=== PATIENT | male | born 1950 | race Caucasian/White ===

== ENCOUNTER → 2023-08-17 09:04 | Outpatient (REF) | payer MEDICARE, SELFPAY | LOC: REG 09:04 | PROVIDERS: ATTENDING PHYSICIAN Internal Medicine Hematology & Oncology; FAMILY PHYSICIAN Family Medicine | DX: C18.7 Malignant neoplasm of sigmoid colon (principal); C78.7 Secondary malignant neoplasm of liver and intrahepatic bile duct; D70.1 Agranulocytosis secondary to cancer chemotherapy; R04.0 Epistaxis; D69.6 Thrombocytopenia, unspecified; G62.0 Drug-induced polyneuropathy | CPT/HCPCS: 36415; 86850; 86900; 86901; 86920 ==

== ENCOUNTER 2023-08-19 08:23 | Outpatient (RCR) | payer MEDICARE, SELFPAY ==
[2023-08-19] VITALS (7 sets, daily range): BP systolic 116–134; BP diastolic 56–61
[2023-08-19] MEDS: TYLENOL 650 MG PO (08:56)
== END 2023-08-21 23:59 | disposition home or self-care (01) ==
LOC: OID 08:23
PROVIDERS: ATTENDING PHYSICIAN Internal Medicine Hematology & Oncology; FAMILY PHYSICIAN Family Medicine
DX: C18.7 Malignant neoplasm of sigmoid colon (principal)
CPT/HCPCS: 36415; 36430; 86850; 86900; 86901; 86920; P9016

== ENCOUNTER → 2023-08-21 12:29 | Outpatient (REF) | payer MEDICARE, SELFPAY ==
[2023-08-21 13:17] LABS: % Basophils 0.4 % (0-2); % Eosinophils 1.1 % (0-6); % Immature Granulocytes 1.7 % (0-0.5); % Lymphocytes 11.4 % (20.5-51.1); % Monocytes 9.2 % (1.7-9.3); % Neutrophils 76.2 % (42.2-75.2); Absolute Eosinophils 0.1 10^3/uL (0-0.7); Absolute Immature Granulocytes 0.2 10^3/uL (0-0.05); Absolute Monocytes 0.8 10^3/uL (0.1-0.6); Absolute Neutrophils 6.9 10^3/uL (1.4-6.5); Hematocrit 30.8 % (39.0-52.0); Mean Corp Hgb Conc. 32.8 g/dL (33.0-37.0); Mean Corpuscular Hgb 36.1 pg (27.0-31.0); Mean Platelet Volume 11.5 fL (7.4-10.4); Nucleated Red Blood Cells % 0 % (-); Platelet Count 71 10^3/uL (130-400); Red Cell Dist. Width 18.8 % (11.5-14.5)
[2023-08-21 13:21] LABS: Hemoglobin 10.1 g/dL (13.0-18.0)
[2023-08-21 13:42] LABS: ALT (SGPT) 31 U/L (0-50); AST (SGOT) 36 U/L (17-59); Albumin 3.6 g/dl (3.5-5.0); Alkaline Phosphatase 249 U/L (38-126); Blood Urea Nitrogen 12 mg/dl (9-20); Calcium 8.6 mg/dl (8.4-10.2); Carbon Dioxide 28 mmol/L (22-30); Chloride 107 mmol/L (98-107); Glucose 150 mg/dl (70-99); Potassium 4.7 mmol/L (3.5-5.1); Sodium 138 mmol/L (135-145); Total Bilirubin 0.7 mg/dl (0.2-1.3); Total Protein 6.5 g/dl (6.3-8.2); eGFR > 60.00
== END ==
LOC: REG 12:29
PROVIDERS: ATTENDING PHYSICIAN Internal Medicine Hematology & Oncology; FAMILY PHYSICIAN Family Medicine
DX: C18.7 Malignant neoplasm of sigmoid colon (principal); C78.7 Secondary malignant neoplasm of liver and intrahepatic bile duct; D70.1 Agranulocytosis secondary to cancer chemotherapy; R04.0 Epistaxis; D69.6 Thrombocytopenia, unspecified; G62.0 Drug-induced polyneuropathy
CPT/HCPCS: 36415; 80053; 85025

== ENCOUNTER → 2023-08-26 08:19 | Outpatient (REF) | payer MEDICARE, SELFPAY ==
[2023-08-26 09:16] LABS: % Basophils 0.4 % (0-2); % Eosinophils 2.5 % (0-6); % Immature Granulocytes 1.4 % (0-0.5); % Lymphocytes 14.1 % (20.5-51.1); % Neutrophils 71.6 % (42.2-75.2); Absolute Eosinophils 0.2 10^3/uL (0-0.7); Absolute Immature Granulocytes 0.1 10^3/uL (0-0.05); Absolute Monocytes 0.7 10^3/uL (0.1-0.6); Hematocrit 32.1 % (39.0-52.0); Hemoglobin 10.3 g/dL (13.0-18.0); Mean Corp Hgb Conc. 32.1 g/dL (33.0-37.0); Mean Corpuscular Hgb 35.4 pg (27.0-31.0); Mean Corpuscular Volume 110.3 fL (80.0-94.0); Nucleated Red Blood Cells % 0 % (-); Platelet Count 87 10^3/uL (130-400); Red Blood Cell Count 2.91 10^6/uL (4.70-6.10); Red Cell Dist. Width 17.7 % (11.5-14.5); White Blood Cell Count 6.9 10^3/uL (4.8-10.8)
[2023-08-26 10:13] LABS: ALT (SGPT) 29 U/L (0-50); AST (SGOT) 34 U/L (17-59); Albumin 3.3 g/dl (3.5-5.0); Alkaline Phosphatase 233 U/L (38-126); Blood Urea Nitrogen 13 mg/dl (9-20); Calcium 8.9 mg/dl (8.4-10.2); Carbon Dioxide 22 mmol/L (22-30); Chloride 102 mmol/L (98-107); Glucose 158 mg/dl (70-99); Potassium 3.9 mmol/L (3.5-5.1); Sodium 136 mmol/L (135-145); Total Bilirubin 0.7 mg/dl (0.2-1.3); Total Protein 6.2 g/dl (6.3-8.2); eGFR > 60.00
== END ==
LOC: REG 08:19
PROVIDERS: ATTENDING PHYSICIAN Internal Medicine Hematology & Oncology; FAMILY PHYSICIAN Family Medicine
DX: C18.7 Malignant neoplasm of sigmoid colon (principal); C78.7 Secondary malignant neoplasm of liver and intrahepatic bile duct; D70.1 Agranulocytosis secondary to cancer chemotherapy; R04.0 Epistaxis; D69.6 Thrombocytopenia, unspecified; G62.0 Drug-induced polyneuropathy; D63.0 Anemia in neoplastic disease
CPT/HCPCS: 36415; 80053; 85025; 86850; 86900; 86901

== ENCOUNTER → 2023-09-02 08:06 | Outpatient (REF) | payer MEDICARE, SELFPAY ==
[2023-09-02 08:58] LABS: % Basophils 0.6 % (0-2); % Immature Granulocytes 1.4 % (0-0.5); % Monocytes 4.5 % (1.7-9.3); % Neutrophils 82.5 % (42.2-75.2); Absolute Basophils 0.1 10^3/uL (0-0.2); Absolute Eosinophils 0.1 10^3/uL (0-0.7); Absolute Immature Granulocytes 0.1 10^3/uL (0-0.05); Absolute Lymphocytes 0.8 10^3/uL (1.2-3.4); Absolute Monocytes 0.4 10^3/uL (0.1-0.6); Absolute Neutrophils 6.6 10^3/uL (1.4-6.5); Hematocrit 28.9 % (39.0-52.0); Hemoglobin 9.3 g/dL (13.0-18.0); Mean Corp Hgb Conc. 32.2 g/dL (33.0-37.0); Mean Corpuscular Hgb 35.9 pg (27.0-31.0); Mean Corpuscular Volume 111.6 fL (80.0-94.0); Mean Platelet Volume 11.2 fL (7.4-10.4); Nucleated Red Blood Cells % 0 % (-); Platelet Count 92 10^3/uL (130-400); Red Blood Cell Count 2.59 10^6/uL (4.70-6.10)
[2023-09-02 09:22] LABS: Blood Urea Nitrogen 30 mg/dl (9-20); Iron 121 ug/dl (49-181)
[2023-09-02 09:31] LABS: Percent Saturation 42 % (20-50); Total Iron Binding Capacity 284 ug/dl (261-462)
[2023-09-02 09:32] LABS: Protein/creatinine Ratio 0.2; Urine Protein 14 mg/dl
== END ==
LOC: REG 08:06
PROVIDERS: ATTENDING PHYSICIAN Internal Medicine Hematology & Oncology; FAMILY PHYSICIAN Family Medicine
DX: C18.7 Malignant neoplasm of sigmoid colon (principal); C78.7 Secondary malignant neoplasm of liver and intrahepatic bile duct; D70.1 Agranulocytosis secondary to cancer chemotherapy; R04.0 Epistaxis; D69.6 Thrombocytopenia, unspecified; G62.0 Drug-induced polyneuropathy; D63.0 Anemia in neoplastic disease
CPT/HCPCS: 36415; 82565; 82570; 82728; 83540; 83550; 84156; 84520; 85025

== ENCOUNTER → 2023-09-09 08:11 | Outpatient (REF) | payer MEDICARE, SELFPAY ==
[2023-09-09 09:00] LABS: % Basophils 0.4 % (0-2); % Eosinophils 2.3 % (0-6); % Immature Granulocytes 0.7 % (0-0.5); % Lymphocytes 14.1 % (20.5-51.1); % Monocytes 7.9 % (1.7-9.3); % Neutrophils 74.6 % (42.2-75.2); Absolute Eosinophils 0.1 10^3/uL (0-0.7); Absolute Lymphocytes 0.8 10^3/uL (1.2-3.4); Absolute Monocytes 0.5 10^3/uL (0.1-0.6); Absolute Neutrophils 4.2 10^3/uL (1.4-6.5); Hematocrit 30.8 % (39.0-52.0); Hemoglobin 9.9 g/dL (13.0-18.0); Mean Corp Hgb Conc. 32.1 g/dL (33.0-37.0); Mean Corpuscular Hgb 36.1 pg (27.0-31.0); Mean Corpuscular Volume 112.4 fL (80.0-94.0); Mean Platelet Volume 11.9 fL (7.4-10.4); Nucleated Red Blood Cells % 0 % (-); Platelet Count 94 10^3/uL (130-400); Red Blood Cell Count 2.74 10^6/uL (4.70-6.10); Red Cell Dist. Width 17.2 % (11.5-14.5); White Blood Cell Count 5.7 10^3/uL (4.8-10.8)
[2023-09-09 09:32] LABS: ALT (SGPT) 34 U/L (0-50); AST (SGOT) 35 U/L (17-59); Albumin 3.6 g/dl (3.5-5.0); Alkaline Phosphatase 277 U/L (38-126); Blood Urea Nitrogen 16 mg/dl (9-20); Calcium 8.6 mg/dl (8.4-10.2); Carbon Dioxide 25 mmol/L (22-30); Chloride 104 mmol/L (98-107); Glucose 170 mg/dl (70-99); Potassium 3.9 mmol/L (3.5-5.1); Sodium 137 mmol/L (135-145); Total Bilirubin 0.6 mg/dl (0.2-1.3); Total Protein 6.4 g/dl (6.3-8.2); eGFR > 60.00
[2023-09-09 10:26] LABS: Folate > 20.0 ng/ml (2.76-20); Vitamin B12 > 1000 pg/ml (239-931)
== END ==
LOC: REG 08:11
PROVIDERS: ATTENDING PHYSICIAN Internal Medicine Hematology & Oncology; FAMILY PHYSICIAN Family Medicine; REFERRING PHYSICIAN Nurse Practitioner Adult Health
DX: C18.7 Malignant neoplasm of sigmoid colon (principal); C78.7 Secondary malignant neoplasm of liver and intrahepatic bile duct; D70.1 Agranulocytosis secondary to cancer chemotherapy; R04.0 Epistaxis; D69.6 Thrombocytopenia, unspecified; G62.0 Drug-induced polyneuropathy; D63.0 Anemia in neoplastic disease
CPT/HCPCS: 36415; 80053; 82607; 82746; 85025; 86850; 86900; 86901

== ENCOUNTER 2023-09-10 13:08 | Outpatient (RCR) | payer MEDICARE, SELFPAY ==
[2023-09-10 10:48] LABS: CEA 3.86 ng/ml
== END 2023-09-19 23:59 | disposition home or self-care (01) ==
LOC: OID 13:08
PROVIDERS: ATTENDING PHYSICIAN Internal Medicine Hematology & Oncology; FAMILY PHYSICIAN Family Medicine
DX: C18.7 Malignant neoplasm of sigmoid colon (principal)
CPT/HCPCS: 82378

== ENCOUNTER → 2023-09-16 07:50 | Outpatient (REF) | payer MEDICARE, SELFPAY ==
[2023-09-16 08:50] LABS: % Basophils 0.9 % (0-2); % Eosinophils 1.7 % (0-6); % Immature Granulocytes 2.6 % (0-0.5); % Lymphocytes 10.8 % (20.5-51.1); % Monocytes 4.4 % (1.7-9.3); % Neutrophils 79.6 % (42.2-75.2); Absolute Basophils 0.1 10^3/uL (0-0.2); Absolute Eosinophils 0.1 10^3/uL (0-0.7); Absolute Immature Granulocytes 0.2 10^3/uL (0-0.05); Absolute Lymphocytes 0.8 10^3/uL (1.2-3.4); Absolute Monocytes 0.3 10^3/uL (0.1-0.6); Absolute Neutrophils 6.1 10^3/uL (1.4-6.5); Hematocrit 30.4 % (39.0-52.0); Hemoglobin 9.8 g/dL (13.0-18.0); Mean Corp Hgb Conc. 32.2 g/dL (33.0-37.0); Mean Corpuscular Hgb 35.5 pg (27.0-31.0); Mean Corpuscular Volume 110.1 fL (80.0-94.0); Mean Platelet Volume 11.3 fL (7.4-10.4); Nucleated Red Blood Cells % 0 % (-); Platelet Count 85 10^3/uL (130-400); Red Blood Cell Count 2.76 10^6/uL (4.70-6.10); Red Cell Dist. Width 16.9 % (11.5-14.5); White Blood Cell Count 7.7 10^3/uL (4.8-10.8)
[2023-09-16 09:28] LABS: ALT (SGPT) 27 U/L (0-50); AST (SGOT) 26 U/L (17-59); Albumin 3.2 g/dl (3.5-5.0); Alkaline Phosphatase 245 U/L (38-126); Blood Urea Nitrogen 30 mg/dl (9-20); Calcium 8.7 mg/dl (8.4-10.2); Carbon Dioxide 26 mmol/L (22-30); Chloride 106 mmol/L (98-107); Glucose 150 mg/dl (70-99); Sodium 137 mmol/L (135-145); Total Bilirubin 0.9 mg/dl (0.2-1.3); Total Protein 6.1 g/dl (6.3-8.2); eGFR > 60.00
== END ==
LOC: REG 07:50
PROVIDERS: ATTENDING PHYSICIAN Internal Medicine Hematology & Oncology; FAMILY PHYSICIAN Family Medicine
DX: C18.7 Malignant neoplasm of sigmoid colon (principal); C78.7 Secondary malignant neoplasm of liver and intrahepatic bile duct; D70.1 Agranulocytosis secondary to cancer chemotherapy; R04.0 Epistaxis; D69.6 Thrombocytopenia, unspecified; G62.0 Drug-induced polyneuropathy; D63.0 Anemia in neoplastic disease
CPT/HCPCS: 36415; 80053; 85025; 86850; 86900; 86901

== ENCOUNTER → 2023-09-23 08:01 | Outpatient (REF) | payer MEDICARE, SELFPAY ==
[2023-09-23 08:53] LABS: % Basophils 0.5 % (0-2); % Eosinophils 1.7 % (0-6); % Immature Granulocytes 1.2 % (0-0.5); % Lymphocytes 13.7 % (20.5-51.1); % Monocytes 9.8 % (1.7-9.3); % Neutrophils 73.1 % (42.2-75.2); Absolute Eosinophils 0.1 10^3/uL (0-0.7); Absolute Immature Granulocytes 0.1 10^3/uL (0-0.05); Absolute Lymphocytes 0.8 10^3/uL (1.2-3.4); Absolute Monocytes 0.6 10^3/uL (0.1-0.6); Absolute Neutrophils 4.3 10^3/uL (1.4-6.5); Hematocrit 27.9 % (39.0-52.0); Hemoglobin 9.2 g/dL (13.0-18.0); Mean Corpuscular Hgb 36.1 pg (27.0-31.0); Mean Corpuscular Volume 109.4 fL (80.0-94.0); Mean Platelet Volume 11.1 fL (7.4-10.4); Nucleated Red Blood Cells % 0 % (-); Platelet Count 108 10^3/uL (130-400); Red Blood Cell Count 2.55 10^6/uL (4.70-6.10); Red Cell Dist. Width 17.6 % (11.5-14.5); White Blood Cell Count 5.8 10^3/uL (4.8-10.8)
[2023-09-23 09:07] LABS: ALT (SGPT) 29 U/L (0-50); AST (SGOT) 30 U/L (17-59); Albumin 3.4 g/dl (3.5-5.0); Alkaline Phosphatase 238 U/L (38-126); Blood Urea Nitrogen 11 mg/dl (9-20); Calcium 8.6 mg/dl (8.4-10.2); Carbon Dioxide 24 mmol/L (22-30); Chloride 103 mmol/L (98-107); Glucose 136 mg/dl (70-99); Potassium 3.8 mmol/L (3.5-5.1); Sodium 139 mmol/L (135-145); Total Bilirubin 0.5 mg/dl (0.2-1.3); Total Protein 6.3 g/dl (6.3-8.2); eGFR > 60.00
== END ==
LOC: REG 08:01
PROVIDERS: ATTENDING PHYSICIAN Internal Medicine Hematology & Oncology; FAMILY PHYSICIAN Family Medicine
DX: C18.7 Malignant neoplasm of sigmoid colon (principal); C78.7 Secondary malignant neoplasm of liver and intrahepatic bile duct; D70.1 Agranulocytosis secondary to cancer chemotherapy; R04.0 Epistaxis; D69.6 Thrombocytopenia, unspecified; G62.0 Drug-induced polyneuropathy; D63.0 Anemia in neoplastic disease
CPT/HCPCS: 36415; 80053; 85025

== ENCOUNTER 2023-09-26 13:18 | Outpatient (RCR) | payer MEDICARE, SELFPAY ==
[2023-09-26 11:53] LABS: Protein/creatinine Ratio 0.2; Urine Protein 14 mg/dl
[2023-10-10 12:12] LABS: % Basophils 0.3 % (0-2); % Eosinophils 0.2 % (0-6); % Immature Granulocytes 0.7 % (0-0.5); % Lymphocytes 6.6 % (20.5-51.1); % Monocytes 4.3 % (1.7-9.3); % Neutrophils 87.9 % (42.2-75.2); Absolute Lymphocytes 0.4 10^3/uL (1.2-3.4); Absolute Monocytes 0.3 10^3/uL (0.1-0.6); Absolute Neutrophils 5.1 10^3/uL (1.4-6.5); Hematocrit 28.4 % (39.0-52.0); Hemoglobin 9.2 g/dL (13.0-18.0); Mean Corp Hgb Conc. 32.4 g/dL (33.0-37.0); Mean Corpuscular Hgb 36.1 pg (27.0-31.0); Mean Corpuscular Volume 111.4 fL (80.0-94.0); Mean Platelet Volume 11.1 fL (7.4-10.4); Platelet Count 83 10^3/uL (130-400); Red Blood Cell Count 2.55 10^6/uL (4.70-6.10); Red Cell Dist. Width 17.1 % (11.5-14.5); White Blood Cell Count 5.8 10^3/uL (4.8-10.8)
[2023-10-10 12:57] LABS: Protein/creatinine Ratio 0.2; Urine Protein 18 mg/dl
== END 2023-10-20 23:59 | disposition home or self-care (01) ==
LOC: OID 13:18
PROVIDERS: ATTENDING PHYSICIAN Internal Medicine Hematology & Oncology; FAMILY PHYSICIAN Family Medicine
DX: C18.7 Malignant neoplasm of sigmoid colon (principal)
CPT/HCPCS: 82570; 84156; 85025

== ENCOUNTER → 2023-09-30 07:58 | Outpatient (REF) | payer MEDICARE, SELFPAY ==
[2023-09-30 08:35] LABS: % Eosinophils 1.4 % (0-6); % Immature Granulocytes 1.6 % (0-0.5); % Lymphocytes 12.8 % (20.5-51.1); % Monocytes 4.5 % (1.7-9.3); % Neutrophils 78.7 % (42.2-75.2); Absolute Basophils 0.1 10^3/uL (0-0.2); Absolute Eosinophils 0.1 10^3/uL (0-0.7); Absolute Immature Granulocytes 0.1 10^3/uL (0-0.05); Absolute Lymphocytes 0.6 10^3/uL (1.2-3.4); Absolute Monocytes 0.2 10^3/uL (0.1-0.6); Absolute Neutrophils 3.9 10^3/uL (1.4-6.5); Hematocrit 27.9 % (39.0-52.0); Mean Corp Hgb Conc. 32.3 g/dL (33.0-37.0); Mean Corpuscular Hgb 35.9 pg (27.0-31.0); Mean Corpuscular Volume 111.2 fL (80.0-94.0); Mean Platelet Volume 11.6 fL (7.4-10.4); Nucleated Red Blood Cells % 0 % (-); Platelet Count 73 10^3/uL (130-400); Red Blood Cell Count 2.51 10^6/uL (4.70-6.10); Red Cell Dist. Width 17.1 % (11.5-14.5); White Blood Cell Count 4.9 10^3/uL (4.8-10.8)
[2023-09-30 09:07] LABS: ALT (SGPT) 29 U/L (0-50); AST (SGOT) 24 U/L (17-59); Albumin 3.3 g/dl (3.5-5.0); Alkaline Phosphatase 219 U/L (38-126); Blood Urea Nitrogen 22 mg/dl (9-20); Calcium 8.7 mg/dl (8.4-10.2); Carbon Dioxide 26 mmol/L (22-30); Chloride 105 mmol/L (98-107); Glucose 193 mg/dl (70-99); Potassium 4.3 mmol/L (3.5-5.1); Sodium 135 mmol/L (135-145); Total Bilirubin 1.1 mg/dl (0.2-1.3); Total Protein 6.2 g/dl (6.3-8.2); eGFR > 60.00
== END ==
LOC: REG 07:58
PROVIDERS: ATTENDING PHYSICIAN Internal Medicine Hematology & Oncology; FAMILY PHYSICIAN Family Medicine
DX: C18.7 Malignant neoplasm of sigmoid colon (principal); C78.7 Secondary malignant neoplasm of liver and intrahepatic bile duct; D70.1 Agranulocytosis secondary to cancer chemotherapy; R04.0 Epistaxis; D69.6 Thrombocytopenia, unspecified; G62.0 Drug-induced polyneuropathy; D63.0 Anemia in neoplastic disease
CPT/HCPCS: 36415; 80053; 85025; 86850; 86900; 86901

== ENCOUNTER → 2023-10-07 08:30 | Outpatient (REF) | payer MEDICARE, SELFPAY ==
[2023-10-07 10:39] LABS: % Basophils 0.5 % (0-2); % Lymphocytes 15.8 % (20.5-51.1); % Monocytes 12.2 % (1.7-9.3); % Neutrophils 67.5 % (42.2-75.2); Absolute Eosinophils 0.1 10^3/uL (0-0.7); Absolute Immature Granulocytes 0.1 10^3/uL (0-0.05); Absolute Lymphocytes 0.9 10^3/uL (1.2-3.4); Absolute Monocytes 0.7 10^3/uL (0.1-0.6); Absolute Neutrophils 3.7 10^3/uL (1.4-6.5); Hematocrit 26.6 % (39.0-52.0); Hemoglobin 8.5 g/dL (13.0-18.0); Mean Corpuscular Hgb 35.9 pg (27.0-31.0); Mean Corpuscular Volume 112.2 fL (80.0-94.0); Mean Platelet Volume 11.9 fL (7.4-10.4); Nucleated Red Blood Cells % 0 % (-); Platelet Count 95 10^3/uL (130-400); Red Blood Cell Count 2.37 10^6/uL (4.70-6.10); Red Cell Dist. Width 17.9 % (11.5-14.5); White Blood Cell Count 5.5 10^3/uL (4.8-10.8)
[2023-10-07 11:07] LABS: ALT (SGPT) 30 U/L (0-50); AST (SGOT) 34 U/L (17-59); Albumin 3.3 g/dl (3.5-5.0); Alkaline Phosphatase 275 U/L (38-126); Blood Urea Nitrogen 9 mg/dl (9-20); Calcium 8.2 mg/dl (8.4-10.2); Carbon Dioxide 23 mmol/L (22-30); Chloride 106 mmol/L (98-107); Glucose 146 mg/dl (70-99); Potassium 4.3 mmol/L (3.5-5.1); Sodium 135 mmol/L (135-145); Total Bilirubin 0.6 mg/dl (0.2-1.3); Total Protein 6.1 g/dl (6.3-8.2); eGFR > 60.00
[2023-10-07 11:35] LABS: CEA 3.99 ng/ml
== END ==
LOC: REG 08:30
PROVIDERS: ATTENDING PHYSICIAN Internal Medicine Hematology & Oncology; REFERRING PHYSICIAN Nurse Practitioner Adult Health
DX: C18.7 Malignant neoplasm of sigmoid colon (principal); C78.7 Secondary malignant neoplasm of liver and intrahepatic bile duct; D70.1 Agranulocytosis secondary to cancer chemotherapy; R04.0 Epistaxis; D69.6 Thrombocytopenia, unspecified; G62.0 Drug-induced polyneuropathy; D63.0 Anemia in neoplastic disease
CPT/HCPCS: 36415; 80053; 82378; 85025; 86850; 86900; 86901

== ENCOUNTER → 2023-10-14 07:35 | Outpatient (REF) | payer MEDICARE, SELFPAY ==
[2023-10-14 08:07] LABS: % Basophils 0.8 % (0-2); % Eosinophils 2.1 % (0-6); % Immature Granulocytes 1.2 % (0-0.5); % Lymphocytes 11.9 % (20.5-51.1); % Monocytes 4.5 % (1.7-9.3); % Neutrophils 79.5 % (42.2-75.2); Absolute Eosinophils 0.1 10^3/uL (0-0.7); Absolute Immature Granulocytes 0.1 10^3/uL (0-0.05); Absolute Lymphocytes 0.6 10^3/uL (1.2-3.4); Absolute Monocytes 0.2 10^3/uL (0.1-0.6); Absolute Neutrophils 4.1 10^3/uL (1.4-6.5); Hematocrit 25.9 % (39.0-52.0); Hemoglobin 8.3 g/dL (13.0-18.0); Mean Corpuscular Hgb 36.2 pg (27.0-31.0); Mean Corpuscular Volume 113.1 fL (80.0-94.0); Mean Platelet Volume 10.5 fL (7.4-10.4); Nucleated Red Blood Cells % 0 % (-); Platelet Count 77 10^3/uL (130-400); Red Blood Cell Count 2.29 10^6/uL (4.70-6.10); White Blood Cell Count 5.1 10^3/uL (4.8-10.8)
[2023-10-14 08:31] LABS: ALT (SGPT) 28 U/L (0-50); AST (SGOT) 26 U/L (17-59); Albumin 3.2 g/dl (3.5-5.0); Alkaline Phosphatase 246 U/L (38-126); Blood Urea Nitrogen 21 mg/dl (9-20); Calcium 8.9 mg/dl (8.4-10.2); Carbon Dioxide 26 mmol/L (22-30); Chloride 107 mmol/L (98-107); Glucose 165 mg/dl (70-99); Potassium 4.6 mmol/L (3.5-5.1); Sodium 137 mmol/L (135-145); Total Bilirubin 0.8 mg/dl (0.2-1.3); eGFR > 60.00
== END ==
LOC: REG 07:35
PROVIDERS: ATTENDING PHYSICIAN Internal Medicine Hematology & Oncology; FAMILY PHYSICIAN Family Medicine
DX: C18.7 Malignant neoplasm of sigmoid colon (principal); C78.7 Secondary malignant neoplasm of liver and intrahepatic bile duct; D70.1 Agranulocytosis secondary to cancer chemotherapy; R04.0 Epistaxis; D69.6 Thrombocytopenia, unspecified
CPT/HCPCS: 36415; 80053; 85025; 86850; 86900; 86901

== ENCOUNTER → 2023-10-21 07:23 | Outpatient (REF) | payer MEDICARE, SELFPAY ==
[2023-10-21 08:27] LABS: % Basophils 0.6 % (0-2); % Eosinophils 1.2 % (0-6); % Immature Granulocytes 7.3 % (0-0.5); % Lymphocytes 17.5 % (20.5-51.1); % Neutrophils 61.4 % (42.2-75.2); Absolute Eosinophils 0.1 10^3/uL (0-0.7); Absolute Immature Granulocytes 0.4 10^3/uL (0-0.05); Absolute Lymphocytes 0.9 10^3/uL (1.2-3.4); Absolute Monocytes 0.6 10^3/uL (0.1-0.6); Absolute Neutrophils 3.1 10^3/uL (1.4-6.5); Hematocrit 27.3 % (39.0-52.0); Hemoglobin 8.7 g/dL (13.0-18.0); Mean Corp Hgb Conc. 31.9 g/dL (33.0-37.0); Mean Corpuscular Hgb 35.8 pg (27.0-31.0); Mean Corpuscular Volume 112.3 fL (80.0-94.0); Nucleated Red Blood Cells % 0 % (-); Platelet Count 104 10^3/uL (130-400); Red Blood Cell Count 2.43 10^6/uL (4.70-6.10); Red Cell Dist. Width 18.5 % (11.5-14.5); White Blood Cell Count 5.1 10^3/uL (4.8-10.8)
[2023-10-21 08:46] LABS: Glycohemoglobin (HgbA1c) 7.6 % (4.0-5.6)
[2023-10-21 09:10] LABS: ALT (SGPT) 28 U/L (0-50); AST (SGOT) 33 U/L (17-59); Albumin 3.4 g/dl (3.5-5.0); Alkaline Phosphatase 265 U/L (38-126); Blood Urea Nitrogen 14 mg/dl (9-20); Calcium 8.9 mg/dl (8.4-10.2); Carbon Dioxide 25 mmol/L (22-30); Chloride 101 mmol/L (98-107); Glucose 132 mg/dl (70-99); Potassium 3.9 mmol/L (3.5-5.1); Sodium 136 mmol/L (135-145); Total Bilirubin 0.6 mg/dl (0.2-1.3); Total Protein 6.2 g/dl (6.3-8.2); eGFR > 60.00
== END ==
LOC: REG 07:23
PROVIDERS: ATTENDING PHYSICIAN Family Medicine; FAMILY PHYSICIAN Internal Medicine Hematology & Oncology
DX: C18.7 Malignant neoplasm of sigmoid colon (principal); C78.7 Secondary malignant neoplasm of liver and intrahepatic bile duct; D70.1 Agranulocytosis secondary to cancer chemotherapy; R04.0 Epistaxis; D69.6 Thrombocytopenia, unspecified; G62.0 Drug-induced polyneuropathy; D63.0 Anemia in neoplastic disease; E11.51 Type 2 diabetes mellitus with diabetic peripheral angiopathy without gangrene
CPT/HCPCS: 36415; 80053; 83036; 85025; 86850; 86900; 86901

== ENCOUNTER 2023-10-25 09:41 | Outpatient (RCR) | payer MEDICARE, SELFPAY ==
[2023-10-24 10:55] LABS: % Basophils 0.2 % (0-2); % Eosinophils 0.3 % (0-6); % Immature Granulocytes 0.9 % (0-0.5); % Lymphocytes 7.5 % (20.5-51.1); % Monocytes 4.9 % (1.7-9.3); % Neutrophils 86.2 % (42.2-75.2); Absolute Immature Granulocytes 0.1 10^3/uL (0-0.05); Absolute Lymphocytes 0.5 10^3/uL (1.2-3.4); Absolute Monocytes 0.3 10^3/uL (0.1-0.6); Absolute Neutrophils 5.7 10^3/uL (1.4-6.5); Hemoglobin 7.6 g/dL (13.0-18.0); Mean Corp Hgb Conc. 31.7 g/dL (33.0-37.0); Mean Corpuscular Hgb 36.4 pg (27.0-31.0); Mean Corpuscular Volume 114.8 fL (80.0-94.0); Mean Platelet Volume 11.5 fL (7.4-10.4); Platelet Count 92 10^3/uL (130-400); Red Blood Cell Count 2.09 10^6/uL (4.70-6.10); Red Cell Dist. Width 18.3 % (11.5-14.5); White Blood Cell Count 6.6 10^3/uL (4.8-10.8)
[2023-10-24 12:31] LABS: Protein/creatinine Ratio 0.3; Urine Protein 13 mg/dl
[2023-10-25 09:45] VITALS: BP 137/49
[2023-10-25 10:10] VITALS: BP 137/49
[2023-10-25 10:29] VITALS: BP 113/52
[2023-10-25 13:09] VITALS: BP 126/43
== END 2023-11-19 23:59 | disposition home or self-care (01) ==
LOC: OID 09:41
PROVIDERS: ATTENDING PHYSICIAN Internal Medicine Hematology & Oncology; FAMILY PHYSICIAN Family Medicine
DX: C18.7 Malignant neoplasm of sigmoid colon (principal); C78.6 Secondary malignant neoplasm of retroperitoneum and peritoneum
CPT/HCPCS: 36415; 36430; 82570; 84156; 85025; 86850; 86900; 86901; 86920; P9016

== ENCOUNTER → 2023-10-28 07:47 | Outpatient (REF) | payer MEDICARE, SELFPAY ==
[2023-10-28 09:03] LABS: % Basophils 0.9 % (0-2); % Eosinophils 1.1 % (0-6); % Immature Granulocytes 0.7 % (0-0.5); % Monocytes 4.3 % (1.7-9.3); Absolute Basophils 0.1 10^3/uL (0-0.2); Absolute Eosinophils 0.1 10^3/uL (0-0.7); Absolute Lymphocytes 0.6 10^3/uL (1.2-3.4); Absolute Monocytes 0.2 10^3/uL (0.1-0.6); Absolute Neutrophils 4.6 10^3/uL (1.4-6.5); Hematocrit 27.4 % (39.0-52.0); Mean Corp Hgb Conc. 32.8 g/dL (33.0-37.0); Mean Corpuscular Hgb 35.4 pg (27.0-31.0); Mean Corpuscular Volume 107.9 fL (80.0-94.0); Mean Platelet Volume 11.1 fL (7.4-10.4); Nucleated Red Blood Cells % 0 % (-); Platelet Count 74 10^3/uL (130-400); Red Blood Cell Count 2.54 10^6/uL (4.70-6.10); Red Cell Dist. Width 18.8 % (11.5-14.5); White Blood Cell Count 5.6 10^3/uL (4.8-10.8)
[2023-10-28 09:32] LABS: ALT (SGPT) 29 U/L (0-50); AST (SGOT) 27 U/L (17-59); Albumin 3.2 g/dl (3.5-5.0); Alkaline Phosphatase 233 U/L (38-126); Blood Urea Nitrogen 33 mg/dl (9-20); Carbon Dioxide 23 mmol/L (22-30); Chloride 107 mmol/L (98-107); Glucose 176 mg/dl (70-99); Potassium 4.5 mmol/L (3.5-5.1); Sodium 135 mmol/L (135-145); Total Bilirubin 1.1 mg/dl (0.2-1.3); Total Protein 5.9 g/dl (6.3-8.2); eGFR > 60.00
== END ==
LOC: REG 07:47
PROVIDERS: ATTENDING PHYSICIAN Internal Medicine Hematology & Oncology
DX: C18.7 Malignant neoplasm of sigmoid colon (principal); C78.7 Secondary malignant neoplasm of liver and intrahepatic bile duct; D70.1 Agranulocytosis secondary to cancer chemotherapy; R04.0 Epistaxis; D69.6 Thrombocytopenia, unspecified; G62.0 Drug-induced polyneuropathy; D63.0 Anemia in neoplastic disease
CPT/HCPCS: 36415; 80053; 85025

== ENCOUNTER → 2023-11-04 07:25 | Outpatient (REF) | payer MEDICARE, SELFPAY ==
[2023-11-04 08:11] LABS: % Basophils 0.6 % (0-2); % Eosinophils 1.3 % (0-6); % Immature Granulocytes 2.3 % (0-0.5); % Lymphocytes 12.6 % (20.5-51.1); % Monocytes 11.3 % (1.7-9.3); % Neutrophils 71.9 % (42.2-75.2); Absolute Eosinophils 0.1 10^3/uL (0-0.7); Absolute Immature Granulocytes 0.1 10^3/uL (0-0.05); Absolute Lymphocytes 0.7 10^3/uL (1.2-3.4); Absolute Monocytes 0.6 10^3/uL (0.1-0.6); Absolute Neutrophils 3.8 10^3/uL (1.4-6.5); Hematocrit 26.8 % (39.0-52.0); Hemoglobin 9.1 g/dL (13.0-18.0); Mean Corpuscular Hgb 36.8 pg (27.0-31.0); Mean Corpuscular Volume 108.5 fL (80.0-94.0); Mean Platelet Volume 12.1 fL (7.4-10.4); Nucleated Red Blood Cells % 0 % (-); Platelet Count 110 10^3/uL (130-400); Red Blood Cell Count 2.47 10^6/uL (4.70-6.10); Red Cell Dist. Width 19.3 % (11.5-14.5); White Blood Cell Count 5.3 10^3/uL (4.8-10.8)
[2023-11-04 08:50] LABS: ALT (SGPT) 32 U/L (0-50); AST (SGOT) 33 U/L (17-59); Albumin 3.4 g/dl (3.5-5.0); Alkaline Phosphatase 288 U/L (38-126); Blood Urea Nitrogen 12 mg/dl (9-20); Calcium 8.5 mg/dl (8.4-10.2); Carbon Dioxide 22 mmol/L (22-30); Chloride 105 mmol/L (98-107); Glucose 137 mg/dl (70-99); Sodium 133 mmol/L (135-145); Total Bilirubin 0.7 mg/dl (0.2-1.3); Total Protein 6.2 g/dl (6.3-8.2); eGFR > 60.00
[2023-11-04 09:03] LABS: Protein/creatinine Ratio 0.3; Urine Protein 16 mg/dl
== END ==
LOC: REG 07:25
PROVIDERS: ATTENDING PHYSICIAN Internal Medicine Hematology & Oncology
DX: C18.7 Malignant neoplasm of sigmoid colon (principal); C78.7 Secondary malignant neoplasm of liver and intrahepatic bile duct; D70.1 Agranulocytosis secondary to cancer chemotherapy; R04.0 Epistaxis; D69.6 Thrombocytopenia, unspecified; G62.0 Drug-induced polyneuropathy; D63.0 Anemia in neoplastic disease
CPT/HCPCS: 36415; 80053; 82570; 84156; 85025; 86850; 86900; 86901

== ENCOUNTER → 2023-11-11 07:23 | Outpatient (REF) | payer MEDICARE, SELFPAY ==
[2023-11-11 08:25] LABS: Hematocrit 23.9 % (39.0-52.0); Hemoglobin 7.9 g/dL (13.0-18.0); Mean Corp Hgb Conc. 33.1 g/dL (33.0-37.0); Mean Corpuscular Hgb 37.1 pg (27.0-31.0); Mean Corpuscular Volume 112.2 fL (80.0-94.0); Mean Platelet Volume 11.3 fL (7.4-10.4); Platelet Count 64 10^3/uL (130-400); Red Blood Cell Count 2.13 10^6/uL (4.70-6.10); Red Cell Dist. Width 18.7 % (11.5-14.5); White Blood Cell Count 3.2 10^3/uL (4.8-10.8)
[2023-11-11 09:07] LABS: ALT (SGPT) 26 U/L (0-50); AST (SGOT) 22 U/L (17-59); Albumin 3.1 g/dl (3.5-5.0); Alkaline Phosphatase 225 U/L (38-126); Blood Urea Nitrogen 32 mg/dl (9-20); Calcium 8.7 mg/dl (8.4-10.2); Carbon Dioxide 23 mmol/L (22-30); Chloride 107 mmol/L (98-107); Glucose 153 mg/dl (70-99); Potassium 4.6 mmol/L (3.5-5.1); Sodium 135 mmol/L (135-145); Total Bilirubin 0.7 mg/dl (0.2-1.3); Total Protein 5.8 g/dl (6.3-8.2); eGFR > 60.00
[2023-11-11 09:15] LABS: Absolute Neutrophils -Man Diff 2.5 10^3/uL (1.4-6.5); Anisocytosis 1+; Band Neutrophils 1 % (0-3); Eosinophils 3 % (0-6); Lymphocytes 14 % (20-51); Macrocytosis 1+; Monocytes 4 % (2-9); Normal RBC Morphology No; Platelets Checked Yes; Segmented Neutrophils 78 % (42-75)
[2023-11-11 09:16] LABS: Tear Drop Red Blood Cells Slight; Total Cells Counted 100
== END ==
LOC: REG 07:23
PROVIDERS: ATTENDING PHYSICIAN Internal Medicine Hematology & Oncology; FAMILY PHYSICIAN Family Medicine
DX: C18.7 Malignant neoplasm of sigmoid colon (principal); C78.7 Secondary malignant neoplasm of liver and intrahepatic bile duct; D70.1 Agranulocytosis secondary to cancer chemotherapy; R04.0 Epistaxis; D69.6 Thrombocytopenia, unspecified; G62.0 Drug-induced polyneuropathy; D63.0 Anemia in neoplastic disease
CPT/HCPCS: 36415; 80053; 85025; 86850; 86900; 86901

== ENCOUNTER → 2023-11-18 07:02 | Outpatient (REF) | payer MEDICARE, SELFPAY ==
[2023-11-18 08:15] LABS: % Basophils 0.5 % (0-2); % Eosinophils 0.9 % (0-6); % Immature Granulocytes 2.3 % (0-0.5); % Lymphocytes 15.8 % (20.5-51.1); % Monocytes 10.7 % (1.7-9.3); % Neutrophils 69.8 % (42.2-75.2); Absolute Eosinophils 0.1 10^3/uL (0-0.7); Absolute Immature Granulocytes 0.1 10^3/uL (0-0.05); Absolute Lymphocytes 0.9 10^3/uL (1.2-3.4); Absolute Monocytes 0.6 10^3/uL (0.1-0.6); Hematocrit 25.6 % (39.0-52.0); Hemoglobin 8.2 g/dL (13.0-18.0); Mean Corpuscular Hgb 36.4 pg (27.0-31.0); Mean Corpuscular Volume 113.8 fL (80.0-94.0); Mean Platelet Volume 11.5 fL (7.4-10.4); Nucleated Red Blood Cells % 0 % (-); Platelet Count 108 10^3/uL (130-400); Red Blood Cell Count 2.25 10^6/uL (4.70-6.10); Red Cell Dist. Width 19.7 % (11.5-14.5); White Blood Cell Count 5.7 10^3/uL (4.8-10.8)
[2023-11-18 09:01] LABS: ALT (SGPT) 27 U/L (0-50); AST (SGOT) 26 U/L (17-59); Albumin 3.2 g/dl (3.5-5.0); Alkaline Phosphatase 259 U/L (38-126); Blood Urea Nitrogen 12 mg/dl (9-20); Calcium 8.6 mg/dl (8.4-10.2); Carbon Dioxide 25 mmol/L (22-30); Chloride 104 mmol/L (98-107); Glucose 122 mg/dl (70-99); Iron 124 ug/dl (49-181); Potassium 4.5 mmol/L (3.5-5.1); Sodium 134 mmol/L (135-145); Total Bilirubin 0.4 mg/dl (0.2-1.3); Total Protein 6.1 g/dl (6.3-8.2); eGFR > 60.00
[2023-11-18 09:11] LABS: Percent Saturation 45 % (20-50); Total Iron Binding Capacity 271 ug/dl (261-462)
[2023-11-18 09:12] LABS: Protein/creatinine Ratio 0.5; Urine Protein 15 mg/dl
== END ==
LOC: REG 07:02
PROVIDERS: ATTENDING PHYSICIAN Internal Medicine Hematology & Oncology; FAMILY PHYSICIAN Family Medicine
DX: C18.7 Malignant neoplasm of sigmoid colon (principal); C78.7 Secondary malignant neoplasm of liver and intrahepatic bile duct; D70.1 Agranulocytosis secondary to cancer chemotherapy; R04.0 Epistaxis; D69.6 Thrombocytopenia, unspecified; G62.0 Drug-induced polyneuropathy; D63.0 Anemia in neoplastic disease
CPT/HCPCS: 36415; 80053; 82378; 82570; 82728; 83540; 83550; 84156; 85025

== ENCOUNTER → 2023-12-02 07:22 | Outpatient (REF) | payer MEDICARE, SELFPAY ==
[2023-12-02 08:36] LABS: % Basophils 0.6 % (0-2); % Eosinophils 1.4 % (0-6); % Immature Granulocytes 2.7 % (0-0.5); % Lymphocytes 17.6 % (20.5-51.1); % Monocytes 9.2 % (1.7-9.3); % Neutrophils 68.5 % (42.2-75.2); Absolute Eosinophils 0.1 10^3/uL (0-0.7); Absolute Immature Granulocytes 0.1 10^3/uL (0-0.05); Absolute Lymphocytes 0.9 10^3/uL (1.2-3.4); Absolute Monocytes 0.5 10^3/uL (0.1-0.6); Absolute Neutrophils 3.4 10^3/uL (1.4-6.5); Hematocrit 24.6 % (39.0-52.0); Hemoglobin 7.8 g/dL (13.0-18.0); Mean Corp Hgb Conc. 31.7 g/dL (33.0-37.0); Mean Corpuscular Hgb 37.1 pg (27.0-31.0); Mean Corpuscular Volume 117.1 fL (80.0-94.0); Mean Platelet Volume 11.9 fL (7.4-10.4); Nucleated Red Blood Cells % 0 % (-); Platelet Count 101 10^3/uL (130-400); White Blood Cell Count 4.9 10^3/uL (4.8-10.8)
[2023-12-02 08:56] LABS: Urine Protein 13 mg/dl (0-12)
[2023-12-02 09:01] LABS: ALT (SGPT) 35 U/L (0-50); AST (SGOT) 45 U/L (17-59); Albumin 3.2 g/dl (3.5-5.0); Alkaline Phosphatase 280 U/L (38-126); Blood Urea Nitrogen 14 mg/dl (9-20); Calcium 8.6 mg/dl (8.4-10.2); Carbon Dioxide 23 mmol/L (22-30); Chloride 104 mmol/L (98-107); Glucose 163 mg/dl (70-99); Potassium 4.2 mmol/L (3.5-5.1); Sodium 137 mmol/L (135-145); Total Bilirubin 0.5 mg/dl (0.2-1.3); Total Protein 5.8 g/dl (6.3-8.2); eGFR > 60.00
== END ==
LOC: REG 07:22
PROVIDERS: ATTENDING PHYSICIAN Internal Medicine Hematology & Oncology; FAMILY PHYSICIAN Family Medicine
DX: C18.7 Malignant neoplasm of sigmoid colon (principal); C78.7 Secondary malignant neoplasm of liver and intrahepatic bile duct; D70.1 Agranulocytosis secondary to cancer chemotherapy; R04.0 Epistaxis; D69.6 Thrombocytopenia, unspecified; G62.0 Drug-induced polyneuropathy; D63.0 Anemia in neoplastic disease; R19.7 Diarrhea, unspecified
CPT/HCPCS: 36415; 80053; 82570; 84156; 85025

== ENCOUNTER 2023-12-14 08:21 | Outpatient (RCR) | payer MEDICARE, SELFPAY ==
[2023-12-04 11:46] VITALS: BP 138/51
[2023-12-04 12:07] VITALS: BP 111/50
[2023-12-04 13:51] VITALS: BP 112/46
[2023-12-13 09:21] LABS: % Basophils 0.9 % (0-2); % Eosinophils 1.4 % (0-6); % Immature Granulocytes 0.9 % (0-0.5); % Monocytes 11.4 % (1.7-9.3); % Neutrophils 68.4 % (42.2-75.2); Absolute Eosinophils 0.1 10^3/uL (0-0.7); Absolute Lymphocytes 0.6 10^3/uL (1.2-3.4); Absolute Monocytes 0.4 10^3/uL (0.1-0.6); Absolute Neutrophils 2.4 10^3/uL (1.4-6.5); Hemoglobin 7.5 g/dL (13.0-18.0); Mean Corp Hgb Conc. 32.6 g/dL (33.0-37.0); Mean Corpuscular Hgb 36.1 pg (27.0-31.0); Mean Corpuscular Volume 110.6 fL (80.0-94.0); Mean Platelet Volume 12.7 fL (7.4-10.4); Nucleated Red Blood Cells % 0.6 % (-); Platelet Count 81 10^3/uL (130-400); Red Blood Cell Count 2.08 10^6/uL (4.70-6.10); Red Cell Dist. Width 19.8 % (11.5-14.5); White Blood Cell Count 3.5 10^3/uL (4.8-10.8)
[2023-12-13 09:23] LABS: ALT (SGPT) 32 U/L (0-50); AST (SGOT) 27 U/L (17-59); Alkaline Phosphatase 269 U/L (38-126); Blood Urea Nitrogen 20 mg/dl (9-20); Calcium 8.6 mg/dl (8.4-10.2); Carbon Dioxide 21 mmol/L (22-30); Chloride 106 mmol/L (98-107); Glucose 145 mg/dl (70-99); Potassium 4.4 mmol/L (3.5-5.1); Sodium 135 mmol/L (135-145); Total Bilirubin 0.6 mg/dl (0.2-1.3); Total Protein 5.7 g/dl (6.3-8.2); eGFR > 60.00
[2023-12-19 13:18] LABS: % Basophils 0.4 % (0-2); % Eosinophils 1.7 % (0-6); % Immature Granulocytes 0.5 % (0-0.5); % Lymphocytes 8.1 % (20.5-51.1); % Monocytes 9.7 % (1.7-9.3); % Neutrophils 79.6 % (42.2-75.2); Absolute Eosinophils 0.1 10^3/uL (0-0.7); Absolute Lymphocytes 0.6 10^3/uL (1.2-3.4); Absolute Monocytes 0.8 10^3/uL (0.1-0.6); Absolute Neutrophils 6.2 10^3/uL (1.4-6.5); Hematocrit 27.2 % (39.0-52.0); Mean Corp Hgb Conc. 32.4 g/dL (33.0-37.0); Mean Corpuscular Hgb 36.2 pg (27.0-31.0); Mean Corpuscular Volume 111.9 fL (80.0-94.0); Mean Platelet Volume 10.7 fL (7.4-10.4); Platelet Count 90 10^3/uL (130-400); Red Blood Cell Count 2.43 10^6/uL (4.70-6.10); Red Cell Dist. Width 20.9 % (11.5-14.5); White Blood Cell Count 7.8 10^3/uL (4.8-10.8)
[2023-12-19 13:20] LABS: Hemoglobin 8.8 g/dL (13.0-18.0)
== END 2023-12-20 23:59 | disposition home or self-care (01) ==
LOC: OID 08:21
PROVIDERS: ATTENDING PHYSICIAN Internal Medicine Hematology & Oncology; FAMILY PHYSICIAN Family Medicine
DX: C18.7 Malignant neoplasm of sigmoid colon (principal); C78.6 Secondary malignant neoplasm of retroperitoneum and peritoneum; C78.7 Secondary malignant neoplasm of liver and intrahepatic bile duct
CPT/HCPCS: 36415; 36430; 80053; 85025; 86850; 86900; 86901; 86920; P9016

== ENCOUNTER 2023-12-14 08:28 | Emergency (ER) | payer MEDICARE, SELFPAY ==
[2023-12-14 08:34] VITALS: BP 111/52
--- NOTE | 2023-12-14 09:20 | ED.GENMED ---
History of Present Illness
General
Chief Complaint: Abnormal Lab Value
Source: patient and records
Exam Limitations: none
Time Seen by Provider: 12/14/23 08:55
Nursing documentation reviewed up to this point in time: agreed with
Travel History
Have you had any contact with someone who has COVID-19?: No
Do you have any symptoms of coronavirus? Fever > 100 degrees, chills, cough, shortness of breath, sore throat, loss of taste or smell, muscle aches, or headache?: No
History of Present Illness
History of Present Illness:
73 yo male presents to the emergency department c/o fatigue, anemia. He had lab work completed yesterday, and was called last night by his oncologist to come to the ED for a blood transfusion. He is undergoing chemotherapy. He denies any bloody
stool.
Past History
Past History
ED Past Medical History: COPD, HTN, Hypercholesterolemia and NIDDM
ED Past Surgical History: Orthopedic and Other
Social History
Tobacco: Smoker
Personal:
Living: alone
Employment: Retired
Family History
Family History: Other (Noncontributory)
Review of Systems
Review of Systems
Allergies reviewed?: Yes
All Other Systems: Not applicable
Constitutional: Reports fatigue
EENT: Reports no symptoms
Respiratory: Reports no symptoms
Cardiac: Reports no symptoms
ABD/GI: Reports no symptoms
: Reports no symptoms
Musculoskeletal: Reports no symptoms
Skin: Reports no symptoms
Neurological: Reports no symptoms
Endocrine: Reports no symptoms
Hematologic/Lymphatic: Reports no symptoms
Psychiatric: Reports no symptoms
Phy Exam
Physical Exam
Physical Exam:
Physical Exam
General: no apparent distress, pale
Neck: supple. no meningeal signs. normal posterior pharynx
Heart: s1/s2 regular rate and rhythm, no murmur. equal radial
pulses.
HEENT: Pupils equal round reactive to light, EOMI
Lungs: no acute respiratory distress. clear bilaterally
Abdomen: normal bowel sounds. not tender. no CVAT, hepatomegaly
Neuro: alert and oriented. no focal neurological deficits cranial nerves II through XII intact
Skin: no rash
Psychiatric: well kept. interactive and cooperative
Extremities: no edema. no calf tenderness. negative homans. good distal pulses
Course
Orders/Labs/Results
Orders:
Orders
12/14/23 08:59
Blood Bank Products [* Blood Bank Products] Urgent
Dr's Orders: 1 unit prbcs
Blood Bank Products: *Packed RBC Leuko(PRBC's)
Quantity: 1
Transfuse Today: Yes
Reason: Anemia
IV Insert/Care/Rem.- Treatment PRN
12/14/23 09:37
Type+Screen Urgent
Complete Blood Count/With Diff Urgent
Abnormal Lab Results
12/14/23
09:37
WBC 4.7 L 10^3/uL
(4.8-10.8)
RBC 2.06 L 10^6/uL
(4.70-6.10)
Hgb 7.3 L g/dL
(13.0-18.0)
Hct 22.5 L %
(39.0-52.0)
MCV 109.2 H fL
(80.0-94.0)
MCH 35.4 H pg
(27.0-31.0)
MCHC 32.4 L g/dL
(33.0-37.0)
RDW 19.8 H %
(11.5-14.5)
Plt Count 88 L 10^3/uL
(130-400)
MPV 12.4 H fL
(7.4-10.4)
Abs Immat Gran (auto) 0.1 H 10^3/uL
(0-0.05)
Absolute Lymphs (auto) 0.7 L 10^3/uL
(1.2-3.4)
Immature Gran % 1.3 H %
(0-0.5)
Lymphocytes % 14.1 L %
(20.5-51.1)
Monocytes % 10.5 H %
(1.7-9.3)
Crossmatch IS Only See Detail
12/14/23 09:37
Vital Signs
Initial and Last Documented VS:
Initial Vital Signs
Temp Pulse Resp BP Pulse Ox
98.3 F 93 16 111/52 100
12/14/23 08:34 12/14/23 08:34 12/14/23 08:34 12/14/23 08:34 12/14/23 08:34
Last Documented Vital Signs
Temp Pulse Resp BP Pulse Ox
98.3 F 84 14 108/58 100
12/14/23 13:52 12/14/23 13:52 12/14/23 13:52 12/14/23 13:52 12/14/23 13:52
MDM/Problems Addressed
Differential Diagnosis Includes:
Anemia, GI bleed
MDM/Problems Addressed:
73-year-old male with anemia from chemotherapy. Patient sent to the emergency department by his oncologist due to anemia seen on blood work yesterday. Will give 1 packed red blood cells and discharge.
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
Acute Exacerbation and/or Progression of Chronic Illness: Cancer (Colorectal, metastasis to liver)
*Pulse Oximetry
Patient hypoxic: no
*EKG
Interpreted by ED Provider?: NA
*Director Of Labor Relations Interpretation
Rate: Director Of Labor Relations- N/A
*Critical Care Note
Total Time (30-74mins, 75-104mins- exclusive of procedures): 30
comment:
Critical care statement: A total of 30 minutes of critical care time was provided for this patient. This includes management of unstable vital signs, evaluation of the patient at bedside, reviewing the patient's pertinent medical records, discussion
with consultants, review of old EKGs and review of pertinent medical records. This time with separate from time utilized to perform the aforementioned documented procedures
Patient Management
Escalation/DeEscalation of care consider admission/obs:
admit not indicated
ED Attending Note
-
Portions of this chart may have been created with voice recognition software.� Occasional wrong word or��sound alike� substitutions may have occurred due to the inherent limitations of voice recognition software.
Discharge Plan
Departure
Patient Disposition: Home (Routine Discharge)
Date of Disposition: 12/14/23
Time of Disposition: 14:19
Patient with high blood pressure during this ER visit?: No
Condition: Good
Discharge Problem:
Anemia
Instructions: Normocytic Normochromic Anemia (DC)
Prescriptions:
No Action
simvastatin 10 MG tablet
10 mg PO HS
amlodipine 5 MG tablet
5 mg PO HS Qty: 0 0RF
Rx Instructions:
One tab by mouth at bedtime daily.
lisinopril 20 MG tablet
40 mg PO DAILY
furosemide 20 MG tablet
20 mg PO DAILY
metformin 1,000 MG tablet
1,000 mg PO BID
cyanocobalamin (vitamin B-12) [Vitamin B-12] 250 mcg Tablet
250 mcg PO DAILY
ascorbic acid (vitamin C) [Vitamin C] 500 mg Tablet
500 mg PO DAILY
PreserVision AREDS
2 tab PO DAILY
iron
1 tab PO DAILY
Referrals:
Vini Patel MD [Family Provider] -
Interventions
Interventions:
*Risk Screen - Suicide Last Done: 12/14/23 08:34
*General Assessment Last Done: 12/14/23 08:34
*Neglect/Abuse Screening Last Done: 12/14/23 08:34
ED- Fall Risk Assessment Last Done: 12/14/23 09:23
Discharge Date and Time
Print Language: GIBRALTARIAN
[2023-12-14 09:56] LABS: % Basophils 0.6 % (0-2); % Eosinophils 1.3 % (0-6); % Immature Granulocytes 1.3 % (0-0.5); % Lymphocytes 14.1 % (20.5-51.1); % Monocytes 10.5 % (1.7-9.3); % Neutrophils 72.2 % (42.2-75.2); Absolute Eosinophils 0.1 10^3/uL (0-0.7); Absolute Immature Granulocytes 0.1 10^3/uL (0-0.05); Absolute Lymphocytes 0.7 10^3/uL (1.2-3.4); Absolute Monocytes 0.5 10^3/uL (0.1-0.6); Absolute Neutrophils 3.4 10^3/uL (1.4-6.5); Hematocrit 22.5 % (39.0-52.0); Hemoglobin 7.3 g/dL (13.0-18.0); Mean Corp Hgb Conc. 32.4 g/dL (33.0-37.0); Mean Corpuscular Hgb 35.4 pg (27.0-31.0); Mean Corpuscular Volume 109.2 fL (80.0-94.0); Mean Platelet Volume 12.4 fL (7.4-10.4); Nucleated Red Blood Cells % 0 % (-); Platelet Count 88 10^3/uL (130-400); Red Blood Cell Count 2.06 10^6/uL (4.70-6.10); Red Cell Dist. Width 19.8 % (11.5-14.5); White Blood Cell Count 4.7 10^3/uL (4.8-10.8)
[2023-12-14 11:38] VITALS: BP 111/53
[2023-12-14 11:58] VITALS: BP 108/52
[2023-12-14 13:52] VITALS: BP 108/58
[2023-12-14 14:22] VITALS: BP 112/57
== END 2023-12-14 14:28 | disposition home or self-care (01) ==
LOC: EMR 08:28
PROVIDERS: EMERGENCY PHYSICIAN Emergency Medicine; FAMILY PHYSICIAN Family Medicine
DX: D64.81 Anemia due to antineoplastic chemotherapy (principal); C19 Malignant neoplasm of rectosigmoid junction; C78.7 Secondary malignant neoplasm of liver and intrahepatic bile duct; I10 Essential (primary) hypertension; E11.9 Type 2 diabetes mellitus without complications; E78.00 Pure hypercholesterolemia, unspecified; J44.9 Chronic obstructive pulmonary disease, unspecified; F17.200 Nicotine dependence, unspecified, uncomplicated
CPT/HCPCS: 99291; 36430; 96374; 85025; 86850; 86900; 86901; 86920; P9016

== ENCOUNTER → 2023-12-23 07:41 | Outpatient (REF) | payer MEDICARE, SELFPAY ==
[2023-12-23 08:56] LABS: % Basophils 0.6 % (0-2); % Eosinophils 3.6 % (0-6); % Immature Granulocytes 0.8 % (0-0.5); % Lymphocytes 12.7 % (20.5-51.1); % Monocytes 10.8 % (1.7-9.3); % Neutrophils 71.5 % (42.2-75.2); Absolute Eosinophils 0.2 10^3/uL (0-0.7); Absolute Lymphocytes 0.7 10^3/uL (1.2-3.4); Absolute Monocytes 0.6 10^3/uL (0.1-0.6); Absolute Neutrophils 3.8 10^3/uL (1.4-6.5); Hemoglobin 9.1 g/dL (13.0-18.0); Mean Corp Hgb Conc. 32.5 g/dL (33.0-37.0); Mean Corpuscular Volume 110.7 fL (80.0-94.0); Mean Platelet Volume 11.2 fL (7.4-10.4); Nucleated Red Blood Cells % 0 % (-); Platelet Count 134 10^3/uL (130-400); Red Blood Cell Count 2.53 10^6/uL (4.70-6.10); Red Cell Dist. Width 20.3 % (11.5-14.5); White Blood Cell Count 5.3 10^3/uL (4.8-10.8)
[2023-12-23 09:24] LABS: ALT (SGPT) 60 U/L (0-50); AST (SGOT) 66 U/L (17-59); Albumin 3.1 g/dl (3.5-5.0); Alkaline Phosphatase 437 U/L (38-126); Blood Urea Nitrogen 17 mg/dl (9-20); Calcium 8.4 mg/dl (8.4-10.2); Carbon Dioxide 26 mmol/L (22-30); Chloride 106 mmol/L (98-107); Glucose 125 mg/dl (70-99); Potassium 4.1 mmol/L (3.5-5.1); Sodium 139 mmol/L (135-145); Total Bilirubin 0.6 mg/dl (0.2-1.3); Total Protein 5.9 g/dl (6.3-8.2); eGFR > 60.00
[2023-12-23 11:11] LABS: Protein/creatinine Ratio 0.2; Urine Protein 15 mg/dl
== END ==
LOC: REG 07:41
PROVIDERS: ATTENDING PHYSICIAN Nurse Practitioner Adult Health; FAMILY PHYSICIAN Family Medicine
DX: C18.7 Malignant neoplasm of sigmoid colon (principal); C78.7 Secondary malignant neoplasm of liver and intrahepatic bile duct; D70.1 Agranulocytosis secondary to cancer chemotherapy; R04.0 Epistaxis; D69.6 Thrombocytopenia, unspecified; G62.0 Drug-induced polyneuropathy; D63.0 Anemia in neoplastic disease; R19.7 Diarrhea, unspecified
CPT/HCPCS: 36415; 80053; 82570; 84156; 85025

== ENCOUNTER → 2024-01-06 07:22 | Outpatient (REF) | payer MEDICARE, SELFPAY ==
[2024-01-06 09:01] LABS: % Basophils 0.5 % (0-2); % Eosinophils 3.8 % (0-6); % Immature Granulocytes 0.2 % (0-0.5); % Lymphocytes 17.3 % (20.5-51.1); % Monocytes 9.7 % (1.7-9.3); % Neutrophils 68.5 % (42.2-75.2); Absolute Eosinophils 0.2 10^3/uL (0-0.7); Absolute Lymphocytes 0.7 10^3/uL (1.2-3.4); Absolute Monocytes 0.4 10^3/uL (0.1-0.6); Absolute Neutrophils 2.9 10^3/uL (1.4-6.5); Hematocrit 27.5 % (39.0-52.0); Hemoglobin 8.5 g/dL (13.0-18.0); Mean Corp Hgb Conc. 30.9 g/dL (33.0-37.0); Mean Corpuscular Hgb 35.7 pg (27.0-31.0); Mean Corpuscular Volume 115.5 fL (80.0-94.0); Mean Platelet Volume 11.9 fL (7.4-10.4); Nucleated Red Blood Cells % 0 % (-); Platelet Count 92 10^3/uL (130-400); Red Blood Cell Count 2.38 10^6/uL (4.70-6.10); Red Cell Dist. Width 19.3 % (11.5-14.5); White Blood Cell Count 4.2 10^3/uL (4.8-10.8)
[2024-01-06 09:11] LABS: Protein/creatinine Ratio 0.3; Urine Protein 13 mg/dl
[2024-01-06 09:43] LABS: ALT (SGPT) 44 U/L (0-50); AST (SGOT) 47 U/L (17-59); Albumin 3.1 g/dl (3.5-5.0); Alkaline Phosphatase 447 U/L (38-126); Blood Urea Nitrogen 15 mg/dl (9-20); Calcium 8.7 mg/dl (8.4-10.2); Carbon Dioxide 27 mmol/L (22-30); Chloride 104 mmol/L (98-107); Glucose 124 mg/dl (70-99); Potassium 4.2 mmol/L (3.5-5.1); Sodium 137 mmol/L (135-145); Total Bilirubin 0.5 mg/dl (0.2-1.3); eGFR > 60.00
== END ==
LOC: REG 07:22
PROVIDERS: ATTENDING PHYSICIAN Internal Medicine Hematology & Oncology; FAMILY PHYSICIAN Family Medicine
DX: C18.7 Malignant neoplasm of sigmoid colon (principal); C78.7 Secondary malignant neoplasm of liver and intrahepatic bile duct; D70.1 Agranulocytosis secondary to cancer chemotherapy; D69.9 Hemorrhagic condition, unspecified; G62.0 Drug-induced polyneuropathy; D63.0 Anemia in neoplastic disease; R19.7 Diarrhea, unspecified
CPT/HCPCS: 36415; 80053; 82570; 84156; 85025

== ENCOUNTER → 2024-01-09 16:11 | Outpatient (REF) | payer MEDICARE, SELFPAY ==
[2024-01-09 11:19] LABS: % Basophils 0.1 % (0-2); % Eosinophils 0.5 % (0-6); % Immature Granulocytes 0.1 % (0-0.5); % Lymphocytes 7.5 % (20.5-51.1); % Monocytes 4.2 % (1.7-9.3); % Neutrophils 87.6 % (42.2-75.2); Absolute Lymphocytes 0.6 10^3/uL (1.2-3.4); Absolute Monocytes 0.3 10^3/uL (0.1-0.6); Absolute Neutrophils 6.7 10^3/uL (1.4-6.5); Hematocrit 26.8 % (39.0-52.0); Hemoglobin 8.6 g/dL (13.0-18.0); Mean Corp Hgb Conc. 32.1 g/dL (33.0-37.0); Mean Corpuscular Hgb 36.6 pg (27.0-31.0); Mean Platelet Volume 10.7 fL (7.4-10.4); Platelet Count 92 10^3/uL (130-400); Red Blood Cell Count 2.35 10^6/uL (4.70-6.10); Red Cell Dist. Width 18.5 % (11.5-14.5); White Blood Cell Count 7.7 10^3/uL (4.8-10.8)
== END ==
LOC: OIDL 16:11
PROVIDERS: ATTENDING PHYSICIAN Internal Medicine Hematology & Oncology
DX: C18.7 Malignant neoplasm of sigmoid colon (principal)
CPT/HCPCS: 85025

== ENCOUNTER → 2024-01-20 07:14 | Outpatient (REF) | payer MEDICARE, SELFPAY ==
[2024-01-20 08:40] LABS: % Basophils 0.2 % (0-2); % Eosinophils 1.1 % (0-6); % Immature Granulocytes 1.1 % (0-0.5); % Lymphocytes 15.2 % (20.5-51.1); % Monocytes 10.4 % (1.7-9.3); Absolute Eosinophils 0.1 10^3/uL (0-0.7); Absolute Immature Granulocytes 0.1 10^3/uL (0-0.05); Absolute Lymphocytes 0.7 10^3/uL (1.2-3.4); Absolute Monocytes 0.5 10^3/uL (0.1-0.6); Absolute Neutrophils 3.3 10^3/uL (1.4-6.5); Hematocrit 27.5 % (39.0-52.0); Hemoglobin 8.7 g/dL (13.0-18.0); Mean Corp Hgb Conc. 31.6 g/dL (33.0-37.0); Mean Corpuscular Hgb 36.3 pg (27.0-31.0); Mean Corpuscular Volume 114.6 fL (80.0-94.0); Mean Platelet Volume 11.4 fL (7.4-10.4); Nucleated Red Blood Cells % 0 % (-); Platelet Count 105 10^3/uL (130-400); Red Cell Dist. Width 18.3 % (11.5-14.5); White Blood Cell Count 4.6 10^3/uL (4.8-10.8)
[2024-01-20 08:51] LABS: Urine Albumin Negative (Neg - Trace); Urine Bilirubin Negative (Negative); Urine Character Clear (Clear); Urine Color Yellow; Urine Glucose Negative (Negative); Urine Ketone Negative (Negative); Urine Leukocyte Negative (Negative); Urine Nitrite Negative (Negative); Urine Occult Blood Negative (Negative); Urine Urobilinogen Negative (Neg - 1+)
[2024-01-20 09:22] LABS: ALT (SGPT) 45 U/L (0-50); AST (SGOT) 49 U/L (17-59); Albumin 3.3 g/dl (3.5-5.0); Alkaline Phosphatase 412 U/L (38-126); Blood Urea Nitrogen 12 mg/dl (9-20); Calcium 8.7 mg/dl (8.4-10.2); Carbon Dioxide 22 mmol/L (22-30); Chloride 106 mmol/L (98-107); Glucose 148 mg/dl (70-99); HDL Cholesterol 42 mg/dl; LDL Cholesterol, Calculated 38 mg/dl; Potassium 4.8 mmol/L (3.5-5.1); Sodium 137 mmol/L (135-145); Total Bilirubin 0.6 mg/dl (0.2-1.3); Total Cholesterol 96 mg/dl (50-199); Total Protein 5.9 g/dl (6.3-8.2); Triglyceride 80 mg/dl (10-149); Very Low Density Lipoprotein 16 mg/dl (0-30); eGFR > 60.00
[2024-01-20 09:29] LABS: Protein/creatinine Ratio 0.1; Urine Protein 11 mg/dl
[2024-01-20 09:33] LABS: Microalbumin, Random Urine 3.5 mg/dl (0.6-1.7); Microalbumin/creatinine Ratio 40.9 mg/g
[2024-01-20 10:21] LABS: Glycohemoglobin (HgbA1c) 6.4 % (4.0-5.6)
== END ==
LOC: REG 07:14
PROVIDERS: ATTENDING PHYSICIAN Physician Assistant; FAMILY PHYSICIAN Internal Medicine Hematology & Oncology
DX: E78.2 Mixed hyperlipidemia (principal); E11.65 Type 2 diabetes mellitus with hyperglycemia; I10 Essential (primary) hypertension; C18.7 Malignant neoplasm of sigmoid colon; C78.7 Secondary malignant neoplasm of liver and intrahepatic bile duct; D70.1 Agranulocytosis secondary to cancer chemotherapy; R04.0 Epistaxis; D69.6 Thrombocytopenia, unspecified; G62.0 Drug-induced polyneuropathy; D63.0 Anemia in neoplastic disease; R19.7 Diarrhea, unspecified
CPT/HCPCS: 36415; 80053; 80061; 81003; 82043; 82570; 83036; 84156; 85025

== ENCOUNTER → 2024-01-22 15:37 | Outpatient (REF) | payer MEDICARE, SELFPAY ==
[2024-01-22 12:22] LABS: % Basophils 0.1 % (0-2); % Eosinophils 0.1 % (0-6); % Immature Granulocytes 0.9 % (0-0.5); % Lymphocytes 3.1 % (20.5-51.1); % Monocytes 6.1 % (1.7-9.3); % Neutrophils 89.7 % (42.2-75.2); Absolute Immature Granulocytes 0.1 10^3/uL (0-0.05); Absolute Lymphocytes 0.3 10^3/uL (1.2-3.4); Absolute Monocytes 0.6 10^3/uL (0.1-0.6); Absolute Neutrophils 9.2 10^3/uL (1.4-6.5); Hemoglobin 8.3 g/dL (13.0-18.0); Mean Corp Hgb Conc. 31.9 g/dL (33.0-37.0); Mean Corpuscular Hgb 36.4 pg (27.0-31.0); Mean Platelet Volume 11.4 fL (7.4-10.4); Platelet Count 99 10^3/uL (130-400); Red Blood Cell Count 2.28 10^6/uL (4.70-6.10); Red Cell Dist. Width 17.7 % (11.5-14.5); White Blood Cell Count 10.3 10^3/uL (4.8-10.8)
== END ==
LOC: OIDL 15:37
PROVIDERS: ATTENDING PHYSICIAN Internal Medicine Hematology & Oncology
DX: C18.7 Malignant neoplasm of sigmoid colon (principal)
CPT/HCPCS: 85025

== ENCOUNTER → 2024-01-24 14:28 | Outpatient (REF) | payer MEDICARE, SELFPAY ==
[2024-01-24 10:54] LABS: Folate > 20.0 ng/ml (2.76-20); Vitamin B12 > 1000 pg/ml (239-931)
== END ==
LOC: OIDL 14:28
PROVIDERS: ATTENDING PHYSICIAN Internal Medicine Hematology & Oncology
DX: C18.7 Malignant neoplasm of sigmoid colon (principal); D69.6 Thrombocytopenia, unspecified
CPT/HCPCS: 82607; 82746

== ENCOUNTER → 2024-02-10 07:48 | Outpatient (REF) | payer MEDICARE, SELFPAY ==
[2024-02-10 09:08] LABS: % Basophils 0.5 % (0-2); % Eosinophils 2.8 % (0-6); % Immature Granulocytes 0.5 % (0-0.5); % Lymphocytes 11.4 % (20.5-51.1); % Monocytes 11.1 % (1.7-9.3); % Neutrophils 73.7 % (42.2-75.2); Absolute Eosinophils 0.2 10^3/uL (0-0.7); Absolute Lymphocytes 0.7 10^3/uL (1.2-3.4); Absolute Monocytes 0.7 10^3/uL (0.1-0.6); Absolute Neutrophils 4.7 10^3/uL (1.4-6.5); Hematocrit 27.3 % (39.0-52.0); Hemoglobin 8.7 g/dL (13.0-18.0); Mean Corp Hgb Conc. 31.9 g/dL (33.0-37.0); Mean Corpuscular Hgb 36.6 pg (27.0-31.0); Mean Corpuscular Volume 114.7 fL (80.0-94.0); Mean Platelet Volume 11.6 fL (7.4-10.4); Nucleated Red Blood Cells % 0 % (-); Platelet Count 133 10^3/uL (130-400); Red Blood Cell Count 2.38 10^6/uL (4.70-6.10); Red Cell Dist. Width 17.2 % (11.5-14.5); White Blood Cell Count 6.4 10^3/uL (4.8-10.8)
[2024-02-10 09:25] LABS: ALT (SGPT) 39 U/L (0-50); AST (SGOT) 40 U/L (17-59); Albumin 3.2 g/dl (3.5-5.0); Alkaline Phosphatase 413 U/L (38-126); Blood Urea Nitrogen 14 mg/dl (9-20); Calcium 8.5 mg/dl (8.4-10.2); Carbon Dioxide 25 mmol/L (22-30); Chloride 103 mmol/L (98-107); Glucose 135 mg/dl (70-99); Potassium 4.6 mmol/L (3.5-5.1); Sodium 136 mmol/L (135-145); Total Bilirubin 0.9 mg/dl (0.2-1.3); eGFR > 60.00
[2024-02-10 09:43] LABS: Protein/creatinine Ratio 0.3; Urine Protein 16 mg/dl
== END ==
LOC: REG 07:48
PROVIDERS: ATTENDING PHYSICIAN Internal Medicine Hematology & Oncology; FAMILY PHYSICIAN Physician Assistant
DX: C18.7 Malignant neoplasm of sigmoid colon (principal); C78.7 Secondary malignant neoplasm of liver and intrahepatic bile duct; D70.1 Agranulocytosis secondary to cancer chemotherapy; R04.0 Epistaxis; D69.6 Thrombocytopenia, unspecified; G62.0 Drug-induced polyneuropathy; D63.0 Anemia in neoplastic disease; R19.7 Diarrhea, unspecified
CPT/HCPCS: 36415; 80053; 82570; 84156; 85025

== ENCOUNTER → 2024-02-11 13:30 | Outpatient (REF) | payer MEDICARE, SELFPAY ==
[2024-02-11 11:13] LABS: Iron 66 ug/dl (49-181)
[2024-02-11 11:23] LABS: Percent Saturation 26 % (20-50); Total Iron Binding Capacity 247 ug/dl (261-462)
[2024-02-11 11:45] LABS: CEA 4.97 ng/ml
== END ==
LOC: OIDL 13:30
PROVIDERS: ATTENDING PHYSICIAN Internal Medicine Hematology & Oncology
DX: C18.7 Malignant neoplasm of sigmoid colon (principal); C78.7 Secondary malignant neoplasm of liver and intrahepatic bile duct
CPT/HCPCS: 82378; 82728; 83540; 83550

== ENCOUNTER → 2024-02-24 07:04 | Outpatient (REF) | payer MEDICARE, SELFPAY ==
[2024-02-24 08:14] LABS: % Basophils 0.4 % (0-2); % Eosinophils 2.8 % (0-6); % Immature Granulocytes 1.2 % (0-0.5); % Lymphocytes 12.9 % (20.5-51.1); % Monocytes 8.3 % (1.7-9.3); % Neutrophils 74.4 % (42.2-75.2); Absolute Eosinophils 0.2 10^3/uL (0-0.7); Absolute Immature Granulocytes 0.1 10^3/uL (0-0.05); Absolute Lymphocytes 0.7 10^3/uL (1.2-3.4); Absolute Monocytes 0.5 10^3/uL (0.1-0.6); Absolute Neutrophils 4.2 10^3/uL (1.4-6.5); Hematocrit 28.1 % (39.0-52.0); Hemoglobin 8.9 g/dL (13.0-18.0); Mean Corp Hgb Conc. 31.7 g/dL (33.0-37.0); Mean Corpuscular Hgb 36.5 pg (27.0-31.0); Mean Corpuscular Volume 115.2 fL (80.0-94.0); Mean Platelet Volume 12.1 fL (7.4-10.4); Nucleated Red Blood Cells % 0 % (-); Platelet Count 101 10^3/uL (130-400); Red Blood Cell Count 2.44 10^6/uL (4.70-6.10); Red Cell Dist. Width 16.6 % (11.5-14.5); White Blood Cell Count 5.7 10^3/uL (4.8-10.8)
[2024-02-24 08:26] LABS: ALT (SGPT) 34 U/L (0-50); AST (SGOT) 40 U/L (17-59); Albumin 3.2 g/dl (3.5-5.0); Alkaline Phosphatase 415 U/L (38-126); Blood Urea Nitrogen 13 mg/dl (9-20); Calcium 8.6 mg/dl (8.4-10.2); Carbon Dioxide 25 mmol/L (22-30); Chloride 106 mmol/L (98-107); Glucose 140 mg/dl (70-99); Potassium 4.4 mmol/L (3.5-5.1); Sodium 136 mmol/L (135-145); Total Bilirubin 0.6 mg/dl (0.2-1.3); eGFR > 60.00
[2024-02-24 08:46] LABS: Protein/creatinine Ratio 0.2; Urine Protein 13 mg/dl
== END ==
LOC: REG 07:04
PROVIDERS: ATTENDING PHYSICIAN Internal Medicine Hematology & Oncology; FAMILY PHYSICIAN Physician Assistant
DX: C18.7 Malignant neoplasm of sigmoid colon (principal); C78.7 Secondary malignant neoplasm of liver and intrahepatic bile duct; D70.1 Agranulocytosis secondary to cancer chemotherapy; R04.0 Epistaxis; D69.6 Thrombocytopenia, unspecified; D63.0 Anemia in neoplastic disease; R19.7 Diarrhea, unspecified
CPT/HCPCS: 36415; 80053; 82570; 84156; 85025

== ENCOUNTER → 2024-03-09 06:58 | Outpatient (REF) | payer MEDICARE, SELFPAY ==
[2024-03-09 09:49] LABS: % Basophils 0.2 % (0-2); % Immature Granulocytes 0.9 % (0-0.5); % Lymphocytes 12.5 % (20.5-51.1); % Monocytes 10.1 % (1.7-9.3); % Neutrophils 73.3 % (42.2-75.2); Absolute Eosinophils 0.2 10^3/uL (0-0.7); Absolute Immature Granulocytes 0.1 10^3/uL (0-0.05); Absolute Lymphocytes 0.7 10^3/uL (1.2-3.4); Absolute Monocytes 0.6 10^3/uL (0.1-0.6); Absolute Neutrophils 4.2 10^3/uL (1.4-6.5); Hematocrit 29.9 % (39.0-52.0); Hemoglobin 9.5 g/dL (13.0-18.0); Mean Corp Hgb Conc. 31.8 g/dL (33.0-37.0); Mean Corpuscular Hgb 37.3 pg (27.0-31.0); Mean Corpuscular Volume 117.3 fL (80.0-94.0); Nucleated Red Blood Cells % 0 % (-); Platelet Count 87 10^3/uL (130-400); Red Blood Cell Count 2.55 10^6/uL (4.70-6.10); Red Cell Dist. Width 16.4 % (11.5-14.5); White Blood Cell Count 5.8 10^3/uL (4.8-10.8)
[2024-03-09 10:21] LABS: ALT (SGPT) 36 U/L (0-50); AST (SGOT) 43 U/L (17-59); Albumin 3.3 g/dl (3.5-5.0); Alkaline Phosphatase 407 U/L (38-126); Blood Urea Nitrogen 16 mg/dl (9-20); Calcium 8.5 mg/dl (8.4-10.2); Carbon Dioxide 25 mmol/L (22-30); Chloride 106 mmol/L (98-107); Glucose 158 mg/dl (70-99); Potassium 4.5 mmol/L (3.5-5.1); Sodium 138 mmol/L (135-145); Total Bilirubin 0.8 mg/dl (0.2-1.3); eGFR > 60.00
[2024-03-09 11:26] LABS: Urine Protein 11 mg/dl
[2024-03-09 11:48] LABS: Protein/creatinine Ratio 0.1
== END ==
LOC: REG 06:58
PROVIDERS: ATTENDING PHYSICIAN Internal Medicine Hematology & Oncology; FAMILY PHYSICIAN Physician Assistant
DX: C18.7 Malignant neoplasm of sigmoid colon (principal); C78.7 Secondary malignant neoplasm of liver and intrahepatic bile duct; D70.1 Agranulocytosis secondary to cancer chemotherapy; D69.6 Thrombocytopenia, unspecified; G62.0 Drug-induced polyneuropathy; D63.0 Anemia in neoplastic disease; R19.7 Diarrhea, unspecified
CPT/HCPCS: 36415; 80053; 82570; 84156; 85025

== ENCOUNTER → 2024-03-27 08:09 | Outpatient (REF) | payer MEDICARE, SELFPAY ==
[2024-03-27 08:43] LABS: Hematocrit 33.4 % (39.0-52.0); Hemoglobin 10.6 g/dL (13.0-18.0); Mean Corp Hgb Conc. 31.7 g/dL (33.0-37.0); Mean Corpuscular Hgb 36.1 pg (27.0-31.0); Mean Corpuscular Volume 113.6 fL (80.0-94.0); Mean Platelet Volume 11.4 fL (7.4-10.4); Platelet Count 144 10^3/uL (130-400); Red Blood Cell Count 2.94 10^6/uL (4.70-6.10); Red Cell Dist. Width 15.7 % (11.5-14.5); White Blood Cell Count 6.2 10^3/uL (4.8-10.8)
[2024-03-27 08:46] VITALS: BP 124/63; BP_SYST 86
[2024-03-27 08:49] LABS: INR 1.18; PT 14.8 Sec (11.4-14.6)
[2024-03-27 09:22] LABS: Glucose - Point of Care 125 mg/dl (70-99)
[2024-03-27 13:06] VITALS: BP 123/50
[2024-03-27 13:56] LABS: Body Fluid Albumin < 1.0 g/dl
[2024-03-27 14:03] LABS: Body Fluid Mononuclear 59.8 %; Body Fluid Polymorphonuclear 40.2 %; Body Fluid WBC 301 /CUMM
[2024-03-27 14:05] LABS: Body Fluid Second Tech EM
== END ==
LOC: RADI 08:09
PROVIDERS: ATTENDING PHYSICIAN Internal Medicine Hematology & Oncology; FAMILY PHYSICIAN Physician Assistant
DX: R18.8 Other ascites (principal); C18.7 Malignant neoplasm of sigmoid colon; C78.7 Secondary malignant neoplasm of liver and intrahepatic bile duct
CPT/HCPCS: 88305; 36415; 49083; 76380; 76705; 82042; 82962; 85027; 85610; 88112; 89051; 99152; 99153

== ENCOUNTER → 2024-03-30 08:34 | Outpatient (REF) | payer MEDICARE, SELFPAY ==
[2024-03-30 09:35] LABS: % Basophils 0.7 % (0-2); % Eosinophils 2.7 % (0-6); % Immature Granulocytes 0.4 % (0-0.5); % Lymphocytes 12.9 % (20.5-51.1); % Monocytes 10.6 % (1.7-9.3); % Neutrophils 72.7 % (42.2-75.2); Absolute Eosinophils 0.2 10^3/uL (0-0.7); Absolute Lymphocytes 0.7 10^3/uL (1.2-3.4); Absolute Monocytes 0.6 10^3/uL (0.1-0.6); Absolute Neutrophils 4.1 10^3/uL (1.4-6.5); Hematocrit 33.1 % (39.0-52.0); Hemoglobin 10.6 g/dL (13.0-18.0); Mean Corpuscular Hgb 36.9 pg (27.0-31.0); Mean Corpuscular Volume 115.3 fL (80.0-94.0); Mean Platelet Volume 11.2 fL (7.4-10.4); Nucleated Red Blood Cells % 0 % (-); Platelet Count 145 10^3/uL (130-400); Red Blood Cell Count 2.87 10^6/uL (4.70-6.10); Red Cell Dist. Width 15.1 % (11.5-14.5); White Blood Cell Count 5.6 10^3/uL (4.8-10.8)
[2024-03-30 09:41] LABS: Protein/creatinine Ratio 0.2; Urine Protein 11 mg/dl
[2024-03-30 09:52] LABS: ALT (SGPT) 39 U/L (0-50); AST (SGOT) 60 U/L (17-59); Albumin 3.3 g/dl (3.5-5.0); Alkaline Phosphatase 434 U/L (38-126); Blood Urea Nitrogen 19 mg/dl (9-20); Calcium 8.8 mg/dl (8.4-10.2); Carbon Dioxide 24 mmol/L (22-30); Chloride 101 mmol/L (98-107); Glucose 219 mg/dl (70-99); Potassium 4.2 mmol/L (3.5-5.1); Sodium 138 mmol/L (135-145); Total Protein 6.3 g/dl (6.3-8.2); eGFR > 60.00
== END ==
LOC: REG 08:34
PROVIDERS: ATTENDING PHYSICIAN Internal Medicine Hematology & Oncology; FAMILY PHYSICIAN Physician Assistant
DX: C18.7 Malignant neoplasm of sigmoid colon (principal); C78.7 Secondary malignant neoplasm of liver and intrahepatic bile duct; D70.1 Agranulocytosis secondary to cancer chemotherapy; R04.0 Epistaxis; D69.6 Thrombocytopenia, unspecified; G62.0 Drug-induced polyneuropathy; D63.0 Anemia in neoplastic disease; R19.7 Diarrhea, unspecified
CPT/HCPCS: 36415; 80053; 82570; 84156; 85025

== ENCOUNTER → 2024-04-13 10:14 | Outpatient (REF) | payer MEDICARE, SELFPAY ==
[2024-04-13 10:25] VITALS: BP 126/62; BP_SYST 80
[2024-04-13 11:14] VITALS: BP 122/55
[2024-04-13 12:59] LABS: Body Fluid Mononuclear 49.2 %; Body Fluid Polymorphonuclear 50.8 %; Body Fluid WBC 518 /CUMM
[2024-04-13 13:07] LABS: Body Fluid Second Tech EM
== END ==
LOC: RADI 10:14
PROVIDERS: ATTENDING PHYSICIAN Internal Medicine Hematology & Oncology; FAMILY PHYSICIAN Physician Assistant
DX: C18.7 Malignant neoplasm of sigmoid colon (principal); R18.0 Malignant ascites
CPT/HCPCS: 88305; 49083; 80053; 85025; 88112; 88341; 88342; 89051

== ENCOUNTER → 2024-04-27 07:14 | Outpatient (REF) | payer MEDICARE, SELFPAY ==
[2024-04-27 07:59] LABS: % Basophils 0.4 % (0-2); % Eosinophils 2.7 % (0-6); % Immature Granulocytes 0.6 % (0-0.5); % Lymphocytes 10.1 % (20.5-51.1); % Monocytes 6.3 % (1.7-9.3); % Neutrophils 79.9 % (42.2-75.2); Absolute Eosinophils 0.2 10^3/uL (0-0.7); Absolute Immature Granulocytes 0.1 10^3/uL (0-0.05); Absolute Lymphocytes 0.8 10^3/uL (1.2-3.4); Absolute Monocytes 0.5 10^3/uL (0.1-0.6); Absolute Neutrophils 6.6 10^3/uL (1.4-6.5); Hematocrit 32.1 % (39.0-52.0); Hemoglobin 10.3 g/dL (13.0-18.0); Mean Corp Hgb Conc. 32.1 g/dL (33.0-37.0); Mean Corpuscular Hgb 35.3 pg (27.0-31.0); Mean Corpuscular Volume 109.9 fL (80.0-94.0); Mean Platelet Volume 11.8 fL (7.4-10.4); Nucleated Red Blood Cells % 0 % (-); Platelet Count 101 10^3/uL (130-400); Red Blood Cell Count 2.92 10^6/uL (4.70-6.10); Red Cell Dist. Width 15.9 % (11.5-14.5); White Blood Cell Count 8.3 10^3/uL (4.8-10.8)
[2024-04-27 08:25] LABS: ALT (SGPT) 41 U/L (0-50); AST (SGOT) 53 U/L (17-59); Albumin 3.4 g/dl (3.5-5.0); Alkaline Phosphatase 557 U/L (38-126); Blood Urea Nitrogen 21 mg/dl (9-20); Calcium 8.7 mg/dl (8.4-10.2); Carbon Dioxide 25 mmol/L (22-30); Chloride 104 mmol/L (98-107); Glucose 132 mg/dl (70-99); HDL Cholesterol 36 mg/dl; LDL Cholesterol, Calculated 53 mg/dl; Potassium 4.8 mmol/L (3.5-5.1); Sodium 140 mmol/L (135-145); Total Bilirubin 0.8 mg/dl (0.2-1.3); Total Cholesterol 106 mg/dl (50-199); Total Protein 6.4 g/dl (6.3-8.2); Triglyceride 89 mg/dl (10-149); Very Low Density Lipoprotein 17 mg/dl (0-30); eGFR > 60.00
[2024-04-27 08:36] LABS: Protein/creatinine Ratio 0.3; Urine Protein 15 mg/dl
== END ==
LOC: REG 07:14
PROVIDERS: ATTENDING PHYSICIAN Internal Medicine Hematology & Oncology; REFERRING PHYSICIAN Physician Assistant
DX: C18.7 Malignant neoplasm of sigmoid colon (principal); C78.7 Secondary malignant neoplasm of liver and intrahepatic bile duct; D70.1 Agranulocytosis secondary to cancer chemotherapy; R04.0 Epistaxis; D69.6 Thrombocytopenia, unspecified; G62.0 Drug-induced polyneuropathy; D63.0 Anemia in neoplastic disease; R19.7 Diarrhea, unspecified; E11.65 Type 2 diabetes mellitus with hyperglycemia; E78.2 Mixed hyperlipidemia
CPT/HCPCS: 36415; 80053; 80061; 82570; 83036; 84156; 84443; 85025

== ENCOUNTER → 2024-04-28 09:59 | Outpatient (REF) | payer MEDICARE, SELFPAY ==
[2024-04-28 09:08] LABS: % Basophils 0.5 % (0-2); % Eosinophils 2.4 % (0-6); % Immature Granulocytes 0.3 % (0-0.5); % Lymphocytes 9.5 % (20.5-51.1); % Monocytes 5.8 % (1.7-9.3); % Neutrophils 81.5 % (42.2-75.2); Absolute Eosinophils 0.2 10^3/uL (0-0.7); Absolute Lymphocytes 0.8 10^3/uL (1.2-3.4); Absolute Monocytes 0.5 10^3/uL (0.1-0.6); Absolute Neutrophils 6.4 10^3/uL (1.4-6.5); Hematocrit 31.9 % (39.0-52.0); Hemoglobin 10.3 g/dL (13.0-18.0); Mean Corp Hgb Conc. 32.3 g/dL (33.0-37.0); Mean Corpuscular Hgb 36.5 pg (27.0-31.0); Mean Corpuscular Volume 113.1 fL (80.0-94.0); Mean Platelet Volume 11.5 fL (7.4-10.4); Platelet Count 97 10^3/uL (130-400); Red Blood Cell Count 2.82 10^6/uL (4.70-6.10); Red Cell Dist. Width 15.7 % (11.5-14.5); White Blood Cell Count 7.9 10^3/uL (4.8-10.8)
[2024-04-28 09:33] LABS: ALT (SGPT) 38 U/L (0-50); AST (SGOT) 50 U/L (17-59); Albumin 3.3 g/dl (3.5-5.0); Alkaline Phosphatase 522 U/L (38-126); Blood Urea Nitrogen 18 mg/dl (9-20); Calcium 8.5 mg/dl (8.4-10.2); Carbon Dioxide 23 mmol/L (22-30); Chloride 105 mmol/L (98-107); Glucose 174 mg/dl (70-99); Magnesium 1.9 mg/dl (1.6-2.3); Potassium 4.1 mmol/L (3.5-5.1); Sodium 139 mmol/L (135-145); Total Bilirubin 0.9 mg/dl (0.2-1.3); Total Protein 6.1 g/dl (6.3-8.2); eGFR > 60.00
== END ==
LOC: OIDL 09:59
PROVIDERS: ATTENDING PHYSICIAN Internal Medicine Hematology & Oncology
DX: C18.7 Malignant neoplasm of sigmoid colon (principal); C78.7 Secondary malignant neoplasm of liver and intrahepatic bile duct; D70.1 Agranulocytosis secondary to cancer chemotherapy; R04.0 Epistaxis; D69.6 Thrombocytopenia, unspecified; G62.0 Drug-induced polyneuropathy; D63.0 Anemia in neoplastic disease; R19.7 Diarrhea, unspecified
CPT/HCPCS: 80053; 83735; 85025

== ENCOUNTER → 2024-04-29 13:44 | Outpatient (REF) | payer MEDICARE, SELFPAY ==
[2024-04-29 14:17] VITALS: BP 135/68; BP_SYST 108
[2024-04-29 15:11] VITALS: BP 125/62
== END ==
LOC: RADI 13:44
PROVIDERS: ATTENDING PHYSICIAN Internal Medicine Hematology & Oncology; FAMILY PHYSICIAN Physician Assistant
DX: C80.1 Malignant (primary) neoplasm, unspecified (principal); R18.0 Malignant ascites
CPT/HCPCS: 49083

== ENCOUNTER → 2024-05-11 07:30 | Outpatient (REF) | payer MEDICARE, SELFPAY ==
[2024-05-11 08:18] LABS: % Basophils 0.7 % (0-2); % Eosinophils 4.6 % (0-6); % Immature Granulocytes 0.2 % (0-0.5); % Lymphocytes 15.9 % (20.5-51.1); % Monocytes 7.5 % (1.7-9.3); % Neutrophils 71.1 % (42.2-75.2); Absolute Eosinophils 0.2 10^3/uL (0-0.7); Absolute Lymphocytes 0.7 10^3/uL (1.2-3.4); Absolute Monocytes 0.3 10^3/uL (0.1-0.6); Absolute Neutrophils 3.1 10^3/uL (1.4-6.5); Hematocrit 37.7 % (39.0-52.0); Hemoglobin 12.3 g/dL (13.0-18.0); Mean Corp Hgb Conc. 32.6 g/dL (33.0-37.0); Mean Corpuscular Volume 110.2 fL (80.0-94.0); Mean Platelet Volume 10.7 fL (7.4-10.4); Nucleated Red Blood Cells % 0 % (-); Platelet Count 165 10^3/uL (130-400); Red Blood Cell Count 3.42 10^6/uL (4.70-6.10); Red Cell Dist. Width 14.3 % (11.5-14.5); White Blood Cell Count 4.4 10^3/uL (4.8-10.8)
[2024-05-11 08:47] LABS: ALT (SGPT) 39 U/L (0-50); AST (SGOT) 49 U/L (17-59); Albumin 3.9 g/dl (3.5-5.0); Alkaline Phosphatase 327 U/L (38-126); Blood Urea Nitrogen 31 mg/dl (9-20); Calcium 9.3 mg/dl (8.4-10.2); Carbon Dioxide 25 mmol/L (22-30); Chloride 103 mmol/L (98-107); Glucose 141 mg/dl (70-99); Magnesium 1.4 mg/dl (1.6-2.3); Potassium 4.9 mmol/L (3.5-5.1); Sodium 141 mmol/L (135-145); Total Bilirubin 0.9 mg/dl (0.2-1.3); Total Protein 7.6 g/dl (6.3-8.2); eGFR > 60.00
[2024-05-11 09:30] LABS: Protein/creatinine Ratio 0.2; Urine Protein 13 mg/dl
== END ==
LOC: REG 07:30
PROVIDERS: ATTENDING PHYSICIAN Internal Medicine Hematology & Oncology; FAMILY PHYSICIAN Physician Assistant
DX: C18.7 Malignant neoplasm of sigmoid colon (principal); C78.7 Secondary malignant neoplasm of liver and intrahepatic bile duct; D70.1 Agranulocytosis secondary to cancer chemotherapy; R04.0 Epistaxis; D69.6 Thrombocytopenia, unspecified; G62.0 Drug-induced polyneuropathy; D63.0 Anemia in neoplastic disease; R19.7 Diarrhea, unspecified
CPT/HCPCS: 36415; 80053; 82570; 83735; 84156; 85025

== ENCOUNTER → 2024-05-19 10:13 | Outpatient (REF) | payer MEDICARE, SELFPAY ==
[2024-05-19 09:59] LABS: Magnesium 1.1 mg/dl (1.6-2.3)
== END ==
LOC: OIDL 10:13
PROVIDERS: ATTENDING PHYSICIAN Internal Medicine Hematology & Oncology
DX: C18.7 Malignant neoplasm of sigmoid colon (principal); C78.7 Secondary malignant neoplasm of liver and intrahepatic bile duct; D70.1 Agranulocytosis secondary to cancer chemotherapy; R04.0 Epistaxis; D69.6 Thrombocytopenia, unspecified; G62.0 Drug-induced polyneuropathy; D63.0 Anemia in neoplastic disease; R19.7 Diarrhea, unspecified
CPT/HCPCS: 83735

== ENCOUNTER → 2024-05-25 07:14 | Outpatient (REF) | payer MEDICARE, SELFPAY ==
[2024-05-25 07:41] LABS: % Basophils 0.6 % (0-2); % Eosinophils 4.4 % (0-6); % Immature Granulocytes 0.3 % (0-0.5); % Lymphocytes 21.5 % (20.5-51.1); % Monocytes 7.6 % (1.7-9.3); % Neutrophils 65.6 % (42.2-75.2); Absolute Eosinophils 0.2 10^3/uL (0-0.7); Absolute Lymphocytes 0.7 10^3/uL (1.2-3.4); Absolute Monocytes 0.3 10^3/uL (0.1-0.6); Absolute Neutrophils 2.2 10^3/uL (1.4-6.5); Hematocrit 37.3 % (39.0-52.0); Hemoglobin 12.1 g/dL (13.0-18.0); Mean Corp Hgb Conc. 32.4 g/dL (33.0-37.0); Mean Corpuscular Hgb 33.8 pg (27.0-31.0); Mean Corpuscular Volume 104.2 fL (80.0-94.0); Mean Platelet Volume 10.7 fL (7.4-10.4); Nucleated Red Blood Cells % 0 % (-); Platelet Count 136 10^3/uL (130-400); Red Blood Cell Count 3.58 10^6/uL (4.70-6.10); Red Cell Dist. Width 13.3 % (11.5-14.5); White Blood Cell Count 3.4 10^3/uL (4.8-10.8)
[2024-05-25 08:13] LABS: ALT (SGPT) 39 U/L (0-50); AST (SGOT) 46 U/L (17-59); Albumin 3.9 g/dl (3.5-5.0); Alkaline Phosphatase 219 U/L (38-126); Blood Urea Nitrogen 35 mg/dl (9-20); Calcium 9.1 mg/dl (8.4-10.2); Carbon Dioxide 22 mmol/L (22-30); Chloride 105 mmol/L (98-107); Glucose 154 mg/dl (70-99); Magnesium 1.1 mg/dl (1.6-2.3); Potassium 4.8 mmol/L (3.5-5.1); Sodium 141 mmol/L (135-145); Total Bilirubin 0.7 mg/dl (0.2-1.3); Total Protein 7.7 g/dl (6.3-8.2); eGFR 53.07
[2024-05-25 08:15] LABS: Protein/creatinine Ratio 0.2; Urine Protein 16 mg/dl
== END ==
LOC: REG 07:14
PROVIDERS: ATTENDING PHYSICIAN Internal Medicine Hematology & Oncology; FAMILY PHYSICIAN Physician Assistant
DX: C18.7 Malignant neoplasm of sigmoid colon (principal); C78.7 Secondary malignant neoplasm of liver and intrahepatic bile duct; D70.1 Agranulocytosis secondary to cancer chemotherapy; R04.0 Epistaxis; D69.6 Thrombocytopenia, unspecified; G62.0 Drug-induced polyneuropathy; D63.0 Anemia in neoplastic disease; R19.7 Diarrhea, unspecified
CPT/HCPCS: 36415; 80053; 82570; 83735; 84156; 85025

== ENCOUNTER → 2024-05-26 08:44 | Outpatient (REF) | payer MEDICARE, SELFPAY ==
[2024-05-26 09:13] LABS: Iron 135 ug/dl (49-181)
[2024-05-26 09:22] LABS: Percent Saturation 50 % (20-50); Total Iron Binding Capacity 266 ug/dl (261-462)
== END ==
LOC: OIDL 08:44
PROVIDERS: ATTENDING PHYSICIAN Internal Medicine Hematology & Oncology
DX: C18.7 Malignant neoplasm of sigmoid colon (principal); C78.7 Secondary malignant neoplasm of liver and intrahepatic bile duct; D70.1 Agranulocytosis secondary to cancer chemotherapy; D63.0 Anemia in neoplastic disease
CPT/HCPCS: 82728; 83540; 83550

== ENCOUNTER → 2024-06-01 06:47 | Outpatient (REF) | payer MEDICARE, SELFPAY ==
[2024-06-01 07:45] VITALS: BP 147/70; BP_SYST 85
[2024-06-01 09:31] LABS: Magnesium 0.8 mg/dl (1.6-2.3)
== END ==
LOC: RADI 06:47
PROVIDERS: ATTENDING PHYSICIAN Internal Medicine Hematology & Oncology; FAMILY PHYSICIAN Physician Assistant; REFERRING PHYSICIAN Nurse Practitioner Adult Health
DX: R18.8 Other ascites (principal); Z53.8 Procedure and treatment not carried out for other reasons
CPT/HCPCS: 36415; 76705; 83735

== ENCOUNTER → 2024-06-08 08:03 | Outpatient (REF) | payer MEDICARE, SELFPAY ==
[2024-06-08 09:00] LABS: % Basophils 0.6 % (0-2); % Eosinophils 4.1 % (0-6); % Lymphocytes 27.7 % (20.5-51.1); % Monocytes 9.1 % (1.7-9.3); % Neutrophils 58.5 % (42.2-75.2); Absolute Eosinophils 0.1 10^3/uL (0-0.7); Absolute Lymphocytes 0.9 10^3/uL (1.2-3.4); Absolute Monocytes 0.3 10^3/uL (0.1-0.6); Absolute Neutrophils 1.9 10^3/uL (1.4-6.5); Hematocrit 37.4 % (39.0-52.0); Hemoglobin 12.3 g/dL (13.0-18.0); Mean Corp Hgb Conc. 32.9 g/dL (33.0-37.0); Mean Corpuscular Hgb 35.9 pg (27.0-31.0); Mean Platelet Volume 10.7 fL (7.4-10.4); Nucleated Red Blood Cells % 0 % (-); Platelet Count 96 10^3/uL (130-400); Red Blood Cell Count 3.43 10^6/uL (4.70-6.10); Red Cell Dist. Width 12.8 % (11.5-14.5); White Blood Cell Count 3.2 10^3/uL (4.8-10.8)
[2024-06-08 09:41] LABS: Protein/creatinine Ratio 0.3; Urine Protein 13 mg/dl
[2024-06-08 10:08] LABS: ALT (SGPT) 59 U/L (0-50); AST (SGOT) 61 U/L (17-59); Albumin 3.7 g/dl (3.5-5.0); Alkaline Phosphatase 188 U/L (38-126); Blood Urea Nitrogen 19 mg/dl (9-20); Calcium 8.4 mg/dl (8.4-10.2); Carbon Dioxide 23 mmol/L (22-30); Chloride 104 mmol/L (98-107); Glucose 149 mg/dl (70-99); Magnesium 0.6 mg/dl (1.6-2.3); Potassium 5.3 mmol/L (3.5-5.1); Sodium 141 mmol/L (135-145); Total Bilirubin 0.7 mg/dl (0.2-1.3); eGFR 53.07
[2024-06-08 19:13] LABS: CEA 2.77 ng/ml
== END ==
LOC: REG 08:03
PROVIDERS: ATTENDING PHYSICIAN Internal Medicine Hematology & Oncology; FAMILY PHYSICIAN Nurse Practitioner Adult Health
DX: C18.7 Malignant neoplasm of sigmoid colon (principal); C78.7 Secondary malignant neoplasm of liver and intrahepatic bile duct; D70.1 Agranulocytosis secondary to cancer chemotherapy; R04.0 Epistaxis; D69.6 Thrombocytopenia, unspecified; G62.0 Drug-induced polyneuropathy; D63.0 Anemia in neoplastic disease; R19.7 Diarrhea, unspecified
CPT/HCPCS: 36415; 80053; 82378; 82570; 83735; 84156; 85025

== ENCOUNTER → 2024-06-12 07:31 | Outpatient (REF) | payer MEDICARE, SELFPAY ==
[2024-06-12 08:44] LABS: % Basophils 0.3 % (0-2); % Eosinophils 3.4 % (0-6); % Immature Granulocytes 0.3 % (0-0.5); % Lymphocytes 26.3 % (20.5-51.1); % Monocytes 8.1 % (1.7-9.3); % Neutrophils 61.6 % (42.2-75.2); Absolute Eosinophils 0.1 10^3/uL (0-0.7); Absolute Lymphocytes 0.8 10^3/uL (1.2-3.4); Absolute Monocytes 0.3 10^3/uL (0.1-0.6); Hematocrit 37.3 % (39.0-52.0); Hemoglobin 12.2 g/dL (13.0-18.0); Mean Corp Hgb Conc. 32.7 g/dL (33.0-37.0); Mean Corpuscular Hgb 35.4 pg (27.0-31.0); Mean Corpuscular Volume 108.1 fL (80.0-94.0); Mean Platelet Volume 10.1 fL (7.4-10.4); Nucleated Red Blood Cells % 0 % (-); Platelet Count 90 10^3/uL (130-400); Red Blood Cell Count 3.45 10^6/uL (4.70-6.10); Red Cell Dist. Width 12.8 % (11.5-14.5); White Blood Cell Count 3.2 10^3/uL (4.8-10.8)
[2024-06-12 09:29] LABS: Protein/creatinine Ratio 0.3; Urine Protein 13 mg/dl
[2024-06-12 09:48] LABS: ALT (SGPT) 42 U/L (0-50); AST (SGOT) 43 U/L (17-59); Albumin 3.6 g/dl (3.5-5.0); Alkaline Phosphatase 177 U/L (38-126); Blood Urea Nitrogen 31 mg/dl (9-20); Calcium 8.4 mg/dl (8.4-10.2); Carbon Dioxide 24 mmol/L (22-30); Chloride 103 mmol/L (98-107); Glucose 134 mg/dl (70-99); Sodium 141 mmol/L (135-145); Total Bilirubin 0.7 mg/dl (0.2-1.3); Total Protein 6.9 g/dl (6.3-8.2); eGFR 48.85
[2024-06-12 10:40] LABS: Magnesium 0.9 mg/dl (1.6-2.3)
== END ==
LOC: REG 07:31
PROVIDERS: ATTENDING PHYSICIAN Internal Medicine Hematology & Oncology; FAMILY PHYSICIAN Physician Assistant
DX: C18.7 Malignant neoplasm of sigmoid colon (principal); C78.7 Secondary malignant neoplasm of liver and intrahepatic bile duct; D70.1 Agranulocytosis secondary to cancer chemotherapy; R04.0 Epistaxis; D69.6 Thrombocytopenia, unspecified; G62.0 Drug-induced polyneuropathy; D63.0 Anemia in neoplastic disease; R19.7 Diarrhea, unspecified
CPT/HCPCS: 36415; 80053; 82570; 83735; 84156; 85025

== ENCOUNTER → 2024-06-22 08:46 | Outpatient (REF) | payer MEDICARE, SELFPAY ==
[2024-06-22 10:18] LABS: % Basophils 0.4 % (0-2); % Eosinophils 3.1 % (0-6); % Immature Granulocytes 1.6 % (0-0.5); % Lymphocytes 31.4 % (20.5-51.1); % Neutrophils 54.5 % (42.2-75.2); Absolute Eosinophils 0.1 10^3/uL (0-0.7); Absolute Lymphocytes 0.8 10^3/uL (1.2-3.4); Absolute Monocytes 0.2 10^3/uL (0.1-0.6); Absolute Neutrophils 1.4 10^3/uL (1.4-6.5); Hematocrit 37.7 % (39.0-52.0); Hemoglobin 11.9 g/dL (13.0-18.0); Mean Corp Hgb Conc. 31.6 g/dL (33.0-37.0); Mean Corpuscular Hgb 34.5 pg (27.0-31.0); Mean Corpuscular Volume 109.3 fL (80.0-94.0); Mean Platelet Volume 10.8 fL (7.4-10.4); Nucleated Red Blood Cells % 0 % (-); Platelet Count 100 10^3/uL (130-400); Red Blood Cell Count 3.45 10^6/uL (4.70-6.10); Red Cell Dist. Width 13.1 % (11.5-14.5); White Blood Cell Count 2.6 10^3/uL (4.8-10.8)
[2024-06-22 10:42] LABS: Protein/creatinine Ratio 0.2; Urine Protein 14 mg/dl
[2024-06-22 10:54] LABS: ALT (SGPT) 35 U/L (0-50); AST (SGOT) 41 U/L (17-59); Albumin 3.4 g/dl (3.5-5.0); Alkaline Phosphatase 176 U/L (38-126); Blood Urea Nitrogen 26 mg/dl (9-20); Calcium 7.7 mg/dl (8.4-10.2); Carbon Dioxide 22 mmol/L (22-30); Chloride 110 mmol/L (98-107); Glucose 109 mg/dl (70-99); Magnesium 0.6 mg/dl (1.6-2.3); Potassium 4.8 mmol/L (3.5-5.1); Sodium 142 mmol/L (135-145); Total Bilirubin 0.9 mg/dl (0.2-1.3); Total Protein 6.6 g/dl (6.3-8.2); eGFR 53.07
== END ==
LOC: REG 08:46
PROVIDERS: ATTENDING PHYSICIAN Internal Medicine Hematology & Oncology; FAMILY PHYSICIAN Physician Assistant
DX: C18.7 Malignant neoplasm of sigmoid colon (principal); C78.7 Secondary malignant neoplasm of liver and intrahepatic bile duct; D70.1 Agranulocytosis secondary to cancer chemotherapy; R04.0 Epistaxis; D69.6 Thrombocytopenia, unspecified; G62.0 Drug-induced polyneuropathy; D63.0 Anemia in neoplastic disease; R19.7 Diarrhea, unspecified
CPT/HCPCS: 36415; 80053; 82570; 83735; 84156; 85025

== ENCOUNTER → 2024-06-29 07:37 | Outpatient (REF) | payer MEDICARE, SELFPAY ==
[2024-06-29 08:26] LABS: Hematocrit 36.1 % (39.0-52.0); Hemoglobin 11.6 g/dL (13.0-18.0); Mean Corp Hgb Conc. 32.1 g/dL (33.0-37.0); Mean Corpuscular Hgb 34.4 pg (27.0-31.0); Mean Corpuscular Volume 107.1 fL (80.0-94.0); Mean Platelet Volume 10.4 fL (7.4-10.4); Platelet Count 104 10^3/uL (130-400); Red Blood Cell Count 3.37 10^6/uL (4.70-6.10); White Blood Cell Count 2.5 10^3/uL (4.8-10.8)
[2024-06-29 09:17] LABS: % Basophils 0.4 % (0-2); % Eosinophils 3.6 % (0-6); % Lymphocytes 35.5 % (20.5-51.1); % Monocytes 11.2 % (1.7-9.3); % Neutrophils 49.3 % (42.2-75.2); Absolute Eosinophils 0.1 10^3/uL (0-0.7); Absolute Lymphocytes 0.9 10^3/uL (1.2-3.4); Absolute Monocytes 0.3 10^3/uL (0.1-0.6); Absolute Neutrophils 1.2 10^3/uL (1.4-6.5); Nucleated Red Blood Cells % 0 % (-)
[2024-06-29 09:44] LABS: Magnesium 0.7 mg/dl (1.6-2.3)
== END ==
LOC: REG 07:37
PROVIDERS: ATTENDING PHYSICIAN Internal Medicine Hematology & Oncology; FAMILY PHYSICIAN Physician Assistant
DX: C18.7 Malignant neoplasm of sigmoid colon (principal); C78.7 Secondary malignant neoplasm of liver and intrahepatic bile duct; D70.1 Agranulocytosis secondary to cancer chemotherapy; R04.0 Epistaxis; D69.6 Thrombocytopenia, unspecified; G62.0 Drug-induced polyneuropathy; D63.0 Anemia in neoplastic disease; R19.7 Diarrhea, unspecified
CPT/HCPCS: 36415; 83735; 85025

== ENCOUNTER → 2024-07-06 07:39 | Outpatient (REF) | payer MEDICARE, SELFPAY ==
[2024-07-06 08:55] LABS: % Basophils 0.4 % (0-2); % Immature Granulocytes 0.4 % (0-0.5); % Lymphocytes 36.6 % (20.5-51.1); % Monocytes 13.6 % (1.7-9.3); Absolute Eosinophils 0.1 10^3/uL (0-0.7); Absolute Monocytes 0.4 10^3/uL (0.1-0.6); Absolute Neutrophils 1.2 10^3/uL (1.4-6.5); Hematocrit 35.3 % (39.0-52.0); Hemoglobin 11.6 g/dL (13.0-18.0); Mean Corp Hgb Conc. 32.9 g/dL (33.0-37.0); Mean Corpuscular Hgb 34.4 pg (27.0-31.0); Mean Corpuscular Volume 104.7 fL (80.0-94.0); Mean Platelet Volume 10.6 fL (7.4-10.4); Nucleated Red Blood Cells % 0 % (-); Platelet Count 110 10^3/uL (130-400); Red Blood Cell Count 3.37 10^6/uL (4.70-6.10); White Blood Cell Count 2.7 10^3/uL (4.8-10.8)
[2024-07-06 09:36] LABS: ALT (SGPT) 37 U/L (0-50); AST (SGOT) 43 U/L (17-59); Albumin 3.6 g/dl (3.5-5.0); Alkaline Phosphatase 182 U/L (38-126); Blood Urea Nitrogen 21 mg/dl (9-20); Calcium 7.9 mg/dl (8.4-10.2); Carbon Dioxide 22 mmol/L (22-30); Chloride 108 mmol/L (98-107); Glucose 117 mg/dl (70-99); Magnesium 0.7 mg/dl (1.6-2.3); Potassium 4.5 mmol/L (3.5-5.1); Sodium 141 mmol/L (135-145); Total Bilirubin 0.6 mg/dl (0.2-1.3); Total Protein 6.8 g/dl (6.3-8.2); eGFR 58.01
[2024-07-06 09:42] LABS: Protein/creatinine Ratio 0.2; Urine Protein 24 mg/dl
== END ==
LOC: REG 07:39
PROVIDERS: ATTENDING PHYSICIAN Internal Medicine Hematology & Oncology
DX: C18.7 Malignant neoplasm of sigmoid colon (principal); C78.7 Secondary malignant neoplasm of liver and intrahepatic bile duct; D70.1 Agranulocytosis secondary to cancer chemotherapy; R04.0 Epistaxis; D69.6 Thrombocytopenia, unspecified; G62.0 Drug-induced polyneuropathy; D63.0 Anemia in neoplastic disease; R19.7 Diarrhea, unspecified
CPT/HCPCS: 36415; 80053; 82570; 83735; 84156; 85025

== ENCOUNTER → 2024-07-08 07:29 | Outpatient (REF) | payer MEDICARE, SELFPAY ==
[2024-07-08 09:52] LABS: ALT (SGPT) 42 U/L (0-50); AST (SGOT) 52 U/L (17-59); Albumin 3.4 g/dl (3.5-5.0); Alkaline Phosphatase 204 U/L (38-126); Blood Urea Nitrogen 21 mg/dl (9-20); Calcium 8.6 mg/dl (8.4-10.2); Carbon Dioxide 22 mmol/L (22-30); Chloride 109 mmol/L (98-107); Glucose 120 mg/dl (70-99); Magnesium 1.6 mg/dl (1.6-2.3); Potassium 4.8 mmol/L (3.5-5.1); Sodium 139 mmol/L (135-145); Total Bilirubin 0.5 mg/dl (0.2-1.3); Total Protein 6.5 g/dl (6.3-8.2); eGFR > 60.00
== END ==
LOC: REG 07:29
PROVIDERS: ATTENDING PHYSICIAN Internal Medicine Hematology & Oncology; FAMILY PHYSICIAN Physician Assistant
DX: C18.7 Malignant neoplasm of sigmoid colon (principal); C78.7 Secondary malignant neoplasm of liver and intrahepatic bile duct; D70.1 Agranulocytosis secondary to cancer chemotherapy; R04.0 Epistaxis; D69.6 Thrombocytopenia, unspecified; G62.0 Drug-induced polyneuropathy; D63.0 Anemia in neoplastic disease; R19.7 Diarrhea, unspecified
CPT/HCPCS: 36415; 80053; 83735

== ENCOUNTER → 2024-07-13 07:30 | Outpatient (REF) | payer MEDICARE, SELFPAY ==
[2024-07-13 09:21] LABS: ALT (SGPT) 43 U/L (0-50); AST (SGOT) 54 U/L (17-59); Albumin 3.5 g/dl (3.5-5.0); Alkaline Phosphatase 186 U/L (38-126); Blood Urea Nitrogen 24 mg/dl (9-20); Calcium 8.4 mg/dl (8.4-10.2); Carbon Dioxide 25 mmol/L (22-30); Chloride 108 mmol/L (98-107); Glucose 123 mg/dl (70-99); Magnesium 0.6 mg/dl (1.6-2.3); Potassium 4.5 mmol/L (3.5-5.1); Sodium 140 mmol/L (135-145); Total Bilirubin 0.8 mg/dl (0.2-1.3); Total Protein 6.6 g/dl (6.3-8.2); eGFR 58.01
[2024-07-13 19:01] LABS: CEA 2.49 ng/ml
== END ==
LOC: REG 07:30
PROVIDERS: ATTENDING PHYSICIAN Internal Medicine Hematology & Oncology; FAMILY PHYSICIAN Physician Assistant
DX: C18.7 Malignant neoplasm of sigmoid colon (principal); C78.7 Secondary malignant neoplasm of liver and intrahepatic bile duct; D70.1 Agranulocytosis secondary to cancer chemotherapy; R04.0 Epistaxis; D69.6 Thrombocytopenia, unspecified; G62.0 Drug-induced polyneuropathy; D63.0 Anemia in neoplastic disease; R19.7 Diarrhea, unspecified
CPT/HCPCS: 36415; 80053; 82378; 83735

== ENCOUNTER → 2024-07-16 14:33 | Outpatient (REF) | payer MEDICARE, SELFPAY ==
[2024-07-16 09:38] LABS: CEA 2.51 ng/ml
== END ==
LOC: OIDL 14:33
PROVIDERS: ATTENDING PHYSICIAN Internal Medicine Hematology & Oncology
DX: C18.7 Malignant neoplasm of sigmoid colon (principal)
CPT/HCPCS: 82378

== ENCOUNTER → 2024-07-21 07:36 | Outpatient (REF) | payer MEDICARE, SELFPAY ==
[2024-07-21 08:14] LABS: % Basophils 0.6 % (0-2); % Eosinophils 5.3 % (0-6); % Immature Granulocytes 0.3 % (0-0.5); % Lymphocytes 32.2 % (20.5-51.1); % Monocytes 8.8 % (1.7-9.3); % Neutrophils 52.8 % (42.2-75.2); Absolute Eosinophils 0.2 10^3/uL (0-0.7); Absolute Lymphocytes 1.1 10^3/uL (1.2-3.4); Absolute Monocytes 0.3 10^3/uL (0.1-0.6); Absolute Neutrophils 1.8 10^3/uL (1.4-6.5); Hematocrit 35.3 % (39.0-52.0); Hemoglobin 11.7 g/dL (13.0-18.0); Mean Corp Hgb Conc. 33.1 g/dL (33.0-37.0); Mean Corpuscular Hgb 34.3 pg (27.0-31.0); Mean Corpuscular Volume 103.5 fL (80.0-94.0); Mean Platelet Volume 9.9 fL (7.4-10.4); Nucleated Red Blood Cells % 0 % (-); Platelet Count 114 10^3/uL (130-400); Red Blood Cell Count 3.41 10^6/uL (4.70-6.10); Red Cell Dist. Width 13.4 % (11.5-14.5); White Blood Cell Count 3.4 10^3/uL (4.8-10.8)
[2024-07-21 08:41] LABS: ALT (SGPT) 39 U/L (0-50); AST (SGOT) 45 U/L (17-59); Alkaline Phosphatase 178 U/L (38-126); Blood Urea Nitrogen 17 mg/dl (9-20); Calcium 7.6 mg/dl (8.4-10.2); Carbon Dioxide 23 mmol/L (22-30); Chloride 108 mmol/L (98-107); Glucose 115 mg/dl (70-99); Magnesium 0.6 mg/dl (1.6-2.3); Potassium 4.5 mmol/L (3.5-5.1); Sodium 142 mmol/L (135-145); Total Bilirubin 0.8 mg/dl (0.2-1.3); Total Protein 6.8 g/dl (6.3-8.2); eGFR > 60.00
[2024-07-21 08:50] LABS: Albumin 3.5 g/dl (3.5-5.0)
[2024-07-21 08:51] LABS: Protein/creatinine Ratio 0.2; Urine Protein 20 mg/dl
== END ==
LOC: REG 07:36
PROVIDERS: ATTENDING PHYSICIAN Internal Medicine Hematology & Oncology; FAMILY PHYSICIAN Physician Assistant
DX: C18.7 Malignant neoplasm of sigmoid colon (principal); C78.7 Secondary malignant neoplasm of liver and intrahepatic bile duct; D70.1 Agranulocytosis secondary to cancer chemotherapy; R04.0 Epistaxis; D69.6 Thrombocytopenia, unspecified; G62.0 Drug-induced polyneuropathy; D63.0 Anemia in neoplastic disease; R19.7 Diarrhea, unspecified
CPT/HCPCS: 36415; 80053; 82570; 83735; 84156; 85025

== ENCOUNTER 2024-07-24 16:55 | Inpatient (IN) | payer MEDICARE, SELFPAY ==
[2024-07-24 10:13] VITALS: BP 121/77
--- NOTE | 2024-07-24 10:17 | ED.GENMED ---
ED Provider Triage
<Darshan Villeda PA-C - Last Filed: 07/25/24 07:07>
-
Patient seen by provider in Triage?: Seen in Triage
73 yo male presents with N/V/D x 3 days. Not eating much but able to drink PO fluids. Sent in by [facility] for evaluation. Denies abd pain.
Appears well, no distress, VSS.
Will check labs. Symptoms have resolved as of this AM.
History of Present Illness
<Darshan Villeda PA-C - Last Filed: 07/25/24 07:07>
General
Chief Complaint: Abdominal Symptoms
Time Seen by Provider: 07/24/24 13:41
<Trina French MD - Last Filed: 07/24/24 14:01>
General
Source: patient
History of Present Illness
History of Present Illness:
73-year-old male presents emergency department with complaints of nausea vomiting nonbloody diarrhea that started 2 nights ago. The vomiting has resolved however he continues to have profusely watery diarrhea. He denies abdominal pain, fever,
chills, chest pain, shortness of breath, anorexia, dizziness, palpitations, or other complaints. Patient is being treated for colorectal cancer with liver mets.
Past History
<Darshan Villeda PA-C - Last Filed: 07/25/24 07:07>
Past History
ED Past Medical History: COPD, HTN, Hypercholesterolemia and NIDDM
ED Past Surgical History: Orthopedic and Other
Social History
Tobacco: Smoker
Personal:
Living: alone
Employment: Retired
Family History
Family History: Other (Noncontributory)
<Trina French MD - Last Filed: 07/24/24 14:01>
Past History
ED Past Medical History: Other (Colorectal cancer with liver mets)
Social History
Alcohol: Occasional
Drug: None
Phy Exam
<Trina French MD - Last Filed: 07/24/24 14:01>
Physical Exam
Physical Exam:
GENERAL: Alert , in no apparent distress
EYE: pupils equal and reactive
NECK: Supple, no significant adenopathy.
ENT: o/p clr, mm slightly dry
CARDIAC: Regular rate and rhythm .
LUNGS: Clear breath sounds bilaterally, no acute respiratory distress, no wheezes/rales/rhonchi
ABDOMEN: Soft, without focal tenderness, no r/g, no cvat
NEUROLOGICAL: Alert and oriented, no focal neuro deficits
SKIN: Warm and dry, skin intact.
MUSCULOSKELETAL: No edema, well perfused.
PSYCH: Normal and appropriate interaction.
Course
<Darshan Villeda PA-C - Last Filed: 07/25/24 07:07>
Orders/Labs/Results
Orders:
Orders
07/24/24 10:23
Complete Blood Count/With Diff Urgent
Comprehensive Metabolic Panel Urgent
Lipase Urgent
Magnesium Urgent
Comment: MAG ADDED ON BY FLOOR 4PM 07-24-24
07/24/24 11:36
0.9% Sodium Chloride 1000 ml [Nss] 1,000 ml IV BOLUS
07/24/24 13:42
Cardiac Monitoring- Treatment ONCE
0.9% Sodium Chloride 500 ml [Nss] 500 ml IV BOLUS
Dextrose 50%-Water [Dextrose 50% Syringe] 12.5 grams IV [id number] PRN
Dextrose 50%-Water [Dextrose 50% Syringe] 25 grams IV NOW STA
Insulin Human Regular [Novolin R] 10 units IV NOW STA
Sodium Bicarbonate 50 meq IV NOW STA
Sodium Zirconium Cyclosilicate [Lokelma] 10 gram PO NOW STA
07/24/24 13:43
Electrocardiogram (*1) Urgent
Reason for Study: Other
Other Reason for Exam: hyperkalemia
EKG- Treatment ONCE
Bedside Glucose PRE IV Insulin- HyperK+ NOW
07/24/24 Dinner
Clear Liquid
At Your Request: Full Participation
Clear Liquid
At Your Request: Full Participation
07/24/24 15:13
Bedside Glucose POST IV Insulin- HyperK+ Q1HX2,Q2HX2
07/24/24 15:55
Add On- LAB Urgent
Tests Added?: mag level
07/24/24 16:00
0.9% Sodium Chloride 1000 ml [Nss] 1,000 ml IV 75 mls/hr
07/24/24 16:22
Admit/Transfer Patient As Directed
Co-Sign Provider:
Level of Care: Inpatient admission
Assign to:: Telemetry
Physician / Group: Hospitalist
Diagnosis: Nausea vomiting diarrhea, acute kidney injury
Reason for Telemetry: Other
Other Reason for Telemetry: Electrolyte abnormality
Date to Stop Telemetry: 07/26/24
Time to Stop Telemetry: 11:00
Reason for Hospitalization: Nausea vomiting and diarrhea and acute kidney injury
Expected length of stay greater than two midnights?: Yes
ELOS- Estimated Length of Stay in days: 2
I certify the patient meets the requirements for IP care: Yes
PRN Pain Medication Management As Directed
May give lesser potent ordered pain med per pt: Yes
preference::
Protocol:: Medication orders for pain may be administered in a
manner that supports deferring to patient preference
when the pt is:
- Requesting an ordered lesser potent pain medication.
Least to most potent pain medications are defined
as: acetaminophen < NSAID < tramadol < opioids
(morphine, oxycodone, hydromorphone).
- Requesting a lesser dose of the same medication IF
ORDERED.
- Requesting a less intrusive route of administration
if both routes are prescribed by the provider (PO <
IV).
07/24/24 16:24
Code Status As Directed
Resuscitation Status: Full Code
07/24/24 17:23
Potassium Urgent
Comment: draw 2 hours after regular insulin IV administration
07/24/24 19:09
Norovirus by PCR Urgent
ROSITA Source: Feces/Stool
Specimen Description:
Date Specimen was Collected: 07/24/24
Time Specimen was Collected: 19:01
STOOL [C difficile Antigen & Toxins] Urgent
ROSITA Source: Feces/Stool
Specimen Description:
Date Specimen was Collected: 07/24/24
Time Specimen was Collected: 19:01
Stool Culture Urgent
ROSITA Source: Feces/Stool
Specimen Description:
Date Specimen was Collected: 07/24/24
Time Specimen was Collected: 19:01
07/24/24 20:43
Acetaminophen [Tylenol] 650 mg PO Q4HPRN PRN
Bisacodyl [Dulcolax] 10 mg RECTAL [id number] PRN
Docusate W/Senna [Senokot-S] 1 tablet PO BIDPRN PRN
Ondansetron Injectable [Zofran] 4 mg IV Q6HPRN PRN
Polyethylene Glycol Powder [Miralax] 17 grams PO DAILYPRN PRN
07/24/24 20:43
Activity As Directed
Activity Level: Encourage Progressive Amb
Vital Signs As Directed
Frequency: Per unit guidelines
DX Deep Vein Thrombosis Video Routine
07/24/24 22:00
Atorvastatin [Lipitor] 10 mg PO HS
07/25/24 00:00
Heparin 5,000 units SC Q8
07/25/24 06:00
Basic Metabolic Panel IN AM
Complete Blood Count/With Diff IN AM
Magnesium IN AM
Vitamin B12 IN AM
07/25/24 08:00
Amlodipine [Norvasc] 5 mg PO DAILY
07/26/24 11:00
DC Protocol for Telemetry ONCE
Abnormal Lab Results
07/24/24 07/24/24 07/24/24
10:23 15:13 15:45
WBC 3.1 L 10^3/uL
(4.8-10.8)
RBC 3.49 L 10^6/uL
(4.70-6.10)
Hgb 12.0 L g/dL
(13.0-18.0)
Hct 35.8 L %
(39.0-52.0)
MCV 102.6 H fL
(80.0-94.0)
MCH 34.4 H pg
(27.0-31.0)
Plt Count 99 L 10^3/uL
(130-400)
Absolute Lymphs (auto) 0.6 L 10^3/uL
(1.2-3.4)
Lymphocytes % 19.6 L %
(20.5-51.1)
Monocytes % 10.9 H %
(1.7-9.3)
Sodium 133 L mmol/L
(135-145)
Potassium 5.9 H mmol/L
(3.5-5.1)
Carbon Dioxide 17 L mmol/L
(22-30)
BUN 29 H mg/dl
(9-20)
Creatinine 1.9 H mg/dL
(0.7-1.3)
Glucose 145 H mg/dl
(70-99)
Magnesium 0.7 L* mg/dl
(1.6-2.3)
Alkaline Phosphatase 178 H U/L
(38-126)
POC Glucose 159 H mg/dl 200 H mg/dl
(70-99) (70-99)
07/24/24
16:16
WBC
RBC
Hgb
Hct
MCV
MCH
Plt Count
Absolute Lymphs (auto)
Lymphocytes %
Monocytes %
Sodium
Potassium
Carbon Dioxide
BUN
Creatinine
Glucose
Magnesium
Alkaline Phosphatase
POC Glucose 133 H mg/dl
(70-99)
07/24/24 10:23
07/24/24 10:23
Vital Signs
Initial and Last Documented VS:
Initial Vital Signs
Temp Pulse Resp BP Pulse Ox
98.0 F 90 20 121/77 99
07/24/24 10:13 07/24/24 10:13 07/24/24 10:13 07/24/24 10:13 07/24/24 10:13
Last Documented Vital Signs
Temp Pulse Resp BP Pulse Ox
98.1 F 62 16 123/67 97
07/25/24 03:49 07/25/24 03:49 07/25/24 03:49 07/25/24 03:49 07/25/24 03:49
<Trina French MD - Last Filed: 07/24/24 14:01>
Orders/Labs/Results
Orders:
Orders
07/24/24 10:23
Complete Blood Count/With Diff Urgent
Comprehensive Metabolic Panel Urgent
Lipase Urgent
Magnesium Urgent
Comment: MAG ADDED ON BY FLOOR 4PM 07-24-24
07/24/24 11:36
0.9% Sodium Chloride 1000 ml [Nss] 1,000 ml IV BOLUS
07/24/24 13:42
Cardiac Monitoring- Treatment ONCE
0.9% Sodium Chloride 500 ml [Nss] 500 ml IV BOLUS
Dextrose 50%-Water [Dextrose 50% Syringe] 12.5 grams IV [id number] PRN
Dextrose 50%-Water [Dextrose 50% Syringe] 25 grams IV NOW STA
Insulin Human Regular [Novolin R] 10 units IV NOW STA
Sodium Bicarbonate 50 meq IV NOW STA
Sodium Zirconium Cyclosilicate [Lokelma] 10 gram PO NOW STA
07/24/24 13:43
Electrocardiogram (*1) Urgent
Reason for Study: Other
Other Reason for Exam: hyperkalemia
EKG- Treatment ONCE
Bedside Glucose PRE IV Insulin- HyperK+ NOW
07/24/24 Dinner
Clear Liquid
At Your Request: Full Participation
Clear Liquid
At Your Request: Full Participation
07/24/24 15:13
Bedside Glucose POST IV Insulin- HyperK+ Q1HX2,Q2HX2
07/24/24 15:55
Add On- LAB Urgent
Tests Added?: mag level
07/24/24 16:00
0.9% Sodium Chloride 1000 ml [Nss] 1,000 ml IV 75 mls/hr
07/24/24 16:22
Admit/Transfer Patient As Directed
Co-Sign Provider:
Level of Care: Inpatient admission
Assign to:: Telemetry
Physician / Group: Hospitalist
Diagnosis: Nausea vomiting diarrhea, acute kidney injury
Reason for Telemetry: Other
Other Reason for Telemetry: Electrolyte abnormality
Date to Stop Telemetry: 07/26/24
Time to Stop Telemetry: 11:00
Reason for Hospitalization: Nausea vomiting and diarrhea and acute kidney injury
Expected length of stay greater than two midnights?: Yes
ELOS- Estimated Length of Stay in days: 2
I certify the patient meets the requirements for IP care: Yes
PRN Pain Medication Management As Directed
May give lesser potent ordered pain med per pt: Yes
preference::
Protocol:: Medication orders for pain may be administered in a
manner that supports deferring to patient preference
when the pt is:
- Requesting an ordered lesser potent pain medication.
Least to most potent pain medications are defined
as: acetaminophen < NSAID < tramadol < opioids
(morphine, oxycodone, hydromorphone).
- Requesting a lesser dose of the same medication IF
ORDERED.
- Requesting a less intrusive route of administration
if both routes are prescribed by the provider (PO <
IV).
07/24/24 16:24
Code Status As Directed
Resuscitation Status: Full Code
07/24/24 17:23
Potassium Urgent
Comment: draw 2 hours after regular insulin IV administration
07/24/24 19:09
Norovirus by PCR Urgent
ROSITA Source: Feces/Stool
Specimen Description:
Date Specimen was Collected: 07/24/24
Time Specimen was Collected: 19:01
STOOL [C difficile Antigen & Toxins] Urgent
ROSITA Source: Feces/Stool
Specimen Description:
Date Specimen was Collected: 07/24/24
Time Specimen was Collected: 19:01
Stool Culture Urgent
ROSITA Source: Feces/Stool
Specimen Description:
Date Specimen was Collected: 07/24/24
Time Specimen was Collected: 19:01
07/24/24 20:43
Acetaminophen [Tylenol] 650 mg PO Q4HPRN PRN
Bisacodyl [Dulcolax] 10 mg RECTAL [id number] PRN
Docusate W/Senna [Senokot-S] 1 tablet PO BIDPRN PRN
Ondansetron Injectable [Zofran] 4 mg IV Q6HPRN PRN
Polyethylene Glycol Powder [Miralax] 17 grams PO DAILYPRN PRN
07/24/24 20:43
Activity As Directed
Activity Level: Encourage Progressive Amb
Vital Signs As Directed
Frequency: Per unit guidelines
DX Deep Vein Thrombosis Video Routine
07/24/24 22:00
Atorvastatin [Lipitor] 10 mg PO HS
07/25/24 00:00
Heparin 5,000 units SC Q8
07/25/24 06:00
Basic Metabolic Panel IN AM
Complete Blood Count/With Diff IN AM
Magnesium IN AM
Vitamin B12 IN AM
07/25/24 08:00
Amlodipine [Norvasc] 5 mg PO DAILY
07/26/24 11:00
DC Protocol for Telemetry ONCE
Abnormal Lab Results
07/24/24 07/24/24 07/24/24
10:23 15:13 15:45
WBC 3.1 L 10^3/uL
(4.8-10.8)
RBC 3.49 L 10^6/uL
(4.70-6.10)
Hgb 12.0 L g/dL
(13.0-18.0)
Hct 35.8 L %
(39.0-52.0)
MCV 102.6 H fL
(80.0-94.0)
MCH 34.4 H pg
(27.0-31.0)
Plt Count 99 L 10^3/uL
(130-400)
Absolute Lymphs (auto) 0.6 L 10^3/uL
(1.2-3.4)
Lymphocytes % 19.6 L %
(20.5-51.1)
Monocytes % 10.9 H %
(1.7-9.3)
Sodium 133 L mmol/L
(135-145)
Potassium 5.9 H mmol/L
(3.5-5.1)
Carbon Dioxide 17 L mmol/L
(22-30)
BUN 29 H mg/dl
(9-20)
Creatinine 1.9 H mg/dL
(0.7-1.3)
Glucose 145 H mg/dl
(70-99)
Magnesium 0.7 L* mg/dl
(1.6-2.3)
Alkaline Phosphatase 178 H U/L
(38-126)
POC Glucose 159 H mg/dl 200 H mg/dl
(70-99) (70-99)
07/24/24
16:16
WBC
RBC
Hgb
Hct
MCV
MCH
Plt Count
Absolute Lymphs (auto)
Lymphocytes %
Monocytes %
Sodium
Potassium
Carbon Dioxide
BUN
Creatinine
Glucose
Magnesium
Alkaline Phosphatase
POC Glucose 133 H mg/dl
(70-99)
07/24/24 10:23
07/24/24 10:23
Vital Signs
Initial and Last Documented VS:
Initial Vital Signs
Temp Pulse Resp BP Pulse Ox
98.0 F 90 20 121/77 99
07/24/24 10:13 07/24/24 10:13 07/24/24 10:13 07/24/24 10:13 07/24/24 10:13
Last Documented Vital Signs
Temp Pulse Resp BP Pulse Ox
98.1 F 62 16 123/67 97
07/25/24 03:49 07/25/24 03:49 07/25/24 03:49 07/25/24 03:49 07/25/24 03:49
<Darshan Villeda PA-C - Last Filed: 07/25/24 07:07>
*Critical Care Note
Total Time (30-74mins, 75-104mins- exclusive of procedures): Not Applicable
<Trina French MD - Last Filed: 07/24/24 14:01>
Update Note
Update Note:
Patient presents to the Emergency Department with nausea vomiting diarrhea
Number and Complexity of Problems Addressed at the Encounter
� Chronic conditions affecting care:
� Acute Exacerbation and/or Progression of Chronic Illness:
� Differential Diagnosis includes: But not limited to coronavirus, gastroenteritis, colitis, electrolyte disorder, renal insufficiency, dehydration, etc. etc.
Amount and/or Complexity of Data to be Reviewed and Analyzed
� I performed an independent evaluation of and my interpretation is:
EKG: Pending
CT:
Xrays:
Laboratory Studies: Renal insufficiency, metabolic acidosis, hyperkalemia. Thrombocytopenia unchanged. Mild neutropenia and anemia noted
Other:
� Review of other/old records reveals: Excuse me discharge summary from October 2021 reviewed patient was discharged with possible COPD exacerbation versus symptomatic anemia. He then had an ER visit that noted a colorectal mass,
this was resected, liver mass was not able to be biopsied
� Clinical information was obtained by an independent historian:
� Prescriptions/Medications Considered but not given:
� Further testing considered but not performed:
Risk of Complications and/or Morbidity or Mortality of Patient Management
� Social determinants of health affecting care:
� Discussion with other providers (PCP, Hospitalists, Consultants, etc):
� Escalation of care including admission/observation vs risk of discharge considered: Electrolyte abnormalities noted, treatment initiated, patient will need to be admitted and monitored closely. [place] text sent to hospitalist
ED Attending Note
<Darshan Villeda PA-C - Last Filed: 07/25/24 07:07>
-
Portions of this chart may have been created with voice recognition software.� Occasional wrong word or��sound alike� substitutions may have occurred due to the inherent limitations of voice recognition software.
Discharge Plan
Departure
Patient Disposition: Admit
Date of Disposition: 07/24/24
Time of Disposition: 14:00
Presentation/result/management discussed w/ accepting MD/DO: Hospitalist
Condition: Fair
Discharge Problem:
Acute hyperkalemia, Acute renal insufficiency, Nausea vomiting and diarrhea
Interventions
Interventions:
*Risk Screen - Suicide Last Done: 07/24/24 21:01
*General Assessment Last Done: 07/24/24 10:13
*Neglect/Abuse Screening Last Done: 07/24/24 10:13
ED- Fall Risk Assessment Last Done: 07/24/24 14:32
*ED COVID-19 Vaccine History Last Done: 07/24/24 21:01
*Nursing Disposition Last Done: 07/24/24 20:30
ZN-Jqqzwu-Sqjinzvpfu Assessment Last Done: 07/24/24 19:53
Discharge Date and Time
Discharge Date/Time: 07/24/24 20:30
[2024-07-24 10:50] LABS: % Basophils 0.3 % (0-2); % Eosinophils 2.2 % (0-6); % Immature Granulocytes 0.3 % (0-0.5); % Lymphocytes 19.6 % (20.5-51.1); % Monocytes 10.9 % (1.7-9.3); % Neutrophils 66.7 % (42.2-75.2); Absolute Eosinophils 0.1 10^3/uL (0-0.7); Absolute Lymphocytes 0.6 10^3/uL (1.2-3.4); Absolute Monocytes 0.3 10^3/uL (0.1-0.6); Absolute Neutrophils 2.1 10^3/uL (1.4-6.5); Hematocrit 35.8 % (39.0-52.0); Mean Corp Hgb Conc. 33.5 g/dL (33.0-37.0); Mean Corpuscular Hgb 34.4 pg (27.0-31.0); Mean Corpuscular Volume 102.6 fL (80.0-94.0); Mean Platelet Volume 10.2 fL (7.4-10.4); Nucleated Red Blood Cells % 0 % (-); Platelet Count 99 10^3/uL (130-400); Red Blood Cell Count 3.49 10^6/uL (4.70-6.10); Red Cell Dist. Width 13.8 % (11.5-14.5); White Blood Cell Count 3.1 10^3/uL (4.8-10.8)
[2024-07-24 10:51] LABS: ALT (SGPT) 32 U/L (0-50); AST (SGOT) 45 U/L (17-59); Albumin 3.6 g/dl (3.5-5.0); Alkaline Phosphatase 178 U/L (38-126); Blood Urea Nitrogen 29 mg/dl (9-20); Calcium 8.4 mg/dl (8.4-10.2); Carbon Dioxide 17 mmol/L (22-30); Chloride 104 mmol/L (98-107); Glucose 145 mg/dl (70-99); Lipase 52 U/L (23-300); Potassium 5.9 mmol/L (3.5-5.1); Sodium 133 mmol/L (135-145); Total Bilirubin 1.2 mg/dl (0.2-1.3); Total Protein 6.9 g/dl (6.3-8.2); eGFR 36.79
[2024-07-24 13:03] VITALS: BP 142/72
[2024-07-24] MEDS: LOKELMA 10 GRAM PO (14:22)
[2024-07-24 14:23] VITALS: BMI 33.8
[2024-07-24] MEDS: NSS 1000 IV ×2 (15:08→16:26)
[2024-07-24] MEDS: DEXTROSE 50% SYRINGE 25 GRAMS IV (15:10)
[2024-07-24] MEDS: SODIUM BICARBONATE 50 MEQ IV (15:10)
[2024-07-24] MEDS: NOVOLIN R 10 UNITS IV (15:11)
[2024-07-24 15:15] LABS: Glucose - Point of Care 159 mg/dl (70-99)
[2024-07-24 15:46] LABS: Glucose - Point of Care 200 mg/dl (70-99)
--- NOTE | 2024-07-24 15:46 | HPS.HSE ---
Family Physician
-
Family Physician: RICHIE Ott
Chief Complaint
-
Nausea vomiting and diarrhea
History of Present Illness
73-year-old man presents with nausea vomiting and diarrhea
Medical History
Past Medical History
Past Medical History: Reports Other
Additional Past Medical History:
COPD, sleep apnea, CHF, DVT, hypertension, hyperlipidemia, diabetes, eczema, glaucoma, impaired vision, history of metastatic colon cancer .
Past Surgical History: Reports Other
Additional Past Surgical History:
Umbilical mesh for hernia repair, right finger surgery, ganglion cyst left wrist surgery, dilatation of the sigmoid colon, Y90 radioembolization to the liver 01/25/2022 at [facility]
Social History
Tobacco: Former Smoker
Alcohol: Occasional
Living: With Family
Family History
Family History: Cancer (tesricular ca father)
Allergies / Home Medications
Allergies reflects when Allergies were last updated in [facility].
Home Medications with original date entered in [facility]
Allergy/Medication List:
Allergies
Allergy/AdvReac Type Severity Reaction Status Date / Time
pollen extracts Allergy Itching, Verified 07/24/24 10:18
nasal
congestion
- seasonal
Home Medications
simvastatin 10 mg tablet 10 mg PO HS High cholesterol 06/14/18
furosemide 20 mg tablet 20 mg PO BID Fluid retention/Swelling 11/30/20
metformin 1,000 mg tablet 1,000 mg PO BID Diabetes 11/30/20
vitamins A,C,V-zjbo-wtwkts 4,296 mcg-226 mg-90 mg capsule (PreserVision AREDS) 1 cap PO DAILY Supplement 10/25/23
amiloride 5 mg tablet 5 mg PO BID Blood Pressure 07/24/24
amlodipine 5 mg tablet 5 mg PO DAILY Blood Pressure 07/24/24
doxycycline hyclate 100 mg capsule 100 mg PO BID Infection 07/24/24
loperamide 2 mg capsule 4 mg PO DAILY Loose Stools 07/24/24
spironolactone 100 mg tablet 100 mg PO DAILY Blood Pressure 07/24/24
Review of Systems
-
A 12 point ROS was completed and negative except as noted: Yes
Respiratory: Denies Trouble Breathing
Cardiac: Denies Chest Pain
Abdomen/GI: Reports Nausea, Vomiting and Diarrhea; Denies Abdominal Pain
Physical Exam
Vital Signs
Vital Signs
Temp Pulse Resp BP Pulse Ox
98.9 F 95 20 142/72 100
07/24/24 13:03 07/24/24 15:15 07/24/24 15:15 07/24/24 13:03 07/24/24 15:15
Physical Exam
General: Comfortable and Conversant
HEENT: Other (dry mucosa)
Respiratory: Clear
Cardiac: S1/S2 and Regular Rhythm
GI: Soft, Non Tender and Normal Bowel Sounds
Musculoskeletal: No Edema
Neuro: Awake, AO x 3 and No Motor Deficits
Psych: Intact Judgment/Insight
Laboratory Results
-
07/24/24 10:23
Laboratory Results
Total Bilirubin 1.2 mg/dl (0.2-1.3) 07/24/24 10:23
AST 45 U/L (17-59) 07/24/24 10:23
ALT 32 U/L (0-50) 07/24/24 10:23
Alkaline Phosphatase 178 U/L (38-126) H 07/24/24 10:23
Lipase 52 U/L (23-300) 07/24/24 10:23
Impression/Plan
-
IMPRESSION/PLAN:
# Nausea vomiting diarrhea
Possible norovirus check PCR
Studies
Hold Lasix and Aldactone
Symptoms improved and he wants to eat.
Will do clear liquids for tonight and advance slowly as tolerated
# Hyperkalemia
Hold Aldactone repeat BMP ordered
Patient received Lokelma , Insulin and sodium bicarb
# Acute kidney injury-IV fluids. Hold Lasix and Aldactone. Hold metformin
# History of metastatic invasive adenocarcinoma sigmoid colon - History of sigmoid colectomy with anastomosis
Was on FOLFOX 6 from June 2022 to February 2023-discontinued secondary to disease progression
status post FOLFIRI treatment February 2023 he to March 2024 discontinued secondary to drug intolerance
Metastasis to liver, adrenal gland, liver invasion, retroperitoneal and thoracic lymph nodes
Stenosis status post Y90 radioembolization to the liver 01/25/2022 at [facility]
Currently on Vectibix every 2 weeks. 6 out of 8 treatments completed along with Aranesp as every 2 weeks
Also on Avastin since June 2022 till now
Follows with Dr.Lorraine Mejia
# Recurrent ascites with paracentesis last 1 was April 2024 with 3.5 L
# Anemia-likely secondary to malignancy
# COPD-stable
# Hyperlipidemia-continue simvastatin
# Diabetes-hold metformin. Accu-Cheks and sliding scale coverage
# Hypertension-continue amiloride, amlodipine. Lasix and Aldactone
# Remote history of DVT provoked by trauma
# Drug-induced polyneuropathy
# Obesity with a BMI of 33
# Ex-smoker quit in 2015
# DVT prophylaxis-Lovenox
# CODE STATUS-full code
[2024-07-24 16:19] LABS: Glucose - Point of Care 133 mg/dl (70-99)
[2024-07-24 16:47] LABS: Magnesium 0.7 mg/dl (1.6-2.3)
[2024-07-24 17:25] LABS: Glucose - Point of Care 103 mg/dl (70-99)
[2024-07-24 18:18] LABS: Potassium 4.8 mmol/L (3.5-5.1)
[2024-07-24 19:11] LABS: Glucose - Point of Care 94 mg/dl (70-99)
[2024-07-24 19:46] VITALS: BP 140/67
[2024-07-24 20:56] VITALS: BP 148/81; BMI 33.6
--- NOTE | 2024-07-24 21:00 | PTCARENOTE ---
Received patient from ED. Patient AAOx3, ambulates with min assistance. IVF infusing through L chest port. Patient assessed, VSS. Placed on Enhanced precautions due to loose stool. Patient oriented to the unit. Patient verbalized an understanding
to ring for transfers as needed. Call bauer in reach.
[2024-07-24 21:18] LABS: Glucose - Point of Care 139 mg/dl (70-99)
[2024-07-24] MEDS: LIPITOR 10 MG PO (21:56)
[2024-07-24] MEDS: MAGNESIUM SULFATE 100 IV (22:20)
[2024-07-24] MEDS: HEPARIN 5000 UNITS SC (23:31)
[2024-07-24 23:36] VITALS: BP 111/55
--- NOTE | 2024-07-24 23:47 | PTCARENOTE ---
Right AC IV line pulled per patient request. Patient said it was hurting him when he bent his arm. He has a Left SubQ port that is currently accessed. Advised IV team.
[2024-07-25 03:49] VITALS: BP 123/67
[2024-07-25 06:00] VITALS: BMI 33.3
[2024-07-25 07:25] VITALS: BP 132/65
[2024-07-25 09:02] LABS: % Basophils 0.5 % (0-2); % Eosinophils 5.2 % (0-6); % Lymphocytes 25.7 % (20.5-51.1); % Monocytes 12.4 % (1.7-9.3); % Neutrophils 56.2 % (42.2-75.2); Absolute Eosinophils 0.1 10^3/uL (0-0.7); Absolute Lymphocytes 0.5 10^3/uL (1.2-3.4); Absolute Monocytes 0.3 10^3/uL (0.1-0.6); Absolute Neutrophils 1.2 10^3/uL (1.4-6.5); Hematocrit 31.1 % (39.0-52.0); Hemoglobin 10.4 g/dL (13.0-18.0); Mean Corp Hgb Conc. 33.4 g/dL (33.0-37.0); Mean Corpuscular Hgb 34.7 pg (27.0-31.0); Mean Corpuscular Volume 103.7 fL (80.0-94.0); Mean Platelet Volume 10.1 fL (7.4-10.4); Nucleated Red Blood Cells % 0 % (-); Platelet Count 87 10^3/uL (130-400); Red Cell Dist. Width 13.6 % (11.5-14.5); White Blood Cell Count 2.1 10^3/uL (4.8-10.8)
[2024-07-25 09:21] LABS: Blood Urea Nitrogen 21 mg/dl (9-20); Calcium 7.9 mg/dl (8.4-10.2); Carbon Dioxide 18 mmol/L (22-30); Chloride 108 mmol/L (98-107); Estimated Creatinine Clearance 60 ml/min; Glucose 111 mg/dl (70-99); Magnesium 1.6 mg/dl (1.6-2.3); Potassium 4.6 mmol/L (3.5-5.1); Sodium 136 mmol/L (135-145); eGFR 58.01
[2024-07-25 09:50] LABS: Vitamin B12 991 pg/ml (239-931)
[2024-07-25] MEDS: NSS 1000 IV (10:18)
[2024-07-25] MEDS: HEPARIN 5000 UNITS SC ×2 (10:22→17:51)
[2024-07-25] MEDS: NORVASC 5 MG PO (10:22)
[2024-07-25 11:40] VITALS: BP 149/74
--- NOTE | 2024-07-25 11:43 | CM ---
Met with pt at bedside
Pt reports he lives in a 2 story home with his daughter, son-in-law and 3 grandchildren; 1 step to enter, 13 steps to 2nd fl
Independent, retired, driving
DME - none
SNF/HH - denies past hx
Has transport home
PCP - Girish Davis
Pharm - [facility]
Given IMM
Plan - anticipate home no needs when medically ready
[2024-07-25] MEDS: MAGNESIUM SULFATE 50 IV (13:59)
--- NOTE | 2024-07-25 14:51 | W.PN.HOSP.TC ---
Today's Communication/Plan
-
Advance diet
If tolerating discharge planning
Assessment / Plan
Assessment / Plan
Feels Much better
Cardiovascular system S1-S2 appreciated
Chest clear to auscultation
Abdomen soft and nontender
No pedal edema
# Nausea vomiting diarrhea
Novirus positive
C Diff neg
Hold Lasix and Aldactone
Symptoms improved and he wants to eat. LR diet
# Pancytopenia-likely from viral infection. Needs follow-up as outpatient
# Hyperkalemia
Hold Aldactone repeat BMP ordered
Patient received Lokelma , Insulin and sodium bicarb
Potassium is Much better
Will not restart Aldactone
# Acute kidney injury-status post IV fluids. Hold Lasix and Aldactone. Restart metformin
# History of metastatic invasive adenocarcinoma sigmoid colon - History of sigmoid colectomy with anastomosis
Was on FOLFOX 6 from June 2022 to February 2023-discontinued secondary to disease progression
status post FOLFIRI treatment February 2023 he to March 2024 discontinued secondary to drug intolerance
Metastasis to liver, adrenal gland, liver invasion, retroperitoneal and thoracic lymph nodes
Stenosis status post Y90 radioembolization to the liver 01/25/2022 at [facility]
Currently on Vectibix every 2 weeks. 6 out of 8 treatments completed along with Aranesp as every 2 weeks
Also on Avastin since June 2022 till now
Follows with Dr.Lorraine Mejia
# Recurrent ascites with paracentesis last 1 was April 2024 with 3.5 L
# Anemia-likely secondary to malignancy
# COPD-stable
# Hyperlipidemia-continue simvastatin
# Diabetes-restart metformin. Accu-Cheks and sliding scale coverage
# Hypertension-continue amiloride, amlodipine. Lasix and Aldactone
# Remote history of DVT provoked by trauma
# Drug-induced polyneuropathy
# Obesity with a BMI of 33
# Ex-smoker quit in 2015
# DVT prophylaxis-Lovenox
# CODE STATUS-full code
Discussed with nursing
Anticipated Discharge: Within 24 hours
Subjective/Interval History
-
Date of Service: July 25, 2024
Objective Data
-
Labs:
Laboratory Results
07/25/24
07:44
WBC 2.1 L*
Hgb 10.4 L
Hct 31.1 L
Plt Count 87 L
Sodium 136
Potassium 4.6
Chloride 108 H
Carbon Dioxide 18 L
BUN 21 H
Creatinine 1.3
Glucose 111 H
Calcium 7.9 L
Vital Signs:
Vital Signs
Temp Pulse Resp BP Pulse Ox
98.1 F 87 16 149/74 99
07/25/24 11:40 07/25/24 11:40 07/25/24 11:40 07/25/24 11:40 07/25/24 11:40
I&O
07/24/24 07/25/24 07/26/24
06:59 06:59 06:59
Intake Total 700 / 700
Balance 700 / 700
[2024-07-25 15:35] VITALS: BP 152/70
--- NOTE | 2024-07-25 18:02 | W.PN.UPDATE ---
Addendum entered and electronically signed by Pa Brown MD 07/25/24 18:28:
Left a message for daughter Ary
Original Note:
Update Note
Progress Note Update
Patient tolerated diet and wants to go home.
I have given him a prescription for CBC to be done on 07/28/2024
More than 30 minutes spent in discharge including
Final examination of the patient
Summarizing hospital stay
Instructions for continuing care to all relevant caregivers
Preparation of discharge records, prescriptions, and referral forms
Total time spent (in minutes): 36 min
--- NOTE | 2024-07-25 18:07 | W.DS.TRANS ---
Addendum entered and electronically signed by Pa Brown MD 07/25/24 18:27:
Dictation- [id number]
Original Note:
DC Summary - Quality Control Lead
-
Discharge Instructions:
Discharge Diagnosis/Procedures Norovirus infection
High potassium
Pancytopenia
Acute kidney injury
Metastatic adenocarcinoma of the colon
Recurrent ascites
Anemia
COPD
High cholesterol
Diabetes
High blood pressure
Diet As tolerated
Activity As tolerated
Driving Restrictions As prior to admission
Instructions:
Stand-Alone Forms:
Changes to Home Medications: Yes
Discharge Medications:
DC Medications w/original date entered in [employer]
simvastatin 10 mg tablet 10 mg PO HS High cholesterol 06/14/18
furosemide 20 mg tablet 20 mg PO BID Fluid retention/Swelling 11/30/20
metformin 1,000 mg tablet 1,000 mg PO BID Diabetes 11/30/20
vitamins A,C,H-gqsl-mdcccb 4,296 mcg-226 mg-90 mg capsule (PreserVision AREDS) 1 cap PO DAILY Supplement 10/25/23
amiloride 5 mg tablet 5 mg PO BID Blood Pressure 07/24/24
doxycycline hyclate 100 mg capsule 100 mg PO BID Infection 07/24/24
loperamide 2 mg capsule 4 mg PO DAILY Loose Stools 07/24/24
amlodipine 5 mg tablet 10 mg (2 x 5 mg) PO DAILY Blood pressure #60 tabs 07/25/24
Home Medication Changes
Amlodipine dose increased
Aldactone stopped
Pending Results: Yes
Additional Pending Results:
Stool culture
[2024-07-25 19:16] VITALS: BP 158/76
== END 2024-07-25 19:26 | disposition home or self-care (01) | DRG 392 ==
LOC: 2 NORTH 16:55
PROVIDERS: Physician Assistant; ADMITTING PHYSICIAN Hospitalist; EMERGENCY PHYSICIAN Emergency Medicine; FAMILY PHYSICIAN Physician Assistant
DX: A08.11 Acute gastroenteropathy due to Norwalk agent (principal); C19 Malignant neoplasm of rectosigmoid junction; C78.7 Secondary malignant neoplasm of liver and intrahepatic bile duct; N17.9 Acute kidney failure, unspecified; E87.20 Acidosis, unspecified; R18.8 Other ascites; D61.818 Other pancytopenia; R19.7 Diarrhea, unspecified; R11.2 Nausea with vomiting, unspecified; F17.200 Nicotine dependence, unspecified, uncomplicated; E11.9 Type 2 diabetes mellitus without complications; E78.00 Pure hypercholesterolemia, unspecified; I50.9 Heart failure, unspecified; I11.0 Hypertensive heart disease with heart failure; J44.9 Chronic obstructive pulmonary disease, unspecified; E87.5 Hyperkalemia; D69.6 Thrombocytopenia, unspecified; G47.30 Sleep apnea, unspecified; D63.0 Anemia in neoplastic disease; G62.0 Drug-induced polyneuropathy; E66.9 Obesity, unspecified; Z86.718 Personal history of other venous thrombosis and embolism; Z80.43 Family history of malignant neoplasm of testis; Z79.84 Long term (current) use of oral hypoglycemic drugs; Z68.33 Body mass index [BMI] 33.0-33.9, adult; Z87.828 Personal history of other (healed) physical injury and trauma
CPT/HCPCS: 36415; 80048; 80053; 82570; 82607; 82962; 83690; 83735; 84132; 84156; 85025; 87045; 87046; 87324; 87427; 87449; 87798; 93005; 96361; 96374; 96375; 99285

== ENCOUNTER → 2024-07-27 07:43 | Outpatient (REF) | payer MEDICARE, SELFPAY ==
[2024-07-27 09:30] LABS: ALT (SGPT) 68 U/L (0-50); AST (SGOT) 84 U/L (17-59); Albumin 3.5 g/dl (3.5-5.0); Alkaline Phosphatase 234 U/L (38-126); Blood Urea Nitrogen 15 mg/dl (9-20); Calcium 8.5 mg/dl (8.4-10.2); Carbon Dioxide 21 mmol/L (22-30); Chloride 107 mmol/L (98-107); Glucose 123 mg/dl (70-99); Magnesium 1.1 mg/dl (1.6-2.3); Potassium 4.9 mmol/L (3.5-5.1); Sodium 138 mmol/L (135-145); Total Bilirubin 1.1 mg/dl (0.2-1.3); Total Protein 6.7 g/dl (6.3-8.2); eGFR 58.01
[2024-07-27 09:31] LABS: Hematocrit 34.9 % (39.0-52.0); Hemoglobin 11.3 g/dL (13.0-18.0); Mean Corp Hgb Conc. 32.4 g/dL (33.0-37.0); Mean Corpuscular Hgb 33.6 pg (27.0-31.0); Mean Corpuscular Volume 103.9 fL (80.0-94.0); Mean Platelet Volume 10.4 fL (7.4-10.4); Platelet Count 121 10^3/uL (130-400); Red Blood Cell Count 3.36 10^6/uL (4.70-6.10); Red Cell Dist. Width 13.5 % (11.5-14.5); White Blood Cell Count 2.9 10^3/uL (4.8-10.8)
[2024-07-27 10:41] LABS: Protein/creatinine Ratio 0.3; Urine Protein 24 mg/dl
[2024-07-27 12:55] LABS: % Basophils 0.3 % (0-2); % Eosinophils 5.5 % (0-6); % Immature Granulocytes 0.3 % (0-0.5); % Lymphocytes 32.5 % (20.5-51.1); % Monocytes 11.3 % (1.7-9.3); % Neutrophils 50.1 % (42.2-75.2); Absolute Eosinophils 0.2 10^3/uL (0-0.7); Absolute Monocytes 0.3 10^3/uL (0.1-0.6); Absolute Neutrophils 1.5 10^3/uL (1.4-6.5); Nucleated Red Blood Cells % 0 % (-)
== END ==
LOC: REG 07:43
PROVIDERS: ATTENDING PHYSICIAN Internal Medicine Hematology & Oncology; FAMILY PHYSICIAN Physician Assistant; REFERRING PHYSICIAN Hospitalist
DX: C18.7 Malignant neoplasm of sigmoid colon (principal); C78.7 Secondary malignant neoplasm of liver and intrahepatic bile duct; D70.1 Agranulocytosis secondary to cancer chemotherapy; R04.0 Epistaxis; D69.6 Thrombocytopenia, unspecified; G62.0 Drug-induced polyneuropathy; D63.0 Anemia in neoplastic disease; R19.7 Diarrhea, unspecified; D61.818 Other pancytopenia
CPT/HCPCS: 36415; 80053; 82570; 83735; 84156; 85025

== ENCOUNTER → 2024-08-03 07:46 | Outpatient (REF) | payer MEDICARE, SELFPAY ==
[2024-08-03 08:56] LABS: Protein/creatinine Ratio 0.2; Urine Protein 17 mg/dl
[2024-08-03 09:01] LABS: Microalbumin, Random Urine 7.8 mg/dl (0.6-1.7); Microalbumin/creatinine Ratio 69.8 mg/g
[2024-08-03 09:56] LABS: % Basophils 0.5 % (0-2); % Eosinophils 3.5 % (0-6); % Immature Granulocytes 0.3 % (0-0.5); % Lymphocytes 28.8 % (20.5-51.1); % Monocytes 9.3 % (1.7-9.3); % Neutrophils 57.6 % (42.2-75.2); Absolute Eosinophils 0.1 10^3/uL (0-0.7); Absolute Lymphocytes 1.1 10^3/uL (1.2-3.4); Absolute Monocytes 0.4 10^3/uL (0.1-0.6); Absolute Neutrophils 2.2 10^3/uL (1.4-6.5); Hemoglobin 12.2 g/dL (13.0-18.0); Mean Corp Hgb Conc. 32.1 g/dL (33.0-37.0); Mean Corpuscular Hgb 34.1 pg (27.0-31.0); Mean Corpuscular Volume 106.1 fL (80.0-94.0); Mean Platelet Volume 10.5 fL (7.4-10.4); Nucleated Red Blood Cells % 0 % (-); Platelet Count 124 10^3/uL (130-400); Red Blood Cell Count 3.58 10^6/uL (4.70-6.10); Red Cell Dist. Width 13.9 % (11.5-14.5); White Blood Cell Count 3.8 10^3/uL (4.8-10.8)
[2024-08-03 10:23] LABS: Glycohemoglobin (HgbA1c) 5.9 % (4.0-5.6)
[2024-08-03 10:47] LABS: ALT (SGPT) 51 U/L (0-50); AST (SGOT) 58 U/L (17-59); Albumin 3.5 g/dl (3.5-5.0); Alkaline Phosphatase 215 U/L (38-126); Blood Urea Nitrogen 17 mg/dl (9-20); Calcium 8.4 mg/dl (8.4-10.2); Carbon Dioxide 23 mmol/L (22-30); Chloride 106 mmol/L (98-107); Glucose 119 mg/dl (70-99); HDL Cholesterol 40 mg/dl; LDL Cholesterol, Calculated 51 mg/dl; Magnesium 0.9 mg/dl (1.6-2.3); Potassium 7.5 mmol/L (3.5-5.1); Sodium 137 mmol/L (135-145); Total Cholesterol 103 mg/dl (50-199); Total Protein 6.8 g/dl (6.3-8.2); Triglyceride 64 mg/dl (10-149); Very Low Density Lipoprotein 12 mg/dl (0-30); eGFR 58.01
[2024-08-03 10:54] LABS: TSH Reflex To Free T4 2.89 uIU/ml (0.47-4.68)
== END ==
LOC: REG 07:46
PROVIDERS: ATTENDING PHYSICIAN Internal Medicine Hematology & Oncology; FAMILY PHYSICIAN Physician Assistant
DX: C18.7 Malignant neoplasm of sigmoid colon (principal); C78.7 Secondary malignant neoplasm of liver and intrahepatic bile duct; D70.1 Agranulocytosis secondary to cancer chemotherapy; R04.0 Epistaxis; D69.6 Thrombocytopenia, unspecified; G62.0 Drug-induced polyneuropathy; D63.0 Anemia in neoplastic disease; R19.7 Diarrhea, unspecified; E11.65 Type 2 diabetes mellitus with hyperglycemia; E78.2 Mixed hyperlipidemia
CPT/HCPCS: 36415; 80048; 80053; 80061; 82043; 82570; 83036; 83735; 84156; 84443; 85025

== ENCOUNTER → 2024-08-04 08:51 | Outpatient (REF) | payer MEDICARE, SELFPAY ==
[2024-08-04 09:57] LABS: ALT (SGPT) 47 U/L (0-50); AST (SGOT) 53 U/L (17-59); Albumin 3.5 g/dl (3.5-5.0); Alkaline Phosphatase 230 U/L (38-126); Blood Urea Nitrogen 19 mg/dl (9-20); Calcium 8.6 mg/dl (8.4-10.2); Carbon Dioxide 18 mmol/L (22-30); Chloride 108 mmol/L (98-107); Glucose 119 mg/dl (70-99); Potassium 6.2 mmol/L (3.5-5.1); Sodium 136 mmol/L (135-145); Total Bilirubin 1.3 mg/dl (0.2-1.3); Total Protein 6.8 g/dl (6.3-8.2); eGFR 58.01
== END ==
LOC: OIDL 08:51
PROVIDERS: ATTENDING PHYSICIAN Internal Medicine Hematology & Oncology
DX: C18.7 Malignant neoplasm of sigmoid colon (principal); C78.7 Secondary malignant neoplasm of liver and intrahepatic bile duct; D70.1 Agranulocytosis secondary to cancer chemotherapy
CPT/HCPCS: 80053

== ENCOUNTER → 2024-08-06 14:07 | Outpatient (REF) | payer MEDICARE, SELFPAY ==
[2024-08-06 14:15] LABS: % Basophils 0.6 % (0-2); % Eosinophils 1.8 % (0-6); % Immature Granulocytes 0.2 % (0-0.5); % Monocytes 7.6 % (1.7-9.3); % Neutrophils 70.8 % (42.2-75.2); Absolute Eosinophils 0.1 10^3/uL (0-0.7); Absolute Monocytes 0.4 10^3/uL (0.1-0.6); Absolute Neutrophils 3.6 10^3/uL (1.4-6.5); Hemoglobin 11.8 g/dL (13.0-18.0); Mean Corp Hgb Conc. 31.9 g/dL (33.0-37.0); Mean Corpuscular Hgb 33.8 pg (27.0-31.0); Mean Platelet Volume 9.5 fL (7.4-10.4); Platelet Count 133 10^3/uL (130-400); Red Blood Cell Count 3.49 10^6/uL (4.70-6.10); Red Cell Dist. Width 13.9 % (11.5-14.5); White Blood Cell Count 5.1 10^3/uL (4.8-10.8)
[2024-08-06 15:10] LABS: ALT (SGPT) 52 U/L (0-50); AST (SGOT) 62 U/L (17-59); Albumin 3.8 g/dl (3.5-5.0); Alkaline Phosphatase 230 U/L (38-126); Blood Urea Nitrogen 16 mg/dl (9-20); Calcium 8.6 mg/dl (8.4-10.2); Carbon Dioxide 19 mmol/L (22-30); Chloride 105 mmol/L (98-107); Glucose 145 mg/dl (70-99); Potassium 5.9 mmol/L (3.5-5.1); Sodium 134 mmol/L (135-145); Total Bilirubin 1.1 mg/dl (0.2-1.3); Total Protein 7.2 g/dl (6.3-8.2); eGFR > 60.00
== END ==
LOC: OIDL 14:07
PROVIDERS: ATTENDING PHYSICIAN Internal Medicine Hematology & Oncology
DX: C18.7 Malignant neoplasm of sigmoid colon (principal); C78.7 Secondary malignant neoplasm of liver and intrahepatic bile duct; D70.1 Agranulocytosis secondary to cancer chemotherapy; R04.0 Epistaxis; D69.6 Thrombocytopenia, unspecified; G62.0 Drug-induced polyneuropathy; D63.0 Anemia in neoplastic disease; R19.7 Diarrhea, unspecified
CPT/HCPCS: 80053; 83735; 85025

== ENCOUNTER → 2024-08-10 10:41 | Outpatient (REF) | payer MEDICARE, SELFPAY ==
[2024-08-10 08:42] LABS: % Basophils 0.9 % (0-2); % Eosinophils 4.3 % (0-6); % Immature Granulocytes 0.3 % (0-0.5); % Lymphocytes 24.9 % (20.5-51.1); % Monocytes 8.7 % (1.7-9.3); % Neutrophils 60.9 % (42.2-75.2); Absolute Eosinophils 0.2 10^3/uL (0-0.7); Absolute Lymphocytes 0.9 10^3/uL (1.2-3.4); Absolute Monocytes 0.3 10^3/uL (0.1-0.6); Absolute Neutrophils 2.1 10^3/uL (1.4-6.5); Hematocrit 35.3 % (39.0-52.0); Hemoglobin 11.3 g/dL (13.0-18.0); Mean Corpuscular Hgb 34.1 pg (27.0-31.0); Mean Corpuscular Volume 106.6 fL (80.0-94.0); Mean Platelet Volume 9.2 fL (7.4-10.4); Platelet Count 113 10^3/uL (130-400); Red Blood Cell Count 3.31 10^6/uL (4.70-6.10); White Blood Cell Count 3.5 10^3/uL (4.8-10.8)
[2024-08-10 09:38] LABS: ALT (SGPT) 69 U/L (0-50); AST (SGOT) 84 U/L (17-59); Albumin 3.5 g/dl (3.5-5.0); Alkaline Phosphatase 236 U/L (38-126); Blood Urea Nitrogen 18 mg/dl (9-20); Calcium 8.2 mg/dl (8.4-10.2); Carbon Dioxide 20 mmol/L (22-30); Chloride 108 mmol/L (98-107); Glucose 141 mg/dl (70-99); Magnesium 0.8 mg/dl (1.6-2.3); Potassium 4.8 mmol/L (3.5-5.1); Sodium 139 mmol/L (135-145); Total Bilirubin 0.9 mg/dl (0.2-1.3); Total Protein 6.8 g/dl (6.3-8.2); eGFR 53.07
== END ==
LOC: OIDL 10:41
PROVIDERS: ATTENDING PHYSICIAN Internal Medicine Hematology & Oncology
DX: C18.7 Malignant neoplasm of sigmoid colon (principal)
CPT/HCPCS: 80053; 83735; 85025

== ENCOUNTER → 2024-08-12 15:58 | Outpatient (REF) | payer MEDICARE, SELFPAY ==
[2024-08-12 08:49] LABS: % Basophils 0.7 % (0-2); % Eosinophils 3.2 % (0-6); % Immature Granulocytes 0.4 % (0-0.5); % Lymphocytes 27.3 % (20.5-51.1); % Monocytes 9.2 % (1.7-9.3); % Neutrophils 59.2 % (42.2-75.2); Absolute Eosinophils 0.1 10^3/uL (0-0.7); Absolute Lymphocytes 0.8 10^3/uL (1.2-3.4); Absolute Monocytes 0.3 10^3/uL (0.1-0.6); Absolute Neutrophils 1.7 10^3/uL (1.4-6.5); Hematocrit 33.7 % (39.0-52.0); Hemoglobin 10.8 g/dL (13.0-18.0); Mean Corpuscular Hgb 34.2 pg (27.0-31.0); Mean Corpuscular Volume 106.6 fL (80.0-94.0); Mean Platelet Volume 9.9 fL (7.4-10.4); Platelet Count 110 10^3/uL (130-400); Red Blood Cell Count 3.16 10^6/uL (4.70-6.10); Red Cell Dist. Width 14.2 % (11.5-14.5); White Blood Cell Count 2.8 10^3/uL (4.8-10.8)
[2024-08-12 10:22] LABS: ALT (SGPT) 64 U/L (0-50); AST (SGOT) 71 U/L (17-59); Albumin 3.4 g/dl (3.5-5.0); Alkaline Phosphatase 256 U/L (38-126); Blood Urea Nitrogen 20 mg/dl (9-20); Carbon Dioxide 24 mmol/L (22-30); Chloride 106 mmol/L (98-107); Glucose 158 mg/dl (70-99); Magnesium 0.9 mg/dl (1.6-2.3); Potassium 4.2 mmol/L (3.5-5.1); Sodium 140 mmol/L (135-145); Total Bilirubin 0.7 mg/dl (0.2-1.3); Total Protein 6.8 g/dl (6.3-8.2); eGFR > 60.00
== END ==
LOC: OIDL 15:58
PROVIDERS: ATTENDING PHYSICIAN Internal Medicine Hematology & Oncology
DX: C18.7 Malignant neoplasm of sigmoid colon (principal); C78.7 Secondary malignant neoplasm of liver and intrahepatic bile duct; D70.1 Agranulocytosis secondary to cancer chemotherapy; R04.0 Epistaxis
CPT/HCPCS: 80053; 83735; 85025

== ENCOUNTER → 2024-08-17 12:17 | Outpatient (REF) | payer MEDICARE, SELFPAY ==
[2024-08-17 08:45] LABS: % Basophils 0.7 % (0-2); % Eosinophils 5.8 % (0-6); % Immature Granulocytes 0.4 % (0-0.5); % Lymphocytes 25.5 % (20.5-51.1); % Neutrophils 55.6 % (42.2-75.2); Absolute Eosinophils 0.2 10^3/uL (0-0.7); Absolute Lymphocytes 0.7 10^3/uL (1.2-3.4); Absolute Monocytes 0.3 10^3/uL (0.1-0.6); Absolute Neutrophils 1.5 10^3/uL (1.4-6.5); Hematocrit 32.5 % (39.0-52.0); Hemoglobin 10.8 g/dL (13.0-18.0); Mean Corp Hgb Conc. 33.2 g/dL (33.0-37.0); Mean Corpuscular Hgb 34.7 pg (27.0-31.0); Mean Corpuscular Volume 104.5 fL (80.0-94.0); Mean Platelet Volume 10.1 fL (7.4-10.4); Platelet Count 111 10^3/uL (130-400); Red Blood Cell Count 3.11 10^6/uL (4.70-6.10); Red Cell Dist. Width 14.4 % (11.5-14.5); White Blood Cell Count 2.8 10^3/uL (4.8-10.8)
[2024-08-17 09:35] LABS: ALT (SGPT) 54 U/L (0-50); AST (SGOT) 67 U/L (17-59); Albumin 3.2 g/dl (3.5-5.0); Alkaline Phosphatase 269 U/L (38-126); Blood Urea Nitrogen 18 mg/dl (9-20); Calcium 7.9 mg/dl (8.4-10.2); Carbon Dioxide 25 mmol/L (22-30); Chloride 104 mmol/L (98-107); Glucose 152 mg/dl (70-99); Magnesium 0.9 mg/dl (1.6-2.3); Potassium 4.1 mmol/L (3.5-5.1); Sodium 137 mmol/L (135-145); Total Bilirubin 0.7 mg/dl (0.2-1.3); Total Protein 6.3 g/dl (6.3-8.2); eGFR > 60.00
[2024-08-17 10:11] LABS: Protein/creatinine Ratio 0.3; Urine Protein 20 mg/dl
== END ==
LOC: OIDL 12:17
PROVIDERS: ATTENDING PHYSICIAN Internal Medicine Hematology & Oncology
DX: C18.7 Malignant neoplasm of sigmoid colon (principal)
CPT/HCPCS: 80053; 82570; 83735; 84156; 85025

== ENCOUNTER → 2024-08-18 09:09 | Outpatient (REF) | payer MEDICARE, SELFPAY ==
[2024-08-18 08:42] LABS: % Eosinophils 5.4 % (0-6); % Immature Granulocytes 0.3 % (0-0.5); % Monocytes 12.5 % (1.7-9.3); % Neutrophils 56.8 % (42.2-75.2); Absolute Eosinophils 0.2 10^3/uL (0-0.7); Absolute Lymphocytes 0.8 10^3/uL (1.2-3.4); Absolute Monocytes 0.4 10^3/uL (0.1-0.6); Absolute Neutrophils 1.8 10^3/uL (1.4-6.5); Hematocrit 32.9 % (39.0-52.0); Hemoglobin 10.9 g/dL (13.0-18.0); Mean Corp Hgb Conc. 33.1 g/dL (33.0-37.0); Mean Corpuscular Hgb 34.8 pg (27.0-31.0); Mean Corpuscular Volume 105.1 fL (80.0-94.0); Mean Platelet Volume 10.4 fL (7.4-10.4); Platelet Count 119 10^3/uL (130-400); Red Blood Cell Count 3.13 10^6/uL (4.70-6.10); Red Cell Dist. Width 14.4 % (11.5-14.5); White Blood Cell Count 3.1 10^3/uL (4.8-10.8)
[2024-08-18 09:15] LABS: ALT (SGPT) 49 U/L (0-50); AST (SGOT) 60 U/L (17-59); Albumin 3.3 g/dl (3.5-5.0); Alkaline Phosphatase 269 U/L (38-126); Blood Urea Nitrogen 18 mg/dl (9-20); Calcium 8.1 mg/dl (8.4-10.2); Carbon Dioxide 25 mmol/L (22-30); Chloride 104 mmol/L (98-107); Glucose 146 mg/dl (70-99); Magnesium 1.2 mg/dl (1.6-2.3); Potassium 3.9 mmol/L (3.5-5.1); Sodium 139 mmol/L (135-145); Total Protein 6.3 g/dl (6.3-8.2); eGFR > 60.00
== END ==
LOC: OIDL 09:09
PROVIDERS: ATTENDING PHYSICIAN Nurse Practitioner Adult Health
DX: C18.7 Malignant neoplasm of sigmoid colon (principal)
CPT/HCPCS: 80053; 83735; 85025

== ENCOUNTER → 2024-08-20 08:03 | Outpatient (REF) | payer MEDICARE, SELFPAY ==
[2024-08-20 08:50] VITALS: BP 156/77; BP_SYST 89
[2024-08-20 10:49] LABS: Body Fluid Mononuclear 88.5 %; Body Fluid Polymorphonuclear 11.5 %; Body Fluid WBC 218 /CUMM
[2024-08-20 10:55] LABS: Body Fluid Second Tech CS
== END ==
LOC: RADI 08:03
PROVIDERS: ATTENDING PHYSICIAN Internal Medicine Hematology & Oncology; FAMILY PHYSICIAN Physician Assistant
DX: R18.8 Other ascites (principal)
CPT/HCPCS: 49083; 89051

== ENCOUNTER → 2024-08-21 08:26 | Outpatient (REF) | payer MEDICARE, SELFPAY ==
[2024-08-21 08:38] LABS: % Basophils 0.8 % (0-2); % Eosinophils 4.7 % (0-6); % Lymphocytes 27.3 % (20.5-51.1); % Monocytes 10.7 % (1.7-9.3); % Neutrophils 56.5 % (42.2-75.2); Absolute Eosinophils 0.1 10^3/uL (0-0.7); Absolute Lymphocytes 0.7 10^3/uL (1.2-3.4); Absolute Monocytes 0.3 10^3/uL (0.1-0.6); Absolute Neutrophils 1.4 10^3/uL (1.4-6.5); Hematocrit 32.6 % (39.0-52.0); Hemoglobin 10.7 g/dL (13.0-18.0); Mean Corp Hgb Conc. 32.8 g/dL (33.0-37.0); Mean Corpuscular Hgb 34.7 pg (27.0-31.0); Mean Corpuscular Volume 105.8 fL (80.0-94.0); Mean Platelet Volume 10.3 fL (7.4-10.4); Platelet Count 118 10^3/uL (130-400); Red Blood Cell Count 3.08 10^6/uL (4.70-6.10); Red Cell Dist. Width 14.3 % (11.5-14.5); White Blood Cell Count 2.5 10^3/uL (4.8-10.8)
[2024-08-21 09:22] LABS: ALT (SGPT) 52 U/L (0-50); AST (SGOT) 68 U/L (17-59); Albumin 3.2 g/dl (3.5-5.0); Alkaline Phosphatase 273 U/L (38-126); Blood Urea Nitrogen 13 mg/dl (9-20); Calcium 7.6 mg/dl (8.4-10.2); Carbon Dioxide 27 mmol/L (22-30); Chloride 104 mmol/L (98-107); Glucose 162 mg/dl (70-99); Magnesium 0.9 mg/dl (1.6-2.3); Sodium 140 mmol/L (135-145); Total Bilirubin 1.4 mg/dl (0.2-1.3); Total Protein 6.4 g/dl (6.3-8.2); eGFR > 60.00
== END ==
LOC: OIDL 08:26
PROVIDERS: ATTENDING PHYSICIAN Internal Medicine Hematology & Oncology
DX: C18.7 Malignant neoplasm of sigmoid colon (principal); C78.7 Secondary malignant neoplasm of liver and intrahepatic bile duct
CPT/HCPCS: 80053; 83735; 85025

== ENCOUNTER → 2024-08-25 14:27 | Outpatient (REF) | payer MEDICARE, SELFPAY ==
[2024-08-25 08:35] LABS: % Basophils 0.8 % (0-2); % Eosinophils 4.5 % (0-6); % Lymphocytes 27.4 % (20.5-51.1); % Monocytes 10.2 % (1.7-9.3); % Neutrophils 57.1 % (42.2-75.2); Absolute Eosinophils 0.2 10^3/uL (0-0.7); Absolute Monocytes 0.4 10^3/uL (0.1-0.6); Hematocrit 34.2 % (39.0-52.0); Hemoglobin 10.9 g/dL (13.0-18.0); Mean Corp Hgb Conc. 31.9 g/dL (33.0-37.0); Mean Corpuscular Hgb 34.4 pg (27.0-31.0); Mean Corpuscular Volume 107.9 fL (80.0-94.0); Mean Platelet Volume 9.8 fL (7.4-10.4); Platelet Count 126 10^3/uL (130-400); Red Blood Cell Count 3.17 10^6/uL (4.70-6.10); Red Cell Dist. Width 14.4 % (11.5-14.5); White Blood Cell Count 3.5 10^3/uL (4.8-10.8)
[2024-08-25 09:41] LABS: ALT (SGPT) 42 U/L (0-50); AST (SGOT) 56 U/L (17-59); Albumin 3.5 g/dl (3.5-5.0); Alkaline Phosphatase 278 U/L (38-126); Blood Urea Nitrogen 16 mg/dl (9-20); Calcium 8.2 mg/dl (8.4-10.2); Carbon Dioxide 27 mmol/L (22-30); Chloride 103 mmol/L (98-107); Glucose 145 mg/dl (70-99); Sodium 139 mmol/L (135-145); Total Bilirubin 1.3 mg/dl (0.2-1.3); Total Protein 6.9 g/dl (6.3-8.2); eGFR > 60.00
== END ==
LOC: OIDL 14:27
PROVIDERS: ATTENDING PHYSICIAN Internal Medicine Hematology & Oncology
DX: C18.7 Malignant neoplasm of sigmoid colon (principal)
CPT/HCPCS: 80053; 83735; 85025

== ENCOUNTER → 2024-08-28 14:55 | Outpatient (REF) | payer MEDICARE, SELFPAY ==
[2024-08-28 08:56] LABS: % Eosinophils 3.7 % (0-6); % Immature Granulocytes 0.3 % (0-0.5); % Lymphocytes 26.4 % (20.5-51.1); % Monocytes 9.4 % (1.7-9.3); % Neutrophils 59.2 % (42.2-75.2); Absolute Eosinophils 0.1 10^3/uL (0-0.7); Absolute Lymphocytes 0.8 10^3/uL (1.2-3.4); Absolute Monocytes 0.3 10^3/uL (0.1-0.6); Absolute Neutrophils 1.8 10^3/uL (1.4-6.5); Hematocrit 33.1 % (39.0-52.0); Hemoglobin 10.7 g/dL (13.0-18.0); Mean Corp Hgb Conc. 32.3 g/dL (33.0-37.0); Mean Corpuscular Hgb 35.2 pg (27.0-31.0); Mean Corpuscular Volume 108.9 fL (80.0-94.0); Mean Platelet Volume 10.1 fL (7.4-10.4); Platelet Count 98 10^3/uL (130-400); Red Blood Cell Count 3.04 10^6/uL (4.70-6.10); Red Cell Dist. Width 14.4 % (11.5-14.5)
[2024-08-28 09:27] LABS: ALT (SGPT) 39 U/L (0-50); AST (SGOT) 53 U/L (17-59); Albumin 2.9 g/dl (3.5-5.0); Alkaline Phosphatase 289 U/L (38-126); Blood Urea Nitrogen 19 mg/dl (9-20); Calcium 8.5 mg/dl (8.4-10.2); Carbon Dioxide 29 mmol/L (22-30); Chloride 106 mmol/L (98-107); Glucose 149 mg/dl (70-99); Potassium 4.2 mmol/L (3.5-5.1); Sodium 139 mmol/L (135-145); Total Bilirubin 1.1 mg/dl (0.2-1.3); Total Protein 6.2 g/dl (6.3-8.2); eGFR > 60.00
== END ==
LOC: OIDL 14:55
PROVIDERS: ATTENDING PHYSICIAN Internal Medicine Hematology & Oncology
DX: C18.7 Malignant neoplasm of sigmoid colon (principal)
CPT/HCPCS: 80053; 83735; 85025

== ENCOUNTER → 2024-08-31 14:22 | Outpatient (REF) | payer MEDICARE, SELFPAY ==
[2024-08-31 11:09] LABS: % Basophils 0.3 % (0-2); % Eosinophils 3.8 % (0-6); % Lymphocytes 26.3 % (20.5-51.1); % Monocytes 8.6 % (1.7-9.3); Absolute Eosinophils 0.1 10^3/uL (0-0.7); Absolute Lymphocytes 0.8 10^3/uL (1.2-3.4); Absolute Monocytes 0.3 10^3/uL (0.1-0.6); Absolute Neutrophils 1.9 10^3/uL (1.4-6.5); Hematocrit 33.8 % (39.0-52.0); Hemoglobin 10.7 g/dL (13.0-18.0); Mean Corp Hgb Conc. 31.7 g/dL (33.0-37.0); Mean Corpuscular Hgb 34.2 pg (27.0-31.0); Mean Platelet Volume 9.6 fL (7.4-10.4); Platelet Count 99 10^3/uL (130-400); Red Blood Cell Count 3.13 10^6/uL (4.70-6.10); Red Cell Dist. Width 14.3 % (11.5-14.5); White Blood Cell Count 3.2 10^3/uL (4.8-10.8)
[2024-08-31 11:44] LABS: ALT (SGPT) 40 U/L (0-50); AST (SGOT) 55 U/L (17-59); Albumin 3.4 g/dl (3.5-5.0); Alkaline Phosphatase 274 U/L (38-126); Blood Urea Nitrogen 17 mg/dl (9-20); Calcium 8.4 mg/dl (8.4-10.2); Carbon Dioxide 26 mmol/L (22-30); Chloride 102 mmol/L (98-107); Glucose 228 mg/dl (70-99); Magnesium 0.9 mg/dl (1.6-2.3); Potassium 3.8 mmol/L (3.5-5.1); Sodium 138 mmol/L (135-145); Total Bilirubin 1.2 mg/dl (0.2-1.3); Total Protein 6.5 g/dl (6.3-8.2); eGFR > 60.00
== END ==
LOC: OIDL 14:22
PROVIDERS: ATTENDING PHYSICIAN Internal Medicine Hematology & Oncology
DX: C18.7 Malignant neoplasm of sigmoid colon (principal)
CPT/HCPCS: 80053; 83735; 85025

== ENCOUNTER → 2024-09-01 11:18 | Outpatient (REF) | payer MEDICARE, SELFPAY ==
[2024-09-01 09:04] LABS: % Basophils 0.6 % (0-2); % Eosinophils 4.4 % (0-6); % Immature Granulocytes 0.3 % (0-0.5); % Lymphocytes 22.4 % (20.5-51.1); % Monocytes 9.9 % (1.7-9.3); % Neutrophils 62.4 % (42.2-75.2); Absolute Eosinophils 0.2 10^3/uL (0-0.7); Absolute Lymphocytes 0.8 10^3/uL (1.2-3.4); Absolute Monocytes 0.3 10^3/uL (0.1-0.6); Absolute Neutrophils 2.1 10^3/uL (1.4-6.5); Hematocrit 32.4 % (39.0-52.0); Hemoglobin 10.6 g/dL (13.0-18.0); Mean Corp Hgb Conc. 32.7 g/dL (33.0-37.0); Mean Corpuscular Hgb 34.6 pg (27.0-31.0); Mean Corpuscular Volume 105.9 fL (80.0-94.0); Mean Platelet Volume 10.6 fL (7.4-10.4); Platelet Count 104 10^3/uL (130-400); Red Blood Cell Count 3.06 10^6/uL (4.70-6.10); Red Cell Dist. Width 14.2 % (11.5-14.5); White Blood Cell Count 3.4 10^3/uL (4.8-10.8)
[2024-09-01 10:03] LABS: ALT (SGPT) 39 U/L (0-50); AST (SGOT) 52 U/L (17-59); Alkaline Phosphatase 300 U/L (38-126); Blood Urea Nitrogen 15 mg/dl (9-20); Calcium 8.1 mg/dl (8.4-10.2); Carbon Dioxide 25 mmol/L (22-30); Chloride 104 mmol/L (98-107); Glucose 146 mg/dl (70-99); Magnesium 1.3 mg/dl (1.6-2.3); Potassium 3.9 mmol/L (3.5-5.1); Sodium 137 mmol/L (135-145); Total Bilirubin 1.6 mg/dl (0.2-1.3); Total Protein 6.1 g/dl (6.3-8.2); eGFR > 60.00
[2024-09-01 14:30] LABS: Protein/creatinine Ratio 0.3; Urine Protein 18 mg/dl
== END ==
LOC: OIDL 11:18
PROVIDERS: ATTENDING PHYSICIAN Internal Medicine Hematology & Oncology
DX: C18.7 Malignant neoplasm of sigmoid colon (principal); C78.7 Secondary malignant neoplasm of liver and intrahepatic bile duct
CPT/HCPCS: 80053; 82570; 83735; 84156; 85025

== ENCOUNTER → 2024-09-03 12:02 | Outpatient (REF) | payer MEDICARE, SELFPAY ==
[2024-09-03 09:50] LABS: ALT (SGPT) 36 U/L (0-50); AST (SGOT) 50 U/L (17-59); Alkaline Phosphatase 283 U/L (38-126); Blood Urea Nitrogen 16 mg/dl (9-20); Calcium 8.3 mg/dl (8.4-10.2); Carbon Dioxide 27 mmol/L (22-30); Chloride 105 mmol/L (98-107); Glucose 127 mg/dl (70-99); Sodium 138 mmol/L (135-145); Total Bilirubin 1.4 mg/dl (0.2-1.3); eGFR > 60.00
== END ==
LOC: OIDL 12:02
PROVIDERS: ATTENDING PHYSICIAN Internal Medicine Hematology & Oncology
DX: C18.7 Malignant neoplasm of sigmoid colon (principal)
CPT/HCPCS: 80053; 83735

== ENCOUNTER → 2024-09-04 11:25 | Outpatient (REF) | payer MEDICARE, SELFPAY ==
[2024-09-04 09:39] LABS: Magnesium 1.2 mg/dl (1.6-2.3)
== END ==
LOC: OIDL 11:25
PROVIDERS: ATTENDING PHYSICIAN Internal Medicine Hematology & Oncology
DX: C18.7 Malignant neoplasm of sigmoid colon (principal); C78.7 Secondary malignant neoplasm of liver and intrahepatic bile duct; D70.1 Agranulocytosis secondary to cancer chemotherapy
CPT/HCPCS: 83735

== ENCOUNTER → 2024-09-07 10:51 | Outpatient (REF) | payer MEDICARE, SELFPAY ==
[2024-09-07 09:44] LABS: ALT (SGPT) 33 U/L (0-50); AST (SGOT) 45 U/L (17-59); Alkaline Phosphatase 279 U/L (38-126); Blood Urea Nitrogen 15 mg/dl (9-20); Calcium 8.1 mg/dl (8.4-10.2); Carbon Dioxide 26 mmol/L (22-30); Chloride 104 mmol/L (98-107); Glucose 135 mg/dl (70-99); Magnesium 0.7 mg/dl (1.6-2.3); Potassium 4.1 mmol/L (3.5-5.1); Sodium 137 mmol/L (135-145); Total Bilirubin 1.3 mg/dl (0.2-1.3); Total Protein 6.2 g/dl (6.3-8.2); eGFR > 60.00
== END ==
LOC: OIDL 10:51
PROVIDERS: ATTENDING PHYSICIAN Internal Medicine Hematology & Oncology
DX: C18.7 Malignant neoplasm of sigmoid colon (principal)
CPT/HCPCS: 80053; 83735

== ENCOUNTER → 2024-09-09 15:46 | Outpatient (REF) | payer MEDICARE, SELFPAY ==
[2024-09-09 14:50] LABS: ALT (SGPT) 34 U/L (0-50); AST (SGOT) 48 U/L (17-59); Albumin 3.2 g/dl (3.5-5.0); Alkaline Phosphatase 261 U/L (38-126); Blood Urea Nitrogen 19 mg/dl (9-20); Calcium 8.3 mg/dl (8.4-10.2); Carbon Dioxide 27 mmol/L (22-30); Chloride 103 mmol/L (98-107); Glucose 108 mg/dl (70-99); Sodium 136 mmol/L (135-145); Total Bilirubin 0.9 mg/dl (0.2-1.3); Total Protein 6.5 g/dl (6.3-8.2); eGFR > 60.00
== END ==
LOC: OIDL 15:46
PROVIDERS: ATTENDING PHYSICIAN Internal Medicine Hematology & Oncology
DX: C18.7 Malignant neoplasm of sigmoid colon (principal)
CPT/HCPCS: 80053; 83735

== ENCOUNTER → 2024-09-11 16:07 | Outpatient (REF) | payer MEDICARE, SELFPAY ==
[2024-09-11 08:54] LABS: % Basophils 0.7 % (0-2); % Eosinophils 4.5 % (0-6); % Lymphocytes 27.5 % (20.5-51.1); % Monocytes 11.7 % (1.7-9.3); % Neutrophils 55.6 % (42.2-75.2); Absolute Eosinophils 0.1 10^3/uL (0-0.7); Absolute Lymphocytes 0.8 10^3/uL (1.2-3.4); Absolute Monocytes 0.3 10^3/uL (0.1-0.6); Absolute Neutrophils 1.6 10^3/uL (1.4-6.5); Hematocrit 32.7 % (39.0-52.0); Hemoglobin 10.5 g/dL (13.0-18.0); Mean Corp Hgb Conc. 32.1 g/dL (33.0-37.0); Mean Corpuscular Hgb 35.1 pg (27.0-31.0); Mean Corpuscular Volume 109.4 fL (80.0-94.0); Mean Platelet Volume 10.3 fL (7.4-10.4); Platelet Count 119 10^3/uL (130-400); Red Blood Cell Count 2.99 10^6/uL (4.70-6.10); Red Cell Dist. Width 14.4 % (11.5-14.5); White Blood Cell Count 2.9 10^3/uL (4.8-10.8)
[2024-09-11 09:31] LABS: ALT (SGPT) 33 U/L (0-50); AST (SGOT) 50 U/L (17-59); Albumin 3.3 g/dl (3.5-5.0); Alkaline Phosphatase 275 U/L (38-126); Blood Urea Nitrogen 21 mg/dl (9-20); Calcium 8.2 mg/dl (8.4-10.2); Carbon Dioxide 24 mmol/L (22-30); Chloride 104 mmol/L (98-107); Glucose 163 mg/dl (70-99); Magnesium 0.9 mg/dl (1.6-2.3); Potassium 4.6 mmol/L (3.5-5.1); Sodium 133 mmol/L (135-145); Total Protein 6.4 g/dl (6.3-8.2); eGFR > 60.00
== END ==
LOC: OIDL 16:07
PROVIDERS: ATTENDING PHYSICIAN Internal Medicine Hematology & Oncology
DX: C18.7 Malignant neoplasm of sigmoid colon (principal); C78.7 Secondary malignant neoplasm of liver and intrahepatic bile duct; D70.1 Agranulocytosis secondary to cancer chemotherapy
CPT/HCPCS: 80053; 83735; 85025

== ENCOUNTER → 2024-09-14 13:44 | Outpatient (REF) | payer MEDICARE, SELFPAY ==
[2024-09-14 08:31] LABS: % Basophils 1.4 % (0-2); % Eosinophils 4.9 % (0-6); % Immature Granulocytes 0.4 % (0-0.5); % Lymphocytes 28.3 % (20.5-51.1); % Monocytes 10.6 % (1.7-9.3); % Neutrophils 54.4 % (42.2-75.2); Absolute Eosinophils 0.1 10^3/uL (0-0.7); Absolute Lymphocytes 0.8 10^3/uL (1.2-3.4); Absolute Monocytes 0.3 10^3/uL (0.1-0.6); Absolute Neutrophils 1.5 10^3/uL (1.4-6.5); Hematocrit 33.6 % (39.0-52.0); Hemoglobin 10.9 g/dL (13.0-18.0); Mean Corp Hgb Conc. 32.4 g/dL (33.0-37.0); Platelet Count 108 10^3/uL (130-400); Red Blood Cell Count 3.11 10^6/uL (4.70-6.10); Red Cell Dist. Width 13.9 % (11.5-14.5); White Blood Cell Count 2.8 10^3/uL (4.8-10.8)
[2024-09-14 09:29] LABS: Protein/creatinine Ratio 0.2; Urine Protein 11 mg/dl
[2024-09-14 09:30] LABS: ALT (SGPT) 29 U/L (0-50); AST (SGOT) 45 U/L (17-59); Albumin 3.2 g/dl (3.5-5.0); Alkaline Phosphatase 235 U/L (38-126); Blood Urea Nitrogen 23 mg/dl (9-20); Calcium 8.4 mg/dl (8.4-10.2); Carbon Dioxide 24 mmol/L (22-30); Chloride 104 mmol/L (98-107); Glucose 146 mg/dl (70-99); Magnesium 0.9 mg/dl (1.6-2.3); Potassium 4.2 mmol/L (3.5-5.1); Sodium 138 mmol/L (135-145); Total Bilirubin 0.9 mg/dl (0.2-1.3); Total Protein 6.5 g/dl (6.3-8.2); eGFR > 60.00
== END ==
LOC: OIDL 13:44
PROVIDERS: ATTENDING PHYSICIAN Internal Medicine Hematology & Oncology
DX: C18.7 Malignant neoplasm of sigmoid colon (principal)
CPT/HCPCS: 80053; 82570; 83735; 84156; 85025

== ENCOUNTER → 2024-09-15 09:41 | Outpatient (REF) | payer MEDICARE, SELFPAY ==
[2024-09-15 09:15] LABS: Magnesium 1.2 mg/dl (1.6-2.3)
== END ==
LOC: OIDL 09:41
PROVIDERS: ATTENDING PHYSICIAN Internal Medicine Hematology & Oncology
DX: C18.7 Malignant neoplasm of sigmoid colon (principal); C78.7 Secondary malignant neoplasm of liver and intrahepatic bile duct; D70.1 Agranulocytosis secondary to cancer chemotherapy
CPT/HCPCS: 83735

== ENCOUNTER → 2024-09-17 11:41 | Outpatient (REF) | payer MEDICARE, SELFPAY ==
[2024-09-17 09:19] LABS: ALT (SGPT) 29 U/L (0-50); AST (SGOT) 42 U/L (17-59); Albumin 3.1 g/dl (3.5-5.0); Alkaline Phosphatase 222 U/L (38-126); Blood Urea Nitrogen 22 mg/dl (9-20); Calcium 8.3 mg/dl (8.4-10.2); Carbon Dioxide 24 mmol/L (22-30); Chloride 105 mmol/L (98-107); Glucose 151 mg/dl (70-99); Magnesium 0.9 mg/dl (1.6-2.3); Potassium 4.2 mmol/L (3.5-5.1); Sodium 137 mmol/L (135-145); Total Bilirubin 1.4 mg/dl (0.2-1.3); Total Protein 6.3 g/dl (6.3-8.2); eGFR > 60.00
== END ==
LOC: OIDL 11:41
PROVIDERS: ATTENDING PHYSICIAN Internal Medicine Hematology & Oncology
DX: C18.7 Malignant neoplasm of sigmoid colon (principal)
CPT/HCPCS: 80053; 83735

== ENCOUNTER → 2024-09-18 11:52 | Outpatient (REF) | payer MEDICARE, SELFPAY ==
[2024-09-18 09:12] LABS: Magnesium 1.4 mg/dl (1.6-2.3)
== END ==
LOC: OIDL 11:52
PROVIDERS: ATTENDING PHYSICIAN Internal Medicine Hematology & Oncology
DX: C18.7 Malignant neoplasm of sigmoid colon (principal)
CPT/HCPCS: 83735

== ENCOUNTER → 2024-09-21 15:43 | Outpatient (REF) | payer MEDICARE, SELFPAY ==
[2024-09-21 08:25] LABS: % Basophils 0.6 % (0-2); % Eosinophils 4.1 % (0-6); % Lymphocytes 26.1 % (20.5-51.1); % Monocytes 10.7 % (1.7-9.3); % Neutrophils 58.5 % (42.2-75.2); Absolute Eosinophils 0.1 10^3/uL (0-0.7); Absolute Lymphocytes 0.8 10^3/uL (1.2-3.4); Absolute Monocytes 0.3 10^3/uL (0.1-0.6); Absolute Neutrophils 1.9 10^3/uL (1.4-6.5); Hematocrit 34.8 % (39.0-52.0); Hemoglobin 11.4 g/dL (13.0-18.0); Mean Corp Hgb Conc. 32.8 g/dL (33.0-37.0); Mean Corpuscular Volume 106.7 fL (80.0-94.0); Platelet Count 117 10^3/uL (130-400); Red Blood Cell Count 3.26 10^6/uL (4.70-6.10); Red Cell Dist. Width 13.7 % (11.5-14.5); White Blood Cell Count 3.2 10^3/uL (4.8-10.8)
[2024-09-21 09:42] LABS: ALT (SGPT) 34 U/L (0-50); AST (SGOT) 50 U/L (17-59); Albumin 3.3 g/dl (3.5-5.0); Alkaline Phosphatase 248 U/L (38-126); Blood Urea Nitrogen 24 mg/dl (9-20); Calcium 8.9 mg/dl (8.4-10.2); Carbon Dioxide 26 mmol/L (22-30); Chloride 104 mmol/L (98-107); Glucose 135 mg/dl (70-99); Magnesium 0.9 mg/dl (1.6-2.3); Potassium 4.2 mmol/L (3.5-5.1); Sodium 137 mmol/L (135-145); Total Bilirubin 1.1 mg/dl (0.2-1.3); Total Protein 6.7 g/dl (6.3-8.2); eGFR 57.65
== END ==
LOC: OIDL 15:43
PROVIDERS: ATTENDING PHYSICIAN Internal Medicine Hematology & Oncology
DX: C18.7 Malignant neoplasm of sigmoid colon (principal)
CPT/HCPCS: 80053; 83735; 85025

== ENCOUNTER → 2024-09-23 15:57 | Outpatient (REF) | payer MEDICARE, SELFPAY ==
[2024-09-23 09:57] LABS: Magnesium 1.1 mg/dl (1.6-2.3)
== END ==
LOC: OIDL 15:57
PROVIDERS: ATTENDING PHYSICIAN Internal Medicine Hematology & Oncology
DX: C18.7 Malignant neoplasm of sigmoid colon (principal)
CPT/HCPCS: 83735

== ENCOUNTER → 2024-09-25 09:12 | Outpatient (REF) | payer MEDICARE, SELFPAY ==
[2024-09-25 08:47] LABS: % Basophils 0.5 % (0-2); % Eosinophils 3.8 % (0-6); % Monocytes 11.2 % (1.7-9.3); % Neutrophils 60.5 % (42.2-75.2); Absolute Eosinophils 0.1 10^3/uL (0-0.7); Absolute Lymphocytes 0.9 10^3/uL (1.2-3.4); Absolute Monocytes 0.4 10^3/uL (0.1-0.6); Absolute Neutrophils 2.2 10^3/uL (1.4-6.5); Hemoglobin 11.6 g/dL (13.0-18.0); Mean Corp Hgb Conc. 33.1 g/dL (33.0-37.0); Mean Corpuscular Hgb 35.2 pg (27.0-31.0); Mean Corpuscular Volume 106.1 fL (80.0-94.0); Mean Platelet Volume 10.4 fL (7.4-10.4); Platelet Count 125 10^3/uL (130-400); Red Cell Dist. Width 13.6 % (11.5-14.5); White Blood Cell Count 3.7 10^3/uL (4.8-10.8)
[2024-09-25 10:03] LABS: ALT (SGPT) 32 U/L (0-50); AST (SGOT) 41 U/L (17-59); Albumin 3.8 g/dl (3.5-5.0); Alkaline Phosphatase 249 U/L (38-126); Blood Urea Nitrogen 20 mg/dl (9-20); Calcium 9.1 mg/dl (8.4-10.2); Carbon Dioxide 24 mmol/L (22-30); Chloride 104 mmol/L (98-107); Glucose 159 mg/dl (70-99); Magnesium 1.2 mg/dl (1.6-2.3); Potassium 4.6 mmol/L (3.5-5.1); Sodium 137 mmol/L (135-145); Total Bilirubin 1.7 mg/dl (0.2-1.3); Total Protein 7.2 g/dl (6.3-8.2); eGFR 57.65
[2024-09-25 10:34] LABS: CEA 3.87 ng/ml
== END ==
LOC: OIDL 09:12
PROVIDERS: ATTENDING PHYSICIAN Internal Medicine Hematology & Oncology
DX: C18.7 Malignant neoplasm of sigmoid colon (principal)
CPT/HCPCS: 80053; 82378; 83735; 85025

== ENCOUNTER → 2024-09-28 11:33 | Outpatient (REF) | payer MEDICARE, SELFPAY ==
[2024-09-28 08:54] LABS: % Basophils 0.8 % (0-2); % Immature Granulocytes 0.3 % (0-0.5); % Lymphocytes 24.2 % (20.5-51.1); % Monocytes 10.3 % (1.7-9.3); % Neutrophils 60.4 % (42.2-75.2); Absolute Eosinophils 0.2 10^3/uL (0-0.7); Absolute Monocytes 0.4 10^3/uL (0.1-0.6); Absolute Neutrophils 2.4 10^3/uL (1.4-6.5); Hematocrit 34.9 % (39.0-52.0); Hemoglobin 11.6 g/dL (13.0-18.0); Mean Corp Hgb Conc. 33.2 g/dL (33.0-37.0); Mean Corpuscular Hgb 34.9 pg (27.0-31.0); Mean Corpuscular Volume 105.1 fL (80.0-94.0); Mean Platelet Volume 9.9 fL (7.4-10.4); Platelet Count 125 10^3/uL (130-400); Red Blood Cell Count 3.32 10^6/uL (4.70-6.10); Red Cell Dist. Width 13.6 % (11.5-14.5)
[2024-09-28 09:57] LABS: ALT (SGPT) 30 U/L (0-50); AST (SGOT) 41 U/L (17-59); Albumin 3.4 g/dl (3.5-5.0); Alkaline Phosphatase 233 U/L (38-126); Blood Urea Nitrogen 19 mg/dl (9-20); Carbon Dioxide 27 mmol/L (22-30); Chloride 104 mmol/L (98-107); Glucose 167 mg/dl (70-99); Magnesium 1.1 mg/dl (1.6-2.3); Potassium 4.8 mmol/L (3.5-5.1); Sodium 136 mmol/L (135-145); Total Bilirubin 1.2 mg/dl (0.2-1.3); Total Protein 6.8 g/dl (6.3-8.2); eGFR > 60.00
[2024-09-28 10:32] LABS: Protein/creatinine Ratio 0.5; Urine Protein 15 mg/dl
== END ==
LOC: OIDL 11:33
PROVIDERS: ATTENDING PHYSICIAN Internal Medicine Hematology & Oncology
DX: C18.7 Malignant neoplasm of sigmoid colon (principal); C78.7 Secondary malignant neoplasm of liver and intrahepatic bile duct; D70.1 Agranulocytosis secondary to cancer chemotherapy; R04.0 Epistaxis; D69.6 Thrombocytopenia, unspecified
CPT/HCPCS: 80053; 82570; 83735; 84156; 85025

== ENCOUNTER → 2024-10-01 08:47 | Outpatient (REF) | payer MEDICARE, SELFPAY ==
[2024-10-01 09:17] LABS: ALT (SGPT) 27 U/L (0-50); AST (SGOT) 36 U/L (17-59); Albumin 3.4 g/dl (3.5-5.0); Alkaline Phosphatase 228 U/L (38-126); Blood Urea Nitrogen 21 mg/dl (9-20); Calcium 8.7 mg/dl (8.4-10.2); Carbon Dioxide 23 mmol/L (22-30); Chloride 103 mmol/L (98-107); Glucose 201 mg/dl (70-99); Potassium 4.6 mmol/L (3.5-5.1); Sodium 137 mmol/L (135-145); Total Bilirubin 1.2 mg/dl (0.2-1.3); Total Protein 6.8 g/dl (6.3-8.2); eGFR 57.65
[2024-10-01 10:54] LABS: Magnesium 1.2 mg/dl (1.6-2.3)
== END ==
LOC: OIDL 08:47
PROVIDERS: ATTENDING PHYSICIAN Internal Medicine Hematology & Oncology
DX: C18.7 Malignant neoplasm of sigmoid colon (principal); C78.7 Secondary malignant neoplasm of liver and intrahepatic bile duct; D70.1 Agranulocytosis secondary to cancer chemotherapy; R04.0 Epistaxis; D69.6 Thrombocytopenia, unspecified; G62.0 Drug-induced polyneuropathy; D63.0 Anemia in neoplastic disease; R19.7 Diarrhea, unspecified
CPT/HCPCS: 80053; 83735

== ENCOUNTER → 2024-10-02 08:18 | Outpatient (REF) | payer MEDICARE, SELFPAY ==
[2024-10-02 09:06] LABS: Magnesium 1.5 mg/dl (1.6-2.3)
== END ==
LOC: OIDL 08:18
PROVIDERS: ATTENDING PHYSICIAN Internal Medicine Hematology & Oncology
DX: C18.7 Malignant neoplasm of sigmoid colon (principal); C78.7 Secondary malignant neoplasm of liver and intrahepatic bile duct; D70.1 Agranulocytosis secondary to cancer chemotherapy; R04.0 Epistaxis; D69.6 Thrombocytopenia, unspecified; G62.0 Drug-induced polyneuropathy; D63.0 Anemia in neoplastic disease; R19.7 Diarrhea, unspecified
CPT/HCPCS: 83735

== ENCOUNTER → 2024-10-06 08:46 | Outpatient (REF) | payer MEDICARE, SELFPAY ==
[2024-10-06 08:52] LABS: % Basophils 0.5 % (0-2); % Eosinophils 3.7 % (0-6); % Immature Granulocytes 0.3 % (0-0.5); % Lymphocytes 27.1 % (20.5-51.1); % Neutrophils 58.4 % (42.2-75.2); Absolute Eosinophils 0.1 10^3/uL (0-0.7); Absolute Monocytes 0.4 10^3/uL (0.1-0.6); Absolute Neutrophils 2.2 10^3/uL (1.4-6.5); Hematocrit 35.8 % (39.0-52.0); Mean Corp Hgb Conc. 33.5 g/dL (33.0-37.0); Mean Corpuscular Hgb 35.1 pg (27.0-31.0); Mean Corpuscular Volume 104.7 fL (80.0-94.0); Mean Platelet Volume 10.4 fL (7.4-10.4); Platelet Count 123 10^3/uL (130-400); Red Blood Cell Count 3.42 10^6/uL (4.70-6.10); Red Cell Dist. Width 13.4 % (11.5-14.5); White Blood Cell Count 3.8 10^3/uL (4.8-10.8)
[2024-10-06 09:27] LABS: ALT (SGPT) 31 U/L (0-50); AST (SGOT) 43 U/L (17-59); Albumin 3.5 g/dl (3.5-5.0); Alkaline Phosphatase 240 U/L (38-126); Blood Urea Nitrogen 26 mg/dl (9-20); Carbon Dioxide 22 mmol/L (22-30); Chloride 106 mmol/L (98-107); Glucose 151 mg/dl (70-99); Sodium 137 mmol/L (135-145); Total Bilirubin 1.2 mg/dl (0.2-1.3); Total Protein 6.9 g/dl (6.3-8.2); eGFR 57.65
== END ==
LOC: OIDL 08:46
PROVIDERS: ATTENDING PHYSICIAN Internal Medicine Hematology & Oncology
DX: C18.7 Malignant neoplasm of sigmoid colon (principal); C78.7 Secondary malignant neoplasm of liver and intrahepatic bile duct; D70.1 Agranulocytosis secondary to cancer chemotherapy; R04.0 Epistaxis; D69.6 Thrombocytopenia, unspecified; G62.0 Drug-induced polyneuropathy; D63.0 Anemia in neoplastic disease; R19.7 Diarrhea, unspecified
CPT/HCPCS: 80053; 83735; 85025

== ENCOUNTER → 2024-10-09 08:09 | Outpatient (REF) | payer MEDICARE, SELFPAY ==
[2024-10-09 09:07] LABS: ALT (SGPT) 32 U/L (0-50); AST (SGOT) 45 U/L (17-59); Albumin 3.5 g/dl (3.5-5.0); Alkaline Phosphatase 243 U/L (38-126); Blood Urea Nitrogen 31 mg/dl (9-20); Carbon Dioxide 25 mmol/L (22-30); Chloride 104 mmol/L (98-107); Glucose 163 mg/dl (70-99); Magnesium 1.2 mg/dl (1.6-2.3); Potassium 5.1 mmol/L (3.5-5.1); Sodium 137 mmol/L (135-145); Total Protein 6.9 g/dl (6.3-8.2); eGFR 52.74
== END ==
LOC: OIDL 08:09
PROVIDERS: ATTENDING PHYSICIAN Nurse Practitioner Primary Care
DX: C18.7 Malignant neoplasm of sigmoid colon (principal); C78.7 Secondary malignant neoplasm of liver and intrahepatic bile duct; D70.1 Agranulocytosis secondary to cancer chemotherapy
CPT/HCPCS: 80053; 83735

== ENCOUNTER → 2024-10-12 08:27 | Outpatient (REF) | payer MEDICARE, SELFPAY ==
[2024-10-12 08:38] LABS: % Basophils 0.5 % (0-2); % Eosinophils 3.9 % (0-6); % Immature Granulocytes 0.3 % (0-0.5); % Lymphocytes 26.9 % (20.5-51.1); % Monocytes 10.1 % (1.7-9.3); % Neutrophils 58.3 % (42.2-75.2); Absolute Eosinophils 0.2 10^3/uL (0-0.7); Absolute Monocytes 0.4 10^3/uL (0.1-0.6); Absolute Neutrophils 2.3 10^3/uL (1.4-6.5); Hematocrit 35.3 % (39.0-52.0); Hemoglobin 11.8 g/dL (13.0-18.0); Mean Corp Hgb Conc. 33.4 g/dL (33.0-37.0); Mean Corpuscular Hgb 35.2 pg (27.0-31.0); Mean Corpuscular Volume 105.4 fL (80.0-94.0); Mean Platelet Volume 10.3 fL (7.4-10.4); Platelet Count 120 10^3/uL (130-400); Red Blood Cell Count 3.35 10^6/uL (4.70-6.10); Red Cell Dist. Width 13.1 % (11.5-14.5); White Blood Cell Count 3.9 10^3/uL (4.8-10.8)
[2024-10-12 09:27] LABS: ALT (SGPT) 30 U/L (0-50); AST (SGOT) 38 U/L (17-59); Albumin 3.5 g/dl (3.5-5.0); Alkaline Phosphatase 233 U/L (38-126); Blood Urea Nitrogen 26 mg/dl (9-20); Carbon Dioxide 24 mmol/L (22-30); Chloride 105 mmol/L (98-107); Glucose 156 mg/dl (70-99); Magnesium 1.1 mg/dl (1.6-2.3); Potassium 4.9 mmol/L (3.5-5.1); Sodium 136 mmol/L (135-145); Total Bilirubin 1.5 mg/dl (0.2-1.3); Total Protein 6.9 g/dl (6.3-8.2); eGFR 57.65
[2024-10-12 09:31] LABS: Protein/creatinine Ratio 0.4; Urine Protein 14 mg/dl
[2024-10-13 09:44] LABS: Magnesium 1.5 mg/dl (1.6-2.3)
[2024-10-13 13:09] LABS: CEA 4.33 ng/ml
== END ==
LOC: OIDL 08:27
PROVIDERS: ATTENDING PHYSICIAN Internal Medicine Hematology & Oncology
DX: C18.7 Malignant neoplasm of sigmoid colon (principal); C78.7 Secondary malignant neoplasm of liver and intrahepatic bile duct; D70.1 Agranulocytosis secondary to cancer chemotherapy; R04.0 Epistaxis; D69.6 Thrombocytopenia, unspecified; G62.0 Drug-induced polyneuropathy; D63.0 Anemia in neoplastic disease; R19.7 Diarrhea, unspecified
CPT/HCPCS: 80053; 82378; 82570; 83735; 84156; 85025

== ENCOUNTER → 2024-10-15 08:51 | Outpatient (REF) | payer MEDICARE, SELFPAY ==
[2024-10-15 09:51] LABS: ALT (SGPT) 35 U/L (0-50); AST (SGOT) 49 U/L (17-59); Albumin 3.8 g/dl (3.5-5.0); Alkaline Phosphatase 269 U/L (38-126); Blood Urea Nitrogen 40 mg/dl (9-20); Calcium 9.2 mg/dl (8.4-10.2); Carbon Dioxide 24 mmol/L (22-30); Chloride 105 mmol/L (98-107); Glucose 158 mg/dl (70-99); Magnesium 1.3 mg/dl (1.6-2.3); Potassium 4.9 mmol/L (3.5-5.1); Sodium 138 mmol/L (135-145); Total Protein 7.2 g/dl (6.3-8.2); eGFR 48.55
== END ==
LOC: OIDL 08:51
PROVIDERS: ATTENDING PHYSICIAN Internal Medicine Hematology & Oncology
DX: C18.7 Malignant neoplasm of sigmoid colon (principal); C78.7 Secondary malignant neoplasm of liver and intrahepatic bile duct; D70.1 Agranulocytosis secondary to cancer chemotherapy; R04.0 Epistaxis; D69.6 Thrombocytopenia, unspecified; G62.0 Drug-induced polyneuropathy; D63.0 Anemia in neoplastic disease; R19.7 Diarrhea, unspecified
CPT/HCPCS: 80053; 83735

== ENCOUNTER → 2024-10-19 09:33 | Outpatient (REF) | payer MEDICARE, SELFPAY ==
[2024-10-19 08:32] LABS: % Basophils 0.5 % (0-2); % Eosinophils 3.1 % (0-6); % Immature Granulocytes 0.2 % (0-0.5); % Lymphocytes 26.7 % (20.5-51.1); % Monocytes 9.5 % (1.7-9.3); Absolute Eosinophils 0.1 10^3/uL (0-0.7); Absolute Lymphocytes 1.1 10^3/uL (1.2-3.4); Absolute Monocytes 0.4 10^3/uL (0.1-0.6); Absolute Neutrophils 2.5 10^3/uL (1.4-6.5); Hematocrit 35.8 % (39.0-52.0); Mean Corp Hgb Conc. 33.5 g/dL (33.0-37.0); Mean Corpuscular Hgb 34.7 pg (27.0-31.0); Mean Corpuscular Volume 103.5 fL (80.0-94.0); Mean Platelet Volume 10.3 fL (7.4-10.4); Platelet Count 141 10^3/uL (130-400); Red Blood Cell Count 3.46 10^6/uL (4.70-6.10); Red Cell Dist. Width 13.2 % (11.5-14.5); White Blood Cell Count 4.2 10^3/uL (4.8-10.8)
[2024-10-19 09:23] LABS: ALT (SGPT) 39 U/L (0-50); AST (SGOT) 46 U/L (17-59); Albumin 3.6 g/dl (3.5-5.0); Alkaline Phosphatase 259 U/L (38-126); Blood Urea Nitrogen 34 mg/dl (9-20); Calcium 9.2 mg/dl (8.4-10.2); Carbon Dioxide 25 mmol/L (22-30); Chloride 105 mmol/L (98-107); Glucose 146 mg/dl (70-99); Magnesium 1.1 mg/dl (1.6-2.3); Potassium 5.1 mmol/L (3.5-5.1); Sodium 139 mmol/L (135-145); Total Bilirubin 0.9 mg/dl (0.2-1.3); Total Protein 7.1 g/dl (6.3-8.2); eGFR 48.55
== END ==
LOC: OIDL 09:33
PROVIDERS: ATTENDING PHYSICIAN Internal Medicine Hematology & Oncology
DX: C18.7 Malignant neoplasm of sigmoid colon (principal)
CPT/HCPCS: 80053; 83735; 85025

== ENCOUNTER → 2024-10-22 13:27 | Outpatient (REF) | payer MEDICARE, SELFPAY ==
[2024-10-22 12:17] LABS: ALT (SGPT) 40 U/L (0-50); AST (SGOT) 45 U/L (17-59); Albumin 3.5 g/dl (3.5-5.0); Alkaline Phosphatase 225 U/L (38-126); Blood Urea Nitrogen 25 mg/dl (9-20); Calcium 8.9 mg/dl (8.4-10.2); Carbon Dioxide 25 mmol/L (22-30); Chloride 105 mmol/L (98-107); Glucose 147 mg/dl (70-99); Magnesium 1.2 mg/dl (1.6-2.3); Potassium 4.8 mmol/L (3.5-5.1); Sodium 139 mmol/L (135-145); Total Protein 7.1 g/dl (6.3-8.2); eGFR 57.65
== END ==
LOC: OIDL 13:27
PROVIDERS: ATTENDING PHYSICIAN Internal Medicine Hematology & Oncology
DX: C18.7 Malignant neoplasm of sigmoid colon (principal)
CPT/HCPCS: 80053; 83735

== ENCOUNTER → 2024-10-23 15:50 | Outpatient (REF) | payer MEDICARE, SELFPAY ==
[2024-10-23 09:04] LABS: ALT (SGPT) 38 U/L (0-50); AST (SGOT) 45 U/L (17-59); Albumin 3.4 g/dl (3.5-5.0); Alkaline Phosphatase 231 U/L (38-126); Blood Urea Nitrogen 26 mg/dl (9-20); Calcium 8.8 mg/dl (8.4-10.2); Carbon Dioxide 25 mmol/L (22-30); Chloride 108 mmol/L (98-107); Glucose 176 mg/dl (70-99); Magnesium 1.5 mg/dl (1.6-2.3); Potassium 4.9 mmol/L (3.5-5.1); Sodium 142 mmol/L (135-145); Total Bilirubin 0.9 mg/dl (0.2-1.3); Total Protein 6.8 g/dl (6.3-8.2); eGFR 52.74
== END ==
LOC: OIDL 15:50
PROVIDERS: ATTENDING PHYSICIAN Internal Medicine Hematology & Oncology
DX: C18.7 Malignant neoplasm of sigmoid colon (principal)
CPT/HCPCS: 80053; 83735

== ENCOUNTER → 2024-10-26 08:55 | Outpatient (REF) | payer MEDICARE, SELFPAY ==
[2024-10-26 09:01] LABS: % Basophils 0.6 % (0-2); % Immature Granulocytes 0.3 % (0-0.5); % Lymphocytes 27.4 % (20.5-51.1); % Monocytes 9.4 % (1.7-9.3); % Neutrophils 59.3 % (42.2-75.2); Absolute Eosinophils 0.1 10^3/uL (0-0.7); Absolute Lymphocytes 0.9 10^3/uL (1.2-3.4); Absolute Monocytes 0.3 10^3/uL (0.1-0.6); Hematocrit 34.2 % (39.0-52.0); Hemoglobin 11.4 g/dL (13.0-18.0); Mean Corp Hgb Conc. 33.3 g/dL (33.0-37.0); Mean Corpuscular Hgb 35.1 pg (27.0-31.0); Mean Corpuscular Volume 105.2 fL (80.0-94.0); Mean Platelet Volume 10.5 fL (7.4-10.4); Platelet Count 116 10^3/uL (130-400); Red Blood Cell Count 3.25 10^6/uL (4.70-6.10); Red Cell Dist. Width 13.1 % (11.5-14.5); White Blood Cell Count 3.3 10^3/uL (4.8-10.8)
[2024-10-26 09:45] LABS: ALT (SGPT) 34 U/L (0-50); AST (SGOT) 41 U/L (17-59); Albumin 3.3 g/dl (3.5-5.0); Alkaline Phosphatase 228 U/L (38-126); Blood Urea Nitrogen 24 mg/dl (9-20); Calcium 8.9 mg/dl (8.4-10.2); Carbon Dioxide 25 mmol/L (22-30); Chloride 105 mmol/L (98-107); Glucose 202 mg/dl (70-99); Magnesium 1.1 mg/dl (1.6-2.3); Potassium 4.8 mmol/L (3.5-5.1); Sodium 139 mmol/L (135-145); Total Bilirubin 1.2 mg/dl (0.2-1.3); Total Protein 6.6 g/dl (6.3-8.2); eGFR 57.65
[2024-10-26 10:04] LABS: Protein/creatinine Ratio 0.3; Urine Protein 14 mg/dl
== END ==
LOC: OIDL 08:55
PROVIDERS: ATTENDING PHYSICIAN Internal Medicine Hematology & Oncology
DX: C18.7 Malignant neoplasm of sigmoid colon (principal)
CPT/HCPCS: 80053; 82570; 83735; 84156; 85025

== ENCOUNTER → 2024-10-30 07:14 | Outpatient (REF) | payer MEDICARE, SELFPAY ==
[2024-10-30 08:48] LABS: Blood Urea Nitrogen 20 mg/dl (9-20); Calcium 9.4 mg/dl (8.4-10.2); Carbon Dioxide 27 mmol/L (22-30); Chloride 103 mmol/L (98-107); Glucose 124 mg/dl (70-99); Magnesium 1.6 mg/dl (1.6-2.3); Phosphorus 3.7 mg/dl (2.5-4.5); Potassium 5.3 mmol/L (3.5-5.1); Sodium 138 mmol/L (135-145); Urine Sodium 87 mmol/L (30-90); eGFR > 60.00
[2024-10-30 09:06] LABS: Vitamin D, 25-OH*** 34.1 ng/mL (30-80)
[2024-10-30 09:09] LABS: Osmolality Urine 325 mOsm/kg (300-900)
[2024-10-30 15:59] LABS: Osmolality Serum 288 mOsm/kg (275-300)
== END ==
LOC: REG 07:14
PROVIDERS: ATTENDING PHYSICIAN Specialist; FAMILY PHYSICIAN Physician Assistant
DX: R80.9 Proteinuria, unspecified (principal); E87.5 Hyperkalemia
CPT/HCPCS: 36415; 80048; 82306; 82570; 82652; 83735; 83930; 83935; 83970; 84100; 84300

== ENCOUNTER → 2024-11-02 08:22 | Outpatient (REF) | payer MEDICARE, SELFPAY ==
[2024-11-02 08:36] LABS: % Basophils 0.5 % (0-2); % Eosinophils 2.8 % (0-6); % Immature Granulocytes 0.3 % (0-0.5); % Lymphocytes 26.6 % (20.5-51.1); % Monocytes 9.6 % (1.7-9.3); % Neutrophils 60.2 % (42.2-75.2); Absolute Eosinophils 0.1 10^3/uL (0-0.7); Absolute Monocytes 0.4 10^3/uL (0.1-0.6); Absolute Neutrophils 2.3 10^3/uL (1.4-6.5); Hematocrit 35.3 % (39.0-52.0); Hemoglobin 11.8 g/dL (13.0-18.0); Mean Corp Hgb Conc. 33.4 g/dL (33.0-37.0); Mean Corpuscular Hgb 34.9 pg (27.0-31.0); Mean Corpuscular Volume 104.4 fL (80.0-94.0); Mean Platelet Volume 10.1 fL (7.4-10.4); Platelet Count 124 10^3/uL (130-400); Red Blood Cell Count 3.38 10^6/uL (4.70-6.10); Red Cell Dist. Width 13.1 % (11.5-14.5); White Blood Cell Count 3.9 10^3/uL (4.8-10.8)
[2024-11-02 09:19] LABS: ALT (SGPT) 33 U/L (0-50); AST (SGOT) 38 U/L (17-59); Albumin 3.7 g/dl (3.5-5.0); Alkaline Phosphatase 271 U/L (38-126); Blood Urea Nitrogen 32 mg/dl (9-20); Calcium 8.9 mg/dl (8.4-10.2); Carbon Dioxide 23 mmol/L (22-30); Chloride 103 mmol/L (98-107); Glucose 159 mg/dl (70-99); Potassium 4.8 mmol/L (3.5-5.1); Sodium 140 mmol/L (135-145); Total Bilirubin 1.3 mg/dl (0.2-1.3); Total Protein 7.1 g/dl (6.3-8.2); eGFR 44.93
== END ==
LOC: OIDL 08:22
PROVIDERS: ATTENDING PHYSICIAN Internal Medicine Hematology & Oncology
DX: C18.7 Malignant neoplasm of sigmoid colon (principal)
CPT/HCPCS: 80053; 83735; 85025

== ENCOUNTER → 2024-11-04 15:15 | Outpatient (REF) | payer MEDICARE, SELFPAY ==
[2024-11-04 09:17] LABS: ALT (SGPT) 36 U/L (0-50); AST (SGOT) 44 U/L (17-59); Albumin 3.6 g/dl (3.5-5.0); Alkaline Phosphatase 266 U/L (38-126); Blood Urea Nitrogen 25 mg/dl (9-20); Calcium 8.8 mg/dl (8.4-10.2); Carbon Dioxide 24 mmol/L (22-30); Chloride 104 mmol/L (98-107); Glucose 215 mg/dl (70-99); Potassium 4.8 mmol/L (3.5-5.1); Sodium 139 mmol/L (135-145); Total Protein 6.7 g/dl (6.3-8.2); eGFR 52.74
[2024-11-04 11:24] LABS: Magnesium 1.2 mg/dl (1.6-2.3)
== END ==
LOC: OIDL 15:15
PROVIDERS: ATTENDING PHYSICIAN Internal Medicine Hematology & Oncology
DX: C18.7 Malignant neoplasm of sigmoid colon (principal); C78.7 Secondary malignant neoplasm of liver and intrahepatic bile duct; D70.1 Agranulocytosis secondary to cancer chemotherapy; R04.0 Epistaxis; D69.6 Thrombocytopenia, unspecified; G62.0 Drug-induced polyneuropathy; D63.0 Anemia in neoplastic disease; R19.7 Diarrhea, unspecified
CPT/HCPCS: 80053; 83735

== ENCOUNTER → 2024-11-05 10:37 | Outpatient (REF) | payer MEDICARE, SELFPAY ==
[2024-11-05 08:55] LABS: Magnesium 1.5 mg/dl (1.6-2.3)
== END ==
LOC: OIDL 10:37
PROVIDERS: ATTENDING PHYSICIAN Internal Medicine Hematology & Oncology
DX: C18.7 Malignant neoplasm of sigmoid colon (principal)
CPT/HCPCS: 83735

== ENCOUNTER → 2024-11-09 11:15 | Outpatient (REF) | payer MEDICARE, SELFPAY ==
[2024-11-09 08:48] LABS: % Basophils 0.9 % (0-2); % Eosinophils 3.3 % (0-6); % Immature Granulocytes 0.3 % (0-0.5); % Lymphocytes 26.4 % (20.5-51.1); % Neutrophils 59.1 % (42.2-75.2); Absolute Eosinophils 0.1 10^3/uL (0-0.7); Absolute Lymphocytes 0.9 10^3/uL (1.2-3.4); Absolute Monocytes 0.3 10^3/uL (0.1-0.6); Absolute Neutrophils 1.9 10^3/uL (1.4-6.5); Hematocrit 33.4 % (39.0-52.0); Mean Corp Hgb Conc. 32.9 g/dL (33.0-37.0); Mean Corpuscular Hgb 34.3 pg (27.0-31.0); Mean Platelet Volume 10.3 fL (7.4-10.4); Platelet Count 118 10^3/uL (130-400); Red Blood Cell Count 3.21 10^6/uL (4.70-6.10); Red Cell Dist. Width 13.6 % (11.5-14.5); White Blood Cell Count 3.3 10^3/uL (4.8-10.8)
[2024-11-09 09:41] LABS: ALT (SGPT) 36 U/L (0-50); AST (SGOT) 42 U/L (17-59); Albumin 3.2 g/dl (3.5-5.0); Alkaline Phosphatase 249 U/L (38-126); Blood Urea Nitrogen 25 mg/dl (9-20); Calcium 8.9 mg/dl (8.4-10.2); Carbon Dioxide 27 mmol/L (22-30); Chloride 104 mmol/L (98-107); Glucose 143 mg/dl (70-99); LDH 210 U/L (120-246); Magnesium 0.7 mg/dl (1.6-2.3); Sodium 141 mmol/L (135-145); Total Bilirubin 1.2 mg/dl (0.2-1.3); Total Protein 6.5 g/dl (6.3-8.2); eGFR 57.65
[2024-11-09 10:16] LABS: Potassium 4.4 mmol/L (3.5-5.1)
== END ==
LOC: OIDL 11:15
PROVIDERS: ATTENDING PHYSICIAN Internal Medicine Hematology & Oncology
DX: C18.7 Malignant neoplasm of sigmoid colon (principal); C78.7 Secondary malignant neoplasm of liver and intrahepatic bile duct; D70.1 Agranulocytosis secondary to cancer chemotherapy; R04.0 Epistaxis; D69.6 Thrombocytopenia, unspecified; G62.0 Drug-induced polyneuropathy; D63.0 Anemia in neoplastic disease; R19.7 Diarrhea, unspecified
CPT/HCPCS: 80053; 83615; 83735; 85025

== ENCOUNTER → 2024-11-10 15:15 | Outpatient (REF) | payer MEDICARE, SELFPAY ==
[2024-11-10 09:01] LABS: Magnesium 1.2 mg/dl (1.6-2.3)
== END ==
LOC: OIDL 15:15
PROVIDERS: ATTENDING PHYSICIAN Internal Medicine Hematology & Oncology
DX: C18.7 Malignant neoplasm of sigmoid colon (principal); C78.7 Secondary malignant neoplasm of liver and intrahepatic bile duct; D70.1 Agranulocytosis secondary to cancer chemotherapy; R04.0 Epistaxis; D69.6 Thrombocytopenia, unspecified; G62.0 Drug-induced polyneuropathy; D63.0 Anemia in neoplastic disease; R19.7 Diarrhea, unspecified
CPT/HCPCS: 83735

== ENCOUNTER → 2024-11-12 09:45 | Outpatient (REF) | payer MEDICARE, SELFPAY ==
[2024-11-12 09:02] LABS: % Eosinophils 3.5 % (0-6); % Immature Granulocytes 0.3 % (0-0.5); % Lymphocytes 24.3 % (20.5-51.1); % Monocytes 10.5 % (1.7-9.3); % Neutrophils 60.4 % (42.2-75.2); Absolute Eosinophils 0.1 10^3/uL (0-0.7); Absolute Lymphocytes 0.8 10^3/uL (1.2-3.4); Absolute Monocytes 0.3 10^3/uL (0.1-0.6); Absolute Neutrophils 1.9 10^3/uL (1.4-6.5); Hematocrit 32.9 % (39.0-52.0); Hemoglobin 10.7 g/dL (13.0-18.0); Mean Corp Hgb Conc. 32.5 g/dL (33.0-37.0); Mean Corpuscular Hgb 34.3 pg (27.0-31.0); Mean Corpuscular Volume 105.4 fL (80.0-94.0); Mean Platelet Volume 10.4 fL (7.4-10.4); Platelet Count 105 10^3/uL (130-400); Red Blood Cell Count 3.12 10^6/uL (4.70-6.10); Red Cell Dist. Width 13.7 % (11.5-14.5); White Blood Cell Count 3.1 10^3/uL (4.8-10.8)
[2024-11-12 09:51] LABS: ALT (SGPT) 32 U/L (0-50); AST (SGOT) 42 U/L (17-59); Albumin 3.4 g/dl (3.5-5.0); Alkaline Phosphatase 255 U/L (38-126); Blood Urea Nitrogen 28 mg/dl (9-20); Calcium 8.5 mg/dl (8.4-10.2); Carbon Dioxide 24 mmol/L (22-30); Chloride 105 mmol/L (98-107); Glucose 202 mg/dl (70-99); Magnesium 1.1 mg/dl (1.6-2.3); Potassium 4.4 mmol/L (3.5-5.1); Sodium 139 mmol/L (135-145); Total Bilirubin 1.5 mg/dl (0.2-1.3); Total Protein 6.5 g/dl (6.3-8.2); eGFR > 60.00
== END ==
LOC: OIDL 09:45
PROVIDERS: ATTENDING PHYSICIAN Internal Medicine Hematology & Oncology
DX: C18.7 Malignant neoplasm of sigmoid colon (principal)
CPT/HCPCS: 80053; 83735; 85025

== ENCOUNTER → 2024-11-13 13:17 | Outpatient (REF) | payer MEDICARE, SELFPAY ==
[2024-11-13 14:06] LABS: Magnesium 1.4 mg/dl (1.6-2.3)
== END ==
LOC: OIDL 13:17
PROVIDERS: ATTENDING PHYSICIAN Internal Medicine Hematology & Oncology
DX: C18.7 Malignant neoplasm of sigmoid colon (principal); C78.7 Secondary malignant neoplasm of liver and intrahepatic bile duct; D70.1 Agranulocytosis secondary to cancer chemotherapy; R04.0 Epistaxis; D69.6 Thrombocytopenia, unspecified
CPT/HCPCS: 83735

== ENCOUNTER → 2024-11-16 13:12 | Outpatient (REF) | payer MEDICARE, SELFPAY ==
[2024-11-16 08:33] LABS: % Basophils 0.7 % (0-2); % Eosinophils 2.6 % (0-6); % Lymphocytes 27.4 % (20.5-51.1); % Monocytes 6.5 % (1.7-9.3); % Neutrophils 62.8 % (42.2-75.2); Absolute Eosinophils 0.1 10^3/uL (0-0.7); Absolute Lymphocytes 0.8 10^3/uL (1.2-3.4); Absolute Monocytes 0.2 10^3/uL (0.1-0.6); Absolute Neutrophils 1.9 10^3/uL (1.4-6.5); Hematocrit 32.5 % (39.0-52.0); Hemoglobin 10.9 g/dL (13.0-18.0); Mean Corp Hgb Conc. 33.5 g/dL (33.0-37.0); Mean Corpuscular Volume 104.5 fL (80.0-94.0); Mean Platelet Volume 10.2 fL (7.4-10.4); Platelet Count 112 10^3/uL (130-400); Red Blood Cell Count 3.11 10^6/uL (4.70-6.10); Red Cell Dist. Width 13.4 % (11.5-14.5); White Blood Cell Count 3.1 10^3/uL (4.8-10.8)
[2024-11-16 09:52] LABS: Magnesium 0.9 mg/dl (1.6-2.3)
== END ==
LOC: OIDL 13:12
PROVIDERS: ATTENDING PHYSICIAN Internal Medicine Hematology & Oncology
DX: C18.7 Malignant neoplasm of sigmoid colon (principal)
CPT/HCPCS: 83735; 85025

== ENCOUNTER → 2024-11-17 10:04 | Outpatient (REF) | payer MEDICARE, SELFPAY ==
[2024-11-17 09:12] LABS: Magnesium 1.4 mg/dl (1.6-2.3)
== END ==
LOC: OIDL 10:04
PROVIDERS: ATTENDING PHYSICIAN Internal Medicine Hematology & Oncology
DX: C18.7 Malignant neoplasm of sigmoid colon (principal); C78.7 Secondary malignant neoplasm of liver and intrahepatic bile duct
CPT/HCPCS: 83735

== ENCOUNTER → 2024-11-19 08:26 | Outpatient (REF) | payer MEDICARE, SELFPAY ==
[2024-11-19 09:03] LABS: Magnesium 1.3 mg/dl (1.6-2.3)
== END ==
LOC: OIDL 08:26
PROVIDERS: ATTENDING PHYSICIAN Internal Medicine Hematology & Oncology
DX: C18.7 Malignant neoplasm of sigmoid colon (principal); C78.7 Secondary malignant neoplasm of liver and intrahepatic bile duct; D70.1 Agranulocytosis secondary to cancer chemotherapy; R04.0 Epistaxis; D69.6 Thrombocytopenia, unspecified; G62.0 Drug-induced polyneuropathy; D63.0 Anemia in neoplastic disease; R19.7 Diarrhea, unspecified
CPT/HCPCS: 83735

== ENCOUNTER → 2024-11-20 10:45 | Outpatient (REF) | payer MEDICARE, SELFPAY ==
[2024-11-20 09:12] LABS: Magnesium 1.4 mg/dl (1.6-2.3)
== END ==
LOC: OIDL 10:45
PROVIDERS: ATTENDING PHYSICIAN Internal Medicine Hematology & Oncology
DX: C18.7 Malignant neoplasm of sigmoid colon (principal); C78.7 Secondary malignant neoplasm of liver and intrahepatic bile duct
CPT/HCPCS: 83735

== ENCOUNTER → 2024-11-23 08:31 | Outpatient (REF) | payer MEDICARE, SELFPAY ==
[2024-11-23 08:52] LABS: % Basophils 0.4 % (0-2); % Eosinophils 1.9 % (0-6); % Immature Granulocytes 0.4 % (0-0.5); % Lymphocytes 34.8 % (20.5-51.1); % Neutrophils 59.5 % (42.2-75.2); Absolute Eosinophils 0.1 10^3/uL (0-0.7); Absolute Lymphocytes 0.9 10^3/uL (1.2-3.4); Absolute Monocytes 0.1 10^3/uL (0.1-0.6); Absolute Neutrophils 1.6 10^3/uL (1.4-6.5); Hematocrit 29.1 % (39.0-52.0); Hemoglobin 9.8 g/dL (13.0-18.0); Mean Corp Hgb Conc. 33.7 g/dL (33.0-37.0); Mean Corpuscular Hgb 34.8 pg (27.0-31.0); Mean Corpuscular Volume 103.2 fL (80.0-94.0); Mean Platelet Volume 9.9 fL (7.4-10.4); Platelet Count 76 10^3/uL (130-400); Red Blood Cell Count 2.82 10^6/uL (4.70-6.10); Red Cell Dist. Width 12.9 % (11.5-14.5); White Blood Cell Count 2.7 10^3/uL (4.8-10.8)
[2024-11-23 10:02] LABS: ALT (SGPT) 28 U/L (0-50); AST (SGOT) 38 U/L (17-59); Albumin 3.5 g/dl (3.5-5.0); Alkaline Phosphatase 236 U/L (38-126); Blood Urea Nitrogen 40 mg/dl (9-20); Calcium 8.8 mg/dl (8.4-10.2); Carbon Dioxide 20 mmol/L (22-30); Chloride 107 mmol/L (98-107); Glucose 175 mg/dl (70-99); Magnesium 1.2 mg/dl (1.6-2.3); Potassium 5.1 mmol/L (3.5-5.1); Sodium 139 mmol/L (135-145); Total Bilirubin 1.2 mg/dl (0.2-1.3); Total Protein 6.9 g/dl (6.3-8.2); eGFR 48.55
== END ==
LOC: OIDL 08:31
PROVIDERS: ATTENDING PHYSICIAN Internal Medicine Hematology & Oncology
DX: C18.7 Malignant neoplasm of sigmoid colon (principal)
CPT/HCPCS: 80053; 83735; 85025

== ENCOUNTER → 2024-11-24 14:22 | Outpatient (REF) | payer MEDICARE, SELFPAY ==
[2024-11-24 09:16] LABS: % Eosinophils 1.5 % (0-6); % Immature Granulocytes 0.5 % (0-0.5); % Lymphocytes 35.8 % (20.5-51.1); % Monocytes 3.5 % (1.7-9.3); % Neutrophils 58.7 % (42.2-75.2); Absolute Lymphocytes 0.7 10^3/uL (1.2-3.4); Absolute Monocytes 0.1 10^3/uL (0.1-0.6); Absolute Neutrophils 1.2 10^3/uL (1.4-6.5); Hematocrit 27.4 % (39.0-52.0); Hemoglobin 9.3 g/dL (13.0-18.0); Mean Corp Hgb Conc. 33.9 g/dL (33.0-37.0); Mean Corpuscular Hgb 34.8 pg (27.0-31.0); Mean Corpuscular Volume 102.6 fL (80.0-94.0); Mean Platelet Volume 10.3 fL (7.4-10.4); Nucleated Red Blood Cells % 0 % (-); Platelet Count 57 10^3/uL (130-400); Red Blood Cell Count 2.67 10^6/uL (4.70-6.10); Red Cell Dist. Width 13.1 % (11.5-14.5)
[2024-11-24 09:17] LABS: Magnesium 1.6 mg/dl (1.6-2.3)
== END ==
LOC: OIDL 14:22
PROVIDERS: ATTENDING PHYSICIAN Nurse Practitioner Primary Care
DX: C18.7 Malignant neoplasm of sigmoid colon (principal)
CPT/HCPCS: 83735; 85025

== ENCOUNTER → 2024-11-26 16:12 | Outpatient (REF) | payer MEDICARE, SELFPAY ==
[2024-11-26 10:14] LABS: Hematocrit 24.5 % (39.0-52.0); Hemoglobin 8.3 g/dL (13.0-18.0); Mean Corp Hgb Conc. 33.9 g/dL (33.0-37.0); Mean Corpuscular Hgb 34.3 pg (27.0-31.0); Mean Corpuscular Volume 101.2 fL (80.0-94.0); Red Blood Cell Count 2.42 10^6/uL (4.70-6.10); Red Cell Dist. Width 12.7 % (11.5-14.5); White Blood Cell Count 2.2 10^3/uL (4.8-10.8)
[2024-11-26 10:27] LABS: ALT (SGPT) 25 U/L (0-50); AST (SGOT) 28 U/L (17-59); Albumin 3.1 g/dl (3.5-5.0); Alkaline Phosphatase 206 U/L (38-126); Blood Urea Nitrogen 32 mg/dl (9-20); Calcium 8.5 mg/dl (8.4-10.2); Carbon Dioxide 23 mmol/L (22-30); Chloride 107 mmol/L (98-107); Glucose 207 mg/dl (70-99); Magnesium 1.3 mg/dl (1.6-2.3); Sodium 138 mmol/L (135-145); Total Bilirubin 1.7 mg/dl (0.2-1.3); Total Protein 6.1 g/dl (6.3-8.2); eGFR 57.65
[2024-11-26 10:57] LABS: Mean Platelet Volume 10.6 fL (7.4-10.4); Platelet Count 37 10^3/uL (130-400)
[2024-11-26 10:58] LABS: % Eosinophils 0.9 % (0-6); % Immature Granulocytes 6.8 % (0-0.5); % Lymphocytes 27.9 % (20.5-51.1); % Monocytes 5.4 % (1.7-9.3); Absolute Immature Granulocytes 0.2 10^3/uL (0-0.05); Absolute Lymphocytes 0.6 10^3/uL (1.2-3.4); Absolute Monocytes 0.1 10^3/uL (0.1-0.6); Absolute Neutrophils 1.3 10^3/uL (1.4-6.5); Nucleated Red Blood Cells % 0 % (-)
== END ==
LOC: OIDL 16:12
PROVIDERS: ATTENDING PHYSICIAN Nurse Practitioner Adult Health
DX: C18.7 Malignant neoplasm of sigmoid colon (principal); C78.7 Secondary malignant neoplasm of liver and intrahepatic bile duct; D70.1 Agranulocytosis secondary to cancer chemotherapy; R04.0 Epistaxis; D69.6 Thrombocytopenia, unspecified; G62.0 Drug-induced polyneuropathy; D63.0 Anemia in neoplastic disease; R19.7 Diarrhea, unspecified
CPT/HCPCS: 80053; 83735; 85025

== ENCOUNTER → 2024-11-30 09:23 | Outpatient (REF) | payer MEDICARE, SELFPAY ==
[2024-11-30 08:59] LABS: ALT (SGPT) 31 U/L (0-50); AST (SGOT) 29 U/L (17-59); Albumin 3.4 g/dl (3.5-5.0); Alkaline Phosphatase 252 U/L (38-126); Blood Urea Nitrogen 27 mg/dl (9-20); Calcium 8.9 mg/dl (8.4-10.2); Carbon Dioxide 21 mmol/L (22-30); Chloride 105 mmol/L (98-107); Glucose 161 mg/dl (70-99); Potassium 4.8 mmol/L (3.5-5.1); Sodium 136 mmol/L (135-145); Total Bilirubin 1.4 mg/dl (0.2-1.3); Total Protein 6.5 g/dl (6.3-8.2); eGFR 52.74
[2024-11-30 09:39] LABS: Band Neutrophils 6 % (0-3); Eosinophils 1 % (0-6); Hematocrit 23.8 % (39.0-52.0); Hemoglobin 8.2 g/dL (13.0-18.0); Lymphocytes 37 % (20-51); Mean Corp Hgb Conc. 34.5 g/dL (33.0-37.0); Mean Corpuscular Hgb 34.3 pg (27.0-31.0); Mean Corpuscular Volume 99.6 fL (80.0-94.0); Mean Platelet Volume 12.1 fL (7.4-10.4); Monocytes 19 % (2-9); Platelet Count 46 10^3/uL (130-400); Red Blood Cell Count 2.39 10^6/uL (4.70-6.10); Red Cell Dist. Width 12.8 % (11.5-14.5); Segmented Neutrophils 37 % (42-75); White Blood Cell Count 2.4 10^3/uL (4.8-10.8)
[2024-11-30 09:40] LABS: Anisocytosis 1+; Hypochromasia 1+; Normal RBC Morphology No; Nucleated Red Blood Cells 1 (-); Platelets Checked Yes; Polychromasia 1+; Total Cells Counted 100
== END ==
LOC: OIDL 09:23
PROVIDERS: ATTENDING PHYSICIAN Nurse Practitioner Adult Health
DX: C18.7 Malignant neoplasm of sigmoid colon (principal); C78.7 Secondary malignant neoplasm of liver and intrahepatic bile duct; D70.1 Agranulocytosis secondary to cancer chemotherapy; R04.0 Epistaxis; D69.6 Thrombocytopenia, unspecified; G62.0 Drug-induced polyneuropathy; D63.0 Anemia in neoplastic disease; R19.7 Diarrhea, unspecified
CPT/HCPCS: 80053; 83735; 85025

== ENCOUNTER → 2024-12-09 11:09 | Outpatient (REF) | payer MEDICARE, SELFPAY | LOC: RADI 11:09 | PROVIDERS: ATTENDING PHYSICIAN Internal Medicine Hematology & Oncology; FAMILY PHYSICIAN Physician Assistant | DX: C78.7 Secondary malignant neoplasm of liver and intrahepatic bile duct (principal); C18.7 Malignant neoplasm of sigmoid colon ==

== ENCOUNTER 2024-12-10 08:41 | Outpatient (REF) | payer MEDICARE, SELFPAY ==
[2024-12-10 09:17] LABS: Magnesium 2.1 mg/dl (1.6-2.3)
== END 2024-12-17 14:15 | disposition home or self-care (01) ==
LOC: OIDL 08:41
PROVIDERS: ATTENDING PHYSICIAN Internal Medicine Hematology & Oncology
DX: C18.7 Malignant neoplasm of sigmoid colon (principal)
CPT/HCPCS: 83735

== ENCOUNTER 2024-12-18 10:51 | Outpatient (RCR) | payer MEDICARE, SELFPAY ==
[2024-12-02 08:00] VITALS: BP 111/50
[2024-12-02 08:43] VITALS: BP 111/50
[2024-12-02 09:01] VITALS: BP 119/51
[2024-12-02 11:14] VITALS: BP 124/60
[2024-12-02] MEDS: LASIX 10 MG IV (11:19)
[2024-12-02 12:50] LABS: Hematocrit 26.5 % (39.0-52.0); Hemoglobin 9.1 g/dL (13.0-18.0); Mean Corp Hgb Conc. 34.3 g/dL (33.0-37.0); Mean Corpuscular Hgb 34.6 pg (27.0-31.0); Mean Corpuscular Volume 100.8 fL (80.0-94.0); Mean Platelet Volume 12.1 fL (7.4-10.4); Platelet Count 76 10^3/uL (130-400); Red Blood Cell Count 2.63 10^6/uL (4.70-6.10); Red Cell Dist. Width 13.3 % (11.5-14.5)
[2024-12-02 12:51] LABS: ALT (SGPT) 35 U/L (0-50); AST (SGOT) 38 U/L (17-59); Albumin 3.4 g/dl (3.5-5.0); Alkaline Phosphatase 272 U/L (38-126); Blood Urea Nitrogen 22 mg/dl (9-20); Calcium 8.7 mg/dl (8.4-10.2); Carbon Dioxide 24 mmol/L (22-30); Chloride 107 mmol/L (98-107); Glucose 173 mg/dl (70-99); Magnesium 1.4 mg/dl (1.6-2.3); Potassium 4.4 mmol/L (3.5-5.1); Sodium 138 mmol/L (135-145); Total Bilirubin 1.1 mg/dl (0.2-1.3); Total Protein 6.4 g/dl (6.3-8.2); eGFR 52.74
[2024-12-02 13:00] LABS: % Basophils 0.8 % (0-2); % Eosinophils 0.3 % (0-6); % Lymphocytes 13.8 % (20.5-51.1); % Monocytes 11.8 % (1.7-9.3); % Neutrophils 70.3 % (42.2-75.2); Absolute Basophils 0.1 10^3/uL (0-0.2); Absolute Immature Granulocytes 0.3 10^3/uL (0-0.05); Absolute Lymphocytes 1.4 10^3/uL (1.2-3.4); Absolute Monocytes 1.2 10^3/uL (0.1-0.6); Nucleated Red Blood Cells % 0 % (-)
[2024-12-07 08:37] LABS: % Basophils 0.5 % (0-2); % Eosinophils 0.1 % (0-6); % Lymphocytes 9.6 % (20.5-51.1); % Monocytes 9.1 % (1.7-9.3); % Neutrophils 77.7 % (42.2-75.2); Absolute Basophils 0.1 10^3/uL (0-0.2); Absolute Immature Granulocytes 0.3 10^3/uL (0-0.05); Absolute Lymphocytes 1.1 10^3/uL (1.2-3.4); Absolute Neutrophils 8.7 10^3/uL (1.4-6.5); Hematocrit 26.3 % (39.0-52.0); Hemoglobin 8.9 g/dL (13.0-18.0); Mean Corp Hgb Conc. 33.8 g/dL (33.0-37.0); Mean Corpuscular Hgb 35.2 pg (27.0-31.0); Mean Platelet Volume 10.8 fL (7.4-10.4); Platelet Count 70 10^3/uL (130-400); Red Blood Cell Count 2.53 10^6/uL (4.70-6.10); Red Cell Dist. Width 15.2 % (11.5-14.5); White Blood Cell Count 11.2 10^3/uL (4.8-10.8)
[2024-12-07 09:17] LABS: Magnesium 1.5 mg/dl (1.6-2.3)
[2024-12-08 08:35] LABS: % Basophils 0.5 % (0-2); % Eosinophils 0.2 % (0-6); % Immature Granulocytes 1.9 % (0-0.5); % Lymphocytes 7.9 % (20.5-51.1); % Monocytes 8.8 % (1.7-9.3); % Neutrophils 80.7 % (42.2-75.2); Absolute Basophils 0.1 10^3/uL (0-0.2); Absolute Immature Granulocytes 0.2 10^3/uL (0-0.05); Absolute Monocytes 1.1 10^3/uL (0.1-0.6); Absolute Neutrophils 10.4 10^3/uL (1.4-6.5); Hematocrit 26.2 % (39.0-52.0); Hemoglobin 8.9 g/dL (13.0-18.0); Mean Corpuscular Hgb 35.3 pg (27.0-31.0); Mean Platelet Volume 11.5 fL (7.4-10.4); Platelet Count 75 10^3/uL (130-400); Red Blood Cell Count 2.52 10^6/uL (4.70-6.10); Red Cell Dist. Width 15.7 % (11.5-14.5); White Blood Cell Count 12.9 10^3/uL (4.8-10.8)
[2024-12-08 09:12] LABS: Magnesium 1.9 mg/dl (1.6-2.3)
[2024-12-15 10:19] LABS: % Basophils 0.7 % (0-2); % Eosinophils 0.3 % (0-6); % Immature Granulocytes 0.7 % (0-0.5); % Lymphocytes 10.7 % (20.5-51.1); % Monocytes 5.6 % (1.7-9.3); Absolute Basophils 0.1 10^3/uL (0-0.2); Absolute Immature Granulocytes 0.1 10^3/uL (0-0.05); Absolute Lymphocytes 0.8 10^3/uL (1.2-3.4); Absolute Monocytes 0.4 10^3/uL (0.1-0.6); Absolute Neutrophils 6.2 10^3/uL (1.4-6.5); Hematocrit 23.2 % (39.0-52.0); Hemoglobin 7.8 g/dL (13.0-18.0); Mean Corp Hgb Conc. 33.6 g/dL (33.0-37.0); Mean Corpuscular Hgb 35.5 pg (27.0-31.0); Mean Corpuscular Volume 105.5 fL (80.0-94.0); Mean Platelet Volume 10.1 fL (7.4-10.4); Platelet Count 175 10^3/uL (130-400); Red Cell Dist. Width 16.2 % (11.5-14.5); White Blood Cell Count 7.6 10^3/uL (4.8-10.8)
[2024-12-15 11:10] LABS: ALT (SGPT) 28 U/L (0-50); AST (SGOT) 29 U/L (17-59); Albumin 3.2 g/dl (3.5-5.0); Alkaline Phosphatase 323 U/L (38-126); Blood Urea Nitrogen 26 mg/dl (9-20); Calcium 8.3 mg/dl (8.4-10.2); Carbon Dioxide 24 mmol/L (22-30); Chloride 106 mmol/L (98-107); Glucose 241 mg/dl (70-99); Magnesium 1.8 mg/dl (1.6-2.3); Potassium 5.1 mmol/L (3.5-5.1); Sodium 136 mmol/L (135-145); Total Bilirubin 1.2 mg/dl (0.2-1.3); Total Protein 6.5 g/dl (6.3-8.2); eGFR 52.74
[2024-12-17 08:33] LABS: % Basophils 0.8 % (0-2); % Eosinophils 1.1 % (0-6); % Immature Granulocytes 0.5 % (0-0.5); % Lymphocytes 11.6 % (20.5-51.1); % Monocytes 6.1 % (1.7-9.3); % Neutrophils 79.9 % (42.2-75.2); Absolute Basophils 0.1 10^3/uL (0-0.2); Absolute Eosinophils 0.1 10^3/uL (0-0.7); Absolute Lymphocytes 0.9 10^3/uL (1.2-3.4); Absolute Monocytes 0.5 10^3/uL (0.1-0.6); Absolute Neutrophils 6.1 10^3/uL (1.4-6.5); Hematocrit 23.5 % (39.0-52.0); Hemoglobin 7.9 g/dL (13.0-18.0); Mean Corp Hgb Conc. 33.6 g/dL (33.0-37.0); Mean Corpuscular Hgb 35.7 pg (27.0-31.0); Mean Corpuscular Volume 106.3 fL (80.0-94.0); Mean Platelet Volume 10.1 fL (7.4-10.4); Platelet Count 189 10^3/uL (130-400); Red Blood Cell Count 2.21 10^6/uL (4.70-6.10); Red Cell Dist. Width 16.8 % (11.5-14.5); White Blood Cell Count 7.6 10^3/uL (4.8-10.8)
[2024-12-17 09:11] LABS: Magnesium 1.8 mg/dl (1.6-2.3)
[2024-12-18 11:45] VITALS: BP 133/57
[2024-12-18 12:03] VITALS: BP 120/54
[2024-12-18 13:11] VITALS: BP 132/61
[2024-12-18 14:07] VITALS: BP 147/70
[2024-12-18] MEDS: LASIX 10 MG IV (14:09)
== END 2024-12-19 23:59 | disposition home or self-care (01) ==
LOC: OID 10:51
PROVIDERS: ATTENDING PHYSICIAN Internal Medicine Hematology & Oncology
DX: C18.7 Malignant neoplasm of sigmoid colon (principal); C78.7 Secondary malignant neoplasm of liver and intrahepatic bile duct; D70.1 Agranulocytosis secondary to cancer chemotherapy; R04.0 Epistaxis; D69.6 Thrombocytopenia, unspecified; G62.0 Drug-induced polyneuropathy; D63.0 Anemia in neoplastic disease; R19.7 Diarrhea, unspecified
CPT/HCPCS: 36430; 80053; 83735; 85025; 86850; 86900; 86901; 86920; 96374; P9016

== ENCOUNTER 2024-12-28 16:00 | Outpatient (RCR) | payer MEDICARE, SELFPAY ==
[2024-12-21 08:33] LABS: % Basophils 0.8 % (0-2); % Eosinophils 2.1 % (0-6); % Immature Granulocytes 0.8 % (0-0.5); % Lymphocytes 15.6 % (20.5-51.1); % Monocytes 8.4 % (1.7-9.3); % Neutrophils 72.3 % (42.2-75.2); Absolute Eosinophils 0.1 10^3/uL (0-0.7); Absolute Lymphocytes 0.8 10^3/uL (1.2-3.4); Absolute Monocytes 0.4 10^3/uL (0.1-0.6); Absolute Neutrophils 3.5 10^3/uL (1.4-6.5); Hematocrit 24.7 % (39.0-52.0); Hemoglobin 8.4 g/dL (13.0-18.0); Mean Corpuscular Hgb 35.3 pg (27.0-31.0); Mean Corpuscular Volume 103.8 fL (80.0-94.0); Mean Platelet Volume 9.9 fL (7.4-10.4); Platelet Count 154 10^3/uL (130-400); Red Blood Cell Count 2.38 10^6/uL (4.70-6.10); Red Cell Dist. Width 17.1 % (11.5-14.5); White Blood Cell Count 4.9 10^3/uL (4.8-10.8)
[2024-12-21 09:18] LABS: ALT (SGPT) 25 U/L (0-50); AST (SGOT) 28 U/L (17-59); Albumin 3.4 g/dl (3.5-5.0); Alkaline Phosphatase 275 U/L (38-126); Blood Urea Nitrogen 45 mg/dl (9-20); Calcium 8.9 mg/dl (8.4-10.2); Carbon Dioxide 20 mmol/L (22-30); Chloride 105 mmol/L (98-107); Glucose 239 mg/dl (70-99); Magnesium 1.8 mg/dl (1.6-2.3); Potassium 5.6 mmol/L (3.5-5.1); Sodium 134 mmol/L (135-145); Total Bilirubin 1.2 mg/dl (0.2-1.3); Total Protein 6.9 g/dl (6.3-8.2); eGFR 48.55
[2024-12-28 09:42] LABS: % Basophils 0.5 % (0-2); % Eosinophils 1.6 % (0-6); % Immature Granulocytes 0.9 % (0-0.5); % Lymphocytes 9.4 % (20.5-51.1); % Monocytes 17.2 % (1.7-9.3); % Neutrophils 70.4 % (42.2-75.2); Absolute Eosinophils 0.1 10^3/uL (0-0.7); Absolute Immature Granulocytes 0.1 10^3/uL (0-0.05); Absolute Lymphocytes 0.8 10^3/uL (1.2-3.4); Absolute Monocytes 1.5 10^3/uL (0.1-0.6); Absolute Neutrophils 6.2 10^3/uL (1.4-6.5); Hematocrit 25.4 % (39.0-52.0); Hemoglobin 8.5 g/dL (13.0-18.0); Mean Corp Hgb Conc. 33.5 g/dL (33.0-37.0); Mean Corpuscular Hgb 36.8 pg (27.0-31.0); Mean Platelet Volume 11.1 fL (7.4-10.4); Nucleated Red Blood Cells % 0 % (-); Platelet Count 132 10^3/uL (130-400); Red Blood Cell Count 2.31 10^6/uL (4.70-6.10); Red Cell Dist. Width 22.6 % (11.5-14.5); White Blood Cell Count 8.8 10^3/uL (4.8-10.8)
[2024-12-28 09:54] LABS: ALT (SGPT) 25 U/L (0-50); AST (SGOT) 27 U/L (17-59); Albumin 3.3 g/dl (3.5-5.0); Alkaline Phosphatase 294 U/L (38-126); Blood Urea Nitrogen 25 mg/dl (9-20); Calcium 8.9 mg/dl (8.4-10.2); Carbon Dioxide 22 mmol/L (22-30); Chloride 107 mmol/L (98-107); Glucose 212 mg/dl (70-99); Potassium 5.2 mmol/L (3.5-5.1); Sodium 137 mmol/L (135-145); Total Protein 6.6 g/dl (6.3-8.2); eGFR 44.93
== END 2025-01-18 23:59 | disposition home or self-care (01) ==
LOC: OID 16:00
PROVIDERS: ATTENDING PHYSICIAN Internal Medicine Hematology & Oncology
DX: C18.7 Malignant neoplasm of sigmoid colon (principal); C78.7 Secondary malignant neoplasm of liver and intrahepatic bile duct; D70.1 Agranulocytosis secondary to cancer chemotherapy; R04.0 Epistaxis; D69.6 Thrombocytopenia, unspecified; G62.0 Drug-induced polyneuropathy; D63.0 Anemia in neoplastic disease; R19.7 Diarrhea, unspecified
CPT/HCPCS: 80053; 83735; 85025

== ENCOUNTER → 2025-01-04 06:56 | Outpatient (REF) | payer MEDICARE, SELFPAY ==
[2025-01-04 07:38] LABS: % Basophils 0.5 % (0-2); % Eosinophils 1.8 % (0-6); % Immature Granulocytes 0.6 % (0-0.5); % Lymphocytes 10.9 % (20.5-51.1); % Monocytes 7.5 % (1.7-9.3); % Neutrophils 78.7 % (42.2-75.2); Absolute Eosinophils 0.2 10^3/uL (0-0.7); Absolute Immature Granulocytes 0.1 10^3/uL (0-0.05); Absolute Lymphocytes 0.9 10^3/uL (1.2-3.4); Absolute Monocytes 0.6 10^3/uL (0.1-0.6); Absolute Neutrophils 6.5 10^3/uL (1.4-6.5); Hematocrit 28.5 % (39.0-52.0); Hemoglobin 9.4 g/dL (13.0-18.0); Mean Corpuscular Volume 112.2 fL (80.0-94.0); Mean Platelet Volume 10.7 fL (7.4-10.4); Nucleated Red Blood Cells % 0 % (-); Platelet Count 117 10^3/uL (130-400); Red Blood Cell Count 2.54 10^6/uL (4.70-6.10); White Blood Cell Count 8.3 10^3/uL (4.8-10.8)
[2025-01-04 08:17] LABS: ALT (SGPT) 32 U/L (0-50); AST (SGOT) 33 U/L (17-59); Albumin 3.6 g/dl (3.5-5.0); Alkaline Phosphatase 329 U/L (38-126); Blood Urea Nitrogen 26 mg/dl (9-20); Calcium 9.1 mg/dl (8.4-10.2); Carbon Dioxide 24 mmol/L (22-30); Chloride 106 mmol/L (98-107); Glucose 141 mg/dl (70-99); HDL Cholesterol 41 mg/dl; LDL Cholesterol, Calculated 50 mg/dl; Magnesium 1.8 mg/dl (1.6-2.3); Potassium 5.6 mmol/L (3.5-5.1); Sodium 136 mmol/L (135-145); Total Bilirubin 1.1 mg/dl (0.2-1.3); Total Cholesterol 100 mg/dl (50-199); Total Protein 7.3 g/dl (6.3-8.2); Triglyceride 48 mg/dl (10-149); Very Low Density Lipoprotein 9 mg/dl (0-30); eGFR 48.55
[2025-01-04 10:49] LABS: Glycohemoglobin (HgbA1c) 5.7 % (4.0-5.6)
== END ==
LOC: REG 06:56
PROVIDERS: ATTENDING PHYSICIAN Internal Medicine Hematology & Oncology; FAMILY PHYSICIAN Physician Assistant
DX: C18.7 Malignant neoplasm of sigmoid colon (principal); C78.7 Secondary malignant neoplasm of liver and intrahepatic bile duct; D70.1 Agranulocytosis secondary to cancer chemotherapy; R04.0 Epistaxis; D69.6 Thrombocytopenia, unspecified; G62.0 Drug-induced polyneuropathy; D63.0 Anemia in neoplastic disease; R19.7 Diarrhea, unspecified; E11.65 Type 2 diabetes mellitus with hyperglycemia; E78.2 Mixed hyperlipidemia; I10 Essential (primary) hypertension
CPT/HCPCS: 36415; 80053; 80061; 83036; 83735; 85025

== ENCOUNTER → 2025-01-11 07:13 | Outpatient (REF) | payer MEDICARE, SELFPAY ==
[2025-01-11 07:57] LABS: % Basophils 0.7 % (0-2); % Eosinophils 1.9 % (0-6); % Immature Granulocytes 0.4 % (0-0.5); % Lymphocytes 11.3 % (20.5-51.1); % Neutrophils 80.7 % (42.2-75.2); Absolute Basophils 0.1 10^3/uL (0-0.2); Absolute Eosinophils 0.1 10^3/uL (0-0.7); Absolute Lymphocytes 0.8 10^3/uL (1.2-3.4); Absolute Monocytes 0.4 10^3/uL (0.1-0.6); Absolute Neutrophils 5.6 10^3/uL (1.4-6.5); Hematocrit 26.6 % (39.0-52.0); Hemoglobin 8.8 g/dL (13.0-18.0); Mean Corp Hgb Conc. 33.1 g/dL (33.0-37.0); Mean Corpuscular Hgb 37.1 pg (27.0-31.0); Mean Corpuscular Volume 112.2 fL (80.0-94.0); Mean Platelet Volume 10.5 fL (7.4-10.4); Nucleated Red Blood Cells % 0 % (-); Platelet Count 133 10^3/uL (130-400); Red Blood Cell Count 2.37 10^6/uL (4.70-6.10); Red Cell Dist. Width 20.9 % (11.5-14.5)
[2025-01-11 08:41] LABS: ALT (SGPT) 29 U/L (0-50); AST (SGOT) 30 U/L (17-59); Albumin 3.7 g/dl (3.5-5.0); Alkaline Phosphatase 311 U/L (38-126); Blood Urea Nitrogen 38 mg/dl (9-20); Carbon Dioxide 22 mmol/L (22-30); Chloride 105 mmol/L (98-107); Glucose 152 mg/dl (70-99); Iron 193 ug/dl (49-181); Potassium 5.8 mmol/L (3.5-5.1); Sodium 136 mmol/L (135-145); Total Bilirubin 1.2 mg/dl (0.2-1.3); Total Protein 7.2 g/dl (6.3-8.2); eGFR 44.93
[2025-01-11 08:51] LABS: Percent Saturation 67 % (20-50); Total Iron Binding Capacity 286 ug/dl (261-462)
[2025-01-11 20:56] LABS: CEA 9.97 ng/ml
== END ==
LOC: REG 07:13
PROVIDERS: ATTENDING PHYSICIAN Internal Medicine Hematology & Oncology; FAMILY PHYSICIAN Physician Assistant
DX: C18.7 Malignant neoplasm of sigmoid colon (principal); C78.7 Secondary malignant neoplasm of liver and intrahepatic bile duct; D70.1 Agranulocytosis secondary to cancer chemotherapy; R04.0 Epistaxis; D69.6 Thrombocytopenia, unspecified; G62.0 Drug-induced polyneuropathy; D63.0 Anemia in neoplastic disease; R19.7 Diarrhea, unspecified
CPT/HCPCS: 36415; 80053; 82378; 82728; 83540; 83550; 83735; 85025

== ENCOUNTER → 2025-01-18 07:00 | Outpatient (REF) | payer MEDICARE, SELFPAY ==
[2025-01-18 07:58] LABS: % Basophils 0.3 % (0-2); % Eosinophils 2.3 % (0-6); % Lymphocytes 19.5 % (20.5-51.1); % Monocytes 4.9 % (1.7-9.3); Absolute Eosinophils 0.1 10^3/uL (0-0.7); Absolute Lymphocytes 0.8 10^3/uL (1.2-3.4); Absolute Monocytes 0.2 10^3/uL (0.1-0.6); Absolute Neutrophils 2.8 10^3/uL (1.4-6.5); Hematocrit 22.6 % (39.0-52.0); Hemoglobin 7.6 g/dL (13.0-18.0); Mean Corp Hgb Conc. 33.6 g/dL (33.0-37.0); Mean Corpuscular Hgb 37.8 pg (27.0-31.0); Mean Corpuscular Volume 112.4 fL (80.0-94.0); Mean Platelet Volume 10.9 fL (7.4-10.4); Nucleated Red Blood Cells % 0 % (-); Platelet Count 111 10^3/uL (130-400); Red Blood Cell Count 2.01 10^6/uL (4.70-6.10); Red Cell Dist. Width 19.1 % (11.5-14.5); White Blood Cell Count 3.9 10^3/uL (4.8-10.8)
[2025-01-18 08:30] LABS: Protein/creatinine Ratio 0.5; Urine Protein 12 mg/dl
[2025-01-18 09:51] LABS: ALT (SGPT) 24 U/L (0-50); AST (SGOT) 25 U/L (17-59); Albumin 3.6 g/dl (3.5-5.0); Alkaline Phosphatase 239 U/L (38-126); Blood Urea Nitrogen 40 mg/dl (9-20); Calcium 8.6 mg/dl (8.4-10.2); Carbon Dioxide 22 mmol/L (22-30); Chloride 103 mmol/L (98-107); Glucose 158 mg/dl (70-99); Magnesium 1.8 mg/dl (1.6-2.3); Potassium 5.3 mmol/L (3.5-5.1); Sodium 135 mmol/L (135-145); Total Protein 7.1 g/dl (6.3-8.2); eGFR 52.74
== END ==
LOC: REG 07:00
PROVIDERS: ATTENDING PHYSICIAN Internal Medicine Hematology & Oncology; FAMILY PHYSICIAN Physician Assistant
DX: C18.7 Malignant neoplasm of sigmoid colon (principal); C78.7 Secondary malignant neoplasm of liver and intrahepatic bile duct; D70.1 Agranulocytosis secondary to cancer chemotherapy; R04.0 Epistaxis; D69.6 Thrombocytopenia, unspecified; G62.0 Drug-induced polyneuropathy; D63.0 Anemia in neoplastic disease; R19.7 Diarrhea, unspecified
CPT/HCPCS: 36415; 80053; 82570; 83735; 84156; 85025

== ENCOUNTER → 2025-01-25 06:44 | Outpatient (REF) | payer MEDICARE, SELFPAY ==
[2025-01-25 07:29] LABS: Hematocrit 21.8 % (39.0-52.0); Hemoglobin 7.3 g/dL (13.0-18.0); Mean Corp Hgb Conc. 33.5 g/dL (33.0-37.0); Mean Corpuscular Volume 116.0 fL (80.0-94.0); Nucleated Red Blood Cells % 0 % (-); Platelet Count 89 10^3/uL (130-400); Red Cell Dist. Width 21.6 % (11.5-14.5)
[2025-01-25 07:54] LABS: ALT (SGPT) 24 U/L (0-50); AST (SGOT) 27 U/L (17-59); Albumin 3.6 g/dl (3.5-5.0); Alkaline Phosphatase 275 U/L (38-126); Blood Urea Nitrogen 31 mg/dl (9-20); Calcium 8.9 mg/dl (8.4-10.2); Carbon Dioxide 21 mmol/L (22-30); Chloride 105 mmol/L (98-107); Glucose 126 mg/dl (70-99); Magnesium 1.8 mg/dl (1.6-2.3); Potassium 4.8 mmol/L (3.5-5.1); Sodium 135 mmol/L (135-145); Total Protein 6.8 g/dl (6.3-8.2); eGFR 48.55
== END ==
LOC: REG 06:44
PROVIDERS: ATTENDING PHYSICIAN Internal Medicine Hematology & Oncology; FAMILY PHYSICIAN Physician Assistant
DX: C18.7 Malignant neoplasm of sigmoid colon (principal); C78.7 Secondary malignant neoplasm of liver and intrahepatic bile duct; D70.1 Agranulocytosis secondary to cancer chemotherapy; R04.0 Epistaxis; D69.6 Thrombocytopenia, unspecified; G62.0 Drug-induced polyneuropathy; D63.0 Anemia in neoplastic disease; R19.7 Diarrhea, unspecified
CPT/HCPCS: 36415; 80053; 83735; 85025

== ENCOUNTER 2025-02-04 18:24 | Emergency (ER) | payer MEDICARE, SELFPAY ==
[2025-02-04 18:36] VITALS: BP 126/66
[2025-02-04 21:40] VITALS: BP 128/90
--- NOTE | 2025-02-04 22:30 | ED.GENMED ---
History of Present Illness
General
Chief Complaint: DVT/Possible Blood Clot
Source: patient
Time Seen by Provider: 02/04/25 22:20
History of Present Illness
History of Present Illness:
74-year-old male with a history of colon cancer with liver mets currently under the care of physicians at [place] for this states that he had a procedure done on Saturday where they mapped his right groin area. On Saturday he noted that his right
foot felt 'a little funny' but is mildly uncomfortable and swollen. That has since gotten worse and he made an appointment with a 'photo specialist' for tomorrow which he will keep. However, when he called his proxy's doctors to alert them of his
symptoms he was referred to the emergency department to rule out a DVT. Patient denies chest pain, shortness of breath, calf or groin swelling, numbness, tingling, focal weakness. He reports pain that is mild to moderate in intensity on the top of
his right foot associated with slight redness and swelling. He denies drainage, fever, chills, streaking, or other complaints.
Past History
Past History
ED Past Medical History: COPD, HTN, Hypercholesterolemia, NIDDM and Other (Colorectal cancer with liver mets)
ED Past Surgical History: Orthopedic and Other
Social History
Tobacco: Smoker
Alcohol: Occasional
Drug: None
Personal:
Living: alone
Employment: Retired
Family History
Family History: Other (Noncontributory)
Phy Exam
Physical Exam
Physical Exam:
GENERAL: Alert , in no apparent distress
EYE: pupils equal and reactive
NECK: Supple, no significant adenopathy.
ENT: o/p clr, mmm.
CARDIAC: Regular rate and rhythm .
LUNGS: Clear breath sounds bilaterally, no acute respiratory distress, no wheezes/rales/rhonchi
ABDOMEN: Soft, without focal tenderness, no r/g
NEUROLOGICAL: Alert and oriented, no focal neuro deficits
SKIN: Warm and dry, skin intact.
MUSCULOSKELETAL: well perfusred, nl dp pulses bilat, pink, no cyanosis. There is mild ttp and sts assoc with erythema at R dorsal aspect med midfoot. No fluctuance/crepitus/dradinage/streaking. Nl achilles test. No calf ttp or swelling, neg
Homans ROM preserved.
PSYCH: Normal and appropriate interaction.
Course
Orders/Labs/Results
Orders:
Orders
02/04/25 18:40
Periph Venous Lwr Ext Rt US [US Periph Venous LOWER Ext RT] Urgent
Comment:
Reason For Exam: DVT
02/04/25 22:29
Cephalexin Monohydrate [Keflex] 500 mg PO NOW STA
Vital Signs
Initial and Last Documented VS:
Initial Vital Signs
Temp Pulse Resp BP Pulse Ox
98 F 98 20 126/66 100
02/04/25 18:36 02/04/25 18:36 02/04/25 18:36 02/04/25 18:36 02/04/25 18:36
Last Documented Vital Signs
Temp Pulse Resp BP Pulse Ox
98 F 87 18 128/90 99
02/04/25 18:36 02/04/25 21:40 02/04/25 21:40 02/04/25 21:40 02/04/25 22:30
*Pulse Oximetry
SaO2: 99
Oxygen Mode of Delivery: Room air
Patient hypoxic: no
*Critical Care Note
Total Time (30-74mins, 75-104mins- exclusive of procedures): Not Applicable
Update Note
Update Note:
Patient presents to the Emergency Department with right foot pain
Number and Complexity of Problems Addressed at the Encounter
� Chronic conditions affecting care:
� Acute Exacerbation and/or Progression of Chronic Illness:
� Differential Diagnosis includes: But not limited to cellulitis, arthritis, fracture, DVT, etc. etc.
Amount and/or Complexity of Data to be Reviewed and Analyzed
� I performed an independent evaluation of and my interpretation is:
EKG:
CT:
Xrays:
Laboratory Studies:
Other: Ultrasound reviewed and printed out for patient, no acute disease, no DVT noted
� Review of other/old records reveals:
� Clinical information was obtained by an independent historian:
� Prescriptions/Medications Considered but not given:
� Further testing considered but not performed:
Risk of Complications and/or Morbidity or Mortality of Patient Management
� Social determinants of health affecting care:
� Discussion with other providers (PCP, Hospitalists, Consultants, etc):
� Escalation of care including admission/observation vs risk of discharge considered: Exam consistent with suspected cellulitis. Do not clinically suspect more serious infection such as necrotizing fasciitis, septic arthritis,
etc. No DVT noted on ultrasound. Neurovascularly intact, no suggestion of acute arterial occlusion. It is extremely unlikely that patient would have findings on x-ray given no trauma to suggest fracture. Foreign body unlikely. Consideration for
x-ray however patient defers until seen photo specialist tomorrow. In the meantime patient will be started on antibiotics. Discussed with him importance of follow-up and reasons return to ER.
ED Attending Note
-
Portions of this chart may have been created with voice recognition software.� Occasional wrong word or��sound alike� substitutions may have occurred due to the inherent limitations of voice recognition software.
Discharge Plan
Departure
Patient Disposition: Home (Routine Discharge)
Date of Disposition: 02/04/25
Time of Disposition: 22:30
Patient with high blood pressure during this ER visit?: Yes
Condition: Good
Discharge Problem:
Cellulitis
Instructions: Cellulitis (Skin Infection), Adult (DC), BLOOD PRESSURE
Prescriptions:
New
cephalexin 500 mg capsule
500 mg PO QID 7 Days Qty: 28 0RF
No Action
simvastatin 10 MG tablet
10 mg PO HS
furosemide 20 MG tablet
20 mg PO BID
metformin 1,000 MG tablet
1,000 mg PO BID
PreserVision AREDS 4,296 mcg-226 mg-90 mg Capsule
1 cap PO DAILY
loperamide 2 mg Capsule
4 mg PO DAILY
spironolactone 100 mg Tablet
100 mg PO DAILY
calcium carbonate-vitamin D3 [Calcium + D] 600 mg-5 mcg (200 unit) Tablet
1 tab PO BID
magnesium 200 mg Tablet
400 mg PO BID
Lonsurf 20-8.19 mg Tablet
3 tab PO BID
Rx Instructions:
must administer with food (with morning and evening meals); on Days 1 through 5 and Days 8 through 12 of 28-day cycle
amlodipine 5 mg tablet
5 mg PO DAILY
Referrals:
Girish Davis PA [Family Provider, Family Practice]
Activity Restrictions/Additional Instructions:
PLEASE SEE THE FOOT DOCTOR SCHEDULED TOMORROW. PLEASE BRING THE ULTRASOUND REPORT WITH YOU THAT YOU HAVE BEEN GIVEN TONIGHT. YOU HAVE DEFERRED AN X-RAY UNTIL YOU ARE SEEN TOMORROW. IF YOU DEVELOP FEVER, INCREASING IN SWELLING REDNESS OR PAIN,
ANY DRAINAGE, CALF SWELLING, CHEST PAIN, SHORTNESS OF BREATH, OR OTHER WORRISOME SIGNS, PLEASE RETURN TO THE ER IMMEDIATELY!
Interventions
Interventions:
*Risk Screen - Suicide Last Done: 02/04/25 18:36
*Neglect/Abuse Screening Last Done: 02/04/25 18:36
*ED- Fall Risk Assessment Last Done: 02/04/25 18:36
ED- Cardiac Assessment Last Done: 02/04/25 21:40
ED- Pulmonary Assessment Last Done: 02/04/25 21:40
ED-Peripheral Vascular Assessment Last Done: 02/04/25 21:40
ED-Skin Assessment Last Done: 02/04/25 21:40
Discharge Date and Time
Print Language: KAZAKH
[2025-02-04] MEDS: KEFLEX 500 MG PO (22:52)
== END 2025-02-04 23:04 | disposition home or self-care (01) ==
LOC: EMR 18:24
PROVIDERS: EMERGENCY PHYSICIAN Emergency Medicine; FAMILY PHYSICIAN Physician Assistant
DX: L03.115 Cellulitis of right lower limb (principal); C18.9 Malignant neoplasm of colon, unspecified; C78.7 Secondary malignant neoplasm of liver and intrahepatic bile duct; E11.9 Type 2 diabetes mellitus without complications; E78.00 Pure hypercholesterolemia, unspecified; I10 Essential (primary) hypertension; J44.9 Chronic obstructive pulmonary disease, unspecified; F17.200 Nicotine dependence, unspecified, uncomplicated
CPT/HCPCS: 99284; 93971

== ENCOUNTER → 2025-02-08 06:56 | Outpatient (REF) | payer MEDICARE, SELFPAY ==
[2025-02-08 07:59] LABS: Hematocrit 22.1 % (39.0-52.0); Hemoglobin 7.2 g/dL (13.0-18.0); Mean Corp Hgb Conc. 32.6 g/dL (33.0-37.0); Mean Corpuscular Volume 117.6 fL (80.0-94.0); Nucleated Red Blood Cells % 0 % (-); Platelet Count 129 10^3/uL (130-400); Red Cell Dist. Width 18.6 % (11.5-14.5)
[2025-02-08 08:39] LABS: ALT (SGPT) 33 U/L (0-50); AST (SGOT) 30 U/L (17-59); Albumin 3.5 g/dl (3.5-5.0); Alkaline Phosphatase 384 U/L (38-126); Blood Urea Nitrogen 41 mg/dl (9-20); Calcium 8.7 mg/dl (8.4-10.2); Carbon Dioxide 23 mmol/L (22-30); Chloride 103 mmol/L (98-107); Glucose 149 mg/dl (70-99); Magnesium 2.1 mg/dl (1.6-2.3); Potassium 5.1 mmol/L (3.5-5.1); Sodium 132 mmol/L (135-145); Total Protein 7.2 g/dl (6.3-8.2); eGFR 48.55
== END ==
LOC: REG 06:56
PROVIDERS: ATTENDING PHYSICIAN Internal Medicine Hematology & Oncology; FAMILY PHYSICIAN Physician Assistant
DX: C18.7 Malignant neoplasm of sigmoid colon (principal); C78.7 Secondary malignant neoplasm of liver and intrahepatic bile duct; D70.1 Agranulocytosis secondary to cancer chemotherapy; R04.0 Epistaxis; D69.6 Thrombocytopenia, unspecified; G62.0 Drug-induced polyneuropathy; D63.0 Anemia in neoplastic disease; R19.7 Diarrhea, unspecified
CPT/HCPCS: 36415; 80053; 83735; 85025

== ENCOUNTER 2025-02-12 07:42 | Outpatient (RCR) | payer MEDICARE, SELFPAY ==
[2025-01-27 10:06] VITALS: BP 131/60
[2025-01-27 10:23] VITALS: BP 124/53
[2025-01-27 12:43] VITALS: BP 125/54
[2025-01-27] MEDS: LASIX 10 MG IV (12:49)
[2025-02-12 08:35] VITALS: BP 134/46
[2025-02-12 08:52] VITALS: BP 124/45
[2025-02-12 10:45] VITALS: BP 138/50
[2025-02-12] MEDS: LASIX 10 MG IV (10:59)
[2025-02-12 11:07] VITALS: BP 138/50
[2025-02-12 11:24] VITALS: BP 136/48
[2025-02-12 13:11] VITALS: BP 121/46
== END 2025-02-18 23:59 | disposition home or self-care (01) ==
LOC: OID 07:42
PROVIDERS: ATTENDING PHYSICIAN Internal Medicine Hematology & Oncology; FAMILY PHYSICIAN Physician Assistant
DX: D69.6 Thrombocytopenia, unspecified (principal); C78.7 Secondary malignant neoplasm of liver and intrahepatic bile duct; D63.0 Anemia in neoplastic disease; C18.7 Malignant neoplasm of sigmoid colon; G62.0 Drug-induced polyneuropathy; D70.1 Agranulocytosis secondary to cancer chemotherapy; R04.0 Epistaxis; R19.7 Diarrhea, unspecified
CPT/HCPCS: 36415; 36430; 86850; 86900; 86901; 86920; 96374; P9016

== ENCOUNTER → 2025-02-16 07:16 | Outpatient (REF) | payer MEDICARE, SELFPAY ==
[2025-02-16 08:13] LABS: Hematocrit 25.0 % (39.0-52.0); Hemoglobin 8.4 g/dL (13.0-18.0); Mean Corp Hgb Conc. 33.6 g/dL (33.0-37.0); Mean Corpuscular Volume 108.2 fL (80.0-94.0); Nucleated Red Blood Cells % 0 % (-); Platelet Count 99 10^3/uL (130-400); Red Cell Dist. Width 19.9 % (11.5-14.5)
[2025-02-16 08:32] LABS: ALT (SGPT) 31 U/L (0-50); AST (SGOT) 31 U/L (17-59); Albumin 3.7 g/dl (3.5-5.0); Alkaline Phosphatase 361 U/L (38-126); Blood Urea Nitrogen 47 mg/dl (9-20); Calcium 8.9 mg/dl (8.4-10.2); Carbon Dioxide 22 mmol/L (22-30); Chloride 101 mmol/L (98-107); Glucose 148 mg/dl (70-99); Magnesium 2.0 mg/dl (1.6-2.3); Potassium 5.8 mmol/L (3.5-5.1); Sodium 132 mmol/L (135-145); Total Protein 7.3 g/dl (6.3-8.2); eGFR 48.55
== END ==
LOC: REG 07:16
PROVIDERS: ATTENDING PHYSICIAN Internal Medicine Hematology & Oncology
DX: C18.7 Malignant neoplasm of sigmoid colon (principal); C78.7 Secondary malignant neoplasm of liver and intrahepatic bile duct; D70.1 Agranulocytosis secondary to cancer chemotherapy; R04.0 Epistaxis; D69.6 Thrombocytopenia, unspecified; G62.0 Drug-induced polyneuropathy; D63.0 Anemia in neoplastic disease; R19.7 Diarrhea, unspecified
CPT/HCPCS: 36415; 80053; 82570; 83735; 84156; 85025

== ENCOUNTER → 2025-02-22 08:51 | Outpatient (REF) | payer MEDICARE, SELFPAY ==
[2025-02-22 10:34] LABS: Hematocrit 21.6 % (39.0-52.0); Hemoglobin 7.2 g/dL (13.0-18.0); Mean Corp Hgb Conc. 33.3 g/dL (33.0-37.0); Mean Corpuscular Volume 110.8 fL (80.0-94.0); Platelet Count 83 10^3/uL (130-400); Red Cell Dist. Width 20.5 % (11.5-14.5)
[2025-02-22 10:41] LABS: Blood Urea Nitrogen 31 mg/dl (9-20)
[2025-02-22 10:50] LABS: Total Iron Binding Capacity 250 ug/dl (261-462)
[2025-02-22 10:51] LABS: Iron 105 ug/dl (49-181)
[2025-02-22 10:54] LABS: Absolute Neutrophils -Man Diff 3.9 10^3/uL (1.4-6.5)
[2025-02-22 10:55] LABS: Anisocytosis 1+; Hypochromasia 1+; Normal RBC Morphology No; Platelets Checked Yes; Polychromasia 1+; Total Cells Counted 100
[2025-02-22 11:16] LABS: Ferritin 587.0 ng/ml (17.9-464.0)
[2025-02-22 17:33] LABS: CEA 47.2 ng/ml
[2025-02-23 11:30] LABS: LDH 235 U/L (120-246)
== END ==
LOC: OIDL 08:51
PROVIDERS: ATTENDING PHYSICIAN Internal Medicine Hematology & Oncology; FAMILY PHYSICIAN Physician Assistant
DX: C18.7 Malignant neoplasm of sigmoid colon (principal)
CPT/HCPCS: 36415; 82378; 82565; 82668; 82728; 83540; 83550; 83615; 84520; 85025; 86850; 86900; 86901; 86920

== ENCOUNTER → 2025-03-05 08:05 | Outpatient (REF) | payer MEDICARE, SELFPAY | LOC: RAD 08:05 | PROVIDERS: ATTENDING PHYSICIAN Internal Medicine Hematology & Oncology; FAMILY PHYSICIAN Physician Assistant | DX: C18.7 Malignant neoplasm of sigmoid colon (principal); C78.7 Secondary malignant neoplasm of liver and intrahepatic bile duct; D70.1 Agranulocytosis secondary to cancer chemotherapy; R04.0 Epistaxis; D69.6 Thrombocytopenia, unspecified; G62.0 Drug-induced polyneuropathy; D63.0 Anemia in neoplastic disease; R19.7 Diarrhea, unspecified | CPT/HCPCS: 74178; Q9967 ==

== ENCOUNTER → 2025-03-09 08:41 | Outpatient (REF) | payer MEDICARE, SELFPAY ==
[2025-03-09 08:57] VITALS: BP 141/58; BP_SYST 98
[2025-03-09 09:36] VITALS: BP 142/60; BP_SYST 91
[2025-03-09 11:47] LABS: Body Fluid Second Tech EM
== END ==
LOC: RADI 08:41
PROVIDERS: ATTENDING PHYSICIAN Internal Medicine Hematology & Oncology; FAMILY PHYSICIAN Physician Assistant
DX: R18.8 Other ascites (principal)
CPT/HCPCS: 49083; 89051

== ENCOUNTER 2025-03-10 07:33 | Outpatient (RCR) | payer MEDICARE, SELFPAY ==
[2025-02-23] VITALS (7 sets, daily range): BP systolic 117–127; BP diastolic 46–49
[2025-02-23] MEDS: LASIX 10 MG IV (10:12)
[2025-03-01 08:58] LABS: Hematocrit 26.1 % (39.0-52.0); Hemoglobin 8.6 g/dL (13.0-18.0); Mean Corp Hgb Conc. 33.0 g/dL (33.0-37.0); Mean Corpuscular Volume 108.8 fL (80.0-94.0); Platelet Count 59 10^3/uL (130-400); Red Cell Dist. Width 20.7 % (11.5-14.5)
[2025-03-01 10:00] LABS: ALT (SGPT) 25 U/L (0-50); AST (SGOT) 38 U/L (17-59); Albumin 3.1 g/dl (3.5-5.0); Alkaline Phosphatase 429 U/L (38-126); Blood Urea Nitrogen 27 mg/dl (9-20); Calcium 8.3 mg/dl (8.4-10.2); Carbon Dioxide 23 mmol/L (22-30); Chloride 98 mmol/L (98-107); Glucose 296 mg/dl (70-99); Magnesium 1.5 mg/dl (1.6-2.3); Potassium 4.9 mmol/L (3.5-5.1); Sodium 128 mmol/L (135-145); Total Protein 6.4 g/dl (6.3-8.2); eGFR 57.65
[2025-03-10] VITALS (7 sets, daily range): BP systolic 116–128; BP diastolic 50–55
[2025-03-10] MEDS: LASIX 10 MG IV (10:16)
== END 2025-03-21 23:59 | disposition home or self-care (01) ==
LOC: OID 07:33
PROVIDERS: ATTENDING PHYSICIAN Internal Medicine Hematology & Oncology; FAMILY PHYSICIAN Physician Assistant
DX: C18.7 Malignant neoplasm of sigmoid colon (principal); C78.7 Secondary malignant neoplasm of liver and intrahepatic bile duct; G62.0 Drug-induced polyneuropathy; D69.6 Thrombocytopenia, unspecified; D63.0 Anemia in neoplastic disease; R19.7 Diarrhea, unspecified; D70.1 Agranulocytosis secondary to cancer chemotherapy; R04.0 Epistaxis
CPT/HCPCS: 36415; 36430; 80053; 83735; 85025; 86850; 86900; 86901; 86920; 96374; P9016

== ENCOUNTER → 2025-03-16 07:26 | Outpatient (REF) | payer MEDICARE, SELFPAY ==
[2025-03-16 09:07] LABS: Hematocrit 22.9 % (39.0-52.0); Hemoglobin 7.8 g/dL (13.0-18.0); Mean Corp Hgb Conc. 34.1 g/dL (33.0-37.0); Mean Corpuscular Volume 102.2 fL (80.0-94.0); Nucleated Red Blood Cells % 0 % (-); Platelet Count 93 10^3/uL (130-400); Red Cell Dist. Width 19.3 % (11.5-14.5)
[2025-03-16 09:14] LABS: ALT (SGPT) 30 U/L (0-50); AST (SGOT) 30 U/L (17-59); Albumin 3.6 g/dl (3.5-5.0); Alkaline Phosphatase 425 U/L (38-126); Blood Urea Nitrogen 45 mg/dl (9-20); Calcium 8.9 mg/dl (8.4-10.2); Carbon Dioxide 25 mmol/L (22-30); Chloride 98 mmol/L (98-107); Glucose 161 mg/dl (70-99); Magnesium 2.0 mg/dl (1.6-2.3); Potassium 5.4 mmol/L (3.5-5.1); Sodium 129 mmol/L (135-145); Total Protein 7.2 g/dl (6.3-8.2); eGFR 44.93
== END ==
LOC: REG 07:26
PROVIDERS: ATTENDING PHYSICIAN Internal Medicine Hematology & Oncology; FAMILY PHYSICIAN Physician Assistant
DX: C18.7 Malignant neoplasm of sigmoid colon (principal); C78.7 Secondary malignant neoplasm of liver and intrahepatic bile duct; D70.1 Agranulocytosis secondary to cancer chemotherapy; R04.0 Epistaxis; D69.6 Thrombocytopenia, unspecified; G62.0 Drug-induced polyneuropathy; D63.0 Anemia in neoplastic disease; R19.7 Diarrhea, unspecified
CPT/HCPCS: 36415; 80053; 82570; 83735; 84156; 85025

== ENCOUNTER → 2025-03-23 07:35 | Outpatient (REF) | payer MEDICARE, SELFPAY ==
[2025-03-23 10:04] LABS: Hematocrit 22.7 % (39.0-52.0); Hemoglobin 7.5 g/dL (13.0-18.0); Mean Corp Hgb Conc. 33.0 g/dL (33.0-37.0); Mean Corpuscular Volume 104.6 fL (80.0-94.0); Nucleated Red Blood Cells % 0 % (-); Platelet Count 110 10^3/uL (130-400); Red Cell Dist. Width 21.6 % (11.5-14.5)
[2025-03-23 10:12] LABS: ALT (SGPT) 31 U/L (0-50); AST (SGOT) 40 U/L (17-59); Albumin 3.5 g/dl (3.5-5.0); Alkaline Phosphatase 426 U/L (38-126); Blood Urea Nitrogen 31 mg/dl (9-20); Calcium 8.8 mg/dl (8.4-10.2); Carbon Dioxide 23 mmol/L (22-30); Chloride 96 mmol/L (98-107); Glucose 139 mg/dl (70-99); LDH 404 U/L (120-246); Potassium 5.6 mmol/L (3.5-5.1); Sodium 126 mmol/L (135-145); Total Protein 7.2 g/dl (6.3-8.2); eGFR 41.78
== END ==
LOC: OIDL 07:35
PROVIDERS: ATTENDING PHYSICIAN Internal Medicine Hematology & Oncology; FAMILY PHYSICIAN Physician Assistant
DX: C18.7 Malignant neoplasm of sigmoid colon (principal); C78.7 Secondary malignant neoplasm of liver and intrahepatic bile duct; D70.1 Agranulocytosis secondary to cancer chemotherapy; R04.0 Epistaxis; D69.6 Thrombocytopenia, unspecified; D62 Acute posthemorrhagic anemia; D63.0 Anemia in neoplastic disease; R19.7 Diarrhea, unspecified
CPT/HCPCS: 36415; 80053; 83615; 85025

== ENCOUNTER 2025-03-23 10:20 | Emergency (ER) | payer MEDICARE, SELFPAY ==
[2025-03-23] VITALS (23 sets, daily range): BP systolic 108–145; BP diastolic 49–66
--- NOTE | 2025-03-23 11:28 | ED.GENMED ---
History of Present Illness
General
Chief Complaint: Abnormal Lab Value
Source: patient and records
Exam Limitations: none
Time Seen by Provider: 03/23/25 11:15
Nursing documentation reviewed up to this point in time: agreed with
History of Present Illness
History of Present Illness:
74-year-old male with a past medical history as noted significant for COPD, CHF, hypertension, hyperlipidemia, diabetes, colon cancer currently receiving treatment through [facility] as well as at [facility]; he presents to the ER today
requesting blood transfusion. He says that he has been having increasing fatigue over the past few days and had outpatient labs that showed anemia. He says he was told that he needs a blood transfusion and that they were not able to schedule him
on an outpatient basis and so he was referred to the ER. He denies any chest pain, coughing, shortness of breath, swelling in the legs or any other acute issues. He has not had any black or bloody stools. He is not on any blood thinners he says.
Past History
Past History
ED Past Medical History: COPD, HTN, Hypercholesterolemia, NIDDM and Other (Colorectal cancer with liver mets)
ED Past Surgical History: Orthopedic and Other
Social History
Tobacco: Smoker
Alcohol: Occasional
Drug: None
Personal:
Living: alone
Employment: Retired
Family History
Family History: Other (Noncontributory)
Review of Systems
Review of Systems
All Other Systems: ROS reviewed and negative except as documented in HPI and ROS
Constitutional: Reports fatigue
Respiratory: Denies cough or trouble breathing
Cardiac: Denies chest pain
ABD/GI: Denies abdominal pain, vomiting, bloody stools or black stools
: Denies flank pain
Musculoskeletal: Denies edema, neck pain or back pain
Phy Exam
Physical Exam
Physical Exam:
General: Awake, alert, oriented x3; no acute distress
Head: Normocephalic, atraumatic
Eyes: Conjunctiva normal
Throat: Airway intact, handling secretions
Neck: Trachea midline, supple without meningismus
Lungs: Clear to auscultation bilaterally, no wheezing, rales, rhonchi
Heart: Regular rate and rhythm, no murmurs, gallops, or rubs; left chest wall tunneled catheter noted
Abd: Soft, non distended, nontender; large ventral hernia
Neuro: Grossly intact
Skin: Chronic venous stasis changes in the legs
Extremities: Trace lower extremity edema bilaterally, extremities are warm and well-perfused
Scores
Heart Failure Risk
Heart Failure Risk Score: Not Applicable
Heart Score for Chest Pain Patients
STEMI patient?: Not applicable
Withdrawal Assessment of Alcohol
Withdrawal Assessment Completed?: Not applicable
Course
Orders/Labs/Results
Orders:
Orders
03/23/25 11:27
* Blood Bank Products Urgent
Blood Bank Products: *Packed RBC Leuko(PRBC's)
Quantity: 2
Transfuse Today: Yes
Reason: Anemia
03/23/25 12:05
Type+Screen Urgent
03/23/25 13:15
Furosemide [Lasix] 40 mg IV NOW STA
03/23/25 Dinner
Regular
Abnormal Lab Results
03/23/25
12:05
Crossmatch IS Only See Detail
03/23/25 11:04
03/23/25 11:04
Vital Signs
Initial and Last Documented VS:
Initial Vital Signs
Temp Pulse Resp BP Pulse Ox
36.8 C 104 18 145/66 98
03/23/25 10:22 03/23/25 10:22 03/23/25 10:22 03/23/25 10:22 03/23/25 10:22
Last Documented Vital Signs
Temp Pulse Resp BP Pulse Ox
36.8 C 87 16 126/60 100
03/23/25 10:22 03/23/25 12:00 03/23/25 12:00 03/23/25 12:00 03/23/25 12:00
MDM/Problems Addressed
Differential Diagnosis Includes:
Anemia
MDM/Problems Addressed:
74-year-old male presents with fatigue over the past week�was told that he needs a blood transfusion and was referred to the ER due to inability to schedule him for outpatient infusion. Hemoglobin today was 7.5 has been trending down slightly from
a value of 8.6 after his last blood transfusion. He denies any bleeding or any other acute issues. The vital signs are all stable. Plan to transfuse PRBCs, monitor pending transfusion. Hold on repeat labs as he had outpatient labs today a few
hours ago. I did review his chemistry from earlier which showed stable chronic hyponatremia and marginal hyperkalemia which has been stable.
Patient reports that he typically receives Lasix between transfusions�this was ordered. Clinically stable on reassessment.
Chronic conditions affecting care:
CHF, colon cancer
*Pulse Oximetry
SaO2: 98
Oxygen Mode of Delivery: Room air
Patient hypoxic: no (98%)
*Critical Care Note
Total Time (30-74mins, 75-104mins- exclusive of procedures): Not Applicable
Data Reviewed
Review of Other/Old Records Reveals: Labs and Records
Source: patient and records
ED Attending Note
-
Portions of this chart may have been created with voice recognition software.� Occasional wrong word or��sound alike� substitutions may have occurred due to the inherent limitations of voice recognition software.
Discharge Plan
Departure
Discharge Problem:
Anemia
Instructions: Anemia overview
Prescriptions:
No Action
simvastatin 10 MG tablet
10 mg PO HS
furosemide 20 MG tablet
20 mg PO BID
metformin 1,000 MG tablet
1,000 mg PO BID
PreserVision AREDS 4,296 mcg-226 mg-90 mg Capsule
1 cap PO DAILY
loperamide 2 mg Capsule
4 mg PO DAILY
spironolactone 100 mg Tablet
100 mg PO DAILY
calcium carbonate-vitamin D3 [Calcium + D] 600 mg-5 mcg (200 unit) Tablet
1 tab PO BID
magnesium 200 mg Tablet
400 mg PO BID
Lonsurf 20-8.19 mg Tablet
3 tab PO BID
Rx Instructions:
must administer with food (with morning and evening meals); on Days 1 through 5 and Days 8 through 12 of 28-day cycle
amlodipine 5 mg tablet
5 mg PO DAILY
polyethylene glycol 3350 [Miralax] 17 gram Powder In Packet
17 g PO DAILY PRN (Reason: constipation)
tramadol
1 tab PO .Q4-6H PRN (Reason: pain)
Referrals:
Girish Davis PA [Family Provider, Family Practice]
Activity Restrictions/Additional Instructions:
Thank you for visiting the Emergency Department at [facility].
1. Please schedule a follow up appointment as directed. Call first thing tomorrow morning to make an appointment.
2. If indicated, please take your medications as instructed and indicated on discharge paperwork.
3. If any of your symptoms do not improve, or persist, or become more severe within 6-12 hours, please return to the emergency department for further care.
4. Please return to the emergency department if you develop a headache, neck pain/stiffness, fever greater than 100.4F, chest pain, shortness of breath, persistent nausea, vomiting, slurred speech, difficulty walking, numbness/tingling, weakness,
signs of infection or any other symptoms that are worrisome to you.
Please call [phone] if you have any questions.
Interventions
Interventions:
*Risk Screen - Suicide Last Done: 03/23/25 10:22
*General Assessment Last Done: 03/23/25 11:59
*Neglect/Abuse Screening Last Done: 03/23/25 10:22
*ED COVID-19 Vaccine History Last Done: 03/23/25 11:59
Discharge Date and Time
Print Language: PUERTO RICAN
[2025-03-23] MEDS: LASIX 40 MG IV (16:29)
== END 2025-03-23 19:24 | disposition home or self-care (01) ==
LOC: EMR 10:20
PROVIDERS: EMERGENCY PHYSICIAN Emergency Medicine; FAMILY PHYSICIAN Physician Assistant
DX: D64.9 Anemia, unspecified (principal); R79.89 Other specified abnormal findings of blood chemistry; I11.0 Hypertensive heart disease with heart failure; I50.9 Heart failure, unspecified; E11.9 Type 2 diabetes mellitus without complications; J44.9 Chronic obstructive pulmonary disease, unspecified; C18.9 Malignant neoplasm of colon, unspecified; C78.7 Secondary malignant neoplasm of liver and intrahepatic bile duct; E78.00 Pure hypercholesterolemia, unspecified; E87.1 Hypo-osmolality and hyponatremia; E87.5 Hyperkalemia; F17.200 Nicotine dependence, unspecified, uncomplicated
CPT/HCPCS: 99283; 86850; 86900; 86901; 86920; P9016

== ENCOUNTER → 2025-03-29 07:54 | Outpatient (REF) | payer MEDICARE, SELFPAY ==
[2025-03-29 08:22] LABS: Hematocrit 25.8 % (39.0-52.0); Mean Corp Hgb Conc. 34.9 g/dL (33.0-37.0); Mean Corpuscular Volume 100.4 fL (80.0-94.0); Platelet Count 84 10^3/uL (130-400); Red Cell Dist. Width 23.0 % (11.5-14.5)
[2025-03-29 08:26] LABS: Hemoglobin 9.0 g/dL (13.0-18.0)
[2025-03-29 09:37] LABS: ALT (SGPT) 41 U/L (0-50); AST (SGOT) 55 U/L (17-59); Albumin 3.3 g/dl (3.5-5.0); Alkaline Phosphatase 528 U/L (38-126); Blood Urea Nitrogen 34 mg/dl (9-20); Calcium 8.9 mg/dl (8.4-10.2); Carbon Dioxide 21 mmol/L (22-30); Chloride 94 mmol/L (98-107); Glucose 150 mg/dl (70-99); Potassium 5.5 mmol/L (3.5-5.1); Sodium 124 mmol/L (135-145); Total Protein 7.0 g/dl (6.3-8.2); eGFR 41.78
== END ==
LOC: OIDL 07:54
PROVIDERS: ATTENDING PHYSICIAN Internal Medicine Hematology & Oncology; FAMILY PHYSICIAN Physician Assistant
DX: C18.7 Malignant neoplasm of sigmoid colon (principal); C78.7 Secondary malignant neoplasm of liver and intrahepatic bile duct; D70.1 Agranulocytosis secondary to cancer chemotherapy; R04.0 Epistaxis; D69.6 Thrombocytopenia, unspecified; G62.0 Drug-induced polyneuropathy; D63.0 Anemia in neoplastic disease; R19.7 Diarrhea, unspecified
CPT/HCPCS: 36415; 80053; 80076; 85025

== ENCOUNTER → 2025-04-02 06:58 | Outpatient (REF) | payer MEDICARE, SELFPAY ==
[2025-04-02 07:27] VITALS: BP 138/68; BP_SYST 109
[2025-04-02 08:15] VITALS: BP 98/53; BP_SYST 113
[2025-04-02 09:47] LABS: Body Fluid Second Tech US
== END ==
LOC: RADI 06:58
PROVIDERS: ATTENDING PHYSICIAN Nurse Practitioner Adult Health; FAMILY PHYSICIAN Physician Assistant
DX: R18.8 Other ascites (principal)
CPT/HCPCS: 49083; 89051

== ENCOUNTER 2025-04-02 13:43 | Inpatient (IN) | payer MEDICARE, SELFPAY ==
[2025-04-02] VITALS (15 sets, daily range): BP systolic 95–136; BP diastolic 57–72; PULSE 101–116; O2SAT 97; BMI 32.3; BMI 31.5
--- NOTE | 2025-04-02 09:05 | EDRN ---
Dr. Cutler in room w/ pt.
--- NOTE | 2025-04-02 09:14 | ED.GENMED ---
History of Present Illness
General
Chief Complaint: Fainting Sensation
Source: patient and records
Exam Limitations: none
Time Seen by Provider: 04/02/25 09:01
Nursing documentation reviewed up to this point in time: agreed with except (Patient tells me he did not pass out)
History of Present Illness
History of Present Illness:
74-year-old male with a past medical history of hypertension, hyperlipidemia, CHF, COPD, diabetes, metastatic colon cancer who presents to the emergency department for evaluation after a fall getting into his car. Patient was scheduled for an
outpatient paracentesis today (which he did attend and he received, had 4400 cc fluid drained) and was getting into his car to come over. He says that while he was trying to get up into the car he lost his balance and fell backwards and hit his
head. He says he did not pass out. He says he may have felt mildly lightheaded beforehand but was otherwise in his normal state of health. He denies any chest pain, shortness of breath or any other acute issues. Aside from having some soreness
in his head he denies any significant traumatic injuries including neck pain, back pain, rib pain or pain in his extremities. Review his medication list shows he is not on any blood thinners. Chart review shows he was here in the ER for blood
transfusion last week due to anemia on outpatient labs.
Past History
Past History
ED Past Medical History: COPD, HTN, Hypercholesterolemia, NIDDM and Other (Colorectal cancer with liver mets)
ED Past Surgical History: Orthopedic and Other
Social History
Tobacco: Smoker
Alcohol: Occasional
Drug: None
Personal:
Living: alone
Employment: Retired
Family History
Family History: Other (Noncontributory)
Review of Systems
Review of Systems
All Other Systems: ROS reviewed and negative except as documented in HPI and ROS
Constitutional: Denies fever
Respiratory: Denies trouble breathing
Cardiac: Denies chest pain or palpitations
ABD/GI: Denies abdominal pain, nausea or vomiting
: Denies flank pain
Musculoskeletal: Denies joint pain, neck pain or back pain
Neurological: Reports headache; Denies weakness or numbness
Phy Exam
Physical Exam
Physical Exam:
General: Awake, alert, oriented x3; no acute distress
Head: Normocephalic, minor abrasion left occipital scalp
Eyes: Conjunctiva normal, EOMI, pupils equal round reactive to light bilaterally
Throat: Airway intact, handling secretions
Neck: Trachea midline, no cervical spine tenderness, good range of motion without pain
Back: No signs of trauma to the back or flank and no tenderness in the thoracic or lumbar spine, no spinal step-offs
Lungs: Clear to auscultation bilaterally, no wheezing, rales, rhonchi
Heart: Tachycardia with regular rhythm, no murmurs, gallops, or rubs
Abd: Soft, mildly distended, nontender; dressing in place left lower quadrant from recent paracentesis
Neuro: Cranial nerves intact, speech fluent, motor and sensory intact in all extremities, ambulatory
Extremities: Atraumatic, moving all extremities through comfortable range of motion without pain, trace edema in the legs, chronic venous stasis changes in the legs, extremities are warm and well-perfused
Scores
Heart Failure Risk
Heart Failure Risk Score: Not Applicable
Heart Score for Chest Pain Patients
STEMI patient?: Not applicable
Withdrawal Assessment of Alcohol
Withdrawal Assessment Completed?: Not applicable
Course
Orders/Labs/Results
Orders:
Orders
04/02/25 08:49
EKG [Electrocardiogram (*1)] Urgent
Reason for Study: Syncope
EKG- Treatment ONCE
04/02/25 09:12
CT Cervical Spine W/o Iv Contr Urgent
Comment:
Reason For Exam: fall with headstrike
CT Head W/o Iv Contrast Urgent
Comment:
Reason For Exam: fall with headstrike
04/02/25 09:14
Encourage PO Hydration-Treatme ONCE
04/02/25 09:34
Complete Blood Count/With Diff Urgent
Comprehensive Metabolic Panel Urgent
04/02/25 10:36
Case Management Consult ONCE
Case Management Consult: Alf Placement
04/02/25 10:37
Ot Eval And Treat Urgent
Pt Eval And Treat Urgent
Activity Level: With Assistance
04/02/25 10:55
Osmolality, Random Urine Urgent
Urinalysis Reflex To Culture Urgent
Urine Sodium Urgent
04/02/25 11:06
Electrocardiogram (*1) Urgent
Reason for Study: Fatigue / Weakness
EKG- Treatment ONCE
04/02/25 11:07
0.9% Sodium Chloride 500 ml [Nss] 500 ml IV BOLUS
Abnormal Lab Results
04/02/25
09:34
WBC 16.0 H 10^3/uL
(4.8-10.8)
RBC 2.82 L 10^6/uL
(4.70-6.10)
Hgb 9.5 L g/dL
(13.0-18.0)
Hct 28.0 L %
(39.0-52.0)
MCV 99.3 H fL
(80.0-94.0)
MCH 33.7 H pg
(27.0-31.0)
RDW 23.3 H %
(11.5-14.5)
Plt Count 107 L D 10^3/uL
(130-400)
MPV 10.5 H fL
(7.4-10.4)
Abs Immat Gran (auto) 0.2 H 10^3/uL
(0-0.05)
Absolute Neuts (auto) 14.0 H 10^3/uL
(1.4-6.5)
Absolute Lymphs (auto) 0.4 L 10^3/uL
(1.2-3.4)
Absolute Monos (auto) 1.3 H 10^3/uL
(0.1-0.6)
Immature Gran % 1.3 H %
(0-0.5)
Neutrophils % 88.0 H %
(42.2-75.2)
Lymphocytes % 2.5 L %
(20.5-51.1)
Sodium 123 L mmol/L
(135-145)
Potassium 5.9 H mmol/L
(3.5-5.1)
Chloride 94 L mmol/L
(98-107)
Carbon Dioxide 20 L mmol/L
(22-30)
BUN 37 H mg/dl
(9-20)
Creatinine 1.7 H mg/dL
(0.7-1.3)
Glucose 191 H mg/dl
(70-99)
Total Bilirubin 2.3 H mg/dl
(0.2-1.3)
AST 64 H U/L
(17-59)
Alkaline Phosphatase 592 H U/L
(38-126)
Albumin 3.3 L g/dl
(3.5-5.0)
04/02/25 09:34
04/02/25 09:34
Vital Signs
Initial and Last Documented VS:
Initial Vital Signs
Temp Pulse Resp BP Pulse Ox
36.8 C 107 16 114/61 97
04/02/25 08:44 04/02/25 08:44 04/02/25 08:44 04/02/25 08:44 04/02/25 08:44
Last Documented Vital Signs
Temp Pulse Resp BP Pulse Ox
36.8 C 109 24 98/63 98
04/02/25 08:44 04/02/25 11:00 04/02/25 11:00 04/02/25 10:52 04/02/25 11:00
MDM/Problems Addressed
Differential Diagnosis Includes:
Fall
MDM/Problems Addressed:
74-year-old male presents for evaluation after a fall getting into his car on his way to a paracentesis this morning. He says he may have been slightly lightheaded before head but did not pass out and feels well here in the ER. No significant
traumatic injuries aside from mild soreness in his head where he struck the ground. Given his age and history of thrombocytopenia with occipital head strike we will plan to check CT head as well as a CT of the cervical spine. Although he says he
feels generally well here given report of possible lightheadedness today we will check basic labs and EKG. Monitor on telemetry and reassess after the above.
Labs reviewed: CBC does show leukocytosis to 16 in the setting of cancer treatment; hemoglobin 9.5 stable. Mild thrombocytopenia essentially stable. Chemistry pending. CT head and cervical spine pending. Son-in-law is at bedside and has some
concerns about patient's functional status and whether he might be better served in an assisted living facility or at least short-term rehab. Discussed with PT as well as case management to assess.
Chemistry returned back and shows marked hyponatremia with a sodium of 123�he does have chronic hyponatremia. With tachycardia and recent large-volume paracentesis suspect some hypovolemia will send urine studies and treat with fluids. He also has
some hyperkalemia which is uptrending; no changes on EKG. Creatinine 1.7 which is stable. LFTs essentially stable. CT head shows scalp contusion but there is also an area of hypoattenuation in the brain�read as contusion versus metastasis with
vasogenic edema. Will need a follow-up MRI. Fortunately no acute traumatic findings on CT cervical spine. I think given his reported functional decline per son admission is indicated to manage his hyponatremia/electrolyte derangements and for
further assessment of abnormal CT head as well. Discussed case with hospitalist for admission.
Repeat EKG showed ST changes�read out as an acute MN although patient has no chest pain whatsoever. Suspect that these EKG changes are related to hyperkalemia noted in labs will treat with calcium for cardiac membrane stabilization as well as some
insulin/dextrose for temporization and Lokelma for excretion. I did for completeness discussed the case with interventional cardiology who agreed with treating electrolyte derangements, added troponin for completeness but would not activate
cardiac Medicinal Chemist taking this entire clinical picture into consideration in the absence of any chest pain. Updated hospitalist.
Chronic conditions affecting care:
Metastatic cancer, CHF
*Radiology
Radiology exam reviewed: radiology read reviewed
*Pulse Oximetry
SaO2: 97
Oxygen Mode of Delivery: Room air
Patient hypoxic: no (97%)
*EKG
Interpreted by ED Provider?: Yes
Comparison EKG: no changes
Heart Rate: 110
Rate: tachycardiac
Rhythm: sinus and sinus tachycardia
[place]: normal axis
Interval: first degree heart block
QRS Pattern: low voltage
Ischemia: no ischemia (No significant change from prior)
*Critical Care Note
Total Time (30-74mins, 75-104mins- exclusive of procedures): Not Applicable
Data Reviewed
Review of Other/Old Records Reveals: Labs and Records
Source: patient and records
Patient Management
Discussion with other providers: Hospitalist (Discussed with hospitalist) and Cardiac Cath Lab Technologist (Discussed with superintendent [employer])
Escalation/DeEscalation of care consider admission/obs:
Admission indicated
ED Attending Note
-
Portions of this chart may have been created with voice recognition software.� Occasional wrong word or��sound alike� substitutions may have occurred due to the inherent limitations of voice recognition software.
Discharge Plan
Departure
Patient Disposition: Admit
Date of Disposition: 04/02/25
Time of Disposition: 11:03
Admit to doctor: Blair
Presentation/result/management discussed w/ accepting MD/DO: Hospitalist
Discharge Problem:
Acute hyponatremia, Hyperkalemia, Contusion of scalp
Prescriptions:
No Action
simvastatin 10 MG tablet
10 mg PO HS
furosemide 20 MG tablet
20 mg PO BID
metformin 1,000 MG tablet
1,000 mg PO BID
PreserVision AREDS 4,296 mcg-226 mg-90 mg Capsule
1 cap PO BID
spironolactone 100 mg Tablet
100 mg PO QPM
calcium carbonate-vitamin D3 [Calcium + D] 600 mg-5 mcg (200 unit) Tablet
1 tab PO BID
magnesium 200 mg Tablet
400 mg PO HS
amlodipine 5 mg tablet
5 mg PO DAILY
polyethylene glycol 3350 [Miralax] 17 gram Powder In Packet
17 g PO DAILYPRN PRN (Reason: constipation)
tramadol 50 mg Tablet
50 mg PO BIDPRN PRN (Reason: moderate pains)
docusate sodium [Colace] 100 mg Capsule
100 mg PO HS
Fruzaqla 5 mg Capsule
5 mg PO DIRECTED
Rx Instructions:
for 21 days on and 7 days off
Referrals:
Girish Davis PA [Family Provider, Family Practice]
Interventions
Interventions:
*Risk Screen - Suicide Last Done: 04/02/25 08:44
*General Assessment Last Done: 04/02/25 09:19
*Neglect/Abuse Screening Last Done: 04/02/25 08:44
*ED- Fall Risk Assessment Last Done: 04/02/25 09:19
*ED COVID-19 Vaccine History Last Done: 04/02/25 09:19
ED- Cardiac Assessment Last Done: 04/02/25 09:42
ED- Neurological Assessment Last Done: 04/02/25 09:42
Discharge Date and Time
Print Language: BHUTANESE
[2025-04-02 09:43] LABS: Hematocrit 28.0 % (39.0-52.0); Hemoglobin 9.5 g/dL (13.0-18.0); Mean Corp Hgb Conc. 33.9 g/dL (33.0-37.0); Mean Corpuscular Volume 99.3 fL (80.0-94.0); Nucleated Red Blood Cells % 0 % (-); Platelet Count 107 10^3/uL (130-400); Red Cell Dist. Width 23.3 % (11.5-14.5)
--- NOTE | 2025-04-02 09:50 | EDRN ---
Dr. Cutler was TT'd @ 9:41 about pt wanting to eat and about him having slight nausea as well as having appt at [facility] for treatment scheduled after paracentesis. Dr. Cutler just in room to update pt and his son at this time.
[2025-04-02 10:51] LABS: ALT (SGPT) 44 U/L (0-50); AST (SGOT) 64 U/L (17-59); Albumin 3.3 g/dl (3.5-5.0); Alkaline Phosphatase 592 U/L (38-126); Blood Urea Nitrogen 37 mg/dl (9-20); Calcium 9.2 mg/dl (8.4-10.2); Carbon Dioxide 20 mmol/L (22-30); Chloride 94 mmol/L (98-107); Estimated Creatinine Clearance 45 ml/min; Glucose 191 mg/dl (70-99); Potassium 5.9 mmol/L (3.5-5.1); Sodium 123 mmol/L (135-145); Total Protein 7.3 g/dl (6.3-8.2); eGFR 41.78
--- NOTE | 2025-04-02 10:58 | EDRN ---
Requested urine from pt. Pt ate 100% of his boxed lunch. Dr. Cutlre in room w/ pt. Pt is recliner at this time for comfort.
--- NOTE | 2025-04-02 11:02 | EDRN ---
PT in room w/ pt at this time.
[2025-04-02] MEDS: NSS 500 IV (11:41)
[2025-04-02] MEDS: DEXTROSE 50% SYRINGE 25 GRAMS IV (11:49)
[2025-04-02] MEDS: LOKELMA 10 GRAM PO (11:49)
[2025-04-02] MEDS: NOVOLIN R 5 UNITS IV (11:50)
[2025-04-02] MEDS: CALCIUM GLUCONATE 1000 MG IV (11:50)
--- NOTE | 2025-04-02 11:59 | EDRN ---
Hospitalist Resident Dr. Acevedo in room w/ pt at this time.
--- NOTE | 2025-04-02 12:15 | HPS.HSE ---
Addendum entered and electronically signed by Mark Parker MD 04/02/25 15:17:
Patient seen and examined along with resident Dr. Acevedo.
Plan of care discussed
Impression/plan
74 years old male with widely metastatic colon carcinoma with known metastasis to liver, recurrent malignant ascites presents to the emergency from interventional radiology shortly after large volume paracentesis with complaints of severe fatigue,
weakness, ambulatory dysfunction
Severe fatigue, weakness, ambulatory dysfunction likely multifactorial and due to progressive carcinoma as well as significant deconditioning and hypotension.
Neurologic exam without focal findings.
Had confusion with posterior bruising with small scalp laceration
CT head with ill-defined area of hypoattenuation within the left occipital lobe with mild local mass effect. Small to moderate focus of soft tissue edema within the nearby posterior left parietal scalp. Differential diagnosis including possible
small contusion, versus vasogenic edema secondary to metastasis
Also complains of severe pain in the lower and mid thoracic spine area. Exam without tenderness.
Check MRI of the brain with and without contrast
Check MRI of thoracic and lumbar spine with and without contrast
If confirmed metastatic disease, will need further neurologic evaluation and consideration of systemic steroids if vasogenic edema present
Leukocytosis with left shift. WBC 16.
Ascites
No specific complaints to pinpoint source, other than diffuse abdominal pain improved after large-volume paracentesis today.
Ascitic fluid with WBC 456/PMN 35
Remains high risk for SBP given prior hypoalbuminemia in ascitic fluid as well as current immunosuppression with oral chemotherapy.
Will ask interventional radiology for additional fluid tests including Gram stain.
Blood cultures.
Empiric antibiotics ceftriaxone
IV albumin
Chronic anemia.
Likely due to chronic disease/CA as well as chemotherapy. Follow hemoglobin
Acute on chronic hyponatremia.
Sodium 123.
With peripheral edema and ascites, although intravascularly depleted given hypotension.
Suspect high ADH state likely driven by pain as well as stimulated by intravascular depletion and hypotension
Hold diuretics (Lasix, spironolactone)
Status post bolus of isotonic solution in ED
Hold further fluids
Check urine osmolarity
IV albumin
Follow-up BMP
If further drop consider nephrology evaluation.
Consider hypertonic solution and free water restriction
Update TSH
Update serum cortisol
Hyperkalemia. Potassium 5.9
This is likely due to hypotension and presence of potassium sparing diuretics
Temporized in the ED
Hold spironolactone
Follow BMP
CKD stage III with baseline creatinine 1.3�1.[address] elevations in lateral leads
Possible secondary to electrolyte abnormalities
Chest pain-free.
Follow troponin.
If uptrending consider cardiology evaluation.
Check echocardiogram
Metastatic invasive adenocarcinoma of sigmoid colon.
Status post sigmoid colectomy with anastomosis.
Multiple rounds of chemotherapy
Known extensive metastatic disease to liver, adrenal gland with retroperitoneal and thoracic lymphadenopathy.
History of Y90 radioembolization to the liver 02/09 at [place]
Status post Avastin.
Currently on Fluzaqla
Oncology evaluation
CODE STATUS DNR
DVT prophylaxis with subcu heparin
Original Note:
Family Physician
-
Family Physician: RICHIE Ott
Chief Complaint
-
Fall, weakness
History of Present Illness
74 year old male with history of metastatic colon cancer on chemo, Non-insulin dependent diabetes mellitus, COPD, HTN, hyperlipidemia, COPD, chronic thrombocytopenia, who presents to the ED after a fall. Pt was headed to scheduled paracentesis today
for ascites when he had difficulty lifting his left leg to get in the car and lost his balance, followed by a fall to the ground. There was no LOC, or gaps in memory, but he did hit his head whne he fell. He was down total of about 12 minutes. He
reports feeling out of sorts today, but otherwise no changes in his usual lightheadedness, weakness, peripheral neuropathy. He does report poor oral intake recently due to discomfort from abdominal distention.
He reports mild epigastric pain improved s/p paracentesis, known occasional chills/sweats, mild lightheadedness, head soreness, numbness of hands and feet, mid-lower midline back pain. He denies recent acute illness, neck pain/stiffness, new
SOB/chest pain, chest wall pain. No dysuria, nausea/vomiting, or blood in urine.
Medical History
Past Medical History
Past Medical History: Reports Cancer (metastatic colon cancer), CHF, COPD, HTN, Hypercholesterolemia, NIDDM and Other (chronic anemia, thrombocytopenia, peripheral neuropathy)
Past Surgical History: Reports Orthopedic (multiple) and Other (umbilical cyst)
Social History
Tobacco: Former Smoker (Quit about 10 years ago)
Alcohol: Occasional
Drug: None
Family History
Family History: Not pertinent
Allergies / Home Medications
Allergies reflects when Allergies were last updated in [employer].
Home Medications with original date entered in [employer]
Allergy/Medication List:
Allergies
Allergy/AdvReac Type Severity Reaction Status Date / Time
pollen extracts Allergy Itching, Verified 03/23/25 10:23
nasal
congestion
- seasonal
Home Medications
simvastatin 10 mg tablet 10 mg PO HS High cholesterol 06/14/18
furosemide 20 mg tablet 20 mg PO BID Fluid retention/Swelling 11/30/20
metformin 1,000 mg tablet 1,000 mg PO BID Diabetes 11/30/20
vitamins A,C,E-mvdd-eeogka 4,296 mcg-226 mg-90 mg capsule (PreserVision AREDS) 1 cap PO BID Supplement 10/25/23
amlodipine 5 mg tablet 5 mg PO DAILY Blood pressure 12/18/24
calcium 600 mg (as carbonate)-vitamin D3 5 mcg (200 unit) tablet 1 tab PO BID 12/18/24
magnesium 200 mg tablet 400 mg PO HS 12/18/24
spironolactone 100 mg tablet 100 mg PO QPM 12/18/24
polyethylene glycol 3350 17 gram oral powder packet (Miralax) 17 g PO DAILYPRN PRN constipation 03/10/25
tramadol 50 mg tablet 50 mg PO BIDPRN PRN moderate pains 03/10/25
docusate sodium 100 mg capsule (Colace) 100 mg PO HS 04/02/25
fruquintinib 5 mg capsule (Fruzaqla) 5 mg PO DIRECTED 04/02/25
Review of Systems
-
History Source: Patient
Constitutional: Reports Fatigue, Night Sweats and Chills; Denies Fever
Respiratory: Denies Trouble Breathing
Cardiac: Denies Chest Pain
Abdomen/GI: Reports Constipated, Anorexia and Other (epigastric discomfort); Denies Nausea, Vomiting or Diarrhea
: Denies Dysuria, Difficulty Voiding or Bleeding
Neurological: Reports Numbness (sock and glove); Denies Weakness
Physical Exam
Vital Signs
Vital Signs
Temp Pulse Resp BP Pulse Ox
98.2 F 109 24 98/63 98
04/02/25 08:44 04/02/25 11:00 04/02/25 11:00 04/02/25 10:52 04/02/25 11:00
Physical Exam
General: Conversant, Pain and Appears Chronically Ill
HEENT: NormoCephalic and Other (somewhat dry mucous membranes)
Respiratory: Clear and Non Labored Respirations; No Wheezes, Rales, Rhonchi or Crackles
Cardiac: S1/S2, Regular Rhythm, Tachycardia (mild) and Peripheral Edema (1+ LE edema); No Murmur, Rub, Gallop or Calf Tenderness
GI: Normal Bowel Sounds, Tender (mild diffuse tenderness) and Distended
Genito-urinary: No costovertebral tender
Musculoskeletal: No Cyanosis, Edema, Left Lower Extremity (1+) and Edema, Right Lower Extremity (1+)
Skin: Warm and Dry
Neuro: Awake, Alert, Oriented, No Motor Deficits and Nonfocal/grossly intact; No Slurred Speech or Tremors
Psych: Calm
Laboratory Results
-
04/02/25 09:34
Laboratory Results
Total Bilirubin 2.3 mg/dl (0.2-1.3) H 04/02/25 09:34
AST 64 U/L (17-59) H 04/02/25 09:34
ALT 44 U/L (0-50) 04/02/25 09:34
Alkaline Phosphatase 592 U/L (38-126) H 04/02/25 09:34
Impression/Plan
-
IMPRESSION:
74 year old male with history of metastatic colon cancer on chemo, Non-insulin dependent diabetes mellitus, COPD, HTN, hyperlipidemia, COPD, chronic thrombocytopenia, who presents to the ED after a fall, with electrolyte abnormality, orthostatic
hypotension.
PLAN:
Fall:
Multifactorial. Electrolyte abnormality, reduced effective circulatory volume, orthostatic hypotension, peripheral neuropathy, deconditioning secondary to chronic disease, potential brain mets
- Patient is orthostatic. Received 500 mL IV fluid in ED.
- Admit to telemetry
- Hold antihypertensives, hold spironolactone, hold Lasix
- Status post 4.5 L ascitic fluid removed via paracentesis today
- Appears fluid overloaded per abdominal distention/lower extremity edema. however dry mucous membranes and suspect reduced intravascular volume.
- Hold crystalloid for now. Give albumin
- CT head without acute bleed or infarct. However area of hypoattenuation in left occipital area: Contusion versus malignancy. Will check MRI brain. If brain mets, will consult neuro and consider steroid.
Leukocytosis:
Abdomen with diffuse mild tenderness. History of ascites with immunosuppression (on chemo).
- Will start ceftriaxone for SBP
- Check blood cultures
Electrolyte abnormality:
Hyperkalemia with EKG changes, acute on chronic hyponatremia
-Given calcium gluconate, insulin/dextrose, Lokelma.
- Follow electrolytes
- Check serum osmolality, urine studies
- Hold Lasix, spironolactone
- Check TSH, cortisol
Abnormal EKG:
- ST segment elevation in inferior and lateral leads. No chest pain. Trend trops and EKG. Likely secondary to hyperkalemia above
-Check echo
Ascites:
Secondary to advanced liver disease from mets to liver.
- Status post 4.5 L ascitic fluid removed
- Give albumin
- Check fluid studies if able
Acute on chronic back pain:
- Known chronic thoracic and lumbar back pain. Worse status post fall
- Check MRI thoracic and lumbar spine
Metastatic colon cancer:
- On oral chemotherapy
- Heme-onc consult
Rqv-cnyftxq-vwpptkvht diabetes mellitus:
- Sliding scale insulin, check HbA1c
- Hold metformin
Bicytopenia:
Chronic anemia, chronic thrombocytopenia
- Secondary to malignancy, chronic disease, liver disease
- Stable. Follow CBC
COPD:
- Not in acute exacerbation. No wheezing on exam
HFpEF:
- Not in acute exacerbation
- Check echo
Essential hypertension:
-Hold antihypertensives with orthostatic hypotension
Hypercholesterolemia:
- Continue atorvastatin
Chronic constipation:
- Bowel regimen
DVT prophylaxis: Heparin
CODE STATUS: DNR
--- NOTE | 2025-04-02 12:51 | EDRN ---
Dr. Parker in room w/ pt presently.
[2025-04-02 13:02] LABS: Glucose - Point of Care 256 mg/dl (70-99)
[2025-04-02 13:05] LABS: Troponin I < 0.012 ng/ml
--- NOTE | 2025-04-02 13:13 | EDRN ---
At 1112 PT took pt's orthostatics sitting and standing and pt was 121/67 -90 sitting and 99/59 -112 standing. Unable to ambulate as pt was also very dizzy.
[2025-04-02 14:02] LABS: Glucose - Point of Care 228 mg/dl (70-99)
[2025-04-02] MEDS: FLEXBUMIN 100 IV (14:10)
[2025-04-02] MEDS: ROCEPHIN 1000 MG IV (14:16)
[2025-04-02] MEDS: ULTRAM 50 MG PO ×2 (14:28→21:20)
--- NOTE | 2025-04-02 14:58 | EDRN ---
Cardiac services in room w/ pt doing echocardiogram. Pt was able to get on stretcher. Pt to go to admission bed post echo.
--- NOTE | 2025-04-02 15:12 | EDRN ---
Pt states pain is sl better and he may be able to void prior to leaving for admission bed.
[2025-04-02 15:22] LABS: Potassium 5.6 mmol/L (3.5-5.1)
--- NOTE | 2025-04-02 15:32 | CARDSERVLU ---
Echocardiogram with [facility] completed after protocol screening completed. Allergies verified.
Patent IV site: __left chest port___
IV site flushed with 0.9% NaCl pre and post administration.
Diluted bolus method utilized to enhance visualization of ventricular samayoa.
Total volume given: __3.0__ mL
Patient tolerated all procedures well without complications.
--- NOTE | 2025-04-02 15:41 | EDRN ---
Pt to BR at this time in w/c to attempt urine sample.
--- NOTE | 2025-04-02 15:42 | EDRN ---
Pt just finished w/ echocardiogram at this time.
--- NOTE | 2025-04-02 15:55 | EDRN ---
Pt unable to void in BR. No urine spec obtained. Pt has not drank much PO r/t pain in back and having not drink much fluids. Pt back on stretcher. Albumin infusion completed and L ACW SQ port flushed w/ 10 mL of saline then 500 units of heparin in 5
mL per protocol at this time.
[2025-04-02 16:21] LABS: Glucose - Point of Care 248 mg/dl (70-99)
--- NOTE | 2025-04-02 17:11 | PTCARENOTE ---
Received patient from ED via stretcher. AAOx3, assisted to bed. Assessed and oriented to room. Family at bedside. Call bauer in close reach.
[2025-04-02] MEDS: LIPITOR 10 MG PO (17:37)
[2025-04-02] MEDS: NOVOLOG FLEXPEN-LOW RESISTANCE 2 UNITS SC (17:37)
[2025-04-02] MEDS: NON-FORMULARY ITEM 1 UNIT PO (17:37)
[2025-04-02 17:49] LABS: Troponin I < 0.012 ng/ml
[2025-04-02 17:53] LABS: Potassium 5.3 mmol/L (3.5-5.1)
--- NOTE | 2025-04-02 17:55 | CM ---
Patient seen in ED. Patient spoke with CM and indicated that he lives with his daughter and son in law. Per physician son in law asked about resources. CM called to patient daughter and reviewed Medicare.gov and a place for mom resources. Patient
home is 2 stories with 13 steps to bathroom. Patient PCP is Dr. Davis and he uses the Pharmacy at [facility]. Patient is still driving and independent. Patient has a walker but does not use it at this time per daughter. Patient plan is home with VN
if needed, daughter uncertain and hoping for therapy recommendations. Therapy recommending SNF; due to orthostatic hypotension per therapy note. CM will continue to follow for discharge planning needs.
Plan; Skilled rehab; pending family.patient choices.
[2025-04-02 17:58] LABS: Cortisol, Random 33.8 ug/dl; TSH 4.44 uIU/ml (0.47-4.68)
[2025-04-02 18:09] LABS: Glucose - Point of Care 250 mg/dl (70-99)
[2025-04-02 18:41] LABS: Blood Urea Nitrogen 40 mg/dl (9-20); Calcium 8.9 mg/dl (8.4-10.2); Carbon Dioxide 19 mmol/L (22-30); Chloride 94 mmol/L (98-107); Estimated Creatinine Clearance 39 ml/min; Glucose 233 mg/dl (70-99); Sodium 122 mmol/L (135-145); eGFR 36.56
[2025-04-02] MEDS: HEPARIN 5000 UNITS SC (19:36)
[2025-04-02] MEDS: MAGNESIUM OXIDE 400 MG PO (21:20)
[2025-04-02 21:53] LABS: Glucose - Point of Care 193 mg/dl (70-99)
[2025-04-02 23:17] LABS: Troponin I < 0.012 ng/ml
[2025-04-03 03:08] VITALS: BP 112/61
[2025-04-03] MEDS: TUMS CHEWABLE TABLET 200 MG PO (05:35)
[2025-04-03 06:00] VITALS: BMI 32.9
[2025-04-03 06:40] LABS: Hematocrit 23.2 % (39.0-52.0); Hemoglobin 8.1 g/dL (13.0-18.0); Mean Corp Hgb Conc. 34.9 g/dL (33.0-37.0); Mean Corpuscular Volume 100.0 fL (80.0-94.0); Platelet Count 91 10^3/uL (130-400); Red Cell Dist. Width 22.9 % (11.5-14.5)
[2025-04-03 06:46] LABS: Blood Urea Nitrogen 43 mg/dl (9-20); Calcium 8.4 mg/dl (8.4-10.2); Carbon Dioxide 21 mmol/L (22-30); Chloride 94 mmol/L (98-107); Estimated Creatinine Clearance 41 ml/min; Glucose 172 mg/dl (70-99); Magnesium 2.0 mg/dl (1.6-2.3); Potassium 5.5 mmol/L (3.5-5.1); Sodium 121 mmol/L (135-145); eGFR 39.01
[2025-04-03 07:30] VITALS: BP 120/60
[2025-04-03 07:31] LABS: Glucose - Point of Care 189 mg/dl (70-99)
[2025-04-03] MEDS: HEPARIN 5000 UNITS SC ×2 (09:11→20:02)
[2025-04-03] MEDS: NOVOLOG FLEXPEN-LOW RESISTANCE 1 UNITS SC ×2 (09:12→18:01)
[2025-04-03 09:18] LABS: Glycohemoglobin (HgbA1c) 6.4 % (4.0-5.6)
--- NOTE | 2025-04-03 09:23 | W.CON.NEPH ---
Addendum entered and electronically signed by Darshan Wu MD 04/03/25 15:17:
I agree with the resident's note with the addendum
74-year-old gentleman with metastatic colon cancer to liver with resultant malignant ascites requiring paracenteses. He is currently on immunotherapy. He has hypertension controlled with monotherapy regimen, diuretic therapy for his ascites and
liver dysfunction. His hyperlipidemia is controlled with statin therapy. He came to the emergency room because he had a fall after outpatient paracenteses of 4.4 L. He was trying to get into his car and fell backwards and hit his head. He
presented to the emergency room and was noted to have hyponatremia, hyperkalemia as well as acute kidney injury with a creatinine of 1.7 from a baseline of 1.3. He does also note that he has not had a bowel movement since 5 days ago and his urine
output has been slow. He does take tramadol for pain.
Patient is awake alert oriented and in no distress. Mood and affect were pleasant, insight and judgment were good. Pupils are equal round and reactive to light, extraocular movements are intact, sclera were anicteric. Hearing was normal, ears and
nose are intact. Oropharynx was clear. Neck was supple with trachea midline and no thyromegaly. Heart was regular rate and rhythm without rubs. Lower extremities without edema. Lungs were clear to auscultation bilaterally and with normal
excursion. Abdomen was soft, nontender, with normal active bowel sounds, and no hepatosplenomegaly. Skin was without rash and with normal turgor.
Laboratory values as well as past values were reviewed; troponin negative
CT head 04/02/2025 shows small area of acute contusion at the left parietal area
Chest x-ray 04/03/2025 by reading no acute disease
Echocardiogram 04/02/2025 ejection fraction 65% no valvular disease, no pericardial disease
EKG 04/02/2025 by reading sinus rhythm first-degree AV block inferior lateral ST elevation. Somewhat more prominent compared to EKGs on 04/02/2025 and 07/24/2024
Assessment
Symptomatic hypovolemic hyponatremia
Hyperkalemia with EKG changes
KRISTA on CKD
Contrast exposure On 03/05
Anemia
Metastatic adenocarcinoma of sigmoid colon
Urinary retention
Plan
Give Lokelma
Await urine studies
Daily BMP
Continue holding diuretics, status post saline
Follow bladder scan have not required straight catheterization since last night
Original Note:
Consultation
-
Date/Time Consultation Requested: 04/03/2025 08:27
Date/Time Consultation Performed: 04/03/2025 09:12
Requesting Provider: Ceferino Felix MD
Performing Provider: Darshan Wu MD
Reason for Consultation: Hyponatremia
Medical History
-
Chief Complaint: Hyponatremia
History of Present Illness:
This is a 74-year-old male with past medical history of hypertension, hyperlipidemia, T2DM, metastatic colon cancer with known metastasis to liver, recurrent malignant ascites who presents to ED 04/02/2025 after an episode of fall while getting
out of his car. Patient received outpatient paracentesis (4400 cc fluid drained). While he was trying to get into his car, he lost balance, fell backwards and hit his head. Due to severe fatigue, weakness ambulatory dysfunction he decided to come
to the ED for evaluation. Upon presentation to the ED, laboratory noted with sodium 123, potassium 5.9, creatinine 1.7 (baseline 1.3), eGFR 41.78. We are consulted to evaluate patient from renal standpoint given his electrolyte abnormalities
Past Medical History
Past Medical History: Reports Cancer (metastatic colon cancer), CHF, COPD, HTN, Hypercholesterolemia, NIDDM and Other (chronic anemia, thrombocytopenia, peripheral neuropathy)
Past Surgical History: Reports Orthopedic (multiple) and Other (umbilical cyst)
Social History
Tobacco: Former Smoker
Alcohol: Occasional
Drug: None
Family History
Family History: Not Pertinent
Allergies / Home Medications
Allergy/AdvReac Type Severity Reaction Status Date / Time
pollen extracts Allergy Itching, Verified 03/23/25 10:23
nasal
congestion
- seasonal
�Medication �Instructions �Recorded �Confirmed �Type
simvastatin 10 mg tablet 10 mg PO HS High cholesterol 06/14/18 04/02/25 History
furosemide 20 mg tablet 20 mg PO BID Fluid 11/30/20 04/02/25 History
retention/Swelling
metformin 1,000 mg tablet 1,000 mg PO BID Diabetes 11/30/20 04/02/25 History
vitamins A,C,R-izfu-trfqvm 4,296 1 cap PO BID Supplement 10/25/23 04/02/25 History
mcg-226 mg-90 mg capsule
(PreserVision AREDS)
amlodipine 5 mg tablet 5 mg PO DAILY Blood pressure 12/18/24 04/02/25 History
calcium 600 mg (as 1 tab PO BID 12/18/24 04/02/25 History
carbonate)-vitamin D3 5 mcg (200
unit) tablet
magnesium 200 mg tablet 400 mg PO HS 12/18/24 04/02/25 History
spironolactone 100 mg tablet 100 mg PO QPM 12/18/24 04/02/25 History
polyethylene glycol 3350 17 gram 17 g PO DAILYPRN PRN constipation 03/10/25 04/02/25 History
oral powder packet (Miralax)
tramadol 50 mg tablet 50 mg PO BIDPRN PRN moderate pains 03/10/25 04/02/25 History
docusate sodium 100 mg capsule 100 mg PO HS 04/02/25 04/02/25 History
(Colace)
fruquintinib 5 mg capsule 5 mg PO DIRECTED 04/02/25 04/02/25 History
(Fruzaqla)
Review of Systems
-
All other systems: Negative unless noted (All review of systems obtained and negative except as documented in HPI)
Physical Exam
Vital Signs
Vital Signs
Temp Pulse Resp BP Pulse Ox
97.6 F 98 18 120/60 99
04/03/25 07:30 04/03/25 07:30 04/03/25 07:30 04/03/25 07:30 04/03/25 07:30
Lab Results
WBC 11.4 10^3/uL (4.8-10.8) H 04/03/25 05:26
RBC 2.32 10^6/uL (4.70-6.10) L 04/03/25 05:26
Hgb 8.1 g/dL (13.0-18.0) L 04/03/25 05:26
Hct 23.2 % (39.0-52.0) L 04/03/25 05:26
Plt Count 91 10^3/uL (130-400) L 04/03/25 05:26
Sodium 121 mmol/L (135-145) L 04/03/25 05:26
Potassium 5.5 mmol/L (3.5-5.1) H 04/03/25 05:26
Chloride 94 mmol/L (98-107) L 04/03/25 05:26
Carbon Dioxide 21 mmol/L (22-30) L 04/03/25 05:26
BUN 43 mg/dl (9-20) H 04/03/25 05:26
Creatinine 1.8 mg/dL (0.7-1.3) H 04/03/25 05:26
eGFR 39.01 04/03/25 05:26
Glucose 172 mg/dl (70-99) H 04/03/25 05:26
Calcium 8.4 mg/dl (8.4-10.2) 04/03/25 05:26
Albumin 3.3 g/dl (3.5-5.0) L 04/02/25 09:34
Physical Exam
General: Awake and Alert
HEENT: PERRL
Respiratory: Clear
Cardiac: S1/S2 and Regular Rate/Rhythm
Abdomen: Soft and Other (Generalized tenderness)
Musculoskeletal: No Edema
Assessment/Plan
-
Assessment
Symptomatic hypovolemic hyponatremia
Hyperkalemia with EKG changes
KRISTA on CKD
Contrast exposure On 03/05
Anemia
Metastatic adenocarcinoma of sigmoid colon
Urinary retention
Plan
Give Lokelma Now
Await urine studies
Daily BMP
Avoid IV contrast exposure
Continue holding diuretics
--- NOTE | 2025-04-03 11:28 | W.PN.HOSP.TC ---
Today's Communication/Plan
-
See plan
Assessment / Plan
Assessment / Plan
Physical exam:
General: Acute on chronically ill
HEENT: Normocephalic, Atraumatic and Moist Mucous Membranes
Respiratory: Decreased breath sounds bilateral; Negative Wheezes, Rales or Rhonchi
Cardiac: Regular Rhythm and S1/S2
GI: Soft, Nontender and Distended
Musculoskeletal: Right knee discomfort and limited range of motion; No Clubbing, No Cyanosis and bilateral lower extremity edema
Neuro: Awake, Alert and Oriented, no neurological deficit, generalized weakness
Psych: Calm
A/P:
Metastatic invasive adenocarcinoma of sigmoid colon:
Status post chemo and radioembolization
Oncology eval
Plan for MRI of the brain and thoracic and lumbar spine MRI
PT OT eval
Severe hyponatremia:
Workup in progress
Nephrology eval
Hyperkalemia:
Cardiac monitoring
Consider Lokelma if we are not going to use diuretics so we will reevaluate
Malignant ascites:
Stop ceftriaxone since no evidence of SBP
Status post paracentesis
Reviewed echocardiogram with EF 65 to 70%
Leukocytosis:
Reactive versus infectious
Started on ceftriaxone for suspected SBP but hold off on further antibiotics and follow-up further workup.
Check UA and urine culture
WBC 16-->11.4
Follow-up trend to WBC
Obtain blood cultures if fever
CKD stage III:
Avoid nephrotoxic
Monitor renal function
Right knee pain:
Obtain x-ray of the knee
Pain control
Other medical problems:
Chronic HFpEF
Hypertension
Hyperlipidemia
COPD
Bicytopenia
Constipation
Diabetes mellitus
Acute on chronic back pain
Fall
Orthostatic hypotension
DVT prophylaxis:
Heparin SQ but continue to monitor platelet count and hemoglobin cautiously
CODE STATUS:
DNR
Total time spent on today's encounter was 62 minutes which included time spent in counseling the patient/family regarding diagnosis and treatment plan as listed above, goals of care, and symptom management. Case was discussed with nursing staff,
specialists, and care coordinators/case management. All labs and imaging personally reviewed by me. Remainder the time spent in detailed review of previous records, lab data, imaging, and other medical provider documentation.
Anticipated Discharge: > 48 hours
Subjective/Interval History
-
Date of Service: April 03, 2025
Patient complains of increased weight gain and right knee pain. No chest pain. He has urinary retention overnight.
Objective Data
-
Labs:
Laboratory Results
04/03/25
05:26
WBC 11.4 H
Hgb 8.1 L
Hct 23.2 L
Plt Count 91 L
Sodium 121 L
Potassium 5.5 H
Chloride 94 L
Carbon Dioxide 21 L
BUN 43 H
Creatinine 1.8 H
Glucose 172 H
Calcium 8.4
Vital Signs:
Vital Signs
Temp Pulse Resp BP Pulse Ox
97.6 F 98 18 120/60 99
04/03/25 07:30 04/03/25 07:30 04/03/25 07:30 04/03/25 07:30 04/03/25 07:30
I&O
04/02/25 04/03/25 04/04/25
06:59 06:59 06:59
Intake Total 480 / 480 480 / 480
Output Total 500 / 500 75 / 75
Balance -20 / -20 405 / 405
[2025-04-03 12:53] LABS: Glucose - Point of Care 203 mg/dl (70-99)
[2025-04-03 12:54] VITALS: BP 135/70
[2025-04-03] MEDS: NOVOLOG FLEXPEN-LOW RESISTANCE 2 UNITS SC (13:22)
[2025-04-03] MEDS: LASIX 20 MG IV (13:26)
[2025-04-03] MEDS: ULTRAM 50 MG PO ×2 (13:30→21:05)
[2025-04-03] MEDS: FLUSH (NSS) 2 FLUSH IV (13:31)
--- NOTE | 2025-04-03 13:52 | CON.ONC ---
Consultation
-
Date Consultation Requested: 04/02/25
Date Consultation Performed: 04/03/25
Requesting Provider: Ceferino Felix MD
Performing Provider: Nory Quezada MD
Reason for Consultation: Met colon cancer, failure to thrive
Impression
Impression
Met colon cancer to liver and abd and r/p nodes, heavily pre-treated, now on fruquintinib since 03/23
Hyponatremia
Transfusion dependent anemia
Renal insufficiency
Baseline diabetes
Plan
Plan
We discussed goals of care. Pt wants to live as long as possible, even if it means enduring toxicity from treatment and frequent trips to the hospital for transfusions, IVF's, etc.
He does not feel he is strong enough to return home.
I do not have any options for him other than the current therapy, although I can lower the dose.
Fruquintinib has been shown in two clinical trials to prolong overall survival when compared with placebo in similarly heavily pre-treated patients. Relative to placebo, fruquintinib delayed time to deterioration of performance status and did not
worsen health-related quality of life. Discussed with pt that in best case scenario, life expectancy is less than a year at this point. He has confirmed wish for fully aggressive care, wants to be able to have as much time as possible with a two
year-old grand-daughter before he passes.
Common toxicities for fruquintinib include hypertension, asthenia, and hand-foot syndrome. Hyponatremia is a possible toxicity as well.
Regarding ascites, he previously did well on Lasix/aldactone combination. He may have component of cirrhosis resulting from previous oxaliplatin and ascites may be transudative in part. Renal managing sodium. If possible I would like him to be
able to resume Lasix 40 mg daily and Aldactone 100 mg daily.
Would benefit from paracentesis tomorrow or Saturday due to marked abd distention.
Patient History
History of Present Illness
74 yo man well known to me from outpt setting for history of metastatic colon cancer. He has progressed through most therapies and started fruquintinib (Fluzaqla) on 03/29 after recent restaging scan showed new liver mets, and new abdominal and
retroperitoneal adenopathy. He has also had return of massive ascites which had previously improved on lasix + aldactone. The aldactone was discontinued months ago because it was no longer needed. Since November, pt has had an increasing blood
transfusion requirement renal insufficiency and hyponatremia. As of 03/29/25, Na was 124. He was headed to scheduled paracentesis 04/02 for ascites when he had difficulty lifting his left leg to get in the car and lost his balance, followed by a fall
backward to the ground. There was no LOC, or gaps in memory, but he did hit his head when he fell. He was down total of about 12 minutes. He had been feeling out of sorts, but otherwise no changes in his usual lightheadedness, weakness, peripheral
neuropathy. He does report poor oral intake recently due to discomfort from abdominal distention. On admission Na was 121, Cr 1.8. Imaging of brain and C-spine showed ill-defined area of hypoattenuation within the left occipital lobe with mild
local mass effect and [id number] focus of soft tissue edema within the nearby posterior left parietal scalp. This area of hypoattenuation was interpreted by Radiology as small contusion vs vasogenic edema secondary to a metastasis. He has
undergone MRI's of spine, and an MRI of brain is planned.
Past-Medical/Surgical History
Past Medical History
Metastatic colon cancer to liver and abdominal-r/p nodes, CHF, COPD, HTN, Hypercholesterolemia, NIDDM and Other (chronic anemia, thrombocytopenia, peripheral neuropathy)
Past Surgical History
Orthopedic (multiple) and Other (umbilical cyst)
Social History
Tobacco: Former Smoker
Alcohol: Occasional
Drug: None
Family History
Family History: Not Pertinent
Patient Medication
�Medication �Instructions �Recorded �Confirmed �Last Taken �Type
simvastatin 10 mg tablet 10 mg PO HS High cholesterol 06/14/18 04/02/25 04/01/25 History
furosemide 20 mg tablet 20 mg PO BID Fluid 11/30/20 04/02/25 04/01/25 History
retention/Swelling
metformin 1,000 mg tablet 1,000 mg PO BID Diabetes 11/30/20 04/02/25 04/01/25 History
vitamins A,C,L-gkoy-pmakjb 4,296 1 cap PO BID Supplement 10/25/23 04/02/25 04/01/25 History
mcg-226 mg-90 mg capsule
(PreserVision AREDS)
amlodipine 5 mg tablet 5 mg PO DAILY Blood pressure 12/18/24 04/02/25 04/01/25 History
calcium 600 mg (as 1 tab PO BID Supplement 12/18/24 04/02/25 04/01/25 History
carbonate)-vitamin D3 5 mcg (200
unit) tablet
magnesium 200 mg tablet 400 mg PO HS Supplement 12/18/24 04/02/25 04/01/25 History
spironolactone 100 mg tablet 100 mg PO QPM Fluid 12/18/24 04/02/25 04/01/25 History
Retention/Swelling
polyethylene glycol 3350 17 gram 17 g PO DAILYPRN PRN constipation 03/10/25 04/02/25 03/10/25 History
oral powder packet (Miralax)
tramadol 50 mg tablet 50 mg PO BIDPRN PRN moderate pains 03/10/25 04/02/25 03/09/25 History
docusate sodium 100 mg capsule 100 mg PO HS Constipation 04/02/25 04/02/25 04/01/25 History
(Colace)
fruquintinib 5 mg capsule 5 mg PO DIRECTED Cancer 04/02/25 04/02/25 Unknown History
(Fruzaqla)
Active Medications
Generic Name Dose Route Start Last Admin
Trade Name Freq PRN Reason Stop Dose Admin
Atorvastatin Calcium 10 mg 04/02/25 18:00 04/02/25 17:37
Atorvastatin (Lipitor) 10 Mg Tablet PO 04/30/25 17:59 10 mg
QPM HUI Administration
Bisacodyl 10 mg 04/02/25 16:04
Bisacodyl 10 Mg Rectal Suppository RECTAL 04/30/25 16:03
[id number] PRN
constipation
Dextrose 12.5 grams 04/02/25 11:32
Dextrose 50% (0.5 Grams/Ml) 50 Ml Syringe IV 04/30/25 11:31
[id number] PRN
hypoglycemia (BG < 70 mg/dL)
Protocol
Dextrose 12.5 grams 04/02/25 14:26
Dextrose 50% (0.5 Grams/Ml) 50 Ml Syringe IV 04/30/25 14:25
[id number] PRN
hypoglycemia
Protocol
Glucagon 1 mg 04/02/25 14:26
Glucagon 1 Mg Vial IM 04/30/25 14:25
PRN PRN
hypoglycemia
Protocol
Heparin Sodium 5,000 units 04/02/25 20:00 04/03/25 09:11
Heparin 5,000 Units/Ml 1 Ml Vial SC 04/30/25 19:59 5,000 units
Q12 HUI Administration
Heparin Sodium (Porcine) 500 unit 04/02/25 11:45 04/03/25 13:31
Heparin Flush Pf (100 Unit/Ml) 5 Ml Syringe IV 04/30/25 11:44 500 unit
PER PROTOCOL HUI Administration
Insulin Aspart 0 units 04/02/25 16:30 04/03/25 13:22
Insulin Aspart Low Resistance 300 Units/3 Ml Pen.Injctr SC 04/30/25 16:29 2 units
AC HUI Administration
Protocol
Magnesium Oxide 400 mg 04/02/25 22:00 04/02/25 21:20
Magnesium Oxide 400 Mg Tablet PO 04/30/25 21:59 400 mg
HS HUI Administration
Menthol/Methyl Salicylate 1 applic 04/03/25 02:21
Bengay-Like Cream TOPICAL 05/01/25 07:59
QID PRN
mild pain
Pt's Own 0 unit 04/02/25 18:00 04/02/25 17:37
Fruquintinib ( PO 04/30/25 17:59 1 unit
Fruzaqla) 5 Mg Cap DAILY@1000 HUI Administration
Po Daily
Polyethylene Glycol 17 grams 04/02/25 16:04
Polyethylene Glycol Powder 17 Grams Packet PO 04/30/25 16:03
DAILYPRN PRN
constipation
Senna/Docusate Sodium 1 tablet 04/02/25 16:04
Docusate W/Senna (Obdulia-Colace) Tablet PO 04/30/25 16:03
BIDPRN PRN
constipation
Sodium Chloride 0 flush 04/02/25 17:00 04/03/25 13:31
Sodium Chloride 0.9% (Flush) Syringe IV 04/30/25 16:59 2 flush
PER PROTOCOL HUI Administration
Tramadol HCl 50 mg 04/02/25 14:25 04/03/25 13:30
Tramadol Hcl 50 Mg Tablet PO 04/30/25 14:24 50 mg
BIDPRN PRN Administration
moderate pain
Review of Systems
-
History Source: Patient and Records
All Other Systems: Reviewed and Negative
Constitutional: Reports Weight Loss, No Appetite, Fatigue and Weakness; Denies Fever
EENT: Reports No Symptoms
Respiratory: Reports No Symptoms
Cardiac: Reports No Symptoms
GI: Reports Bloated
Breast: Reports No Symptoms
: Reports No Symptoms
Musculoskeletal: Reports Muscle Weakness
Skin: Reports No Symptoms
Neuro: Reports Weakness
Endocrine: Reports No Symptoms
Hematologic/Lymphatic: Reports No Symptoms
Allergy / Immunology: Reports No Symptoms
Psych: Reports No Symptoms
Physical Exam
-
Appears acute on chronically ill
Subdued affect relative to usual baseline
Abd markedly distended
Labs
Lab Results
WBC 11.4 10^3/uL (4.8-10.8) H 04/03/25 05:26
RBC 2.32 10^6/uL (4.70-6.10) L 04/03/25 05:26
Hgb 8.1 g/dL (13.0-18.0) L 04/03/25 05:26
Hct 23.2 % (39.0-52.0) L 04/03/25 05:26
MCV 100.0 fL (80.0-94.0) H 04/03/25 05:26
MCH 34.9 pg (27.0-31.0) H 04/03/25 05:26
MCHC 34.9 g/dL (33.0-37.0) 04/03/25 05:26
RDW 22.9 % (11.5-14.5) H 04/03/25 05:26
Plt Count 91 10^3/uL (130-400) L 04/03/25 05:26
MPV 10.8 fL (7.4-10.4) H 04/03/25 05:26
Abs Immat Gran (auto) 0.2 10^3/uL (0-0.05) H 04/02/25 09:34
Absolute Neuts (auto) 14.0 10^3/uL (1.4-6.5) H 04/02/25 09:34
Absolute Lymphs (auto) 0.4 10^3/uL (1.2-3.4) L 04/02/25 09:34
Absolute Monos (auto) 1.3 10^3/uL (0.1-0.6) H 04/02/25 09:34
Absolute Eos (auto) 0.0 10^3/uL (0-0.7) 04/02/25 09:34
Absolute Basos (auto) 0.0 10^3/uL (0-0.2) 04/02/25 09:34
Immature Gran % 1.3 % (0-0.5) H 04/02/25 09:34
Neutrophils % 88.0 % (42.2-75.2) H 04/02/25 09:34
Lymphocytes % 2.5 % (20.5-51.1) L 04/02/25 09:34
Monocytes % 7.8 % (1.7-9.3) 04/02/25 09:34
Eosinophils % 0.1 % (0-6) 04/02/25 09:34
Basophils % 0.3 % (0-2) 04/02/25 09:34
Creatinine 1.8 mg/dL (0.7-1.3) H 04/03/25 05:26
Vital Signs
Vital Signs
Temp Pulse Resp BP Pulse Ox
97.3 F 100 18 135/70 95
04/03/25 12:54 04/03/25 12:54 04/03/25 12:54 04/03/25 12:54 04/03/25 12:54
[2025-04-03 15:17] LABS: Urine Character Slightly Cloudy (Clear)
[2025-04-03 15:25] LABS: Urine Red Blood Cell 0-2 /HPF (0-2); Urine Squamous Cell 0-2 /LPF (Few); Urine White Cell 26-30 /HPF (0-5)
[2025-04-03] MEDS: LOKELMA 10 GRAM PO (15:38)
[2025-04-03 15:45] VITALS: BP 129/70
[2025-04-03 17:48] LABS: Glucose - Point of Care 192 mg/dl (70-99)
[2025-04-03] MEDS: LIPITOR 10 MG PO (18:01)
[2025-04-03] MEDS: NON-FORMULARY ITEM 1 UNIT PO (18:01)
[2025-04-03 19:57] VITALS: BP 116/60
[2025-04-03] MEDS: MAGNESIUM OXIDE 400 MG PO (21:02)
[2025-04-03 21:57] LABS: Glucose - Point of Care 227 mg/dl (70-99)
[2025-04-03 23:00] VITALS: BP 105/64
[2025-04-04 03:55] VITALS: BP 117/55
[2025-04-04 06:00] VITALS: BMI 33.0
[2025-04-04 07:15] VITALS: BP 116/63
--- NOTE | 2025-04-04 07:27 | W.PN.HOSP.TC ---
Today's Communication/Plan
-
See plan
Assessment / Plan
Assessment / Plan
Physical exam:
General: Acute on chronically ill
HEENT: Normocephalic, Atraumatic and Moist Mucous Membranes
Respiratory: Decreased breath sounds bilateral; Negative Wheezes, Rales or Rhonchi
Cardiac: Regular Rhythm and S1/S2
GI: Soft, tender left lower quadrant and Distended
Musculoskeletal: Right knee discomfort and limited range of motion; Back pain tender but not midline. No Clubbing, No Cyanosis and bilateral lower extremity edema
Neuro: Awake, Alert and Oriented, no neurological deficit, generalized weakness
Psych: Calm
A/P:
Metastatic invasive adenocarcinoma of sigmoid colon:
Status post chemo and radioembolization
Currently on Fruquintinib
Status post MRI of thoracic and lumbar spine with likely metastatic lesions but no spinal cord involvement.
Brain MRI pending. Abnormal CT scan of the head.
Oncology consult appreciated
Patient and family understand guarded prognosis but would like to continue medical cancer treatment as much as able.
PT OT recommend skilled rehab
Discussed with his daughter over the phone today, Ary.
Severe acute on chronic hyponatremia:
Improvement slightly today up to 123 today
Reviewed workup
Nephrology consult appreciated
Nephrology recommended to hold diuretics for now
Hyperkalemia:
Improved- K 5.1 today
Status post Lasix and Lokelma yesterday.
Malignant ascites:
Off ceftriaxone since no evidence of SBP
Status post paracentesis on 04/02. > 4.4 L out and albumin given.
May need repeat therapeutic paracentesis down the line
Reviewed echocardiogram with EF 65 to 70%
Leukocytosis:
Reactive versus infectious
Today white blood cell count 8.9 and afebrile.
Started on ceftriaxone for suspected SBP but hold off on further antibiotics and follow-up further workup. No evidence of SBP by ascitic fluid.
Check UA and urine culture
WBC 16-->8.9
Follow-up trend to WBC
Obtain blood cultures if fever
Urinary retention:
Straight cath as needed
Increase mobility
CKD stage III, likely KRISTA component:
Creatinine 1.6 today from 1.9 upon admission
Avoid nephrotoxic
Continue hold diuretics
Monitor renal function in a.m.
Right knee pain:
Obtained x-ray of the knee and no acute fractures
Pain control
Other medical problems:
Chronic HFpEF
Hypertension
Hyperlipidemia
COPD
Bicytopenia
Constipation
Diabetes mellitus
Acute on chronic back pain
Fall
Orthostatic hypotension
DVT prophylaxis:
Heparin SQ but continue to monitor platelet count and hemoglobin cautiously (so far stable).
CODE STATUS:
DNR
Total time spent on today's encounter was 55 minutes which included time spent in counseling the patient/family regarding diagnosis and treatment plan as listed above, goals of care, and symptom management. Case was discussed with nursing staff,
specialists, and care coordinators/case management. All labs and imaging personally reviewed by me. Remainder the time spent in detailed review of previous records, lab data, imaging, and other medical provider documentation.
Anticipated Discharge: > 48 hours
Subjective/Interval History
-
Date of Service: April 04, 2025
Patient complains of left flank abdominal discomfort and back pain. No shortness of breath or chest pain. No nausea or vomiting. Generalized weakness present. Afebrile
Objective Data
-
Labs:
Laboratory Results
04/04/25
06:00
WBC Pending
Hgb Pending
Hct Pending
Plt Count Pending
PT Pending
INR Pending
Sodium Pending
Potassium Pending
Chloride Pending
Carbon Dioxide Pending
BUN Pending
Creatinine Pending
Glucose Pending
Calcium Pending
Total Bilirubin Pending
AST Pending
ALT Pending
Alkaline Phosphatase Pending
Vital Signs:
Vital Signs
Temp Pulse Resp BP Pulse Ox
97.8 F 83 16 117/55 97
04/04/25 03:55 04/04/25 03:55 04/04/25 03:55 04/04/25 03:55 04/04/25 03:55
I&O
04/03/25 04/04/25 04/05/25
06:59 06:59 06:59
Intake Total 480 / 480 900 / 900
Output Total 500 / 500 750 / 750
Balance -20 / -20 150 / 150
[2025-04-04 07:43] LABS: Glucose - Point of Care 164 mg/dl (70-99)
[2025-04-04] MEDS: HEPARIN 5000 UNITS SC ×2 (08:16→21:25)
[2025-04-04] MEDS: SENOKOT-S 1 TABLET PO (08:17)
[2025-04-04] MEDS: NOVOLOG FLEXPEN-LOW RESISTANCE 1 UNITS SC (08:17)
[2025-04-04] MEDS: MIRALAX 17 GRAMS PO (08:17)
[2025-04-04] MEDS: FLUSH (NSS) 2 FLUSH IV (08:18)
[2025-04-04 08:39] LABS: INR 1.34; PT 16.9 Sec (11.4-14.6)
[2025-04-04 08:47] LABS: Hematocrit 23.8 % (39.0-52.0); Hemoglobin 8.3 g/dL (13.0-18.0); Mean Corp Hgb Conc. 34.9 g/dL (33.0-37.0); Mean Corpuscular Volume 100.8 fL (80.0-94.0); Nucleated Red Blood Cells % 0 % (-); Platelet Count 101 10^3/uL (130-400); Red Cell Dist. Width 23.1 % (11.5-14.5)
[2025-04-04 08:56] LABS: ALT (SGPT) 41 U/L (0-50); AST (SGOT) 55 U/L (17-59); Albumin 2.9 g/dl (3.5-5.0); Alkaline Phosphatase 493 U/L (38-126); Blood Urea Nitrogen 39 mg/dl (9-20); Calcium 8.1 mg/dl (8.4-10.2); Carbon Dioxide 21 mmol/L (22-30); Chloride 95 mmol/L (98-107); Estimated Creatinine Clearance 47 ml/min; Glucose 148 mg/dl (70-99); Magnesium 2.3 mg/dl (1.6-2.3); Potassium 5.1 mmol/L (3.5-5.1); Sodium 123 mmol/L (135-145); Total Protein 6.5 g/dl (6.3-8.2); eGFR 44.93
[2025-04-04 10:18] LABS: Anisocytosis 1+; Hypochromasia 1+; Normal RBC Morphology No
[2025-04-04 11:20] VITALS: BP 118/61
[2025-04-04 12:02] LABS: Glucose - Point of Care 234 mg/dl (70-99)
--- NOTE | 2025-04-04 12:42 | W.PN.NEPH.PH ---
Today's Communication / Plan
-
follow BMP
Assessment/Plan
-
Assessment
Symptomatic hypovolemic hyponatremia
Hyperkalemia with EKG changes
KRISTA on CKD
Contrast exposure On 03/05
Anemia
Metastatic adenocarcinoma of sigmoid colon
Urinary retention
Plan
Daily BMP
Avoid IV contrast exposure
Continue holding diuretics
encourage po intake
-
-
Date of Service: April 04, 2025
CC / HPI / ROS
-
Chief Complaint:
KRISTA
History of Present Illness:
KRISTA/Cr down to 1.6
Na up to 128
BP stable
eating well now
Review of Systems:
no CP/SOB
short dBM
Labs
-
Labs:
WBC 8.9 10^3/uL (4.8-10.8) 04/04/25 07:40
RBC 2.36 10^6/uL (4.70-6.10) L 04/04/25 07:40
Hgb 8.3 g/dL (13.0-18.0) L 04/04/25 07:40
Hct 23.8 % (39.0-52.0) L 04/04/25 07:40
Plt Count 101 10^3/uL (130-400) L 04/04/25 07:40
Sodium 123 mmol/L (135-145) L 04/04/25 07:40
Potassium 5.1 mmol/L (3.5-5.1) 04/04/25 07:40
Chloride 95 mmol/L (98-107) L 04/04/25 07:40
Carbon Dioxide 21 mmol/L (22-30) L 04/04/25 07:40
BUN 39 mg/dl (9-20) H 04/04/25 07:40
Creatinine 1.6 mg/dL (0.7-1.3) H 04/04/25 07:40
eGFR 44.93 04/04/25 07:40
Glucose 148 mg/dl (70-99) H 04/04/25 07:40
Calcium 8.1 mg/dl (8.4-10.2) L 04/04/25 07:40
Phosphorus 4.4 mg/dl (2.5-4.5) 04/04/25 07:40
Xut-B-Mcqhfqzjlzv Pept 721 pg/ml 04/04/25 07:40
Albumin 2.9 g/dl (3.5-5.0) L 04/04/25 07:40
Physical Exam
-
Vital Signs:
Vital Signs
Temp Pulse Resp BP Pulse Ox
97.7 F 83 16 116/63 98
04/04/25 07:15 04/04/25 07:15 04/04/25 07:15 04/04/25 07:15 04/04/25 09:00
Cardiovascular:: Regular rate and rhythm
Respiratory:: Bilateral: Coarse
Lung Excursion:: Normal
Abdomen:: Nontender and Soft
Bowel Sounds:: Normal
Extremity Edema:: None: Bilateral:
[2025-04-04] MEDS: NOVOLOG FLEXPEN-LOW RESISTANCE 2 UNITS SC ×2 (12:47→18:01)
--- NOTE | 2025-04-04 13:38 | PTCARENOTE ---
Pt does not want to get MRI done today due to the concern of needing to have a BM during the scan. Encouraged pt to try before we would take him for the scan but pt continuing to refuse to do it today. Dr. Felix made aware.
[2025-04-04] MEDS: ULTRAM 50 MG PO ×2 (15:15→22:55)
[2025-04-04] MEDS: NON-FORMULARY ITEM 1 UNIT PO (15:16)
[2025-04-04 15:20] VITALS: BP 135/68
[2025-04-04 16:16] LABS: Glucose - Point of Care 218 mg/dl (70-99)
--- NOTE | 2025-04-04 17:10 | W.PN.ONC2 ---
Today's Communication / Plan
-
Paracentesis 04/05.
Give albumin with paracentesis as the fluid may be on the basis of cirrhosis rather than his cancer.
Continue Fruzaqla. Labs show early improvement in bilirubin. Fruzaqla can cause hyponatremia but pt does not have other options for the cancer and wants to continue active care. Could consider dose reduction.
ACTH and cortisol in AM, exclude adrenal insufficiency contributing to low Na. He does have an adrenal mass on imaging although not metabolically active on PET.
Suggest PT/OT eval.
Will continue close inpt follow up.
Impression
Impression
Met colon cancer to liver and abd and r/p nodes, heavily pre-treated, now on fruquintinib since 03/23
Fall at home
Hyponatremia
Transfusion dependent anemia
Renal insufficiency
Baseline diabetes
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
Rapidly reaccumulating ascites
Plan
Plan
We discussed goals of care. Pt wants to live as long as possible, even if it means enduring toxicity from treatment and frequent trips to the hospital for transfusions, IVF's, etc.
He does not feel he is strong enough to return home.
I do not have any options for him other than the current therapy, although I can lower the dose.
Fruquintinib has been shown in two clinical trials to prolong overall survival when compared with placebo in similarly heavily pre-treated patients. Relative to placebo, fruquintinib delayed time to deterioration of performance status and did not
worsen health-related quality of life. Discussed with pt that in best case scenario, life expectancy is less than a year at this point. He has confirmed wish for fully aggressive care, wants to be able to have as much time as possible with a two
year-old grand-daughter before he passes.
Common toxicities for fruquintinib include hypertension, asthenia, and hand-foot syndrome. Hyponatremia is a possible toxicity as well.
Regarding ascites, he previously did well on Lasix/aldactone combination. He may have component of cirrhosis resulting from previous oxaliplatin and ascites may be transudative in part. Renal managing sodium. If possible I would like him to be
able to resume Lasix 40 mg daily and Aldactone 100 mg daily.
Would benefit from paracentesis tomorrow or Saturday due to marked abd distention.
Subjective/Objective
Chief Complaint
Heme/Onc follow up of metastatic colon cancer
Subjective
Pt feeling a bit better and appears more alert today. He remains uncertain about whether he will be strong enough to return home.
Vital Signs:
Vital Signs
Temp Pulse Resp BP Pulse Ox
97.3 F 86 16 135/68 98
04/04/25 15:20 04/04/25 15:20 04/04/25 15:20 04/04/25 15:20 04/04/25 15:20
Lab Results:
Laboratory Data
WBC 8.9 10^3/uL (4.8-10.8) 04/04/25 07:40
Hgb 8.3 g/dL (13.0-18.0) L 04/04/25 07:40
Plt Count 101 10^3/uL (130-400) L 04/04/25 07:40
PT 16.9 Sec (11.4-14.6) H 04/04/25 07:40
INR 1.34 04/04/25 07:40
eGFR 44.93 04/04/25 07:40
Physical Exam
HEENT: Moist Mucous Membranes; No Jaundice
Cardiology: Normal Sinus Rhythm, S1 and S2
Pulmonary: Clear
GI: Soft and Distended
Extremities: No C/C/E
Neuro: Non Focal
Review of Systems
Review of Systems
Constitutional: Reports Fatigue
Head: Denies Sore Throat
Respiratory: Denies Dyspnea
Cardiovascular: Denies Chest Pain
Gastrointestinal: Denies Nausea/Vomiting or Diarrhea
Genitourinary: Denies Hematuria
Skin: Denies Rash
Neurological: Denies Headache
Psychiatric: Denies Depression
Hem/Lymphatic: Denies Easy Bruising
Orders
Orders
Orders From Last 24 Hours
04/04/25 14:03
IRAD CONSULT Routine
04/05/25 06:00
ACTH [Adrenocorticotropic Hormone] [S] IN AM
Cortisol, Random IN AM
[2025-04-04] MEDS: LIPITOR 10 MG PO (18:03)
[2025-04-04 19:59] VITALS: BP 121/61
[2025-04-04] MEDS: MAGNESIUM OXIDE 400 MG PO (21:26)
[2025-04-04 21:53] LABS: Glucose - Point of Care 230 mg/dl (70-99)
[2025-04-04 23:40] VITALS: BP 113/59
[2025-04-05] VITALS (7 sets, daily range): BP systolic 95–140; BP diastolic 60–69; PULSE 92; BMI 33.1
[2025-04-05] MEDS: ROXICODONE 5 MG PO ×3 (02:47→22:21)
[2025-04-05 06:22] LABS: Hematocrit 23.0 % (39.0-52.0); Hemoglobin 7.9 g/dL (13.0-18.0); Mean Corp Hgb Conc. 34.3 g/dL (33.0-37.0); Mean Corpuscular Volume 98.7 fL (80.0-94.0); Platelet Count 104 10^3/uL (130-400); Red Cell Dist. Width 23.5 % (11.5-14.5)
[2025-04-05 06:29] LABS: ALT (SGPT) 45 U/L (0-50); AST (SGOT) 63 U/L (17-59); Albumin 2.8 g/dl (3.5-5.0); Alkaline Phosphatase 549 U/L (38-126); Blood Urea Nitrogen 40 mg/dl (9-20); Calcium 7.9 mg/dl (8.4-10.2); Carbon Dioxide 24 mmol/L (22-30); Chloride 95 mmol/L (98-107); Estimated Creatinine Clearance 47 ml/min; Glucose 130 mg/dl (70-99); Potassium 5.4 mmol/L (3.5-5.1); Sodium 123 mmol/L (135-145); Total Protein 6.2 g/dl (6.3-8.2); eGFR 44.93
[2025-04-05 07:00] LABS: Cortisol, Random 17.6 ug/dl
[2025-04-05 07:12] LABS: Glucose - Point of Care 140 mg/dl (70-99)
[2025-04-05] MEDS: NOVOLOG FLEXPEN-LOW RESISTANCE SC (07:27)
[2025-04-05] MEDS: HEPARIN 5000 UNITS SC ×2 (07:57→19:23)
[2025-04-05] MEDS: ULTRAM 50 MG PO (08:09)
[2025-04-05] MEDS: SENOKOT-S 1 TABLET PO (08:10)
[2025-04-05] MEDS: NON-FORMULARY ITEM 1 UNIT PO (09:54)
[2025-04-05 11:48] LABS: Glucose - Point of Care 206 mg/dl (70-99)
[2025-04-05] MEDS: NOVOLOG FLEXPEN-LOW RESISTANCE 2 UNITS SC ×2 (12:00→17:10)
--- NOTE | 2025-04-05 14:42 | W.PN.ONC2 ---
Today's Communication / Plan
-
start dexamethasone 4mg q6 -PPI while on steroids
XRT consult
optimize performance status
Daughter at bedside provided updates and questions answered
Impression
Impression
Met colon cancer to liver and abd and r/p nodes, heavily pre-treated, now on fruquintinib since 03/23
1.3 cm ring-enhancing mass in the left occipital lobe with surrounding vasogenic edema and additional small 0.5 cm enhancing lesion in the medial right temporoparietal lobe
Fall at home
Hyponatremia
Transfusion dependent anemia
Renal insufficiency
Baseline diabetes
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
ascites -Ab US 04/05 trace ascites, no sufficient for drainage
Plan
Plan
Goals remain restorative -even if it means enduring toxicity from treatment and frequent trips to the hospital for transfusions, IVF's, etc. He understands life expectancy is <1yr
Optimize PS and nutrition
-limited options for therapy other than current therapy, although I can lower the dose.
-Fruquintinib has been shown in two clinical trials to prolong overall survival when compared with placebo in similarly heavily pre-treated patients. Relative to placebo, fruquintinib delayed time to deterioration of performance status and did not
worsen health-related quality of life.
-Common toxicities for fruquintinib include hypertension, asthenia, and hand-foot syndrome. Hyponatremia is a possible toxicity as well.
-start dexamethasone 4mg Q6 and consult XRT
Subjective/Objective
Subjective
no new complaints
using oxy IR prn and tramadol prn pain
afebrile, no hypoxia or hypotension
denies overt bleeding
Vital Signs:
Vital Signs
Temp Pulse Resp BP Pulse Ox
97.9 F 86 16 122/63 99
04/05/25 11:00 04/05/25 11:00 04/05/25 11:04/05/25 11:04/05/25 12:13
Lab Results:
Laboratory Data
WBC 10.8 10^3/uL (4.8-10.8) 04/05/25 05:51
Hgb 7.9 g/dL (13.0-18.0) L 04/05/25 05:51
Plt Count 104 10^3/uL (130-400) L 04/05/25 05:51
PT 16.9 Sec (11.4-14.6) H 04/04/25 07:40
INR 1.34 04/04/25 07:40
eGFR 44.93 04/05/25 05:51
--- NOTE | 2025-04-05 15:44 | CM ---
CM reviewed chart and pt with oncology
Pt currently on oral chemo and radiation now being considered
Bedside meeting with pt to review dc planning
VN vs SNF recs, pt with progress today per PT note
He noted he plans to move to [place] at some point, has already started process
Considering radiation tx, awaiting outcome of radiation consult
He is aware if SNF on dc, treatment will need to be put on hold/or delayed
He is also considering going back home with dtr and VN
VM left for dtr/Ary per pt request as he would like CM to discuss dc planning with her and review options
Discharge Disposition- home with VN and family support vs SNF
[2025-04-05] MEDS: PROTONIX 20 MG PO (16:03)
[2025-04-05 16:24] LABS: Glucose - Point of Care 245 mg/dl (70-99)
--- NOTE | 2025-04-05 16:38 | W.PN.HOSP.TC ---
Today's Communication/Plan
-
IV steroids.
Ultrasound discontinued given potentially reducing the seizure threshold and patient with intracranial metastatic disease.
Lokelma.
ACTH stim test.
Follow BMP
PT assessment
Assessment / Plan
Assessment / Plan
74 years old male with widely metastatic colon carcinoma with known metastasis to liver, recurrent malignant ascites presents to the emergency from interventional radiology shortly after large volume paracentesis with complaints of severe fatigue,
weakness, ambulatory dysfunction
Severe fatigue, weakness, ambulatory dysfunction likely multifactorial and due to progressive carcinoma as well as significant deconditioning and hypotension.
Neurologic exam without focal findings.
Had confusion with posterior bruising with small scalp laceration
CT head with ill-defined area of hypoattenuation within the left occipital lobe with mild local mass effect. Small to moderate focus of soft tissue edema within the nearby posterior left parietal scalp. Differential diagnosis including possible
small contusion, versus vasogenic edema secondary to metastasis
Also complains of severe pain in the lower and mid thoracic spine area. Exam without tenderness.
MRI of the brain with 1.3 cm ring-enhancing mass in the left occipital lobe with surrounding vasogenic edema consistent with metastatic process
MRI of the lumbar spine with bony mets without epidural or spinal cord involvement
Discussed with oncology and radiation oncology
Plan is to start dexamethasone 4 mg every 12 hours
Consideration of outpatient gamma knife
Discontinue tramadol given potential reduction of seizure threshold
Leukocytosis with left shift. WBC 16.
Ascites
No specific complaints to pinpoint source, other than diffuse abdominal pain improved after large-volume paracentesis today.
Ascitic fluid with WBC 456/PMN 35
Remains high risk for SBP given prior hypoalbuminemia in ascitic fluid as well as current immunosuppression with oral chemotherapy.
Remains afebrile with normalized WBC.
Blood cultures were not collected on admission.
Observe closely off antibiotics
Chronic anemia.
Likely due to chronic disease/CA as well as chemotherapy. Follow hemoglobin
Acute on chronic hyponatremia.
Sodium 123.
With peripheral edema and ascites, although intravascularly depleted given hypotension.
Suspect high ADH state likely driven by pain as well as stimulated by intravascular depletion and hypotension
Increased urine osmolarity with decreased urine sodium confirmatory
Hold diuretics (Lasix, spironolactone)
TSH within normal limits
Random cortisol within normal limits.
ACTH stim test pending.
Hyperkalemia. With ECG changes
Differential diagnosis adrenal insufficiency versus catabolic effect
Potassium temporized in ED.
Random cortisol within normal limits
Lokelma.
CKD stage III with baseline creatinine 1.3�1.6
[address] with [address] elevations in lateral leads
Possible secondary to electrolyte abnormalities
Chest pain-free.
Echocardiogram with normal LVEF and no evidence for regional wall motion abnormality
Metastatic invasive adenocarcinoma of sigmoid colon.
Status post sigmoid colectomy with anastomosis.
Multiple rounds of chemotherapy
Known extensive metastatic disease to liver, adrenal gland with retroperitoneal and thoracic lymphadenopathy.
History of Y90 radioembolization to the liver 02/09 at [place]
Status post Avastin.
Currently on Fluzaqla
Oncology evaluation
CODE STATUS DNR
Discussed with primary oncologist and radiation oncology
Patient with progressive disease with prior aggressive treatment and currently on oral therapy. Now with new findings of intracranial metastatic process and also with progressively deteriorating performance status.
Will consider goals of care discussion while inpatient
Anticipated Discharge: 24 - 48 hours
Subjective/Interval History
-
Date of Service: April 05, 2025
Objective Data
-
Labs:
Laboratory Results
04/05/25
05:51
WBC 10.8
Hgb 7.9 L
Hct 23.0 L
Plt Count 104 L
Sodium 123 L
Potassium 5.4 H
Chloride 95 L
Carbon Dioxide 24
BUN 40 H
Creatinine 1.6 H
Glucose 130 H
Calcium 7.9 L
Total Bilirubin 1.4 H
AST 63 H
ALT 45
Alkaline Phosphatase 549 H
Vital Signs:
Vital Signs
Temp Pulse Resp BP Pulse Ox
98.3 F 87 16 122/65 99
04/05/25 15:00 04/05/25 15:00 04/05/25 15:00 04/05/25 15:00 04/05/25 15:00
I&O
04/04/25 04/05/25 04/06/25
06:59 06:59 06:59
Intake Total 900 / 900 660 / 660 200 / 200
Output Total 750 / 750 425 / 425
Balance 150 / 150 235 / 235 200 / 200
Physical Exam
-
General: Well Developed and No Apparent Distress
HEENT: Normocephalic, Atraumatic and Moist Mucous Membranes
Respiratory: Decreased Breath Sounds
Cardiac: Regular Rhythm and S1/S2; Negative Murmur, Rub or Gallop
GI: Soft, Nontender, Nondistended and Normal Bowel Sounds; Negative Organomegaly
Rectal: Deferred by Provider
Musculoskeletal: No Clubbing, No Cyanosis and No Edema
Skin: Negative Rash
Neuro: Nonfocal/Grossly Intact
[2025-04-05] MEDS: LOKELMA 10 GRAM PO (17:12)
[2025-04-05] MEDS: LIPITOR 10 MG PO (17:13)
[2025-04-05] MEDS: DECADRON 4 MG IV (19:24)
[2025-04-05] MEDS: MAGNESIUM OXIDE 400 MG PO (21:15)
[2025-04-05 21:31] LABS: Glucose - Point of Care 232 mg/dl (70-99)
[2025-04-06] MEDS: LOKELMA 10 GRAM PO ×3 (05:10→17:28)
[2025-04-06 05:27] LABS: Hematocrit 23.3 % (39.0-52.0); Hemoglobin 8.1 g/dL (13.0-18.0); Mean Corp Hgb Conc. 34.8 g/dL (33.0-37.0); Mean Corpuscular Volume 100.9 fL (80.0-94.0); Nucleated Red Blood Cells % 0 % (-); Platelet Count 105 10^3/uL (130-400); Red Cell Dist. Width 23.1 % (11.5-14.5)
[2025-04-06 05:31] LABS: Fibrinogen 497 MG/DL (199-459)
[2025-04-06 05:45] LABS: ALT (SGPT) 47 U/L (0-50); AST (SGOT) 57 U/L (17-59); Albumin 2.8 g/dl (3.5-5.0); Alkaline Phosphatase 557 U/L (38-126); Blood Urea Nitrogen 41 mg/dl (9-20); Calcium 7.6 mg/dl (8.4-10.2); Carbon Dioxide 24 mmol/L (22-30); Chloride 95 mmol/L (98-107); Estimated Creatinine Clearance 51 ml/min; Glucose 210 mg/dl (70-99); Potassium 6.2 mmol/L (3.5-5.1); Sodium 123 mmol/L (135-145); Total Protein 6.3 g/dl (6.3-8.2); eGFR 48.55
--- NOTE | 2025-04-06 05:57 | PTCARENOTE ---
Patient potassium level 6.2 This RN notified covering provider Jenniffer Harvey who is aware. Patient drinking lokelma. Patient has no chest pain or SOB. Per covering provider [facility] lab at 8am.
[2025-04-06 06:00] VITALS: BMI 33.3
[2025-04-06 06:13] LABS: Glucose - Point of Care 221 mg/dl (70-99)
--- NOTE | 2025-04-06 06:13 | W.PN.UPDATE ---
Update Note
Progress Note Update
K 6.2, Bárbara was given, BMx1 beginning of shift. Patient denies any chest pain or shortness of breath
BS 210
will order with Insulin Reg 5 u
check K in 2 hours.
[2025-04-06] MEDS: NOVOLIN R 0.05 UNITS IV (06:35)
[2025-04-06] MEDS: DEXTROSE 50% SYRINGE 25 GRAMS IV (06:35)
[2025-04-06 07:00] VITALS: BP 131/70
[2025-04-06 07:34] LABS: Glucose - Point of Care 249 mg/dl (70-99)
[2025-04-06 08:34] LABS: Glucose - Point of Care 257 mg/dl (70-99)
[2025-04-06] MEDS: NOVOLOG FLEXPEN-LOW RESISTANCE 3 UNITS SC (08:56)
[2025-04-06] MEDS: HEPARIN 5000 UNITS SC ×2 (08:57→19:11)
[2025-04-06] MEDS: PROTONIX 20 MG PO (08:57)
[2025-04-06] MEDS: DECADRON 4 MG IV ×2 (08:58→19:11)
[2025-04-06] MEDS: FLUSH (NSS) 1 FLUSH IV (08:59)
[2025-04-06 09:36] LABS: Potassium 4.8 mmol/L (3.5-5.1)
[2025-04-06 10:38] LABS: Glucose - Point of Care 261 mg/dl (70-99)
--- NOTE | 2025-04-06 11:27 | W.PN.ONC ---
Today's Communication / Plan
-
Continue dexamethasone for now
Patient/family are considering options (lower dose fruquintinib and gamma knife radiation versus hospice)
Continue to hold fruquintinib
They plan to discuss in more detail w/ Dr. Mejia on
Continue supportive care
Impression
Impression
Met colon cancer to liver and abd and r/p nodes, heavily pre-treated, now on fruquintinib since 03/23
1.3 cm ring-enhancing mass in the left occipital lobe with surrounding vasogenic edema and additional small 0.5 cm enhancing lesion in the medial right temporoparietal lobe
Fall at home
Hyponatremia
Transfusion dependent anemia
Renal insufficiency
Baseline diabetes
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
ascites -Ab US 04/05 trace ascites, no sufficient for drainage
Plan
Plan
Continue dexamethasone for now
Patient/family are considering options (lower dose fruquintinib and gamma knife radiation versus hospice)
Continue to hold fruquintinib
They plan to discuss in more detail w/ Dr. Mejia on
Continue supportive care
Subjective/Objective
Subjective/Objective
no new complaints, feels okay
appetite is good
tolerating steroids started 04/05
Vital Signs:
Vital Signs
Temp Pulse Resp BP Pulse Ox
97.5 F 90 16 131/70 100
04/06/25 07:00 04/06/25 07:00 04/06/25 07:00 04/06/25 07:00 04/06/25 08:54
Lab Results:
Laboratory Data
WBC 9.3 10^3/uL (4.8-10.8) 04/06/25 04:56
Hgb 8.1 g/dL (13.0-18.0) L 04/06/25 04:56
Plt Count 105 10^3/uL (130-400) L 04/06/25 04:56
PT 16.9 Sec (11.4-14.6) H 04/04/25 07:40
INR 1.34 04/04/25 07:40
eGFR 48.55 04/06/25 04:56
[2025-04-06 11:35] VITALS: BMI 33.3
[2025-04-06 12:31] LABS: Glucose - Point of Care 315 mg/dl (70-99)
[2025-04-06] MEDS: NOVOLOG FLEXPEN-LOW RESISTANCE 4 UNITS SC (12:34)
[2025-04-06] MEDS: ROXICODONE 5 MG PO ×2 (14:35→21:40)
--- NOTE | 2025-04-06 14:43 | W.PN.NEPH.PH ---
Today's Communication / Plan
-
Samsca x 1
Assessment/Plan
-
Assessment
Symptomatic hypovolemic hyponatremia
Hyperkalemia with EKG changes
KRSITA on CKD
Contrast exposure On 03/05
Anemia
Metastatic adenocarcinoma of sigmoid colon
Urinary retention
Plan
Daily BMP
Avoid IV contrast exposure
encourage po intake
Sodium remains 123
Potassium 6.2 treated with Lokelma improved
Urine Osmo 600 urine sodium 28
Appetite good
Paracentesis on the 4 L/paracentesis on the canceled minimal amount of fluid
I will give 1 dose of Samsca
MRI noted brain metastasis
-
-
Date of Service: April 06, 2025
CC / HPI / ROS
-
Chief Complaint:
KRISTA
History of Present Illness:
KRISTA/Cr down to 1.6
Na up to 123
BP stable
eating well now
Review of Systems:
no CP/SOB
Good appetite
Labs
-
Labs:
WBC 9.3 10^3/uL (4.8-10.8) 04/06/25 04:56
RBC 2.31 10^6/uL (4.70-6.10) L 04/06/25 04:56
Hgb 8.1 g/dL (13.0-18.0) L 04/06/25 04:56
Hct 23.3 % (39.0-52.0) L 04/06/25 04:56
Plt Count 105 10^3/uL (130-400) L 04/06/25 04:56
Sodium 123 mmol/L (135-145) L 04/06/25 04:56
Potassium 4.8 mmol/L (3.5-5.1) 04/06/25 08:40
Chloride 95 mmol/L (98-107) L 04/06/25 04:56
Carbon Dioxide 24 mmol/L (22-30) 04/06/25 04:56
BUN 41 mg/dl (9-20) H 04/06/25 04:56
Creatinine 1.5 mg/dL (0.7-1.3) H 04/06/25 04:56
eGFR 48.55 04/06/25 04:56
Glucose 210 mg/dl (70-99) H 04/06/25 04:56
Calcium 7.6 mg/dl (8.4-10.2) L 04/06/25 04:56
Phosphorus 4.4 mg/dl (2.5-4.5) 04/04/25 07:40
Eio-C-Zbckzatgmpe Pept 721 pg/ml 04/04/25 07:40
Albumin 2.8 g/dl (3.5-5.0) L 04/06/25 04:56
Physical Exam
-
Vital Signs:
Vital Signs
Temp Pulse Resp BP Pulse Ox
97.5 F 90 16 131/70 100
04/06/25 07:00 04/06/25 07:00 04/06/25 07:00 04/06/25 07:00 04/06/25 08:54
Cardiovascular:: Regular rate and rhythm
Respiratory:: Bilateral: Coarse
Lung Excursion:: Normal
Abdomen:: Nontender and Soft
Bowel Sounds:: Normal
Extremity Edema:: None: Bilateral:
--- NOTE | 2025-04-06 14:47 | W.PN.HOSP.TC ---
Today's Communication/Plan
-
Continue Lokelma
Monitor BMP
Off diuretics.
Continue IV steroids
Adjust insulin regimen for hyperglycemia
PT assessment
Ongoing goals of care discussion
Assessment / Plan
Assessment / Plan
74 years old male with widely metastatic colon carcinoma with known metastasis to liver, recurrent malignant ascites presents to the emergency from interventional radiology shortly after large volume paracentesis with complaints of severe fatigue,
weakness, ambulatory dysfunction
Severe fatigue, weakness, ambulatory dysfunction likely multifactorial and due to progressive carcinoma as well as significant deconditioning and hypotension.
Neurologic exam without focal findings.
Had confusion with posterior bruising with small scalp laceration
CT head with ill-defined area of hypoattenuation within the left occipital lobe with mild local mass effect. Small to moderate focus of soft tissue edema within the nearby posterior left parietal scalp. Differential diagnosis including possible
small contusion, versus vasogenic edema secondary to metastasis
Also complains of severe pain in the lower and mid thoracic spine area. Exam without tenderness.
MRI of the brain with 1.3 cm ring-enhancing mass in the left occipital lobe with surrounding vasogenic edema consistent with metastatic process
MRI of the lumbar spine with bony mets without epidural or spinal cord involvement
Discussed with oncology and radiation oncology
Plan is to start dexamethasone 4 mg every 12 hours
Basal bolus protocol/adjust insulin dose for hyperglycemia
Discontinue tramadol given potential reduction of seizure threshold
Current plan is to hold Fruquintinib
Leukocytosis with left shift. WBC 16.
Ascites
No specific complaints to pinpoint source, other than diffuse abdominal pain improved after large-volume paracentesis today.
Ascitic fluid with WBC 456/PMN 35
Remains high risk for SBP given prior hypoalbuminemia in ascitic fluid as well as current immunosuppression with oral chemotherapy.
Remains afebrile with normalized WBC.
Blood cultures were not collected on admission.
Observe closely off antibiotics
Chronic anemia.
Likely due to chronic disease/CA as well as chemotherapy. Follow hemoglobin
Acute on chronic hyponatremia.
Sodium 123.
With peripheral edema and ascites, although intravascularly depleted given hypotension.
Suspect high ADH state likely driven by pain as well as stimulated by intravascular depletion and hypotension
Increased urine osmolarity with decreased urine sodium confirmatory
Hold diuretics (Lasix, spironolactone)
TSH within normal limits
Random cortisol within normal limits.
ACTH stim test pending.
Hyperkalemia. With ECG changes
Differential diagnosis adrenal insufficiency versus catabolic effect
Potassium temporized in ED.
Random cortisol within normal limits
Lokelma.
CKD stage III with baseline creatinine 1.3�1.6
[address] with [address] elevations in lateral leads
Possible secondary to electrolyte abnormalities
Chest pain-free.
Echocardiogram with normal LVEF and no evidence for regional wall motion abnormality
Metastatic invasive adenocarcinoma of sigmoid colon.
Status post sigmoid colectomy with anastomosis.
Multiple rounds of chemotherapy
Known extensive metastatic disease to liver, adrenal gland with retroperitoneal and thoracic lymphadenopathy.
History of Y90 radioembolization to the liver 02/09 at [place]
Status post Avastin.
Currently on Fruquintinib
Oncology evaluation
CODE STATUS DNR
Discussed with primary oncologist and radiation oncology
Patient with progressive disease with prior aggressive treatment and currently on oral therapy. Now with new findings of intracranial metastatic process and also with progressively deteriorating performance status.
Will consider goals of care discussion while inpatient
Anticipated Discharge: > 48 hours
Subjective/Interval History
-
Date of Service: April 06, 2025
Objective Data
-
Labs:
Laboratory Results
04/06/25 04/06/25
04:56 08:40
WBC 9.3
Hgb 8.1 L
Hct 23.3 L
Plt Count 105 L
Sodium 123 L
Potassium 6.2 H* 4.8
Chloride 95 L
Carbon Dioxide 24
BUN 41 H
Creatinine 1.5 H
Glucose 210 H
Calcium 7.6 L
Total Bilirubin 1.5 H
AST 57
ALT 47
Alkaline Phosphatase 557 H
Vital Signs:
Vital Signs
Temp Pulse Resp BP Pulse Ox
97.5 F 90 16 131/70 100
04/06/25 07:00 04/06/25 07:00 04/06/25 07:00 04/06/25 07:00 04/06/25 08:54
I&O
04/05/25 04/06/25 04/07/25
06:59 06:59 06:59
Intake Total 660 / 660 860 / 860
Output Total 425 / 425 350 / 350
Balance 235 / 235 510 / 510
Physical Exam
-
General: Well Developed and No Apparent Distress
HEENT: Normocephalic, Atraumatic and Moist Mucous Membranes
Respiratory: Decreased Breath Sounds
Cardiac: Regular Rhythm and S1/S2; Negative Murmur, Rub or Gallop
GI: Soft, Nontender, Nondistended and Normal Bowel Sounds; Negative Organomegaly
Rectal: Deferred by Provider
Musculoskeletal: No Clubbing, No Cyanosis and No Edema
Skin: Negative Rash
Neuro: Nonfocal/Grossly Intact
[2025-04-06 15:00] VITALS: BP 128/60
--- NOTE | 2025-04-06 15:09 | CM ---
Addendum entered by Rhoda Zamarripa 04/06/25 16:08:
Call from BILLY/Tavo Patel [phone]
Lengthy conversation regarding dc planning
LTC vs SNF rehab vs [facility] vs hospice discussed along with associated costs
They are working with [facility] and are interested in [place]
Ongoing GOC but leaning towards hospice
With permission, VM left for [place] band splitter to coordinate referral and clinicals per family request
Update to Ariela
Original Note:
CM reviewed chart- ADC >48 hours, ongoing GOC discussions
Plan for pt and family to meet with Dr Mejia Thrsurya evening to discuss GOC and potential tx plan
Bedside meeting with pt- he was tearful, fondly sharing stories of 2 y/o grandson
Emotional support provided
General info regarding costs for STR, CK, and hospice in [facility] vs SNF discussed
CM received missed call from malathi/Ary, return call and VM left
VM left for her spouse/Tavo [phone] per her request as well
Plan to F/U with family to introduce self, explain role and discuss resources/dispo planning
Pt continues to request family involvement in all dc planning
PT/OT following with SNF vs VN recs
Discharge Disposition- TBD, ongoing GOC
[2025-04-06] MEDS: SAMSCA 15 MG PO (15:19)
--- NOTE | 2025-04-06 16:27 | PTCARENOTE ---
Pt AAO x3, GARNER; OOB to BR/chair with assist x1/walker; michelle well, denies weakness/dizziness. VSS. On room air- pulse ox 99%, no c/o SOB. Abd large, sl firm; michelle PO well. Voids in BR without difficulty. Pt occ c/o left abd discomfort- good effect
with PO Roxicodone. Resting quietly in bed at present. Will continue to monitor.
[2025-04-06 16:53] LABS: Glucose - Point of Care 359 mg/dl (70-99)
[2025-04-06] MEDS: LIPITOR 10 MG PO (17:26)
[2025-04-06] MEDS: NOVOLOG FLEXPEN-LOW RESISTANCE 5 UNITS SC (17:27)
[2025-04-06 19:48] VITALS: BMI 33.3
[2025-04-06] MEDS: MAGNESIUM OXIDE 400 MG PO (21:40)
[2025-04-06] MEDS: LANTUS 0.1 UNITS SC (21:40)
[2025-04-06 21:54] LABS: Glucose - Point of Care 444 mg/dl (70-99)
[2025-04-06 22:43] LABS: Glucose 423 mg/dl (70-99)
[2025-04-06] MEDS: NOVOLOG FLEXPEN 6 UNITS SC (22:57)
[2025-04-06 23:00] VITALS: BP 137/65
[2025-04-07 00:44] LABS: Glucose - Point of Care 407 mg/dl (70-99)
[2025-04-07] MEDS: NOVOLOG FLEXPEN 9 UNITS SC ×2 (01:50→04:23)
[2025-04-07 02:19] LABS: Glucose 382 mg/dl (70-99)
--- NOTE | 2025-04-07 02:25 | DOWNTIME ---
There was a Combat Stroke Client Accounting Systems Analyst Downtime on 04/07/2025 from 0100 to 04/07/2025 at 0215. Downtime documentation of patient's care, including medication administrations, has been reconciled in the electronic record per guidelines. Refer to the
patient's paper chart under the miscellaneous tab to see printed paper medication records and downtime forms.
[2025-04-07 03:56] LABS: Glucose - Point of Care 350 mg/dl (70-99)
--- NOTE | 2025-04-07 04:10 | W.PN.UPDATE ---
Update Note
Progress Note Update
BS [id number]. Insulin given per protocol.
Insulin changed to moderate. receiving IV Dexamethasone.
patient with no new complaints. labs pending
[2025-04-07] MEDS: ROXICODONE 5 MG PO ×3 (04:24→19:39)
[2025-04-07] MEDS: LOKELMA 10 GRAM PO ×2 (04:28→13:32)
[2025-04-07 06:00] VITALS: BMI 33.3
[2025-04-07 06:24] LABS: Glucose - Point of Care 242 mg/dl (70-99)
[2025-04-07 07:00] VITALS: BP 127/71
[2025-04-07 07:10] LABS: Glucose - Point of Care 207 mg/dl (70-99)
[2025-04-07 07:45] LABS: Blood Urea Nitrogen 42 mg/dl (9-20); Calcium 7.8 mg/dl (8.4-10.2); Carbon Dioxide 23 mmol/L (22-30); Chloride 99 mmol/L (98-107); Estimated Creatinine Clearance 48 ml/min; Glucose 293 mg/dl (70-99); Potassium 5.5 mmol/L (3.5-5.1); Sodium 127 mmol/L (135-145); eGFR 44.93
[2025-04-07] MEDS: NOVOLOG FLEXPEN-MODERATE RESISTANCE 3 UNITS SC (08:26)
[2025-04-07] MEDS: HEPARIN 5000 UNITS SC (08:27)
[2025-04-07] MEDS: PROTONIX 20 MG PO (08:29)
[2025-04-07] MEDS: DECADRON 4 MG IV ×2 (08:29→19:42)
--- NOTE | 2025-04-07 10:54 | W.PN.ONC2 ---
Today's Communication / Plan
-
Family meeting tomorrow 04/[address] Mejia
Impression
Impression
Met colon cancer to liver and abd and r/p nodes, heavily pre-treated, now on fruquintinib since 03/23
1.3 cm ring-enhancing mass in the left occipital lobe with surrounding vasogenic edema and additional small 0.5 cm enhancing lesion in the medial right temporoparietal lobe
Fall at home
Hyponatremia
Transfusion dependent anemia
Renal insufficiency
Baseline diabetes
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
ascites -Ab US 04/05 trace ascites, no sufficient for drainage
Plan
Plan
Continue dexamethasone for now
Patient/family are considering options (lower dose fruquintinib and gamma knife radiation versus hospice)
Continue to hold fruquintinib
They plan to discuss in more detail w/ Dr. Mejia on , around 5 pm
Continue supportive care
Subjective/Objective
Chief Complaint
ACS Heme Onc
Subjective
No complaints. Upset about elevated blood sugar while on steroids (392 last night).
Vital Signs:
Vital Signs
Temp Pulse Resp BP Pulse Ox
98.3 F 83 12 127/71 99
04/07/25 07:00 04/07/25 07:00 04/07/25 07:00 04/07/25 07:00 04/07/25 07:00
Lab Results:
Laboratory Data
WBC 9.3 10^3/uL (4.8-10.8) 04/06/25 04:56
Hgb 8.1 g/dL (13.0-18.0) L 04/06/25 04:56
Plt Count 105 10^3/uL (130-400) L 04/06/25 04:56
PT 16.9 Sec (11.4-14.6) H 04/04/25 07:40
INR 1.34 04/04/25 07:40
eGFR 44.93 04/07/25 05:36
Physical Exam
HEENT: No Jaundice
Cardiology: S1 and S2
Pulmonary: Clear
GI: Soft
--- NOTE | 2025-04-07 10:55 | CM ---
Addendum entered by Caron Benjamin 04/07/25 13:54:
Received call from Mildred. Confirmed receipt of clinicals and email sent to CM. Made CM aware that a nurse will be coming to complete a care assessment w/ patient today at 3:30pm
Original Note:
Chart reviewed. GOC discussion ongoing w/ family. GOC meeting w/ medical team tomorrow or Saturday
Family agreeable to CM sending initial clinical information to [facility] as possible plan is for patient to admit to facility w/ hospice
CM spoke w/ [facility] admissions ([phone]), made aware GOC discussion ongoing. Mildred stated patient's son visited facility on Saturday.
Mildred will email CM the DME form to be completed. Will also ask son if he is agreeable for CM to ask for hospice eval order to ensure a seamless admission if family chooses to move forward w/ hospice.
Clinicals faxed to [phone]
Plan: Ongoing GOC. Possible decision to admit patient to [facility]
[2025-04-07 11:54] LABS: Glucose - Point of Care 351 mg/dl (70-99)
[2025-04-07 12:10] VITALS: BP 146/73; PULSE 93
[2025-04-07] MEDS: NOVOLOG FLEXPEN-MODERATE RESISTANCE 9 UNITS SC (12:36)
[2025-04-07] MEDS: MIRALAX 17 GRAMS PO (12:37)
[2025-04-07] MEDS: SAMSCA 15 MG PO (13:26)
--- NOTE | 2025-04-07 14:44 | W.PN.HOSP.TC ---
Today's Communication/Plan
-
Samsca
Lokelma
Systemic corticosteroids
Adjust insulin regimen
PT assessment
Assessment / Plan
Assessment / Plan
74 years old male with widely metastatic colon carcinoma with known metastasis to liver, recurrent malignant ascites presents to the emergency from interventional radiology shortly after large volume paracentesis with complaints of severe fatigue,
weakness, ambulatory dysfunction
Severe fatigue, weakness, ambulatory dysfunction likely multifactorial and due to progressive carcinoma as well as significant deconditioning and hypotension.
Neurologic exam without focal findings.
Had confusion with posterior bruising with small scalp laceration
CT head with ill-defined area of hypoattenuation within the left occipital lobe with mild local mass effect. Small to moderate focus of soft tissue edema within the nearby posterior left parietal scalp. Differential diagnosis including possible
small contusion, versus vasogenic edema secondary to metastasis
Also complains of severe pain in the lower and mid thoracic spine area. Exam without tenderness.
MRI of the brain with 1.3 cm ring-enhancing mass in the left occipital lobe with surrounding vasogenic edema consistent with metastatic process
MRI of the lumbar spine with bony mets without epidural or spinal cord involvement
Discussed with oncology and radiation oncology
Initiated dexamethasone 4 mg every 12 hours
Basal bolus protocol/adjust insulin dose for hyperglycemia
Discontinue tramadol given potential reduction of seizure threshold
Current plan is to hold Fruquintinib
Persistent hyperglycemia
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
Hyperglycemia likely induced by systemic steroid therapy.
Update hemoglobin A1c
Adjust insulin regimen with increase of Lantus to 20 units at bedtime. May need Premeal insulin as well.
Leukocytosis with left shift. WBC 16.
Ascites
No specific complaints to pinpoint source, other than diffuse abdominal pain improved after large-volume paracentesis today.
Ascitic fluid with WBC 456/PMN 35
Remains high risk for SBP given prior hypoalbuminemia in ascitic fluid as well as current immunosuppression with oral chemotherapy.
Remains afebrile with normalized WBC.
Blood cultures were not collected on admission.
Observe closely off antibiotics
Chronic anemia.
Likely due to chronic disease/CA as well as chemotherapy. Follow hemoglobin
Acute on chronic hyponatremia.
Sodium 123.
With peripheral edema and ascites, although intravascularly depleted given hypotension.
Suspect high ADH state likely driven by pain as well as stimulated by intravascular depletion and hypotension
Increased urine osmolarity with decreased urine sodium confirmatory
Hold diuretics (Lasix, spironolactone)
TSH within normal limits
Random cortisol within normal limits.
Improving with Samsca
Hyperkalemia. With ECG changes
Differential diagnosis adrenal insufficiency versus catabolic effect
Potassium temporized in ED.
Random cortisol within normal limits
Lokelma.
CKD stage III with baseline creatinine 1.3�1.6
[address] elevations in lateral leads
Possible secondary to electrolyte abnormalities
Chest pain-free.
Echocardiogram with normal LVEF and no evidence for regional wall motion abnormality
Metastatic invasive adenocarcinoma of sigmoid colon.
Status post sigmoid colectomy with anastomosis.
Multiple rounds of chemotherapy
Known extensive metastatic disease to liver, adrenal gland with retroperitoneal and thoracic lymphadenopathy.
History of Y90 radioembolization to the liver 02/09 at [place]
Status post Avastin.
Currently on Fruquintinib
Oncology evaluation
CODE STATUS DNR
Discussed with primary oncologist and radiation oncology
Patient with progressive disease with prior aggressive treatment and currently on oral therapy. Now with new findings of intracranial metastatic process and also with progressively deteriorating performance status.
Will consider goals of care discussion while inpatient
Anticipated Discharge: 24 - 48 hours
Subjective/Interval History
-
Date of Service: April 07, 2025
Objective Data
-
Labs:
Laboratory Results
04/07/25
05:36
Sodium 127 L
Potassium 5.5 H
Chloride 99
Carbon Dioxide 23
BUN 42 H
Creatinine 1.6 H
Glucose 293 H
Calcium 7.8 L
Vital Signs:
Vital Signs
Temp Pulse Resp BP Pulse Ox
98.3 F 83 12 127/71 99
04/07/25 07:00 04/07/25 07:00 04/07/25 07:00 04/07/25 07:00 04/07/25 07:00
I&O
04/06/25 04/07/25 04/08/25
06:59 06:59 06:59
Intake Total 860 / 860 660 / 660
Output Total 350 / 350
Balance 510 / 510 660 / 660
Physical Exam
-
General: Well Developed and No Apparent Distress
HEENT: Normocephalic, Atraumatic and Moist Mucous Membranes
Respiratory: Clear to Auscultation
Cardiac: Regular Rhythm and S1/S2; Negative Murmur, Rub or Gallop
GI: Soft, Nontender, Nondistended and Normal Bowel Sounds; Negative Organomegaly
Rectal: Deferred by Provider
Musculoskeletal: No Clubbing, No Cyanosis and No Edema
Skin: Negative Rash
Neuro: Nonfocal/Grossly Intact
[2025-04-07 15:00] VITALS: BP 146/71
--- NOTE | 2025-04-07 15:00 | W.PN.NEPH.PH ---
Today's Communication / Plan
-
samsca
Assessment/Plan
-
Assessment
Symptomatic hypovolemic hyponatremia
Hyperkalemia with EKG changes
KRISTA on CKD
Contrast exposure On 03/05
Anemia
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
Urinary retention
Plan
Daily BMP
Lokelma course
samsca again
-
-
Date of Service: April 07, 2025
CC / HPI / ROS
-
Chief Complaint:
KRISTA
History of Present Illness:
KRISTA/Cr stable 1.6
Na up to 127
BP stable
eating well now
K up 5.5
Review of Systems:
no CP/SOB
Good appetite
Labs
-
Labs:
WBC 9.3 10^3/uL (4.8-10.8) 04/06/25 04:56
RBC 2.31 10^6/uL (4.70-6.10) L 04/06/25 04:56
Hgb 8.1 g/dL (13.0-18.0) L 04/06/25 04:56
Hct 23.3 % (39.0-52.0) L 04/06/25 04:56
Plt Count 105 10^3/uL (130-400) L 04/06/25 04:56
Sodium 127 mmol/L (135-145) L 04/07/25 05:36
Potassium 5.5 mmol/L (3.5-5.1) H 04/07/25 05:36
Chloride 99 mmol/L (98-107) 04/07/25 05:36
Carbon Dioxide 23 mmol/L (22-30) 04/07/25 05:36
BUN 42 mg/dl (9-20) H 04/07/25 05:36
Creatinine 1.6 mg/dL (0.7-1.3) H 04/07/25 05:36
eGFR 44.93 04/07/25 05:36
Glucose 293 mg/dl (70-99) H 04/07/25 05:36
Calcium 7.8 mg/dl (8.4-10.2) L 04/07/25 05:36
Phosphorus 4.4 mg/dl (2.5-4.5) 04/04/25 07:40
Oma-M-Yrhdqepdweo Pept 721 pg/ml 04/04/25 07:40
Albumin 2.8 g/dl (3.5-5.0) L 04/06/25 04:56
Physical Exam
-
Vital Signs:
Vital Signs
Temp Pulse Resp BP Pulse Ox
98.3 F 83 12 127/71 99
04/07/25 07:00 04/07/25 07:00 04/07/25 07:00 04/07/25 07:00 04/07/25 08:20
Cardiovascular:: Regular rate and rhythm
Respiratory:: Bilateral: Coarse
Lung Excursion:: Normal
Abdomen:: Nontender and Soft
Bowel Sounds:: Normal
Extremity Edema:: +1: Bilateral:
[2025-04-07 16:31] LABS: Glucose - Point of Care 415 mg/dl (70-99)
--- NOTE | 2025-04-07 16:47 | PTCARENOTE ---
PT is HI on the glucometer. MD aware, STAT glucose ordered. Will wait for LAB result.
[2025-04-07] MEDS: LIPITOR 10 MG PO (17:17)
[2025-04-07 17:58] LABS: Glucose 408 mg/dl (70-99)
[2025-04-07] MEDS: NOVOLOG FLEXPEN-MODERATE RESISTANCE SC (18:11)
[2025-04-07] MEDS: NOVOLOG FLEXPEN 6 UNITS SC (19:39)
[2025-04-07] MEDS: NOVOLOG FLEXPEN-MODERATE RESISTANCE 11 UNITS SC (19:56)
[2025-04-07 19:57] LABS: Glucose - Point of Care 407 mg/dl (70-99)
--- NOTE | 2025-04-07 19:59 | PTCARENOTE ---
mod resistance sliding scale insulin given late (ordered for 1629) due to receiving insulin pen now.
[2025-04-07 21:12] LABS: Glucose - Point of Care 440 mg/dl (70-99)
[2025-04-07] MEDS: MAGNESIUM OXIDE 400 MG PO (21:26)
[2025-04-07] MEDS: LANTUS 0.2 UNITS SC (22:01)
[2025-04-07 22:23] LABS: Glucose 410 mg/dl (70-99)
[2025-04-07] MEDS: NOVOLOG FLEXPEN 15 UNITS SC (22:35)
[2025-04-07 23:40] VITALS: BP 143/75
[2025-04-08 00:52] LABS: Glucose - Point of Care 281 mg/dl (70-99)
[2025-04-08 06:00] VITALS: BMI 33.1
[2025-04-08 07:30] VITALS: BP 143/73
[2025-04-08 08:19] LABS: Glucose - Point of Care 358 mg/dl (70-99)
[2025-04-08] MEDS: NOVOLOG FLEXPEN 6 UNITS SC (08:56)
[2025-04-08] MEDS: DECADRON 4 MG IV ×2 (08:57→19:32)
[2025-04-08] MEDS: NOVOLOG FLEXPEN-MODERATE RESISTANCE 9 UNITS SC ×2 (08:57→12:03)
[2025-04-08] MEDS: PROTONIX 20 MG PO (08:57)
[2025-04-08] MEDS: ROXICODONE 5 MG PO ×4 (09:07→23:32)
[2025-04-08 09:47] LABS: Hematocrit 26.5 % (39.0-52.0); Hemoglobin 8.9 g/dL (13.0-18.0); Mean Corp Hgb Conc. 33.6 g/dL (33.0-37.0); Mean Corpuscular Volume 102.7 fL (80.0-94.0); Nucleated Red Blood Cells % 0 % (-); Platelet Count 148 10^3/uL (130-400)
[2025-04-08 10:39] LABS: Blood Urea Nitrogen 54 mg/dl (9-20); Calcium 8.2 mg/dl (8.4-10.2); Carbon Dioxide 22 mmol/L (22-30); Chloride 99 mmol/L (98-107); Estimated Creatinine Clearance 45 ml/min; Glucose 298 mg/dl (70-99); Potassium 5.3 mmol/L (3.5-5.1); Sodium 129 mmol/L (135-145); eGFR 41.78
--- NOTE | 2025-04-08 11:52 | W.PN.NEPH.PH ---
Today's Communication / Plan
-
samsca
Assessment/Plan
-
Assessment
Symptomatic hypovolemic hyponatremia
Hyperkalemia with EKG changes
KRISTA on CKD
Contrast exposure On 03/05
Anemia
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
Urinary retention
Plan
Daily BMP
Lokelma today
samsca again today
-
-
Date of Service: April 08, 2025
CC / HPI / ROS
-
Chief Complaint:
KRISTA
History of Present Illness:
KRISTA/Cr stable 1.6
Na up to 129 with samsca
BP stable
eating well now
K down to 5.3 on [facility] course
Review of Systems:
no CP/SOB
Good appetite
Labs
-
Labs:
WBC 15.8 10^3/uL (4.8-10.8) H 04/08/25 08:10
RBC 2.58 10^6/uL (4.70-6.10) L 04/08/25 08:10
Hgb 8.9 g/dL (13.0-18.0) L 04/08/25 08:10
Hct 26.5 % (39.0-52.0) L 04/08/25 08:10
Plt Count 148 10^3/uL (130-400) D 04/08/25 08:10
Sodium 129 mmol/L (135-145) L 04/08/25 08:10
Potassium 5.3 mmol/L (3.5-5.1) H 04/08/25 08:10
Chloride 99 mmol/L (98-107) 04/08/25 08:10
Carbon Dioxide 22 mmol/L (22-30) 04/08/25 08:10
BUN 54 mg/dl (9-20) H 04/08/25 08:10
Creatinine 1.7 mg/dL (0.7-1.3) H 04/08/25 08:10
eGFR 41.78 04/08/25 08:10
Glucose 298 mg/dl (70-99) H 04/08/25 08:10
Calcium 8.2 mg/dl (8.4-10.2) L 04/08/25 08:10
Phosphorus 4.4 mg/dl (2.5-4.5) 04/04/25 07:40
Ntv-F-Hlspvxjbcur Pept 721 pg/ml 04/04/25 07:40
Albumin 2.8 g/dl (3.5-5.0) L 04/06/25 04:56
Physical Exam
-
Vital Signs:
Vital Signs
Temp Pulse Resp BP Pulse Ox
97.7 F 92 16 143/73 99
04/08/25 07:30 04/08/25 07:30 04/08/25 07:30 04/08/25 07:30 04/08/25 08:55
Cardiovascular:: Regular rate and rhythm
Respiratory:: Bilateral: Coarse
Lung Excursion:: Normal
Abdomen:: Nontender and Soft
Bowel Sounds:: Normal
Extremity Edema:: +1: Bilateral:
[2025-04-08 11:59] LABS: Glucose - Point of Care 377 mg/dl (70-99)
[2025-04-08] MEDS: NOVOLOG FLEXPEN 10 UNITS SC ×2 (12:03→17:02)
[2025-04-08] MEDS: LOKELMA 10 GRAM PO (12:03)
[2025-04-08] MEDS: SAMSCA 15 MG PO (12:08)
--- NOTE | 2025-04-08 12:34 | CM ---
Patient seen at bedside on . Patient states family is coming for family meeting later this afternoon. CM will continue to follow for discharge planning needs.
Plan; pending discussion; personal care at [facility] pending further discussions
--- NOTE | 2025-04-08 13:19 | W.PN.HOSP.TC ---
Today's Communication/Plan
-
Adjust insulin dose
Samsca
Lokelma
Adjust analgesic regimen with increasing oxycodone to every 4 hours as needed. May require longer acting opioid.
Pending goals of care discussion with primary oncologist today
Assessment / Plan
Assessment / Plan
74 years old male with widely metastatic colon carcinoma with known metastasis to liver, recurrent malignant ascites presents to the emergency from interventional radiology shortly after large volume paracentesis with complaints of severe fatigue,
weakness, ambulatory dysfunction
Severe fatigue, weakness, ambulatory dysfunction likely multifactorial and due to progressive carcinoma as well as significant deconditioning and hypotension.
Neurologic exam without focal findings.
Had confusion with posterior bruising with small scalp laceration
CT head with ill-defined area of hypoattenuation within the left occipital lobe with mild local mass effect. Small to moderate focus of soft tissue edema within the nearby posterior left parietal scalp. Differential diagnosis including possible
small contusion, versus vasogenic edema secondary to metastasis
Also complains of severe pain in the lower and mid thoracic spine area. Exam without tenderness.
MRI of the brain with 1.3 cm ring-enhancing mass in the left occipital lobe with surrounding vasogenic edema consistent with metastatic process
MRI of the lumbar spine with bony mets without epidural or spinal cord involvement
Discussed with oncology and radiation oncology
Initiated dexamethasone 4 mg every 12 hours
Basal bolus protocol/adjust insulin dose for hyperglycemia
Discontinue tramadol given potential reduction of seizure threshold
Current plan is to hold Fruquintinib
Persistent hyperglycemia
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
Hyperglycemia likely induced by systemic steroid therapy.
Update hemoglobin A1c
Increase basal bolus protocol to moderate dose
Adjust standing insulin to Lantus 30 at bedtime/aspart 10 AC
Leukocytosis with left shift. WBC 16.
Ascites
No specific complaints to pinpoint source, other than diffuse abdominal pain improved after large-volume paracentesis today.
Ascitic fluid with WBC 456/PMN 35
Remains high risk for SBP given prior hypoalbuminemia in ascitic fluid as well as current immunosuppression with oral chemotherapy.
Remains afebrile with normalized WBC.
Blood cultures were not collected on admission.
Observe closely off antibiotics
Chronic anemia.
Likely due to chronic disease/CA as well as chemotherapy. Follow hemoglobin
Acute on chronic hyponatremia.
Sodium 123.
With peripheral edema and ascites, although intravascularly depleted given hypotension.
Suspect high ADH state likely driven by pain as well as stimulated by intravascular depletion and hypotension
Increased urine osmolarity with decreased urine sodium confirmatory
Hold diuretics (Lasix, spironolactone)
TSH within normal limits
Random cortisol within normal limits.
Improving with Samsca
Hyperkalemia. With ECG changes
Differential diagnosis adrenal insufficiency versus catabolic effect
Potassium temporized in ED.
Random cortisol within normal limits
Lokelma.
CKD stage III with baseline creatinine 1.3�1.[address] elevations in lateral leads
Possible secondary to electrolyte abnormalities
Chest pain-free.
Echocardiogram with normal LVEF and no evidence for regional wall motion abnormality
Metastatic invasive adenocarcinoma of sigmoid colon.
Status post sigmoid colectomy with anastomosis.
Multiple rounds of chemotherapy
Known extensive metastatic disease to liver, adrenal gland with retroperitoneal and thoracic lymphadenopathy.
History of Y90 radioembolization to the liver 02/09 at [place]
Status post Avastin.
Currently on Fruquintinib
Oncology evaluation
CODE STATUS DNR
Discussed with primary oncologist and radiation oncology
Patient with progressive disease with prior aggressive treatment and currently on oral therapy. Now with new findings of intracranial metastatic process and also with progressively deteriorating performance status.
Will consider goals of care discussion while inpatient
Anticipated Discharge: 24 - 48 hours
Subjective/Interval History
-
Date of Service: April 08, 2025
Objective Data
-
Labs:
Laboratory Results
04/08/25
08:10
WBC 15.8 H
Hgb 8.9 L
Hct 26.5 L
Plt Count 148 D
Sodium 129 L
Potassium 5.3 H
Chloride 99
Carbon Dioxide 22
BUN 54 H
Creatinine 1.7 H
Glucose 298 H
Calcium 8.2 L
Vital Signs:
Vital Signs
Temp Pulse Resp BP Pulse Ox
97.7 F 92 16 143/73 99
04/08/25 07:30 04/08/25 07:30 04/08/25 07:30 04/08/25 07:30 04/08/25 08:55
I&O
04/07/25 04/08/25 04/09/25
06:59 06:59 06:59
Intake Total 660 / 660 120 / 600 480 / 480
Balance 660 / 660 120 / 600 480 / 480
Physical Exam
-
General: Well Developed and No Apparent Distress
HEENT: Normocephalic, Atraumatic and Moist Mucous Membranes
Respiratory: Clear to Auscultation
Cardiac: Regular Rhythm and S1/S2; Negative Murmur, Rub or Gallop
GI: Soft, Nontender, Nondistended and Normal Bowel Sounds; Negative Organomegaly
Rectal: Deferred by Provider
Musculoskeletal: No Clubbing, No Cyanosis and No Edema
Skin: Negative Rash
Neuro: Nonfocal/Grossly Intact
[2025-04-08 15:25] VITALS: BP 152/79
[2025-04-08 16:42] LABS: Glucose - Point of Care 338 mg/dl (70-99)
[2025-04-08] MEDS: NOVOLOG FLEXPEN-MODERATE RESISTANCE 7 UNITS SC (17:02)
[2025-04-08] MEDS: LIPITOR 10 MG PO (17:03)
[2025-04-08] MEDS: LOVENOX 30 MG SC (17:03)
--- NOTE | 2025-04-08 18:25 | W.PN.UPDATE ---
Update Note
Progress Note Update
Family meeting today to discuss goals of care.
Pt's two daughters and a son-in-law were present.
Over the course of 45 minutes, we discussed his current situation: metastatic colon cancer progressed on multiple regimens, with considerable toxicity from the most recent regimens.
Recently started on fruquintinib with precipitous drop in Na and performance status.
Hospitalized post-fall. Imaging studies showed new brain met in addition to widely progressive disease. Had only been on fruquintinib a couple weeks.
Discussed options of
- Active treatment: D/C to SNF for rehab, followed by placement where he can start out in assisted living and care can be escalated as needed + Gamma knife radiation to brain met + trial of fruquintinib at lower dose. Discussed that he is likely to
be in and out of the hospital for acute on chronic cytopenias and electrolyte abnormalities
- Best supportive care: SNF for rehab + Gamma knife, placement. May still require frequent transfusions.
- Hospice: d/c to long-term, no radiation, no treatment.
I voiced concern that starting treatment again could easily land him back in the hospital.
We discussed common causes of in end-stage cancer patients: thromboembolic phenomena, bleeding, infection, 'dwindles' -> TME due to dehydration complicated by organ failure.
Consensus was in favor of D/C to SNF + gamma knife radiation. They are aware that hospice will be revisited if he requires readmission in the next couple weeks after D/C.
[2025-04-08 21:49] LABS: Glucose - Point of Care 380 mg/dl (70-99)
[2025-04-08] MEDS: MAGNESIUM OXIDE 400 MG PO (21:52)
[2025-04-08] MEDS: LANTUS 0.3 UNITS SC (21:52)
[2025-04-08 23:11] VITALS: BP 131/68
[2025-04-09] MEDS: ROXICODONE 5 MG PO ×4 (04:18→21:47)
[2025-04-09 04:52] LABS: Blood Urea Nitrogen 55 mg/dl (9-20); Calcium 8.2 mg/dl (8.4-10.2); Carbon Dioxide 25 mmol/L (22-30); Chloride 102 mmol/L (98-107); Estimated Creatinine Clearance 48 ml/min; Glucose 313 mg/dl (70-99); Potassium 5.3 mmol/L (3.5-5.1); Sodium 132 mmol/L (135-145); eGFR 44.93
[2025-04-09 06:00] VITALS: BMI 33.4
[2025-04-09 07:52] LABS: Glucose - Point of Care 220 mg/dl (70-99)
[2025-04-09 08:03] VITALS: BP 167/88
[2025-04-09] MEDS: NOVOLOG FLEXPEN-MODERATE RESISTANCE 3 UNITS SC (08:15)
[2025-04-09] MEDS: DECADRON 4 MG IV (08:15)
[2025-04-09] MEDS: NOVOLOG FLEXPEN 10 UNITS SC (08:15)
[2025-04-09] MEDS: PROTONIX 20 MG PO (08:16)
[2025-04-09 10:15] VITALS: BP 138/78; PULSE 99
[2025-04-09 10:29] LABS: Hematocrit 26.3 % (39.0-52.0); Hemoglobin 8.7 g/dL (13.0-18.0); Mean Corp Hgb Conc. 33.1 g/dL (33.0-37.0); Mean Corpuscular Volume 101.9 fL (80.0-94.0); Nucleated Red Blood Cells % 0 % (-); Platelet Count 156 10^3/uL (130-400); Red Cell Dist. Width 23.8 % (11.5-14.5)
[2025-04-09 11:33] LABS: Glucose - Point of Care 330 mg/dl (70-99)
[2025-04-09] MEDS: NOVOLOG FLEXPEN-HIGH RESISTANCE 10 UNITS SC (12:06)
[2025-04-09] MEDS: NOVOLOG FLEXPEN 13 UNITS SC ×2 (12:06→17:16)
--- NOTE | 2025-04-09 13:25 | W.PN.HOSP.TC ---
Today's Communication/Plan
-
Transition to oral steroids
Adjust insulin dose for hyperglycemia
Lokelma
Monitor hyponatremia status post Samsca x 3
PT
Discharge planing tentatively to assisted living
Assessment / Plan
Assessment / Plan
74 years old male with widely metastatic colon carcinoma with known metastasis to liver, recurrent malignant ascites presents to the emergency from interventional radiology shortly after large volume paracentesis with complaints of severe fatigue,
weakness, ambulatory dysfunction
Severe fatigue, weakness, ambulatory dysfunction likely multifactorial and due to progressive carcinoma as well as significant deconditioning and hypotension.
Neurologic exam without focal findings.
Had confusion with posterior bruising with small scalp laceration
CT head with ill-defined area of hypoattenuation within the left occipital lobe with mild local mass effect. Small to moderate focus of soft tissue edema within the nearby posterior left parietal scalp. Differential diagnosis including possible
small contusion, versus vasogenic edema secondary to metastasis
Also complains of severe pain in the lower and mid thoracic spine area. Exam without tenderness.
MRI of the brain with 1.3 cm ring-enhancing mass in the left occipital lobe with surrounding vasogenic edema consistent with metastatic process
MRI of the lumbar spine with bony mets without epidural or spinal cord involvement
Discussed with oncology and radiation oncology
Initiated dexamethasone 4 mg every 12 hours
Basal bolus protocol/adjust insulin dose for hyperglycemia
Discontinue tramadol given potential reduction of seizure threshold
Current plan is to hold Fruquintinib
Goals of care discussion with primary oncology noticed. Plan is for discharge to assisted living. Continue physical therapy. Reconsideration of further treatment including gamma knife and reinstatement of systemic treatment as outpatient.
Diabetes.
Persistent hyperglycemia
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
Hyperglycemia likely induced by systemic steroid therapy.
Update hemoglobin A1c pending
Increase basal bolus protocol to moderate dose
Adjust standing insulin to Lantus 40 at bedtime/aspart 13 AC
Leukocytosis likely steroid-induced
Afebrile, nontoxic-appearing with no complaints suggestive of infection.
Ascitic fluid not consistent with SBP
Monitor closely off
Chronic anemia.
Likely due to chronic disease/CA as well as chemotherapy. Follow hemoglobin
Acute on chronic hyponatremia.
Sodium 123.
With peripheral edema and ascites, although intravascularly depleted given hypotension.
Suspect high ADH state likely driven by pain as well as stimulated by intravascular depletion and hypotension
Increased urine osmolarity with decreased urine sodium confirmatory
Hold diuretics (Lasix, spironolactone)
TSH within normal limits
Random cortisol within normal limits.
Improving with Samsca
Hyperkalemia. With ECG changes
Differential diagnosis adrenal insufficiency versus catabolic effect
Potassium temporized in ED.
Random cortisol within normal limits
Lokelma.
CKD stage III with baseline creatinine 1.3�1.[address] elevations in lateral leads
Possible secondary to electrolyte abnormalities
Chest pain-free.
Echocardiogram with normal LVEF and no evidence for regional wall motion abnormality
Metastatic invasive adenocarcinoma of sigmoid colon.
Status post sigmoid colectomy with anastomosis.
Multiple rounds of chemotherapy
Known extensive metastatic disease to liver, adrenal gland with retroperitoneal and thoracic lymphadenopathy.
History of Y90 radioembolization to the liver 02/09 at [place]
Status post Avastin.
Currently on Fruquintinib
Oncology evaluation
CODE STATUS DNR
Anticipated Discharge: 24 - 48 hours
Subjective/Interval History
-
Date of Service: April 09, 2025
Objective Data
-
Labs:
Laboratory Results
04/09/25 04/09/25
04:01 10:02
WBC 18.0 H
Hgb 8.7 L
Hct 26.3 L
Plt Count 156
Sodium 132 L
Potassium 5.3 H
Chloride 102
Carbon Dioxide 25
BUN 55 H
Creatinine 1.6 H
Glucose 313 H
Calcium 8.2 L
Vital Signs:
Vital Signs
Temp Pulse Resp BP Pulse Ox
98 F 102 18 167/88 100
04/09/25 08:03 04/09/25 08:03 04/09/25 08:03 04/09/25 08:03 04/09/25 08:15
I&O
04/08/25 04/09/25 04/10/25
06:59 06:59 06:59
Intake Total 120 / 600 1200 / 1200
Balance 120 / 600 1200 / 1200
Physical Exam
-
General: Well Developed and No Apparent Distress
HEENT: Normocephalic, Atraumatic and Moist Mucous Membranes
Respiratory: Clear to Auscultation
Cardiac: Regular Rhythm and S1/S2; Negative Murmur, Rub or Gallop
GI: Soft, Nontender, Nondistended and Normal Bowel Sounds; Negative Organomegaly
Rectal: Deferred by Provider
Musculoskeletal: No Clubbing, No Cyanosis and No Edema
Skin: Negative Rash
Neuro: Nonfocal/Grossly Intact
--- NOTE | 2025-04-09 13:27 | W.PN.NEPH.PH ---
Today's Communication / Plan
-
Okay for discharge from renal perspective
Assessment/Plan
-
Assessment
Symptomatic hypovolemic hyponatremia
Hyperkalemia with EKG changes
KRISTA on CKD
Contrast exposure On 03/05
Anemia
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
Urinary retention
Plan
Daily BMP
Patient has Lokelma at home he can continue that
Sodium is stable at 132 creatinine stable as well I be okay with discharge from a renal standpoint
-
-
Date of Service: April 09, 2025
CC / HPI / ROS
-
Chief Complaint:
KRISTA
History of Present Illness:
KRISTA/Cr stable 1.6
Na up to 132
BP stable
eating well now
K down to 5.3 on lokelma course
Review of Systems:
no CP/SOB
Good appetite
Labs
-
Labs:
WBC 18.0 10^3/uL (4.8-10.8) H 04/09/25 10:02
RBC 2.58 10^6/uL (4.70-6.10) L 04/09/25 10:02
Hgb 8.7 g/dL (13.0-18.0) L 04/09/25 10:02
Hct 26.3 % (39.0-52.0) L 04/09/25 10:02
Plt Count 156 10^3/uL (130-400) 04/09/25 10:02
Sodium 132 mmol/L (135-145) L 04/09/25 04:01
Potassium 5.3 mmol/L (3.5-5.1) H 04/09/25 04:01
Chloride 102 mmol/L (98-107) 04/09/25 04:01
Carbon Dioxide 25 mmol/L (22-30) 04/09/25 04:01
BUN 55 mg/dl (9-20) H 04/09/25 04:01
Creatinine 1.6 mg/dL (0.7-1.3) H 04/09/25 04:01
eGFR 44.93 04/09/25 04:01
Glucose 313 mg/dl (70-99) H 04/09/25 04:01
Calcium 8.2 mg/dl (8.4-10.2) L 04/09/25 04:01
Phosphorus 4.4 mg/dl (2.5-4.5) 04/04/25 07:40
Biw-Q-Ntqeymgucje Pept 721 pg/ml 04/04/25 07:40
Albumin 2.8 g/dl (3.5-5.0) L 04/06/25 04:56
Physical Exam
-
Vital Signs:
Vital Signs
Temp Pulse Resp BP Pulse Ox
98 F 102 18 167/88 100
04/09/25 08:03 04/09/25 08:03 04/09/25 08:03 04/09/25 08:03 04/09/25 08:15
Cardiovascular:: Regular rate and rhythm
Respiratory:: Bilateral: Coarse
Lung Excursion:: Normal
Abdomen:: Nontender and Soft
Bowel Sounds:: Normal
Extremity Edema:: +1: Bilateral:
--- NOTE | 2025-04-09 13:34 | CM ---
Addendum entered by Roz Bingham 04/09/25 14:27:
Correction: [facility]
Addendum entered by Roz Bingham 04/09/25 13:48:
Received a call from Shannan @ [facility]; requested clinicals; will send via
Original Note:
Met with daughter and patient at the bedside earlier today; daughter reported that family is working with [facility] to assist w/ placement for patient. [employer] contacted organization's liaison, Ariela Winter; she reported that she has been
communicating with patient's son-in-law Tavo; and was going to call him to get permission to have someone from an Assisted Living facility come and assess patient; goal is to have patient placed in a facility this weekend. Attending and Oncologist
notified and agreeable with plan.
Ariela Winter just called; she reported that an CRIMINAL JUSTICE TEACHER from [facility] is planning to assess patient tomorrow morning @ 0900. Requested that clinicals be faxed to the attention of Cynthia; fax # [phone]
Ariela also reported that she is also going to arrange an assessment with someone from [facility]
[2025-04-09 14:26] VITALS: BP 137/80; PULSE 97; O2SAT 99
[2025-04-09] MEDS: LOKELMA 10 GRAM PO ×2 (14:40→17:16)
[2025-04-09 15:42] VITALS: BP 147/75
[2025-04-09 17:12] LABS: Glucose - Point of Care 239 mg/dl (70-99)
[2025-04-09] MEDS: LIPITOR 10 MG PO (17:16)
[2025-04-09] MEDS: LOVENOX 30 MG SC (17:16)
[2025-04-09] MEDS: NOVOLOG FLEXPEN-HIGH RESISTANCE 4 UNITS SC (17:17)
[2025-04-09] MEDS: DECADRON 4 MG PO (20:56)
[2025-04-09 21:31] LABS: Glucose - Point of Care 356 mg/dl (70-99)
[2025-04-09] MEDS: LANTUS 0.4 UNITS SC (21:45)
[2025-04-09] MEDS: MAGNESIUM OXIDE 400 MG PO (21:46)
[2025-04-09 23:32] LABS: Glucose - Point of Care 317 mg/dl (70-99)
[2025-04-09 23:46] VITALS: BP 138/67
[2025-04-10] MEDS: NOVOLOG FLEXPEN 7 UNITS SC (00:28)
[2025-04-10 03:09] LABS: Glucose - Point of Care 208 mg/dl (70-99)
[2025-04-10] MEDS: ROXICODONE 5 MG PO ×3 (03:36→20:38)
[2025-04-10 05:55] LABS: Hematocrit 24.2 % (39.0-52.0); Hemoglobin 8.2 g/dL (13.0-18.0); Mean Corp Hgb Conc. 33.9 g/dL (33.0-37.0); Mean Corpuscular Volume 102.5 fL (80.0-94.0); Platelet Count 111 10^3/uL (130-400)
[2025-04-10 06:00] VITALS: BMI 33.4
[2025-04-10] MEDS: LOKELMA 10 GRAM PO ×3 (06:16→18:04)
[2025-04-10 06:27] LABS: Blood Urea Nitrogen 61 mg/dl (9-20); Calcium 8.3 mg/dl (8.4-10.2); Carbon Dioxide 24 mmol/L (22-30); Chloride 103 mmol/L (98-107); Estimated Creatinine Clearance 45 ml/min; Glucose 171 mg/dl (70-99); Potassium 5.7 mmol/L (3.5-5.1); Sodium 132 mmol/L (135-145); eGFR 41.78
[2025-04-10 07:46] LABS: Glucose - Point of Care 161 mg/dl (70-99)
[2025-04-10 07:54] VITALS: BP 142/84
[2025-04-10] MEDS: NOVOLOG FLEXPEN 13 UNITS SC ×3 (08:28→18:07)
[2025-04-10] MEDS: PROTONIX 20 MG PO (08:29)
[2025-04-10] MEDS: NOVOLOG FLEXPEN-HIGH RESISTANCE 2 UNITS SC (08:29)
[2025-04-10] MEDS: DECADRON 4 MG PO ×2 (08:29→20:35)
--- NOTE | 2025-04-10 09:52 | W.PN.HOSP.TC ---
Today's Communication/Plan
-
Continue with setting up appropriate d/c planning.
Assessment / Plan
Assessment / Plan
Initial presentation:
74 years old male with widely metastatic colon carcinoma with known metastasis to liver, recurrent malignant ascites presents to the emergency from interventional radiology shortly after large volume paracentesis with complaints of severe fatigue,
weakness, ambulatory dysfunction
Diagnosis present at admit:
Essential (primary) hypertension
Mixed hyperlipidemia
Malignant metastatic neoplasm of colon, unspecified part of colon
Type 2 diabetes mellitus with hyperglycemia, without long-term current use of insulin
CHF,
COPD,
chronic anemia,
thrombocytopenia,
peripheral neuropathy
Hospital course by product:
1. Severe fatigue, weakness, ambulatory dysfunction likely multifactorial and due to progressive carcinoma as well as significant deconditioning and hypotension.
Neurologic exam without focal findings.
He had confusion with posterior bruising with small scalp laceration
CT head with ill-defined area of hypoattenuation within the left occipital lobe with mild local mass effect.
Small to moderate focus of soft tissue edema within the nearby posterior left parietal scalp.
Differential diagnosis including possible small contusion, versus vasogenic edema secondary to metastasis
Also complains of severe pain in the lower and mid thoracic spine area. Exam without tenderness.
MRI of the brain with 1.3 cm ring-enhancing mass in the left occipital lobe with surrounding vasogenic edema consistent with metastatic process
MRI of the lumbar spine with bony mets without epidural or spinal cord involvement
Case Discussed with oncology and radiation oncology
Initiated dexamethasone 4 mg every 12 hours
Basal bolus protocol/adjust insulin dose for hyperglycemia
Discontinue tramadol given potential reduction of seizure threshold
Current plan is to hold Fruquintinib
Goals of care discussion with primary oncology noticed.
Plan is for discharge to assisted living.
Continue physical therapy.
Reconsideration of further treatment including gamma knife and reinstatement of systemic treatment as outpatient.
2. Diabetes. with Persistent hyperglycemia
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
Hyperglycemia likely induced by systemic steroid therapy.
Update hemoglobin A1c 6.4
Increase basal bolus protocol to moderate dose
Adjusted standing insulin to Lantus 40 at bedtime/aspart 13 AC
3. Leukocytosis likely steroid-induced
Afebrile, nontoxic-appearing with no complaints suggestive of infection.
Ascitic fluid not consistent with SBP
Monitor closely off
4. Chronic anemia.
Likely due to chronic disease/CA as well as chemotherapy.
Follow hemoglobin
5. Acute on chronic hyponatremia.
Sodium 123.
With peripheral edema and ascites, although intravascularly depleted given hypotension.
Suspect high ADH state likely driven by pain as well as stimulated by intravascular depletion and hypotension
Increased urine osmolarity with decreased urine sodium confirmatory
Hold diuretics (Lasix, spironolactone)
TSH within normal limits
Random cortisol within normal limits.
Improving with Samsca
6. Hyperkalemia. With ECG changes
Differential diagnosis adrenal insufficiency versus catabolic effect
Potassium temporized in ED.
Random cortisol within normal limits
Lokelma.
7. CKD stage III with baseline creatinine 1.3�1.[address] with [address] elevations in lateral leads
Possible secondary to electrolyte abnormalities
Chest pain-free.
Echocardiogram with normal LVEF and no evidence for regional wall motion abnormality
8. Metastatic invasive adenocarcinoma of sigmoid colon.
Status post sigmoid colectomy with anastomosis.
Multiple rounds of chemotherapy
Known extensive metastatic disease to liver, adrenal gland with retroperitoneal and thoracic lymphadenopathy.
History of Y90 radioembolization to the liver 02/09 at [place]
Status post Avastin.
Currently on Fruquintinib
Oncology evaluation
CODE STATUS DNR
Anticipated Discharge: 24 - 48 hours
Subjective/Interval History
-
Date of Service: April 10, 2025
C/o swollen legs.
Objective Data
-
Labs:
Laboratory Results
09/20/25
05:23
WBC 13.2 H
Hgb 8.2 L
Hct 24.2 L
Plt Count 111 L D
Sodium 132 L
Potassium 5.7 H
Chloride 103
Carbon Dioxide 24
BUN 61 H
Creatinine 1.7 H
Glucose 171 H
Calcium 8.3 L
Vital Signs:
Vital Signs
Temp Pulse Resp BP Pulse Ox
97.8 F 88 18 142/84 98
04/10/25 07:54 04/10/25 07:54 04/10/25 07:54 04/10/25 07:54 04/10/25 07:54
I&O
04/09/25 04/10/25 04/11/25
06:59 06:59 06:59
Intake Total 1200 / 1200
Balance 1200 / 1200
Review of Systems
-
History Source: Patient
All other systems: Reviewed and negative
Physical Exam
-
General: Well Developed, Well Nourished, No Apparent Distress, Comfortable and Conversant
HEENT: Normocephalic, Atraumatic, Moist Mucous Membranes, Nose Appears Normal and Ears Appear Normal
Respiratory: Decreased Breath Sounds
Cardiac: Regular Rhythm and S1/S2
GI: Soft, Nontender and Nondistended
Musculoskeletal: No Clubbing, No Cyanosis, Edema, Right Lower Extrem and Edema, Left Lower Extrem
Skin: Warm and Dry
Neuro: Awake, Alert, Oriented and AO x 3
Psych: Calm
Data Reviewed
-
Labs: Labs Reviewed by me
[2025-04-10 12:08] LABS: Glucose - Point of Care 241 mg/dl (70-99)
[2025-04-10] MEDS: NOVOLOG FLEXPEN-HIGH RESISTANCE 4 UNITS SC (12:10)
--- NOTE | 2025-04-10 15:49 | W.PN.NEPH.PH ---
Today's Communication / Plan
-
Check bladder scan
Assessment/Plan
-
Assessment
Symptomatic hypovolemic hyponatremia
Hyperkalemia with EKG changes
KRISTA on CKD
Contrast exposure On 03/05
Anemia
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
Urinary retention
Plan
Daily BMP
Creatinine remained stable continues to have difficulty with potassium as he has had in the past and has Lokelma at home
Lokelma ordered x 3 today by primary
Will check bladder scan to assure no residual but does not appear
Low potassium diet encouraged
-
-
Date of Service: April 10, 2025
CC / HPI / ROS
-
Chief Complaint:
KRISTA
History of Present Illness:
KRISTA/Cr stable 1.6
Na up to 132
BP stable
eating well now
K continues to be increased on lokelma course
Review of Systems:
no CP/SOB
Good appetite
Labs
-
Labs:
WBC 13.2 10^3/uL (4.8-10.8) H 04/10/25 05:23
RBC 2.36 10^6/uL (4.70-6.10) L 04/10/25 05:23
Hgb 8.2 g/dL (13.0-18.0) L 04/10/25 05:23
Hct 24.2 % (39.0-52.0) L 04/10/25 05:23
Plt Count 111 10^3/uL (130-400) L D 04/10/25 05:23
Sodium 132 mmol/L (135-145) L 04/10/25 05:23
Potassium 5.7 mmol/L (3.5-5.1) H 04/10/25 05:23
Chloride 103 mmol/L (98-107) 04/10/25 05:23
Carbon Dioxide 24 mmol/L (22-30) 04/10/25 05:23
BUN 61 mg/dl (9-20) H 04/10/25 05:23
Creatinine 1.7 mg/dL (0.7-1.3) H 04/10/25 05:23
eGFR 41.78 04/10/25 05:23
Glucose 171 mg/dl (70-99) H 04/10/25 05:23
Calcium 8.3 mg/dl (8.4-10.2) L 04/10/25 05:23
Phosphorus 4.4 mg/dl (2.5-4.5) 04/04/25 07:40
Omo-A-Rdvoqjhsbvj Pept 721 pg/ml 04/04/25 07:40
Albumin 2.8 g/dl (3.5-5.0) L 04/06/25 04:56
Physical Exam
-
Vital Signs:
Vital Signs
Temp Pulse Resp BP Pulse Ox
97.8 F 88 18 142/84 98
04/10/25 07:54 04/10/25 07:54 04/10/25 07:54 04/10/25 07:54 04/10/25 07:54
Cardiovascular:: Regular rate and rhythm
Respiratory:: Bilateral: Coarse
Lung Excursion:: Normal
Abdomen:: Nontender and Soft
Bowel Sounds:: Normal
Extremity Edema:: +1: Bilateral:
[2025-04-10 16:40] VITALS: BP 170/80
[2025-04-10 16:56] LABS: Glucose - Point of Care 320 mg/dl (70-99)
[2025-04-10] MEDS: HEPARIN 5000 UNITS SC ×2 (17:08→23:03)
[2025-04-10] MEDS: NOVOLOG FLEXPEN-HIGH RESISTANCE 10 UNITS SC (18:07)
[2025-04-10 18:24] VITALS: BP 158/86
[2025-04-10] MEDS: LIPITOR 10 MG PO (20:34)
[2025-04-10 21:13] LABS: Glucose - Point of Care 258 mg/dl (70-99)
[2025-04-10] MEDS: MAGNESIUM OXIDE 400 MG PO (21:16)
[2025-04-10] MEDS: LANTUS 0.4 UNITS SC (21:16)
[2025-04-10 23:14] VITALS: BP 150/74
[2025-04-11 04:47] LABS: Hematocrit 25.1 % (39.0-52.0); Hemoglobin 8.2 g/dL (13.0-18.0); Mean Corp Hgb Conc. 32.7 g/dL (33.0-37.0); Mean Corpuscular Volume 102.9 fL (80.0-94.0); Platelet Count 113 10^3/uL (130-400)
[2025-04-11 05:45] LABS: Blood Urea Nitrogen 59 mg/dl (9-20); Calcium 8.2 mg/dl (8.4-10.2); Carbon Dioxide 26 mmol/L (22-30); Chloride 102 mmol/L (98-107); Estimated Creatinine Clearance 51 ml/min; Glucose 180 mg/dl (70-99); Potassium 4.9 mmol/L (3.5-5.1); Sodium 133 mmol/L (135-145); eGFR 48.55
[2025-04-11 05:48] VITALS: BMI 33.8
[2025-04-11] MEDS: LOKELMA 10 GRAM PO (06:07)
[2025-04-11] MEDS: ROXICODONE 5 MG PO ×3 (06:16→23:22)
[2025-04-11 07:10] VITALS: BP 147/73
[2025-04-11 07:15] LABS: Glucose - Point of Care 166 mg/dl (70-99)
[2025-04-11] MEDS: HEPARIN 5000 UNITS SC ×3 (08:28→23:18)
[2025-04-11] MEDS: DECADRON 4 MG PO ×2 (08:28→20:25)
[2025-04-11] MEDS: PROTONIX 20 MG PO (08:28)
[2025-04-11] MEDS: NOVOLOG FLEXPEN 13 UNITS SC ×3 (08:29→17:32)
[2025-04-11] MEDS: NOVOLOG FLEXPEN-HIGH RESISTANCE 2 UNITS SC (08:30)
--- NOTE | 2025-04-11 10:41 | W.PN.HOSP.TC ---
Today's Communication/Plan
-
Awaiting bed availability for discharge.
Assessment / Plan
Assessment / Plan
Initial presentation:
74 years old male with widely metastatic colon carcinoma with known metastasis to liver, recurrent malignant ascites presents to the emergency from interventional radiology shortly after large volume paracentesis with complaints of severe fatigue,
weakness, ambulatory dysfunction
Diagnosis present at admit:
Essential (primary) hypertension
Mixed hyperlipidemia
Malignant metastatic neoplasm of colon, unspecified part of colon
Type 2 diabetes mellitus with hyperglycemia, without long-term current use of insulin
CHF,
COPD,
chronic anemia,
thrombocytopenia,
peripheral neuropathy
Hospital course by problem and A/P:
1. Severe fatigue, weakness, ambulatory dysfunction likely multifactorial and due to progressive carcinoma as well as significant deconditioning and hypotension - Complicated by acute hyponatremia.
Neurologic exam without focal findings.
He had confusion with posterior bruising with small scalp laceration
CT head with:
ill-defined area of hypoattenuation within the left occipital lobe with mild local mass effect.
Small to moderate focus of soft tissue edema within the nearby posterior left parietal scalp.
Differential diagnosis including possible small contusion, versus vasogenic edema secondary to metastasis
Also complains of severe pain in the lower and mid thoracic spine area. Exam without tenderness.
MRI of the brain with 1.3 cm ring-enhancing mass in the left occipital lobe with surrounding vasogenic edema consistent with metastatic process
MRI of the lumbar spine with bony mets without epidural or spinal cord involvement
Case Discussed with oncology and radiation oncology
Initiated dexamethasone 4 mg every 12 hours
Basal bolus protocol/adjust insulin dose for hyperglycemia
Discontinue tramadol given potential reduction of seizure threshold
Current plan is to hold Fruquintinib
Goals of care discussion with primary oncology noticed.
Plan is for discharge to assisted living. - Awaiting for decision on place and bed availability. Otherwise stable for this next step.
Continue physical therapy.
Reconsideration of further treatment including gamma knife and reinstatement of systemic treatment as outpatient.
2. Diabetes. with Persistent hyperglycemia
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
Hyperglycemia likely induced by systemic steroid therapy.
Update hemoglobin A1c 6.4
Increase basal bolus protocol to moderate dose
Adjusted standing insulin to Lantus 40 at bedtime/aspart 13 AC
3. Leukocytosis likely steroid-induced
Afebrile, nontoxic-appearing with no complaints suggestive of infection.
Ascitic fluid not consistent with SBP
Monitor closely off
4. Chronic anemia.
Likely due to chronic disease/CA as well as chemotherapy.
Follow hemoglobin
5. Acute on chronic hyponatremia.
Sodium 123.
With peripheral edema and ascites, although intravascularly depleted given hypotension.
Suspect high ADH state likely driven by pain as well as stimulated by intravascular depletion and hypotension
Increased urine osmolarity with decreased urine sodium confirmatory
Hold diuretics (Lasix, spironolactone)
TSH within normal limits
Random cortisol within normal limits.
Improving with Samsca
Today's plan per nephrology:
'Assessment
Symptomatic hypovolemic hyponatremia
Hyperkalemia with EKG changes
KRISTA on CKD
Contrast exposure On 03/05
Anemia
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
Urinary retention
Plan
Daily BMP
Creatinine remained stable continues to have difficulty with potassium as he has had in the past and has Lokelma at home
Lokelma ordered x 3 today by primary
Will check bladder scan to assure no residual but does not appear
Low potassium diet encouraged'
6. Hyperkalemia. With ECG changes
Differential diagnosis adrenal insufficiency versus catabolic effect
Potassium temporized in ED.
Random cortisol within normal limits
Lokelma.
See nephrology plan above
7. CKD stage III with baseline creatinine 1.3�1.6
[address] with ST elevations in lateral leads
Possible secondary to electrolyte abnormalities
Chest pain-free.
Echocardiogram with normal LVEF and no evidence for regional wall motion abnormality
8. Metastatic invasive adenocarcinoma of sigmoid colon.
Status post sigmoid colectomy with anastomosis.
Multiple rounds of chemotherapy
Known extensive metastatic disease to liver, adrenal gland with retroperitoneal and thoracic lymphadenopathy.
History of Y90 radioembolization to the liver 02/09 at [place]
Status post Avastin.
Currently on Fruquintinib
Oncology evaluation
CODE STATUS DNR
Anticipated Discharge: 24 - 48 hours
Subjective/Interval History
-
Date of Service: April 11, 2025
Feeling better.
Objective Data
-
Labs:
Laboratory Results
04/11/25
04:32
WBC 15.8 H
Hgb 8.2 L
Hct 25.1 L
Plt Count 113 L
Sodium 133 L
Potassium 4.9
Chloride 102
Carbon Dioxide 26
BUN 59 H
Creatinine 1.5 H
Glucose 180 H
Calcium 8.2 L
Vital Signs:
Vital Signs
Temp Pulse Resp BP Pulse Ox
97.6 F 76 16 147/73 99
04/11/25 07:10 04/11/25 07:10 04/11/25 07:10 04/11/25 07:10 04/11/25 07:10
I&O
04/10/25 04/11/25 04/12/25
06:59 06:59 06:59
Intake Total 960 / 960
Output Total 700 / 700
Balance 260 / 260
Review of Systems
-
History Source: Patient
All other systems: Reviewed and negative
Physical Exam
-
General: Well Developed, Well Nourished, No Apparent Distress and Comfortable
Respiratory: Clear to Auscultation
Cardiac: Regular Rhythm and S1/S2
GI: Soft, Nontender and Nondistended
Musculoskeletal: No Clubbing, No Cyanosis, Edema, Right Lower Extrem and Edema, Left Lower Extrem
Skin: Warm and Dry
Neuro: Awake, Alert and Oriented
Psych: Calm
Data Reviewed
-
Labs: Labs Reviewed by me
[2025-04-11 11:16] LABS: Glucose - Point of Care 233 mg/dl (70-99)
--- NOTE | 2025-04-11 11:38 | CM ---
Addendum entered by Radha Arguelles 04/11/25 15:42:
VM left for patients daughter to discuss discharge plan for tomorrow to [facility], will await return call.
Original Note:
CM reviewed chart, spoke with REYES Malloy at [facility], able to accept patient tomorrow.
Requesting DME, med list, updated clinicals, therapy notes to be faxed to [phone].
Patient will require script for PT/OT to be sent with patient upon discharge.
Facility requesting transport prior to 12:00 p.m. if possible.
[facility]. CM reports CM spoke with [facility], awaiting DME form to complete and will fax over.
Plan; discharge to [facility], requesting 12:00 p.m. ambulance transport if able
[facility]
Report: : ask for Wellness ([facility] or [facility])
[2025-04-11] MEDS: NOVOLOG FLEXPEN-HIGH RESISTANCE 4 UNITS SC (12:23)
[2025-04-11] MEDS: LASIX 60 MG IV (13:03)
[2025-04-11] MEDS: SAMSCA 30 MG PO (13:03)
--- NOTE | 2025-04-11 14:44 | W.PN.NEPH.PH ---
Today's Communication / Plan
-
Samsca and Lasix
Assessment/Plan
-
Assessment
Symptomatic hypovolemic hyponatremia
Hyperkalemia with EKG changes
KRISTA on CKD
Contrast exposure On 03/05
Anemia
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
Urinary retention
Plan
Daily BMP
Creatinine remained stable continues to have difficulty with potassium as he has had in the past and has Lokelma at home
Lokelma ordered x 3 still elevated potassium
Will check bladder scan = 165 PVR
Low potassium diet encouraged
IV Lasix today ordered
Samsca ordered for sodium of 123
Creatinine remained stable 1.7
-
-
Date of Service: April 11, 2025
CC / HPI / ROS
-
Chief Complaint:
KRISTA
History of Present Illness:
KRISTA/Cr stable 1.6
Na back down to 123
BP stable
eating well now
K continues to be increased on [employer] course
Review of Systems:
no CP/SOB
Good appetite
Labs
-
Labs:
WBC 15.8 10^3/uL (4.8-10.8) H 04/11/25 04:32
RBC 2.44 10^6/uL (4.70-6.10) L 04/11/25 04:32
Hgb 8.2 g/dL (13.0-18.0) L 04/11/25 04:32
Hct 25.1 % (39.0-52.0) L 04/11/25 04:32
Plt Count 113 10^3/uL (130-400) L 04/11/25 04:32
Sodium 133 mmol/L (135-145) L 04/11/25 04:32
Potassium 4.9 mmol/L (3.5-5.1) 04/11/25 04:32
Chloride 102 mmol/L (98-107) 04/11/25 04:32
Carbon Dioxide 26 mmol/L (22-30) 04/11/25 04:32
BUN 59 mg/dl (9-20) H 04/11/25 04:32
Creatinine 1.5 mg/dL (0.7-1.3) H 04/11/25 04:32
eGFR 48.55 04/11/25 04:32
Glucose 180 mg/dl (70-99) H 04/11/25 04:32
Calcium 8.2 mg/dl (8.4-10.2) L 04/11/25 04:32
Phosphorus 4.4 mg/dl (2.5-4.5) 04/04/25 07:40
Uih-A-Qtddgkxcuri Pept 721 pg/ml 04/04/25 07:40
Albumin 2.8 g/dl (3.5-5.0) L 04/06/25 04:56
Physical Exam
-
Vital Signs:
Vital Signs
Temp Pulse Resp BP Pulse Ox
97.6 F 76 16 153/73 99
04/11/25 07:10 04/11/25 07:10 04/11/25 07:10 04/11/25 13:03 04/11/25 07:10
Cardiovascular:: Regular rate and rhythm
Respiratory:: Bilateral: Coarse
Lung Excursion:: Normal
Abdomen:: Nontender and Soft
Bowel Sounds:: Normal
Extremity Edema:: +1: Bilateral:
[2025-04-11 15:05] VITALS: BP 153/73
[2025-04-11 16:11] LABS: Glucose - Point of Care 289 mg/dl (70-99)
[2025-04-11] MEDS: LIPITOR 10 MG PO (17:27)
[2025-04-11] MEDS: NOVOLOG FLEXPEN-HIGH RESISTANCE 7 UNITS SC (17:32)
[2025-04-11 21:19] LABS: Glucose - Point of Care 257 mg/dl (70-99)
[2025-04-11] MEDS: MAGNESIUM OXIDE 400 MG PO (21:49)
[2025-04-11] MEDS: LANTUS 0.4 UNITS SC (21:49)
[2025-04-11 23:35] VITALS: BP 162/59
[2025-04-12 06:00] VITALS: BMI 33.7
[2025-04-12 06:57] LABS: Hematocrit 24.9 % (39.0-52.0); Hemoglobin 8.1 g/dL (13.0-18.0); Mean Corp Hgb Conc. 32.5 g/dL (33.0-37.0); Mean Corpuscular Volume 103.3 fL (80.0-94.0); Platelet Count 109 10^3/uL (130-400)
[2025-04-12 07:00] LABS: ALT (SGPT) 140 U/L (0-50); AST (SGOT) 104 U/L (17-59); Albumin 2.9 g/dl (3.5-5.0); Alkaline Phosphatase 494 U/L (38-126); Blood Urea Nitrogen 61 mg/dl (9-20); Calcium 8.0 mg/dl (8.4-10.2); Carbon Dioxide 27 mmol/L (22-30); Chloride 100 mmol/L (98-107); Estimated Creatinine Clearance 59 ml/min; Glucose 177 mg/dl (70-99); Potassium 4.7 mmol/L (3.5-5.1); Sodium 132 mmol/L (135-145); Total Protein 6.3 g/dl (6.3-8.2); eGFR 57.65
[2025-04-12 07:10] VITALS: BP 139/68
[2025-04-12 07:37] LABS: Glucose - Point of Care 161 mg/dl (70-99)
--- NOTE | 2025-04-12 07:55 | W.PN.ONC2 ---
Today's Communication / Plan
-
D/C to SNF + gamma knife radiation. Hospice will be revisited if he requires readmission in the next couple weeks after D/C.
Hold fruquintinib at discharge
continue dexamethasone
OP follow up will be arranged upon discharge
Impression
Impression
Hospitalized post-fall
metastatic colon cancer progressed on multiple regimens, with considerable toxicity from the most recent regimens. Had only been on fruquintinib a couple weeks.
Imaging studies showed new brain met in addition to widely progressive disease.
Elevated LFTs
hyponatremia s/p samsca
KRISTA improved
transfusion dependent anemia
ascites
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
Plan
Plan
continue dexamethasone
discharge planning
Hold fruquintinib at discharge
Subjective/Objective
Subjective
afebrile, no hypoxia or hypotension
using ocycodone prn pain
Vital Signs:
Vital Signs
Temp Pulse Resp BP Pulse Ox
98.3 F 83 18 162/59 100
04/11/25 23:35 04/11/25 23:35 04/11/25 23:35 04/11/25 23:35 04/11/25 23:35
Lab Results:
Laboratory Data
WBC 13.1 10^3/uL (4.8-10.8) H 04/12/25 05:59
Hgb 8.1 g/dL (13.0-18.0) L 04/12/25 05:59
Plt Count 109 10^3/uL (130-400) L 04/12/25 05:59
PT 16.9 Sec (11.4-14.6) H 04/04/25 07:40
INR 1.34 04/04/25 07:40
eGFR 57.65 04/12/25 05:59
Physical Exam
HEENT: No Jaundice
Pulmonary: Other (unlabored)
GI: Soft
Extremities: Pulses Present
[2025-04-12] MEDS: PROTONIX 20 MG PO (08:44)
[2025-04-12] MEDS: DECADRON 4 MG PO ×2 (08:44→21:19)
[2025-04-12] MEDS: HEPARIN 5000 UNITS SC ×3 (08:44→23:24)
[2025-04-12] MEDS: NOVOLOG FLEXPEN 13 UNITS SC ×3 (08:45→17:06)
[2025-04-12] MEDS: NOVOLOG FLEXPEN-HIGH RESISTANCE 2 UNITS SC ×2 (08:45→17:06)
[2025-04-12] MEDS: ROXICODONE 5 MG PO ×3 (08:54→21:18)
--- NOTE | 2025-04-12 09:11 | CM ---
Addendum entered by Jessie Yanez 04/12/25 15:36:
Fax was unsuccessful X2, one from [facility] fax and one from fax. Sent medication orders via secure email. Verified with [facility] that they received the secure email and had no further needs from . [facility] at [facility] stated she has spoken to the
pt's son and transport will be provided before 11AM.
Primary nurse Marium and Dr. Parker both made aware of discharge plan for tomorrow. will call [facility] in the morning to confirm the received pt's medications, including insulin
Plan: DC to [facility] tomorrow
Addendum entered by Jessie Yanez 04/12/25 14:12:
Medication orders faxed to [facility]. Nursing suspect artist supervisor requested these documents be refaxxed to- . Facility unable to accept pt today because they will not be able to get the medications, specifically concerned about insulin, in
time to give to patient his dinner and HS doses. Also there will not be a nurse to accept the patient after [address] Parker will write the discharge order once assurances can be given by [facility] that the patient will receive his insulin doses at
prescribed. Discussed barriers with [facility]ef Tagger - we agreed it would be best to transfer the patient tomorrow. Marium, pt's nurse will communicate this plan to Dr. Parker.
Addendum entered by Jessie Yanez 04/12/25 10:05:
Will fax paper scripts to [facility] as requested- medications and PT/OT
[facility]
Report: [phone]

Original Note:
Confirmed bed availability with [facility] for today with Juana. Confirmed with family they are choosing [facility] and are available for transportation.Facility is asking for a morning transport time. Will provide IMM prior to discharge.
Plan: DC to [facility]
--- NOTE | 2025-04-12 10:48 | W.PN.NEPH.PH ---
Today's Communication / Plan
-
Add Lasix 40 mg daily to control sodium and potassium
Assessment/Plan
-
Assessment
Symptomatic hypovolemic hyponatremia
Hyperkalemia with EKG changes
KRISTA on CKD
Contrast exposure On 03/05
Anemia
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
Urinary retention
Plan
Daily BMP
Creatinine remained stable continues to have difficulty with potassium as he has had in the past and has Lokelma at home
Lokelma ordered x 3 still elevated potassium K now 4 point
Will check bladder scan = 165 PVR
Low potassium diet encouraged
40 mg p.o. Lasix daily to start
Sodium up to 132
Creatinine remained stable 1.7
-
-
Date of Service: April 12, 2025
CC / HPI / ROS
-
Chief Complaint:
KRISTA
History of Present Illness:
KRISTA/Cr stable 1.3
Na at 132
BP stable
eating well now
K continues to be increased on lokelma course
Review of Systems:
no CP/SOB
Good appetite
Labs
-
Labs:
WBC 13.1 10^3/uL (4.8-10.8) H 04/12/25 05:59
RBC 2.41 10^6/uL (4.70-6.10) L 04/12/25 05:59
Hgb 8.1 g/dL (13.0-18.0) L 04/12/25 05:59
Hct 24.9 % (39.0-52.0) L 04/12/25 05:59
Plt Count 109 10^3/uL (130-400) L 04/12/25 05:59
Sodium 132 mmol/L (135-145) L 04/12/25 05:59
Potassium 4.7 mmol/L (3.5-5.1) 04/12/25 05:59
Chloride 100 mmol/L (98-107) 04/12/25 05:59
Carbon Dioxide 27 mmol/L (22-30) 04/12/25 05:59
BUN 61 mg/dl (9-20) H 04/12/25 05:59
Creatinine 1.3 mg/dL (0.7-1.3) 04/12/25 05:59
eGFR 57.65 04/12/25 05:59
Glucose 177 mg/dl (70-99) H 04/12/25 05:59
Calcium 8.0 mg/dl (8.4-10.2) L 04/12/25 05:59
Phosphorus 4.4 mg/dl (2.5-4.5) 04/04/25 07:40
Bbo-A-Phbomnfzkkj Pept 721 pg/ml 04/04/25 07:40
Albumin 2.9 g/dl (3.5-5.0) L 04/12/25 05:59
Physical Exam
-
Vital Signs:
Vital Signs
Temp Pulse Resp BP Pulse Ox
97.5 F 69 18 139/68 96
04/12/25 07:10 04/12/25 07:10 04/12/25 07:10 04/12/25 07:10 04/12/25 07:10
Cardiovascular:: Regular rate and rhythm
Respiratory:: Bilateral: Coarse
Lung Excursion:: Normal
Abdomen:: Nontender and Soft
Bowel Sounds:: Normal
Extremity Edema:: +1: Bilateral:
[2025-04-12 11:21] LABS: Glucose - Point of Care 322 mg/dl (70-99)
--- NOTE | 2025-04-12 11:54 | W.DS.TRANS ---
DC Summary - Substance Abuse Nurse
-
Discharge Instructions:
Discharge Diagnosis/Procedures Metastatic colon CA
Diet Diabetic, Carb Controlled
Blood Work BMP in one week
Instructions:
Stand-Alone Forms:
Changes to Home Medications: Yes
Discharge Medications:
DC Medications w/original date entered in [facility]
calcium 600 mg (as carbonate)-vitamin D3 5 mcg (200 unit) tablet 1 tab PO BID Supplement #30 tabs 04/12/25
dexamethasone 4 mg tablet 4 mg PO Q12 #60 tabs 04/12/25
docusate sodium 100 mg capsule (Colace) 100 mg PO HS Constipation #30 caps 04/12/25
furosemide 40 mg tablet 40 mg PO DAILY #30 tabs 04/12/25
insulin aspart U-100 100 unit/mL (3 mL) subcutaneous pen 13 unit (0.13 mL) SC AC #15 mL 04/12/25
insulin glargine 100 unit/mL (3 mL) subcutaneous pen (Lantus Solostar U-100 Insulin) 40 unit (0.4 mL) SC QPM #15 mL 04/12/25
magnesium 200 mg tablet 400 mg (2 x 200 mg) PO HS Supplement #30 tabs 04/12/25
oxycodone 5 mg tablet 5 mg PO Q4HPRN PRN moderate pain #30 tabs 04/12/25
pantoprazole 20 mg tablet,delayed release 20 mg PO DAILY #30 tabs 04/12/25
polyethylene glycol 3350 17 gram oral powder packet 17 g PO DAILYPRN PRN constipation #30 ea 04/12/25
simvastatin 10 mg tablet 10 mg PO HS High cholesterol #30 tabs 04/12/25
vitamins A,C,F-urpa-zegmbh 4,296 mcg-226 mg-90 mg capsule (PreserVision AREDS) 1 cap PO BID Supplement #30 caps 04/12/25
Home Medication Changes
Fruzaqla, metformin, spironolactone, Ultram stopped
Decadron and insulin initiated
Pending Results: No
[2025-04-12] MEDS: NOVOLOG FLEXPEN-HIGH RESISTANCE 10 UNITS SC (12:07)
[2025-04-12 15:15] VITALS: BP 154/74
--- NOTE | 2025-04-12 15:59 | W.PN.HOSP.TC ---
Today's Communication/Plan
-
Hyponatremia improved status post Samsca. Initiated on Lasix.
Hypokalemia improved. Off spironolactone
Pain reasonably controlled on current regimen.
Insulin regimen had been adjusted.
Discharge planning/disposition efforts to assisted living.
Assessment / Plan
Assessment / Plan
Initial presentation:
74 years old male with widely metastatic colon carcinoma with known metastasis to liver, recurrent malignant ascites presents to the emergency from interventional radiology shortly after large volume paracentesis with complaints of severe fatigue,
weakness, ambulatory dysfunction
Diagnosis present at admit:
Essential (primary) hypertension
Mixed hyperlipidemia
Malignant metastatic neoplasm of colon, unspecified part of colon
Type 2 diabetes mellitus with hyperglycemia, without long-term current use of insulin
CHF,
COPD,
chronic anemia,
thrombocytopenia,
peripheral neuropathy
Hospital course by problem and A/P:
1. Severe fatigue, weakness, ambulatory dysfunction likely multifactorial and due to progressive carcinoma as well as significant deconditioning and hypotension - Complicated by acute hyponatremia.
Neurologic exam without focal findings.
He had confusion with posterior bruising with small scalp laceration
CT head with:
ill-defined area of hypoattenuation within the left occipital lobe with mild local mass effect.
Small to moderate focus of soft tissue edema within the nearby posterior left parietal scalp.
Differential diagnosis including possible small contusion, versus vasogenic edema secondary to metastasis
Also complains of severe pain in the lower and mid thoracic spine area. Exam without tenderness.
MRI of the brain with 1.3 cm ring-enhancing mass in the left occipital lobe with surrounding vasogenic edema consistent with metastatic process
MRI of the lumbar spine with bony mets without epidural or spinal cord involvement
Case Discussed with oncology and radiation oncology
Initiated dexamethasone 4 mg every 12 hours
Basal bolus protocol/adjust insulin dose for hyperglycemia
Discontinue tramadol given potential reduction of seizure threshold
Current plan is to hold Fruquintinib
Goals of care discussion with primary oncology noticed.
Plan is for discharge to assisted living. - Awaiting for decision on place and bed availability. Otherwise stable for this next step.
Continue physical therapy.
Reconsideration of further treatment including gamma knife and reinstatement of systemic treatment as outpatient.
2. Diabetes. with Persistent hyperglycemia
Patient with history of IDDM not on any glucose lowering therapy [employer] given weight loss secondary to carcinoma.
Hyperglycemia likely induced by systemic steroid therapy.
Update hemoglobin A1c 6.4
Increase basal bolus protocol to moderate dose
Adjusted standing insulin to Lantus 40 at bedtime/aspart 13 AC
3. Leukocytosis likely steroid-induced
Afebrile, nontoxic-appearing with no complaints suggestive of infection.
Ascitic fluid not consistent with SBP
Monitor closely off
4. Chronic anemia.
Likely due to chronic disease/CA as well as chemotherapy.
Follow hemoglobin
5. Acute on chronic hyponatremia.
Sodium 123.
With peripheral edema and ascites, although intravascularly depleted given hypotension.
Suspect high ADH state likely driven by pain as well as stimulated by intravascular depletion and hypotension
Increased urine osmolarity with decreased urine sodium confirmatory
Hold diuretics (Lasix, spironolactone)
TSH within normal limits
Random cortisol within normal limits.
Improving with Samsca
Today's plan per nephrology:
'Assessment
Symptomatic hypovolemic hyponatremia
Hyperkalemia with EKG changes
KRISTA on CKD
Contrast exposure On 03/05
Anemia
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
Urinary retention
Plan
Daily BMP
Creatinine remained stable continues to have difficulty with potassium as he has had in the past and has Lokelma at home
Lokelma ordered x 3 today by primary
Will check bladder scan to assure no residual but does not appear
Low potassium diet encouraged'
6. Hyperkalemia. With ECG changes
Differential diagnosis adrenal insufficiency versus catabolic effect
Potassium temporized in ED.
Random cortisol within normal limits
Lokelma.
See nephrology plan above
7. CKD stage III with baseline creatinine 1.3�1.6
[address] with ST elevations in lateral leads
Possible secondary to electrolyte abnormalities
Chest pain-free.
Echocardiogram with normal LVEF and no evidence for regional wall motion abnormality
8. Metastatic invasive adenocarcinoma of sigmoid colon.
Status post sigmoid colectomy with anastomosis.
Multiple rounds of chemotherapy
Known extensive metastatic disease to liver, adrenal gland with retroperitoneal and thoracic lymphadenopathy.
History of Y90 radioembolization to the liver 02/09 at [facility]
Status post Avastin.
Currently on Fruquintinib
Oncology evaluation
CODE STATUS DNR
Anticipated Discharge: 24 - 48 hours
Subjective/Interval History
-
Date of Service: April 12, 2025
Objective Data
-
Labs:
Laboratory Results
04/12/25
05:59
WBC 13.1 H
Hgb 8.1 L
Hct 24.9 L
Plt Count 109 L
Sodium 132 L
Potassium 4.7
Chloride 100
Carbon Dioxide 27
BUN 61 H
Creatinine 1.3
Glucose 177 H
Calcium 8.0 L
Total Bilirubin 2.1 H
AST 104 H
ALT 140 H
Alkaline Phosphatase 494 H
Vital Signs:
Vital Signs
Temp Pulse Resp BP Pulse Ox
97.5 F 69 18 139/68 98
04/12/25 07:10 04/12/25 07:10 04/12/25 07:10 04/12/25 07:10 04/12/25 08:30
I&O
04/11/25 04/12/25 04/13/25
06:59 06:59 06:59
Intake Total 960 / 960 1440 / 1440
Output Total 700 / 700 400 / 400
Balance 260 / 260 1040 / 1040
Physical Exam
-
General: Well Developed, Well Nourished, No Apparent Distress and Comfortable
Respiratory: Clear to Auscultation
Cardiac: Regular Rhythm and S1/S2
GI: Soft, Nontender and Nondistended
Musculoskeletal: No Clubbing, No Cyanosis, Edema, Right Lower Extrem and Edema, Left Lower Extrem
Skin: Warm and Dry
Neuro: Awake, Alert and Oriented
Psych: Calm
[2025-04-12 16:27] LABS: Glucose - Point of Care 177 mg/dl (70-99)
[2025-04-12] MEDS: LIPITOR 10 MG PO (17:06)
[2025-04-12] MEDS: MAGNESIUM OXIDE 400 MG PO (21:19)
[2025-04-12 21:24] LABS: Glucose - Point of Care 177 mg/dl (70-99)
[2025-04-12] MEDS: LANTUS 0.4 UNITS SC (21:26)
[2025-04-12 23:00] VITALS: BP 109/71
[2025-04-13 06:00] VITALS: BMI 33.9
[2025-04-13 07:30] VITALS: BP 135/73
[2025-04-13] MEDS: PROTONIX 20 MG PO (07:35)
[2025-04-13] MEDS: LASIX 40 MG PO (07:35)
[2025-04-13] MEDS: HEPARIN 5000 UNITS SC (07:35)
[2025-04-13] MEDS: DECADRON 4 MG PO (07:36)
[2025-04-13] MEDS: ROXICODONE 5 MG PO (07:36)
[2025-04-13 07:43] LABS: Glucose - Point of Care 72 mg/dl (70-99)
[2025-04-13] MEDS: NOVOLOG FLEXPEN-HIGH RESISTANCE SC (07:58)
[2025-04-13] MEDS: NOVOLOG FLEXPEN 13 UNITS SC (08:30)
--- NOTE | 2025-04-13 10:49 | W.PN.NEPH.PH ---
Today's Communication / Plan
-
Maintain fluid restriction and Lasix
GFR at baseline
Assessment/Plan
-
Assessment
Symptomatic hypovolemic hyponatremia
Hyperkalemia with EKG changes
KRISTA on CKD
Contrast exposure On 03/05
Anemia
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
Urinary retention
Plan
Daily BMP h while patient is here
Creatinine remained stable continues to have difficulty with potassium as he has had in the past and has Lokelma at home
Low potassium diet encouraged re: hyperkalemia
Maintain Lasix 40 mg p.o. 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
Sodium up to 132 04/12/25
Creatinine remained stable 1.3 (baseline)
-
-
Date of Service: April 13, 2025
CC / HPI / ROS
-
Chief Complaint:
KRISTA
History of Present Illness:
KRISTA/Cr stable 1.3
Na at 132
BP stable
eating well now
K continues to be increased on amazingtuneskella course
Review of Systems:
no CP/SOB
Good appetite
Labs
-
Labs:
WBC 13.1 10^3/uL (4.8-10.8) H 04/12/25 05:59
RBC 2.41 10^6/uL (4.70-6.10) L 04/12/25 05:59
Hgb 8.1 g/dL (13.0-18.0) L 04/12/25 05:59
Hct 24.9 % (39.0-52.0) L 04/12/25 05:59
Plt Count 109 10^3/uL (130-400) L 04/12/25 05:59
Sodium 132 mmol/L (135-145) L 04/12/25 05:59
Potassium 4.7 mmol/L (3.5-5.1) 04/12/25 05:59
Chloride 100 mmol/L (98-107) 04/12/25 05:59
Carbon Dioxide 27 mmol/L (22-30) 04/12/25 05:59
BUN 61 mg/dl (9-20) H 04/12/25 05:59
Creatinine 1.3 mg/dL (0.7-1.3) 04/12/25 05:59
eGFR 57.65 04/12/25 05:59
Glucose 177 mg/dl (70-99) H 04/12/25 05:59
Calcium 8.0 mg/dl (8.4-10.2) L 04/12/25 05:59
Phosphorus 4.4 mg/dl (2.5-4.5) 04/04/25 07:40
Hgv-W-Smtxrjghgvj Pept 721 pg/ml 04/04/25 07:40
Albumin 2.9 g/dl (3.5-5.0) L 04/12/25 05:59
Physical Exam
-
Vital Signs:
Vital Signs
Temp Pulse Resp BP Pulse Ox
98.0 F 83 16 135/73 100
04/13/25 07:30 04/13/25 07:35 04/13/25 07:30 04/13/25 07:35 04/13/25 07:30
Cardiovascular:: Regular rate and rhythm
Respiratory:: Bilateral: Coarse
Lung Excursion:: Normal
Abdomen:: Nontender and Soft
Bowel Sounds:: Normal
Extremity Edema:: +1: Bilateral:
--- NOTE | 2025-04-13 11:05 | CM ---
Confirmed with [facility] they have the patient's insulin. Bed is available today. Pt made aware. Son will transport pt to facility.
Plan:discharged today to [facility].
[2025-04-13 11:07] VITALS: BP 118/70
== END 2025-04-13 11:28 | DRG 374 ==
LOC: 4 EAST ACU 13:43
PROVIDERS: Hospitalist; Internal Medicine; Nurse Practitioner Family; Nurse Practitioner Gerontology; Student in an Organized Health Care Education/Training Program; ADMITTING PHYSICIAN Internal Medicine; CONSULT PHYSICIAN Specialist; EMERGENCY PHYSICIAN Emergency Medicine; FAMILY PHYSICIAN Physician Assistant; OTHER PHYSICIAN Internal Medicine Hematology & Oncology
DX: C18.7 Malignant neoplasm of sigmoid colon (principal); G93.6 Cerebral edema; C78.7 Secondary malignant neoplasm of liver and intrahepatic bile duct; C79.31 Secondary malignant neoplasm of brain; C79.51 Secondary malignant neoplasm of bone; E87.1 Hypo-osmolality and hyponatremia; I13.0 Hypertensive heart and chronic kidney disease with heart failure and stage 1 through stage 4 chronic kidney disease, or unspecified chronic kidney disease; D84.9 Immunodeficiency, unspecified; I50.32 Chronic diastolic (congestive) heart failure; N17.9 Acute kidney failure, unspecified; R62.7 Adult failure to thrive; E11.65 Type 2 diabetes mellitus with hyperglycemia; E87.5 Hyperkalemia; N18.30 Chronic kidney disease, stage 3 unspecified; E11.22 Type 2 diabetes mellitus with diabetic chronic kidney disease; K59.09 Other constipation; I95.1 Orthostatic hypotension; E86.1 Hypovolemia; D72.829 Elevated white blood cell count, unspecified; D64.81 Anemia due to antineoplastic chemotherapy; D63.0 Anemia in neoplastic disease; Z90.49 Acquired absence of other specified parts of digestive tract; Z66 Do not resuscitate; J44.9 Chronic obstructive pulmonary disease, unspecified; D69.6 Thrombocytopenia, unspecified; W01.0XXA Fall on same level from slipping, tripping and stumbling without subsequent striking against object, initial encounter; S01.01XA Laceration without foreign body of scalp, initial encounter; G89.29 Other chronic pain; E11.42 Type 2 diabetes mellitus with diabetic polyneuropathy; E78.00 Pure hypercholesterolemia, unspecified; Z79.84 Long term (current) use of oral hypoglycemic drugs; F17.200 Nicotine dependence, unspecified, uncomplicated; T38.0X5A Adverse effect of glucocorticoids and synthetic analogues, initial encounter; Z92.21 Personal history of antineoplastic chemotherapy; Z79.899 Other long term (current) drug therapy
CPT/HCPCS: 49083; 70450; 70553; 71045; 72125; 72157; 72158; 73560; 76705; 80048; 80053; 81003; 81015; 82024; 82248; 82533; 82947; 82962; 83036; 83735; 83880; 83935; 84100; 84132; 84300; 84443; 84484; 85025; 85027; 85384; 85610; 87086; 89051; 93005; 93306; 96361; 96365; 96366; 96375; 97116; 97535; 99285; A9575; P9047; Q9950

== ENCOUNTER 2025-04-18 19:56 | Inpatient (IN) | payer MEDICARE, SELFPAY ==
[2025-04-18] VITALS (10 sets, daily range): BP systolic 121–151; BP diastolic 64–95; BMI 32.9
[2025-04-18 14:30] LABS: Hematocrit 25.1 % (39.0-52.0); Hemoglobin 8.8 g/dL (13.0-18.0); Mean Corp Hgb Conc. 35.1 g/dL (33.0-37.0); Mean Corpuscular Volume 102.0 fL (80.0-94.0); Platelet Count 123 10^3/uL (130-400)
--- NOTE | 2025-04-18 14:35 | ED.GENMED ---
History of Present Illness
<Cierra Chaudhry PA-C - Last Filed: 04/18/25 19:17>
General
Chief Complaint: Abdominal Symptoms
Source: patient and records
Exam Limitations: none
Time Seen by Provider: 04/18/25 14:24
History of Present Illness
History of Present Illness:
74yoM with a history of metastatic colon cancer, CHF, COPD, hypertension, and hyperlipidemia presenting via EMS for evaluation of decreased urine output. Patient was discharged 5 days ago after a hospitalization for altered mental status. He was
found to have a new diagnosis of brain metastatic disease. He was also having back pain during his hospitalization and MRI of the lumbar spine showed bony mets. He was discharged to an assisted living facility. Since discharge, patient reports
having a gradual worsening of his abdominal distention and feels he needs a paracentesis. He has required paracentesis in the past, last paracentesis was performed approximately 2 weeks ago. He is having some abdominal discomfort which he believes
may be related to his underlying cancer and ascites. He also reports some difficulty urinating and he is having difficulty initiating his urine stream at times. He has been taking a bowel regimen for constipation and is able to have several bowel
movements daily. He denies any fevers, vomiting, chest pain, shortness of breath.
Past History
<Cierra Chaudhry PA-C - Last Filed: 04/18/25 19:17>
Past History
ED Past Medical History: COPD, HTN, Hypercholesterolemia, NIDDM and Other (Colorectal cancer with liver mets)
ED Past Surgical History: Orthopedic and Other
Social History
Tobacco: Smoker
Alcohol: Occasional
Drug: None
Personal:
Living: alone
Employment: Retired
Family History
Family History: Other (Noncontributory)
Phy Exam
<Cierra Chaudhry PA-C - Last Filed: 04/18/25 19:17>
Physical Exam
Physical Exam:
Chronically ill appearing, no apparent distress
General Physical Exam
General Presentation: no apparent distress
General Skin: warm and dry
General Habitus: elderly
General Mental: alert
ENT Exam
ENT Exam: normocephalic
Cardiovascular Exam
Cardiovascular Exam: other (2-3+ pitting edema in bilateral lower extremities)
Pulmonary Exam
Pulmonary Exam: lungs clear, no respiratory distress, no rales, no crackles, no rhonchi and no wheezing
Gastrointestinal Exam
Gastrointestinal Exam: soft, distended and other (Abdomen distended with fluid wave. +Generalized tenderness. No rebound or guarding.)
Neurological Exam
Neurological Exam: alert
Cato Coma Scale
Eye Opening: Spontaneous
Verbal Response: Oriented
Motor Response: Obeys Commands
GCS Total Score: 15
Skin Exam
Skin Exam: warm/dry, jaundice and pallor
Psychiatric Exam
Psychiatric Exam: normal mood/affect
<NAT Boyd - Last Filed: 04/19/25 00:33>
Jil Coma Scale
GCS Total Score: 15
Course
<Cierra Chaudhry PA-C - Last Filed: 04/18/25 19:17>
Orders/Labs/Results
Orders:
Orders
04/18/25 13:58
Complete Blood Count/With Diff Urgent
Comprehensive Metabolic Panel Urgent
04/18/25 14:54
CT Abd/pelvis W Iv Cont Urgent
Comment:
Reason For Exam: abd pain, distention, elevated bilirubin
04/18/25 Dinner
2000 calorie (17 carb) Diabetic
At Your Request: Full Participation
Fluid Restriction: 1500 mL/day (50 oz)
Diabetic Diet: Potassium, 2 Gram
04/18/25 15:02
Oxycodone [Roxicodone] 5 mg PO NOW STA
04/18/25 19:38
Admit/Transfer Patient As Directed
Co-Sign Provider:
Level of Care: Inpatient admission
Assign to:: IMU- Intermediate Care
Physician / Group: Rudy Barajas
Diagnosis: ascites, hyponatremia, transaminitis, hyperbilirubinemia
Reason for Hospitalization: ascites, hyponatremia, transaminitis, hyperbilirubinemia
Expected length of stay greater than two midnights?: Yes
ELOS- Estimated Length of Stay in days: 3
I certify the patient meets the requirements for IP care: Yes
PRN Pain Medication Management As Directed
May give lesser potent ordered pain med per pt: Yes
preference::
Protocol:: Medication orders for pain may be administered in a
manner that supports deferring to patient preference
when the pt is:
- Requesting an ordered lesser potent pain medication.
Least to most potent pain medications are defined
as: acetaminophen < NSAID < tramadol < opioids
(morphine, oxycodone, hydromorphone).
- Requesting a lesser dose of the same medication IF
ORDERED.
- Requesting a less intrusive route of administration
if both routes are prescribed by the provider (PO <
IV).
04/18/25 19:39
Code Status As Directed
Resuscitation Status: Full Code
04/18/25 19:48
Sodium Zirconium Cyclosilicate [Lokelma] 10 gram PO NOW STA
04/18/25 19:53
PRN Pain Medication Management As Directed
May give lesser potent ordered pain med per pt: Yes
preference::
Protocol:: Medication orders for pain may be administered in a
manner that supports deferring to patient preference
when the pt is:
- Requesting an ordered lesser potent pain medication.
Least to most potent pain medications are defined
as: acetaminophen < NSAID < tramadol < opioids
(morphine, oxycodone, hydromorphone).
- Requesting a lesser dose of the same medication IF
ORDERED.
- Requesting a less intrusive route of administration
if both routes are prescribed by the provider (PO <
IV).
04/18/25 19:54
Oxycodone [Roxicodone] 5 mg PO Q4HPRN PRN moderate pain
04/18/25 20:52
Osmolality, Random Urine Urgent
Date Specimen was Collected: 04/18/25
Time Specimen was Collected: 16:08
Comment: ADDON
Urinalysis Reflex To Culture Urgent
Date Specimen was Collected: 04/18/25
Time Specimen was Collected: 16:08
Urine Microscopic Reflex Cult Urgent
04/18/25 23:00
Dexamethasone [Decadron] 4 mg PO Q12
Dextrose 50%-Water [Dextrose 50% Syringe] 12.5 grams IV [id number] PRN
Docusate Sodium [Colace] 100 mg PO HS
Glucagon [GlucaGen] 1 mg IM PRN PRN
Polyethylene Glycol Powder [Miralax] 17 grams PO DAILYPRN PRN constipation
simvastatin 10 mg PO HS
04/18/25 23:00
Consult Interventional Radiology [IRAD CONSULT] Routine
Consulting Provider: Donnie Amezquita
Was physician already notified: Yes
Procedure being ordered, including laterality if applicable: paracentesis
Acknowledgement that appropriate orders are entered: N/A
NEPHROLOGY CONSULT Routine
Consulting Provider: Gustavo Foster V.
Was physician already notified: Yes
ONCOLOGY CONSULT Routine
Consulting Provider: Elton Moralez
Was physician already notified: Yes
Activity As Directed
Activity Level: As Tolerated
Bedside Glucose Monitoring As Directed
Frequency: AC&HS
Additional Instructions:: Change to q6h if pt on TPN, tube feeding or not eating
Bladder Scan As Directed
Follow Bladder Retention/Intermittent Cath Algorithm?: Yes
PRN if no void in __ hours: 6
Frequency: Per Retention Algorithm
If Bladder Scan Result >: 400
then:: Straight cath
Intake/ Output As Directed
Frequency: Per unit guidelines
Sleep Apnea Assessment by RN As Directed
Comment:
Physician Instructions:
Straight Cath As Directed
Frequency: Per Retention Algorithm
Additional Instructions: straight cath as needed per acute urinary retention algorithm for 24 hrs
Additional Instructions: for bladder scan greater than 400 mL
Vital Signs As Directed
Frequency: Per unit guidelines
Weight As Directed
Frequency: Daily
Type of Scale: Standing Scale
Comment: Daily morning weight. If unable to stand, use balanced bed scale.
Weight As Directed
Frequency: Once
Type of Scale: Standing Scale
Comment: Upon Admission. If unable to stand, use balanced bed scale.
O2 Therapy [RESP] Routine
Titrate/Wean O2 to maintain O2 sat greater than (%): 93
Pulse Ox/cont/shift [RESP] Routine
Quantity: 1
Special Instructions: Daily pulse oximetry at rest. If greater than 92% at rest also obtain pulse oximetry
while ambulating as tolerated.
DX Deep Vein Thrombosis Video Routine
04/18/25 23:45
Magnesium Oxide 400 mg PO HS
04/19/25 00:00
Heparin 5,000 units SC Q8
04/19/25 06:00
Basic Metabolic Panel IN AM
Complete Blood Count/No Diff IN AM
04/19/25 07:30
Insulin Aspart Corrective Low [Novolog Flexpen-Low Resistance] See Protocol SC AC
04/19/25 08:00
Pantoprazole [Protonix] 20 mg PO DAILY
04/20/25 06:00
Basic Metabolic Panel IN AM
Complete Blood Count/No Diff IN AM
04/21/25 06:00
Basic Metabolic Panel IN AM
Complete Blood Count/No Diff IN AM
04/21/25 11:00
DC Protocol for Telemetry ONCE
Abnormal Lab Results
04/18/25
13:58
WBC 22.2 H 10^3/uL
(4.8-10.8)
RBC 2.46 L 10^6/uL
(4.70-6.10)
Hgb 8.8 L g/dL
(13.0-18.0)
Hct 25.1 L %
(39.0-52.0)
MCV 102.0 H fL
(80.0-94.0)
MCH 35.8 H pg
(27.0-31.0)
Plt Count 123 L 10^3/uL
(130-400)
MPV 11.3 H fL
(7.4-10.4)
Abs Immat Gran (auto) 0.2 H 10^3/uL
(0-0.05)
Absolute Neuts (auto) 20.7 H 10^3/uL
(1.4-6.5)
Absolute Lymphs (auto) 0.4 L 10^3/uL
(1.2-3.4)
Absolute Monos (auto) 0.9 H 10^3/uL
(0.1-0.6)
Immature Gran % 0.9 H %
(0-0.5)
Neutrophils % 92.9 H %
(42.2-75.2)
Lymphocytes % 1.9 L %
(20.5-51.1)
Sodium 125 L mmol/L
(135-145)
Potassium 5.4 H mmol/L
(3.5-5.1)
Chloride 96 L mmol/L
(98-107)
Carbon Dioxide 18 L mmol/L
(22-30)
BUN 71 H mg/dl
(9-20)
Creatinine 1.4 H mg/dL
(0.7-1.3)
Glucose 294 H mg/dl
(70-99)
Total Bilirubin 8.2 H mg/dl
(0.2-1.3)
AST 121 H U/L
(17-59)
ALT 189 H U/L
(0-50)
Alkaline Phosphatase 697 H U/L
(38-126)
Albumin 3.1 L g/dl
(3.5-5.0)
04/18/25 13:58
04/18/25 13:58
Vital Signs
Initial and Last Documented VS:
Initial Vital Signs
Temp Pulse Resp BP Pulse Ox
98.3 F 92 18 123/95 100
04/18/25 13:33 04/18/25 13:33 04/18/25 13:33 04/18/25 13:33 04/18/25 13:33
Last Documented Vital Signs
Temp Pulse Resp BP Pulse Ox
98.6 F 95 17 147/66 99
04/18/25 23:53 04/18/25 22:45 04/18/25 22:45 04/18/25 22:00 04/18/25 23:24
<Nolberto HShellie Skelton DO - Last Filed: 04/18/25 15:03>
Orders/Labs/Results
Orders:
Orders
04/18/25 13:58
Complete Blood Count/With Diff Urgent
Comprehensive Metabolic Panel Urgent
04/18/25 14:54
CT Abd/pelvis W Iv Cont Urgent
Comment:
Reason For Exam: abd pain, distention, elevated bilirubin
04/18/25 Dinner
2000 calorie (17 carb) Diabetic
At Your Request: Full Participation
Fluid Restriction: 1500 mL/day (50 oz)
Diabetic Diet: Potassium, 2 Gram
04/18/25 15:02
Oxycodone [Roxicodone] 5 mg PO NOW STA
04/18/25 19:38
Admit/Transfer Patient As Directed
Co-Sign Provider:
Level of Care: Inpatient admission
Assign to:: IMU- Intermediate Care
Physician / Group: Rudy Barajas
Diagnosis: ascites, hyponatremia, transaminitis, hyperbilirubinemia
Reason for Hospitalization: ascites, hyponatremia, transaminitis, hyperbilirubinemia
Expected length of stay greater than two midnights?: Yes
ELOS- Estimated Length of Stay in days: 3
I certify the patient meets the requirements for IP care: Yes
PRN Pain Medication Management As Directed
May give lesser potent ordered pain med per pt: Yes
preference::
Protocol:: Medication orders for pain may be administered in a
manner that supports deferring to patient preference
when the pt is:
- Requesting an ordered lesser potent pain medication.
Least to most potent pain medications are defined
as: acetaminophen < NSAID < tramadol < opioids
(morphine, oxycodone, hydromorphone).
- Requesting a lesser dose of the same medication IF
ORDERED.
- Requesting a less intrusive route of administration
if both routes are prescribed by the provider (PO <
IV).
04/18/25 19:39
Code Status As Directed
Resuscitation Status: Full Code
04/18/25 19:48
Sodium Zirconium Cyclosilicate [Lokelma] 10 gram PO NOW STA
04/18/25 19:53
PRN Pain Medication Management As Directed
May give lesser potent ordered pain med per pt: Yes
preference::
Protocol:: Medication orders for pain may be administered in a
manner that supports deferring to patient preference
when the pt is:
- Requesting an ordered lesser potent pain medication.
Least to most potent pain medications are defined
as: acetaminophen < NSAID < tramadol < opioids
(morphine, oxycodone, hydromorphone).
- Requesting a lesser dose of the same medication IF
ORDERED.
- Requesting a less intrusive route of administration
if both routes are prescribed by the provider (PO <
IV).
04/18/25 19:54
Oxycodone [Roxicodone] 5 mg PO Q4HPRN PRN moderate pain
04/18/25 20:52
Osmolality, Random Urine Urgent
Date Specimen was Collected: 04/18/25
Time Specimen was Collected: 16:08
Comment: ADDON
Urinalysis Reflex To Culture Urgent
Date Specimen was Collected: 04/18/25
Time Specimen was Collected: 16:08
Urine Microscopic Reflex Cult Urgent
04/18/25 23:00
Dexamethasone [Decadron] 4 mg PO Q12
Dextrose 50%-Water [Dextrose 50% Syringe] 12.5 grams IV [id number] PRN
Docusate Sodium [Colace] 100 mg PO HS
Glucagon [GlucaGen] 1 mg IM PRN PRN
Polyethylene Glycol Powder [Miralax] 17 grams PO DAILYPRN PRN constipation
simvastatin 10 mg PO HS
04/18/25 23:00
Consult Interventional Radiology [IRAD CONSULT] Routine
Consulting Provider: Donnie Amezquita
Was physician already notified: Yes
Procedure being ordered, including laterality if applicable: paracentesis
Acknowledgement that appropriate orders are entered: N/A
NEPHROLOGY CONSULT Routine
Consulting Provider: Gustavo Foster V.
Was physician already notified: Yes
ONCOLOGY CONSULT Routine
Consulting Provider: Elton Moralez
Was physician already notified: Yes
Activity As Directed
Activity Level: As Tolerated
Bedside Glucose Monitoring As Directed
Frequency: AC&HS
Additional Instructions:: Change to q6h if pt on TPN, tube feeding or not eating
Bladder Scan As Directed
Follow Bladder Retention/Intermittent Cath Algorithm?: Yes
PRN if no void in __ hours: 6
Frequency: Per Retention Algorithm
If Bladder Scan Result >: 400
then:: Straight cath
Intake/ Output As Directed
Frequency: Per unit guidelines
Sleep Apnea Assessment by RN As Directed
Comment:
Physician Instructions:
Straight Cath As Directed
Frequency: Per Retention Algorithm
Additional Instructions: straight cath as needed per acute urinary retention algorithm for 24 hrs
Additional Instructions: for bladder scan greater than 400 mL
Vital Signs As Directed
Frequency: Per unit guidelines
Weight As Directed
Frequency: Daily
Type of Scale: Standing Scale
Comment: Daily morning weight. If unable to stand, use balanced bed scale.
Weight As Directed
Frequency: Once
Type of Scale: Standing Scale
Comment: Upon Admission. If unable to stand, use balanced bed scale.
O2 Therapy [RESP] Routine
Titrate/Wean O2 to maintain O2 sat greater than (%): 93
Pulse Ox/cont/shift [RESP] Routine
Quantity: 1
Special Instructions: Daily pulse oximetry at rest. If greater than 92% at rest also obtain pulse oximetry
while ambulating as tolerated.
DX Deep Vein Thrombosis Video Routine
04/18/25 23:45
Magnesium Oxide 400 mg PO HS
04/19/25 00:00
Heparin 5,000 units SC Q8
04/19/25 06:00
Basic Metabolic Panel IN AM
Complete Blood Count/No Diff IN AM
04/19/25 07:30
Insulin Aspart Corrective Low [Novolog Flexpen-Low Resistance] See Protocol SC AC
04/19/25 08:00
Pantoprazole [Protonix] 20 mg PO DAILY
04/20/25 06:00
Basic Metabolic Panel IN AM
Complete Blood Count/No Diff IN AM
04/21/25 06:00
Basic Metabolic Panel IN AM
Complete Blood Count/No Diff IN AM
04/21/25 11:00
DC Protocol for Telemetry ONCE
Abnormal Lab Results
04/18/25
13:58
WBC 22.2 H 10^3/uL
(4.8-10.8)
RBC 2.46 L 10^6/uL
(4.70-6.10)
Hgb 8.8 L g/dL
(13.0-18.0)
Hct 25.1 L %
(39.0-52.0)
MCV 102.0 H fL
(80.0-94.0)
MCH 35.8 H pg
(27.0-31.0)
Plt Count 123 L 10^3/uL
(130-400)
MPV 11.3 H fL
(7.4-10.4)
Abs Immat Gran (auto) 0.2 H 10^3/uL
(0-0.05)
Absolute Neuts (auto) 20.7 H 10^3/uL
(1.4-6.5)
Absolute Lymphs (auto) 0.4 L 10^3/uL
(1.2-3.4)
Absolute Monos (auto) 0.9 H 10^3/uL
(0.1-0.6)
Immature Gran % 0.9 H %
(0-0.5)
Neutrophils % 92.9 H %
(42.2-75.2)
Lymphocytes % 1.9 L %
(20.5-51.1)
Sodium 125 L mmol/L
(135-145)
Potassium 5.4 H mmol/L
(3.5-5.1)
Chloride 96 L mmol/L
(98-107)
Carbon Dioxide 18 L mmol/L
(22-30)
BUN 71 H mg/dl
(9-20)
Creatinine 1.4 H mg/dL
(0.7-1.3)
Glucose 294 H mg/dl
(70-99)
Total Bilirubin 8.2 H mg/dl
(0.2-1.3)
AST 121 H U/L
(17-59)
ALT 189 H U/L
(0-50)
Alkaline Phosphatase 697 H U/L
(38-126)
Albumin 3.1 L g/dl
(3.5-5.0)
04/18/25 13:58
04/18/25 13:58
Vital Signs
Initial and Last Documented VS:
Initial Vital Signs
Temp Pulse Resp BP Pulse Ox
98.3 F 92 18 123/95 100
04/18/25 13:33 04/18/25 13:33 04/18/25 13:33 04/18/25 13:33 04/18/25 13:33
Last Documented Vital Signs
Temp Pulse Resp BP Pulse Ox
98.6 F 95 17 147/66 99
04/18/25 23:53 04/18/25 22:45 04/18/25 22:45 04/18/25 22:00 04/18/25 23:24
<NAT Boyd - Last Filed: 04/19/25 00:33>
Orders/Labs/Results
Orders:
Orders
04/18/25 13:58
Complete Blood Count/With Diff Urgent
Comprehensive Metabolic Panel Urgent
04/18/25 14:54
CT Abd/pelvis W Iv Cont Urgent
Comment:
Reason For Exam: abd pain, distention, elevated bilirubin
04/18/25 Dinner
2000 calorie (17 carb) Diabetic
At Your Request: Full Participation
Fluid Restriction: 1500 mL/day (50 oz)
Diabetic Diet: Potassium, 2 Gram
04/18/25 15:02
Oxycodone [Roxicodone] 5 mg PO NOW STA
04/18/25 19:38
Admit/Transfer Patient As Directed
Co-Sign Provider:
Level of Care: Inpatient admission
Assign to:: IMU- Intermediate Care
Physician / Group: Rudy Barajas
Diagnosis: ascites, hyponatremia, transaminitis, hyperbilirubinemia
Reason for Hospitalization: ascites, hyponatremia, transaminitis, hyperbilirubinemia
Expected length of stay greater than two midnights?: Yes
ELOS- Estimated Length of Stay in days: 3
I certify the patient meets the requirements for IP care: Yes
PRN Pain Medication Management As Directed
May give lesser potent ordered pain med per pt: Yes
preference::
Protocol:: Medication orders for pain may be administered in a
manner that supports deferring to patient preference
when the pt is:
- Requesting an ordered lesser potent pain medication.
Least to most potent pain medications are defined
as: acetaminophen < NSAID < tramadol < opioids
(morphine, oxycodone, hydromorphone).
- Requesting a lesser dose of the same medication IF
ORDERED.
- Requesting a less intrusive route of administration
if both routes are prescribed by the provider (PO <
IV).
04/18/25 19:39
Code Status As Directed
Resuscitation Status: Full Code
04/18/25 19:48
Sodium Zirconium Cyclosilicate [Lokelma] 10 gram PO NOW STA
04/18/25 19:53
PRN Pain Medication Management As Directed
May give lesser potent ordered pain med per pt: Yes
preference::
Protocol:: Medication orders for pain may be administered in a
manner that supports deferring to patient preference
when the pt is:
- Requesting an ordered lesser potent pain medication.
Least to most potent pain medications are defined
as: acetaminophen < NSAID < tramadol < opioids
(morphine, oxycodone, hydromorphone).
- Requesting a lesser dose of the same medication IF
ORDERED.
- Requesting a less intrusive route of administration
if both routes are prescribed by the provider (PO <
IV).
04/18/25 19:54
Oxycodone [Roxicodone] 5 mg PO Q4HPRN PRN moderate pain
04/18/25 20:52
Osmolality, Random Urine Urgent
Date Specimen was Collected: 04/18/25
Time Specimen was Collected: 16:08
Comment: ADDON
Urinalysis Reflex To Culture Urgent
Date Specimen was Collected: 04/18/25
Time Specimen was Collected: 16:08
Urine Microscopic Reflex Cult Urgent
04/18/25 23:00
Dexamethasone [Decadron] 4 mg PO Q12
Dextrose 50%-Water [Dextrose 50% Syringe] 12.5 grams IV [id number] PRN
Docusate Sodium [Colace] 100 mg PO HS
Glucagon [GlucaGen] 1 mg IM PRN PRN
Polyethylene Glycol Powder [Miralax] 17 grams PO DAILYPRN PRN constipation
simvastatin 10 mg PO HS
04/18/25 23:00
Consult Interventional Radiology [IRAD CONSULT] Routine
Consulting Provider: Donnie Amezquita
Was physician already notified: Yes
Procedure being ordered, including laterality if applicable: paracentesis
Acknowledgement that appropriate orders are entered: N/A
NEPHROLOGY CONSULT Routine
Consulting Provider: Gustavo Foster V.
Was physician already notified: Yes
ONCOLOGY CONSULT Routine
Consulting Provider: Elton Moralez
Was physician already notified: Yes
Activity As Directed
Activity Level: As Tolerated
Bedside Glucose Monitoring As Directed
Frequency: AC&HS
Additional Instructions:: Change to q6h if pt on TPN, tube feeding or not eating
Bladder Scan As Directed
Follow Bladder Retention/Intermittent Cath Algorithm?: Yes
PRN if no void in __ hours: 6
Frequency: Per Retention Algorithm
If Bladder Scan Result >: 400
then:: Straight cath
Intake/ Output As Directed
Frequency: Per unit guidelines
Sleep Apnea Assessment by RN As Directed
Comment:
Physician Instructions:
Straight Cath As Directed
Frequency: Per Retention Algorithm
Additional Instructions: straight cath as needed per acute urinary retention algorithm for 24 hrs
Additional Instructions: for bladder scan greater than 400 mL
Vital Signs As Directed
Frequency: Per unit guidelines
Weight As Directed
Frequency: Daily
Type of Scale: Standing Scale
Comment: Daily morning weight. If unable to stand, use balanced bed scale.
Weight As Directed
Frequency: Once
Type of Scale: Standing Scale
Comment: Upon Admission. If unable to stand, use balanced bed scale.
O2 Therapy [RESP] Routine
Titrate/Wean O2 to maintain O2 sat greater than (%): 93
Pulse Ox/cont/shift [RESP] Routine
Quantity: 1
Special Instructions: Daily pulse oximetry at rest. If greater than 92% at rest also obtain pulse oximetry
while ambulating as tolerated.
DX Deep Vein Thrombosis Video Routine
04/18/25 23:45
Magnesium Oxide 400 mg PO HS
04/19/25 00:00
Heparin 5,000 units SC Q8
04/19/25 06:00
Basic Metabolic Panel IN AM
Complete Blood Count/No Diff IN AM
04/19/25 07:30
Insulin Aspart Corrective Low [Novolog Flexpen-Low Resistance] See Protocol SC AC
04/19/25 08:00
Pantoprazole [Protonix] 20 mg PO DAILY
04/20/25 06:00
Basic Metabolic Panel IN AM
Complete Blood Count/No Diff IN AM
04/21/25 06:00
Basic Metabolic Panel IN AM
Complete Blood Count/No Diff IN AM
04/21/25 11:00
DC Protocol for Telemetry ONCE
Abnormal Lab Results
04/18/25
13:58
WBC 22.2 H 10^3/uL
(4.8-10.8)
RBC 2.46 L 10^6/uL
(4.70-6.10)
Hgb 8.8 L g/dL
(13.0-18.0)
Hct 25.1 L %
(39.0-52.0)
MCV 102.0 H fL
(80.0-94.0)
MCH 35.8 H pg
(27.0-31.0)
Plt Count 123 L 10^3/uL
(130-400)
MPV 11.3 H fL
(7.4-10.4)
Abs Immat Gran (auto) 0.2 H 10^3/uL
(0-0.05)
Absolute Neuts (auto) 20.7 H 10^3/uL
(1.4-6.5)
Absolute Lymphs (auto) 0.4 L 10^3/uL
(1.2-3.4)
Absolute Monos (auto) 0.9 H 10^3/uL
(0.1-0.6)
Immature Gran % 0.9 H %
(0-0.5)
Neutrophils % 92.9 H %
(42.2-75.2)
Lymphocytes % 1.9 L %
(20.5-51.1)
Sodium 125 L mmol/L
(135-145)
Potassium 5.4 H mmol/L
(3.5-5.1)
Chloride 96 L mmol/L
(98-107)
Carbon Dioxide 18 L mmol/L
(22-30)
BUN 71 H mg/dl
(9-20)
Creatinine 1.4 H mg/dL
(0.7-1.3)
Glucose 294 H mg/dl
(70-99)
Total Bilirubin 8.2 H mg/dl
(0.2-1.3)
AST 121 H U/L
(17-59)
ALT 189 H U/L
(0-50)
Alkaline Phosphatase 697 H U/L
(38-126)
Albumin 3.1 L g/dl
(3.5-5.0)
04/18/25 13:58
04/18/25 13:58
Vital Signs
Initial and Last Documented VS:
Initial Vital Signs
Temp Pulse Resp BP Pulse Ox
98.3 F 92 18 123/95 100
04/18/25 13:33 04/18/25 13:33 04/18/25 13:33 04/18/25 13:33 04/18/25 13:33
Last Documented Vital Signs
Temp Pulse Resp BP Pulse Ox
98.6 F 95 17 147/66 99
04/18/25 23:53 04/18/25 22:45 04/18/25 22:45 04/18/25 22:00 04/18/25 23:24
Kathilt;Cierra Chaudhry PA-C - Last Filed: 04/18/25 19:17>
MDM/Problems Addressed
Differential Diagnosis Includes:
74yoM here with worsening abdominal distention as well as difficulty urinating. Hx of metastatic colon cancer with recurrent ascites. Has required paracentesis before. Abdomen is distended with positive fluid wave. Differential diagnosis includes:
abdominal ascites, cancer related pain, SBO, KRISTA, urinary retention
Initial ED plan: Bladder scan 70cc. Check CBC, CMP, UA, and CT abdomen.
Final assessment: Labs reveal a leukocytosis with a WBC of 22. This may be related to underlying malignancy as well as steroids. Labs also show worsening transaminitis and bilirubin is now up to 8. Hyponatremia is worsening and sodium is 125. Renal
function is stable. Case signed out to Patricia Goldberg pending CT results. Patient will require admission.
<Cierra Chaudhry PA-C - Last Filed: 04/18/25 19:17>
*Pulse Oximetry
SaO2: 100
Oxygen Mode of Delivery: Room air
Patient hypoxic: no
*Critical Care Note
Total Time (30-74mins, 75-104mins- exclusive of procedures): Not Applicable
<NAT Boyd - Last Filed: 04/19/25 00:33>
Update Note
Update Note:
pt was admitted by previous provider
ED Attending Note
<Cierra Chaudhry PA-C - Last Filed: 04/18/25 19:17>
-
Portions of this chart may have been created with voice recognition software.� Occasional wrong word or��sound alike� substitutions may have occurred due to the inherent limitations of voice recognition software.
<Nolberto Skelton DO - Last Filed: 04/18/25 15:03>
ED Attending Note
Patient seen and examined by attending physician: Yes
I performed the substantive portion of visit, reviewed & personally made and approve the management plan that is documented in note by myself or ROSANNE.: Yes
ED Attending Note:
I agree with Mercedes's note
Unfortunate 74-year-old male with metastatic colon cancer. He presents today with increasing pain in his abdomen. He feels like he needs a paracentesis which she does have a standing order to have as a as needed procedure.
He feels generally weak.
General: Awake, Alert, Oriented X3. Appears chronically ill
Vitals: unremarkable
Head: Atraumatic
Eyes: Pupils equal, EOMI, positive scleral icterus
Throat: Airway intact, no exudates, dry mucosa
Neck: Trachea midline
Lungs: Clear and equal b/l
Heart: Regular rate, no murmurs
Abd: Soft, no peritoneal signs, some upper abdominal tenderness, No pulsatile mass
Neuro: Nonfocal
Skin: Warm, dry, positive jaundice
Extremities: pulses equal b/l, no edema
Patient presents with abdominal discomfort. I have very low suspicion for SBP. Suspect his abdominal pain is either from accumulating ascites and increasing metastatic burden of his liver. His LFTs are elevated including his bilirubin which also
suggest worsening metastatic disease to the liver. Tania will contact IR to see if they are available for a paracentesis today but if not he can have it tomorrow. Sodium is moderately low white count is elevated. This may be due to steroid use.
It appears that hospice was on the table during his hospitalization.
Discharge Plan
Departure
Patient Disposition: Admit
Date of Disposition: 04/18/25
Time of Disposition: 17:49
Presentation/result/management discussed w/ accepting MD/DO: Hospitalist
Discharge Problem:
Hyponatremia, Hyperbilirubinemia, Ascites
Interventions
Interventions:
*Risk Screen - Suicide Last Done: 04/18/25 14:46
*General Assessment Last Done: 04/18/25 14:46
*Neglect/Abuse Screening Last Done: 04/18/25 14:46
*ED- Fall Risk Assessment Last Done: 04/18/25 14:46
*ED COVID-19 Vaccine History Last Done: 04/18/25 23:02
*Nursing Disposition Last Done: 04/18/25 22:53
KR-Hethiz-Rdvtwihjlk Assessment Last Done: 04/18/25 14:46
Discharge Date and Time
Discharge Date/Time: 04/18/25 22:54
[2025-04-18 14:37] LABS: ALT (SGPT) 189 U/L (0-50); AST (SGOT) 121 U/L (17-59); Albumin 3.1 g/dl (3.5-5.0); Alkaline Phosphatase 697 U/L (38-126); Blood Urea Nitrogen 71 mg/dl (9-20); Calcium 8.4 mg/dl (8.4-10.2); Carbon Dioxide 18 mmol/L (22-30); Chloride 96 mmol/L (98-107); Estimated Creatinine Clearance 56 ml/min; Glucose 294 mg/dl (70-99); Potassium 5.4 mmol/L (3.5-5.1); Sodium 125 mmol/L (135-145); Total Protein 6.8 g/dl (6.3-8.2); eGFR 52.74
[2025-04-18 14:49] LABS: Nucleated Red Blood Cells % 0 % (-)
[2025-04-18] MEDS: ROXICODONE 5 MG PO ×2 (15:39→20:06)
--- NOTE | 2025-04-18 18:54 | HPS.HSE ---
Family Physician
-
Family Physician: ANA [facility]
Chief Complaint
-
increased abdominal girth
History of Present Illness
Patient is a 74-year-old male with past medical history significant for metastatic colon cancer, HFpEF, CKD IIIa, COPD, hypertension, hyperlipidemia, type 2 diabetes, chronic anemia, thrombocytopenia and peripheral neuropathy who presented to [facility]
ED for evaluation of increased abdominal girth, increased edema and failure to thrive. Patient reports that he has had increased shortness of breath that is associated with increased abdominal girth and increased edema. He reports history of needing
paracentesis r/t metastatic cancer, last one was approximately 2 weeks ago. He also is complaining of feeling he is not emptying bladder when he urinates. Patient denies any fever, chills, cough, chest pain, nausea, vomiting or diarrhea.
Medical History
Past Medical History
Past Medical History: Reports Other
Additional Past Medical History:
metastatic colon cancer
HFpEF
CKD IIIa
COPD
hypertension
hyperlipidemia
type 2 diabetes
chronic anemia
thrombocytopenia
peripheral neuropathy
Past Surgical History: Reports Other
Additional Past Surgical History:
umbilical hernia repair
Robotic Sigmoid Colectomy 08/2020
Throat surgery
Social History
Tobacco: Former Smoker (Quit about 10 years ago)
Alcohol: Occasional
Drug: None
Living: Assisted Living
Family History
Family History: Not pertinent
Allergies / Home Medications
Allergies reflects when Allergies were last updated in [facility].
Home Medications with original date entered in T[facility]
Allergy/Medication List:
Allergies
Allergy/AdvReac Type Severity Reaction Status Date / Time
pollen extracts Allergy Itching, Verified 03/23/25 10:23
nasal
congestion
- seasonal
Home Medications
simvastatin 10 mg tablet 10 mg PO HS High cholesterol 06/14/18
furosemide 20 mg tablet 20 mg PO BID Fluid retention/Swelling 11/30/20
metformin 1,000 mg tablet 1,000 mg PO BID Diabetes 11/30/20
vitamins A,C,Z-yepo-vvcgvg 4,296 mcg-226 mg-90 mg capsule (PreserVision AREDS) 1 cap PO BID Supplement 10/25/23
amlodipine 5 mg tablet 5 mg PO DAILY Blood pressure 12/18/24
calcium 600 mg (as carbonate)-vitamin D3 5 mcg (200 unit) tablet 1 tab PO BID 12/18/24
magnesium 200 mg tablet 400 mg PO HS 12/18/24
spironolactone 100 mg tablet 100 mg PO QPM 12/18/24
polyethylene glycol 3350 17 gram oral powder packet (Miralax) 17 g PO DAILYPRN PRN constipation 03/10/25
tramadol 50 mg tablet 50 mg PO BIDPRN PRN moderate pains 03/10/25
docusate sodium 100 mg capsule (Colace) 100 mg PO HS 04/02/25
fruquintinib 5 mg capsule (Fruzaqla) 5 mg PO DIRECTED 04/02/25
Review of Systems
-
History Source: Patient
Constitutional: Reports Weight Gain; Denies Fever or Chills
EENT: Denies Sore Throat
Respiratory: Reports Trouble Breathing (dyspnea ); Denies Cough
Cardiac: Denies Chest Pain, Diaphoresis, Palpitations or Syncope
Abdomen/GI: Denies Abdominal Pain, Nausea, Vomiting or Diarrhea
: Reports Urgency; Denies Dysuria or Frequency
Musculoskeletal: Denies Joint Pain or Joint Swelling
Skin: Denies Rash
Neurological: Reports Weakness; Denies Dizzy, Headache or Numbness
Physical Exam
Vital Signs
Vital Signs
Temp Pulse Resp BP Pulse Ox
98.3 F 94 16 141/70 100
04/18/25 13:33 04/18/25 18:15 04/18/25 18:15 04/18/25 18:04 04/18/25 18:15
Physical Exam
General: Well Nourished, Conversant, Appears Chronically Ill and Obese
HEENT: NormoCephalic, Moist mucous membranes and Atraumatic
Respiratory: Clear, Non Labored Respirations and Decreased Breath Sounds
Cardiac: S1/S2, Regular Rhythm and Peripheral Edema (+2-3 pitting edema ); No Murmur, Rub or Gallop
Breast: Deferred by me
GI: Soft, Normal Bowel Sounds, Tender and Distended
Rectal: Deferred by Provider
Genito-urinary: Deferred by me
Musculoskeletal: No Clubbing and No Cyanosis
Skin: Warm and IV/Catheter Site
Neuro: Awake, AO x 3 and Nonfocal/grossly intact
Psych: Calm
Laboratory Results
-
04/18/25 13:58
04/18/25 13:58
Laboratory Results
Total Bilirubin 8.2 mg/dl (0.2-1.3) H 04/18/25 13:58
AST 121 U/L (17-59) H 04/18/25 13:58
ALT 189 U/L (0-50) H 04/18/25 13:58
Alkaline Phosphatase 697 U/L (38-126) H 04/18/25 13:58
Data Reviewed
-
CT Scan: Report Reviewed by me (Abd/Pel CT: Severe hepatic metastatic disease with continued progression compared to the CT abdomen/pelvis from 03/05/2025. Metastatic lymphadenopathy in the lower chest and upper abdomen, also with progression.
Splenomegaly. Mild to moderate abdominal ascites.)
Lab Data: Labs Reviewed by me (WBC 22.2, hgb 8.8, hct 25.1, Plt 123, neut 92.9, Na+ 125, K+ 5.4, HCO3 18, BUN 71, Creat 1.4, est CrCl 56, eGFR 52.74, tot bili 8.2, AST 121, ALT 189, Alk phos 697)
Impression/Plan
-
IMPRESSION/PLAN:
#increased abdominal girth, increased dyspnea, increased edema likely 2/2 ascites r/t metastatic colon cancer
#metastatic colon cancer
WBC 22.2, neut 92.9
Leukocytosis likely from steroid use, no s/s of infection
Abd/Pel Ct: Severe hepatic metastatic disease with continued progression compared to the CT abdomen/pelvis from 03/05/2025.
Metastatic lymphadenopathy in the lower chest and upper abdomen, also with progression.
Splenomegaly.
Mild to moderate abdominal ascites.
- Admit to IMU
- consult IR for paracentesis
- Consult Oncology
- continue oxycodone and dexamethasone for pain regimen
#HFpEF
ECHO (04/02/2025): 1. Normal left ventricular size with hyperdynamic LV systolic function without regional wall motion abnormalities. Mild concentric left ventricular hypertrophy. Estimated left ventricular
ejection fraction is 65 to 70%.
2. Normal right ventricular size and systolic function.
3. No significant valvular abnormalities.
4. No pericardial effusion.
5. Dilated aortic root and ascending aorta. (SOV 4.5 cm, Sinotubular junction 4.5 cm, Asc aorta 4.0 cm).
6. Compared to prior echocardiogram from 2021, no significant changes.
- daily weights
- I & Os
- Hold furosemide
#CKD IIIa
BUN 71, Creat 1.4, est CrCl 56, eGFR 52.74,HCO3 18
worsening kidney function
- Consult Nephrology
#hyperkalemia
K+ 5.4
- give 1x dose Lokelma
- monitor BMP
#hyponatremia
Na+ 125
hypervolemia vs. SIADH
- fluid restriction 1500mL
- monitor BMP
#transaminitis likely 2/2 metastatic colon cancer to liver
tot bili 8.2, AST 121, ALT 189, Alk phos 697
- trend LFTs
#hyperlipidemia
- continue simvastatin
#type 2 diabetes
- AccuCheck AC & HS
- SSI
- continue Lantus
#chronic anemia
#thrombocytopenia
hgb 8.8, hct 25.1, Plt 123
- appears baseline
- monitor CBC
#peripheral neuropathy
#COPD
#hypertension
Code status: full code
DVT prophylaxis: heparin sq
--- NOTE | 2025-04-18 19:14 | W.PN.UPDATE ---
Addendum entered and electronically signed by Rudy Barajas MD 04/18/25 20:50:
CT AP
- Severe hepatic metastatic disease with continued progression compared to the CT abdomen/pelvis from 03/05/2025.
- Metastatic lymphadenopathy in the lower chest and upper abdomen, also with progression.
- Splenomegaly.
- Mild to moderate abdominal ascites.
Original Note:
Update Note
Progress Note Update
This note serves as an addendum to the H&P by bowling alley mechanic ROSANNE�
Alicia Key
HPI
74M HX metastatic colon CA , CHF, COPD, HTN, seen at ER
- [facility] for evaluation of decreased urine output. P
- DC'd 5 days ago after a hospitalization for AMS - found to have a new Dxs of brain mettrs+ painfull spine mets per MRI . - Then discharged to an assisted living facility.
- Since discharge reports having a gradual worsening of his abdominal distention and feels he needs a paracentesis.
- HX paracentesis - last paracentesis was performed approximately 2 weeks ago
- reports some abdominal discomfort which he believes may be related to his underlying cancer and ascites.
- some difficulty urinating and he is having difficulty initiating his urine stream at times.
- Baldder scan 10 cc at ER
- on taking a bowel regimen for constipation and is able to have several bowel movements daily.
- denies any fevers, vomiting, chest pain, shortness of breath.
PHX; as above
Relevant VS
Temp Pulse Resp BP Pulse Ox
98.3 F 94 16 141/70 100
04/18/25 13:33 04/18/25 18:15 04/18/25 18:15 04/18/25 18:04 04/18/25 18:15
PE
General: chronically ill
Icteric sclera and skin complextion
Lungs: Clear and equal b/l
CVS: RRR S1 S21
Abd: Distended e upper abdominal tenderness
Neuro: alert and wake - Nonfocal
Skin: Warm, dry, positive jaundice
Extremities:b/l marked Krishna edema
Relevant Data
04/12/25 04/18/25
05:59 13:58
WBC 13.1 H 22.2 H
Hgb 8.1 L 8.8 L
MCV 103.3 H 102.0 H
Plt Count 109 L 123 L
04/12/25 04/18/25
05:59 13:58
Sodium 132 L 125 L
Potassium 4.7 5.4 H
Chloride 100 96 L
Carbon Dioxide 27 18 L
BUN 61 H 71 H
Creatinine 1.3 1.4 H
eGFR 57.65 52.74
Total Bilirubin 2.1 H 8.2 H
Direct Bilirubin 1.5 H
AST 104 H 121 H
ALT 140 H 189 H
Alkaline Phosphatase 494 H 697 H
Albumin 2.9 L 3.1 L
Last hospitalist admission: DATE OF ADMISSION: 04/02/2025 - DATE OF DISCHARGE: 04/13/2025
DC DX
1. Metastatic colon carcinoma with failure to thrive.
2. Diabetes with hyperglycemia.
3. Acute on chronic hyponatremia.
4. Hyperkalemia.
5. CKD stage 3 with baseline creatinine 1.3 and 1.
ASSESSMENT & PLAN
Pending Rx reconciliation
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
HX -Ab US 04/05 trace ascites, no sufficient for drainage
HX HX paracentesis - last paracentesis was performed approximately 2 weeks ago
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
- IR consult for abdominal paracentesis
Worsening hyperbilirubinemia and LFTs with clinical jaundice
- Suspect diffuse metastatic liver dz
Diffuse metastatic colon CA - Prognosis is grave
- Of note: Patient and family understand guarded prognosis but mentally not ready for hospice
- Known Met colon CA to liver + abd and r/p nodes on fruquintinib since 03/23
- 1.3 cm ring-enhancing mass in the L occipital lobe with surrounding vasogenic edema + additional small 0.5 cm enhancing lesion in the medial right temporoparietal lobe
- Transfusion dependent anemia
- Onco consult
KRISTA concerning for Hepatorenal syndrome , HX CKD
Hyperkalemia
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
- Hold EQUIPMENT SERVICES ASSOCIATE PO Lasix 40 mg daily for now (previously indicated for free water excretion in setting of hyponatremia due to SIADH from underlying malignancy)
- FR 1L
- one dose of Lokalma - Low potassium diet encouraged re: hyperkalemia
-
- f/u BMP in AM
- Await Renal evaluation
CKD3 HX
- Avoid nephrotoxic
- Continue hold diuretics
Monitor renal function in a.m.
HX Urinary retention
- admission bladder scan is 10 cc
- Straight cath as needed
Other medical problems:
Chronic HFpEF - Prior TTE: EF 65 to 70%
Hypertension
Hyperlipidemia
COPD
Bicytopenia
Constipation
Diabetes mellitus
chronic back pain
Fall
Orthostatic hypotension
Prognosis: Patient and family understand guarded to poor prognosis but patient is not mentally ready for hospice
DVT Px: SQH
Code: Full code
IMU
[2025-04-18 21:01] LABS: Urine Character Clear (Clear)
[2025-04-18 21:07] LABS: Urine Red Blood Cell 0-2 /HPF (0-2)
[2025-04-18] MEDS: LOKELMA 10 GRAM PO (22:09)
[2025-04-18 23:27] LABS: Glucose - Point of Care 470 mg/dl (70-99)
[2025-04-18 23:41] LABS: Glucose 427 mg/dl (70-99)
[2025-04-18] MEDS: NOVOLOG FLEXPEN 5 UNITS SC (23:55)
[2025-04-18] MEDS: DECADRON 4 MG PO (23:55)
[2025-04-18] MEDS: COLACE 100 MG PO (23:55)
[2025-04-18] MEDS: MAGNESIUM OXIDE 400 MG PO (23:55)
[2025-04-19] VITALS (10 sets, daily range): BP systolic 92–150; BP diastolic 59–93; BMI 33.2; BMI 32.6
[2025-04-19] MEDS: LANTUS 0.4 UNITS SC ×2 (00:03→17:55)
[2025-04-19] MEDS: ROXICODONE 5 MG PO ×3 (00:07→13:02)
--- NOTE | 2025-04-19 04:32 | PTCARENOTE ---
Rec'd pt from ED RN. Pt alert, oriented. Able to stand/pivot from stretcher to bed. C/o abd pain, medicated per SEP. Able to take oral meds without complication. Ambulated to bathroom and back with rw and assist x1. SR, ST with activity. Assessment
as documented. Call bauer within reach. Pt able to ring appropriately. Bed alarm placed as a precaution. Care ongoing.
[2025-04-19 05:16] LABS: Hematocrit 23.1 % (39.0-52.0); Hemoglobin 8.2 g/dL (13.0-18.0); Mean Corp Hgb Conc. 35.5 g/dL (33.0-37.0); Mean Corpuscular Volume 102.7 fL (80.0-94.0); Platelet Count 101 10^3/uL (130-400)
[2025-04-19 05:19] LABS: INR 1.37; PT 17.1 Sec (11.4-14.6)
[2025-04-19 05:21] LABS: APTT 103.3 Sec (23.4-35.0)
[2025-04-19 07:42] LABS: Blood Urea Nitrogen 80 mg/dl (9-20); Calcium 8.5 mg/dl (8.4-10.2); Carbon Dioxide 18 mmol/L (22-30); Chloride 96 mmol/L (98-107); Estimated Creatinine Clearance 49 ml/min; Glucose 333 mg/dl (70-99); Potassium 5.6 mmol/L (3.5-5.1); Sodium 125 mmol/L (135-145); eGFR 44.93
--- NOTE | 2025-04-19 08:19 | PTCARENOTE ---
Patient received from night nurse. Patient resting comfortably in bed. AAO, VSS. No events noted overnight. Currently on Room Air. Continues with complaints of abdominal pain, see MAR. Scheduled for paracentesis today. No other tests
scheduled at this time.
[2025-04-19 09:06] LABS: Body Fluid Second Tech EM
[2025-04-19 09:12] LABS: Glucose - Point of Care 347 mg/dl (70-99)
--- NOTE | 2025-04-19 09:13 | W.PN.HOSP.TC ---
Today's Communication/Plan
-
Start on a diet
Increase pain regimen
Await oncology discussion regards goals of care
Follow renal function
Assessment / Plan
Assessment / Plan
Progressive abdominal pain with a reaccumulating malignant ascites
Decompensated liver disease secondary to metastatic cancer
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
Suspect underlying abdominal pain is secondary to malignancy
Worsening hepatic disease with bilirubin of 8.2 noted and elevated transaminitis and alkaline phosphatase noted
Ascites is reaccumulating all suggestive of decompensated liver disease from the malignant process carrying a poor prognosis.
Patient had abdominal paracentesis today without much benefit from abdominal pain.
Started on pain regimen for cancer pain
Await oncology input regarding goals of care
Diffuse metastatic colon CA - Prognosis is grave
- Of note: Patient and family understand guarded prognosis but mentally not ready for hospice
- Known Met colon CA to liver + abd and r/p nodes on fruquintinib since 03/23
- 1.3 cm ring-enhancing mass in the L occipital lobe with surrounding vasogenic edema + additional small 0.5 cm enhancing lesion in the medial right temporoparietal lobe
- Transfusion dependent anemia
- Onco consult
KRISTA concerning for Hepatorenal syndrome , HX CKD
Hyperkalemia
Metabolic acidosis
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
- Hold PRODUCT SAFETY SPECIALIST PO Lasix 40 mg daily for now (previously indicated for free water excretion in setting of hyponatremia due to SIADH from underlying malignancy)
- FR 1L
- one dose of Lokalma - Low potassium diet encouraged re: hyperkalemia
- f/u BMP
- Await Renal evaluation
CKD3 HX
- Avoid nephrotoxic
- Continue hold diuretics
Monitor renal function in a.m.
HX Urinary retention
- admission bladder scan is 10 cc
- Straight cath as needed
Other medical problems:
Chronic HFpEF - Prior TTE: EF 65 to 70%
Hypertension
Hyperlipidemia
COPD
Bicytopenia
Constipation
Diabetes mellitus
chronic back pain
Fall
Orthostatic hypotension
Prognosis: Patient and family understand guarded to poor prognosis but patient is not mentally ready for hospice
DVT Px: SQH
Code: Full code
IMU
Discussed with oncology was going to have a discussion regarding goals of care today.
Total time spent on today's encounter was 52 minutes which included time spent in counseling the patient/family regarding diagnosis and treatment plan as listed above, goals of care, and symptom management. Case was discussed with nursing staff,
specialists, and care coordinators/case management. All labs and imaging personally reviewed by me. Remainder the time spent in detailed review of previous records, lab data, imaging, and other medical provider documentation.
Anticipated Discharge: > 48 hours
Subjective/Interval History
-
Date of Service: April 19, 2025
Patient back from abdominal paracentesis.
Says abdominal discomfort has slightly improved but still persistent.
He thinks it is cancer in the abdomen.
He points to mid abdomen across the abdomen. Also experiences pain in the back .
Denies any shortness of breath.
Not much appetite but no nausea.
Objective Data
-
Labs:
Laboratory Results
04/18/25 04/19/25
23:13 04:53
WBC 19.6 H
Hgb 8.2 L
Hct 23.1 L
Plt Count 101 L
PT 17.1 H
INR 1.37
APTT 103.3 H
Sodium 125 L
Potassium 5.6 H
Chloride 96 L
Carbon Dioxide 18 L
BUN 80 H
Creatinine 1.6 H
Glucose 427 H 333 H
Calcium 8.5
Vital Signs:
Vital Signs
Temp Pulse Resp BP Pulse Ox
97.7 F 95 17 137/66 100
04/19/25 07:45 04/19/25 08:27 04/19/25 08:27 04/19/25 08:27 04/19/25 08:21
Physical Exam
-
General: No Apparent Distress
HEENT: Negative Anicteric
Respiratory: Clear to Auscultation
Cardiac: Regular Rhythm, S1/S2 and Tachycardic
GI: Soft, Tender (RUQ) and Distended
Musculoskeletal: Edema, Right Lower Extrem and Edema, Left Lower Extrem
Neuro: AO x 3
Psych: Calm; Negative Confused
Data Reviewed
-
Labs: Labs Reviewed by me
[2025-04-19] MEDS: NOVOLOG FLEXPEN-LOW RESISTANCE 4 UNITS SC (09:22)
[2025-04-19] MEDS: DECADRON 4 MG PO ×2 (09:23→20:03)
[2025-04-19] MEDS: PROTONIX 20 MG PO (09:23)
[2025-04-19] MEDS: MORPHINE SULFATE 2 MG IV (10:17)
[2025-04-19] MEDS: HEPARIN 5000 UNITS SC ×2 (10:18→22:44)
--- NOTE | 2025-04-19 13:00 | PTCARENOTE ---
Report called Melisa ARRE[facility].
[2025-04-19 13:01] LABS: Glucose - Point of Care 464 mg/dl (70-99)
--- NOTE | 2025-04-19 13:14 | W.PN.UPDATE ---
Update Note
Progress Note Update
Recommend hospice, pt and daughter amenable. Full consult to follow.
[2025-04-19 13:49] LABS: Glucose 442 mg/dl (70-99)
--- NOTE | 2025-04-19 13:51 | W.CON.NEPH ---
Consultation
-
Date/Time Consultation Requested: 04/19/2025 9 AM
Date/Time Consultation Performed: 04/19/2025 1 PM
Requesting Provider: Dr. Barajas
Performing Provider: Dr. Wu
Reason for Consultation: KRISTA
Medical History
-
Chief Complaint: Hyponatremia
History of Present Illness:
This is a 74-year-old male with hypertension, hyperlipidemia, T2DM, metastatic colon cancer with known metastasis to liver and brain, recurrent malignant ascites who was in 04/02/2025 after an episode of fall while getting out of his car.
Patient received outpatient paracentesis (4400 cc fluid drained). While he was trying to get into his car, he lost balance, fell backwards and hit his head. That hospitalization was complicated by hyponatremia and hyperkalemia with mild KRISTA.
Given the new finding of brain metastases he was started on dexamethasone. He was then discharged but returned 5 days later with worsening abdominal discomfort and increased edema. He was noted to have persistent hyponatremia, hyperkalemia,
metabolic acidosis as well as mild elevation of his creatinine off baseline.
Past Medical History
metastatic colon cancer, CHF, COPD, HTN, Hypercholesterolemia, NIDDM and Other (chronic anemia, thrombocytopenia, peripheral neuropathy)
Orthopedic (multiple) and Other (umbilical cyst)
Social History
Tobacco: Former Smoker
Alcohol: Occasional
Drug: None
Family History
Family History: Not Pertinent
Allergies / Home Medications
Allergy/AdvReac Type Severity Reaction Status Date / Time
pollen extracts Allergy Itching, Verified 03/23/25 10:23
nasal
congestion
- seasonal
�Medication �Instructions �Recorded �Confirmed �Type
calcium 600 mg (as 1 tab PO BID Supplement #30 tabs 04/12/25 04/18/25 Rx
carbonate)-vitamin D3 5 mcg (200
unit) tablet
dexamethasone 4 mg tablet 4 mg PO Q12 #60 tabs 04/12/25 04/18/25 Rx
docusate sodium 100 mg capsule 100 mg PO HS Constipation #30 caps 04/12/25 04/18/25 Rx
(Colace)
furosemide 40 mg tablet 40 mg PO DAILY #30 tabs 04/12/25 04/18/25 Rx
insulin aspart U-100 100 unit/mL 13 unit (0.13 mL) SC AC #15 mL 04/12/25 04/18/25 Rx
(3 mL) subcutaneous pen
insulin glargine 100 unit/mL (3 40 unit (0.4 mL) SC QPM #15 mL 04/12/25 04/18/25 Rx
mL) subcutaneous pen (Lantus
Solostar U-100 Insulin)
magnesium 200 mg tablet 400 mg (2 x 200 mg) PO HS 04/12/25 04/18/25 Rx
Supplement #30 tabs
oxycodone 5 mg tablet 5 mg PO Q4HPRN PRN moderate pain 04/12/25 04/18/25 Rx
#30 tabs
pantoprazole 20 mg tablet,delayed 20 mg PO DAILY #30 tabs 04/12/25 04/18/25 Rx
release
polyethylene glycol 3350 17 gram 17 g PO DAILYPRN PRN constipation 04/12/25 04/18/25 Rx
oral powder packet #30 ea
simvastatin 10 mg tablet 10 mg PO HS High cholesterol #30 04/12/25 04/18/25 Rx
tabs
vitamins A,C,J-idvg-mtauak 4,296 1 cap PO BID Supplement #30 caps 04/12/25 04/18/25 Rx
mcg-226 mg-90 mg capsule
(PreserVision AREDS)
Review of Systems
-
Abdominal pain
No chest pain, no shortness of breath
All other systems: Negative unless noted
Physical Exam
Vital Signs
Vital Signs
Temp Pulse Resp BP Pulse Ox
97.7 F 107 12 130/60 96
04/19/25 11:20 04/19/25 12:00 04/19/25 12:00 04/19/25 08:27 04/19/25 12:06
Lab Results
WBC 19.6 10^3/uL (4.8-10.8) H 04/19/25 04:53
RBC 2.25 10^6/uL (4.70-6.10) L 04/19/25 04:53
Hgb 8.2 g/dL (13.0-18.0) L 04/19/25 04:53
Hct 23.1 % (39.0-52.0) L 04/19/25 04:53
Plt Count 101 10^3/uL (130-400) L 04/19/25 04:53
Sodium 125 mmol/L (135-145) L 04/19/25 04:53
Potassium 5.6 mmol/L (3.5-5.1) H 04/19/25 04:53
Chloride 96 mmol/L (98-107) L 04/19/25 04:53
Carbon Dioxide 18 mmol/L (22-30) L 04/19/25 04:53
BUN 80 mg/dl (9-20) H 04/19/25 04:53
Creatinine 1.6 mg/dL (0.7-1.3) H 04/19/25 04:53
eGFR 44.93 04/19/25 04:53
Glucose 442 mg/dl (70-99) H 04/19/25 13:11
Calcium 8.5 mg/dl (8.4-10.2) 04/19/25 04:53
Albumin 3.1 g/dl (3.5-5.0) L 04/18/25 13:58
Laboratory Tests
04/11/25 04/12/25 04/18/25
04:32 05:59 13:58
Sodium 132 L
Potassium 4.7
Carbon Dioxide 27
Creatinine 1.5 H 1.3
AST 121 H
ALT 189 H
Urine Creatinine
Urine Sodium
04/18/25
20:52
Sodium
Potassium
Carbon Dioxide
Creatinine
AST
ALT
Urine Creatinine 61.300
Urine Sodium [address] abdomen pelvis with IV contrast 04/18/2025
IMPRESSION:
Severe hepatic metastatic disease with continued progression compared to the CT abdomen/pelvis from 03/05/2025.
Metastatic lymphadenopathy in the lower chest and upper abdomen, also with progression.
Splenomegaly.
Mild to moderate abdominal ascites.
Paracentesis 04/19/2025 for 2200 cc
Physical Exam
Patient is awake alert oriented and in no distress. Mood and affect were pleasant, insight and judgment were good. Pupils are equal round and reactive to light, extraocular movements are intact, sclera were anicteric. Hearing was normal, ears and
nose are intact. Oropharynx was clear. Neck was supple with trachea midline and no thyromegaly. Heart was regular rate and rhythm without rubs. Lower extremities with 1+ edema. Lungs were coarse to auscultation bilaterally and with normal
excursion. Abdomen was soft, nontender, with normal active bowel sounds, and no hepatosplenomegaly. Skin was without rash and with normal turgor.
Data Reviewed
-
CT Scan: Report Reviewed by me
Medical Tests (Nuc Med, Echo etc): Report Reviewed by me (Echocardiogram 04/02/2025 EF 65%, no valvular abnormality)
Labs: Labs Reviewed by me
Old Records: Reviewed
Assessment/Plan
-
Assessment
hyponatremia
Hyperkalemia
KRISTA on CKD
Contrast exposure On 04/18/25
Anemia
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
Urinary retention
Plan
Follow BMP
Additional Lokelma today
Hold Lasix
Possible hospice arrangements
[2025-04-19] MEDS: NOVOLOG FLEXPEN-LOW RESISTANCE SC (14:17)
[2025-04-19] MEDS: NOVOLOG FLEXPEN-HIGH RESISTANCE 14 UNITS SC (14:23)
[2025-04-19] MEDS: DILAUDID 0.5 MG IV ×2 (14:23→18:42)
--- NOTE | 2025-04-19 15:20 | PTCARENOTE ---
Patient transported to [facility] via patient transport. Patient left with all known belongings.
[2025-04-19] MEDS: LOKELMA 10 GRAM PO (16:24)
[2025-04-19 16:32] LABS: Glucose - Point of Care 363 mg/dl (70-99)
--- NOTE | 2025-04-19 17:24 | CON.ONC ---
Consultation
-
Date Consultation Requested: 04/18/25
Date Consultation Performed: 04/19/25
Requesting Provider: NAT Tristan
Performing Provider: Nory Mejia MD
Reason for Consultation: End-stage colorectal cancer
Impression
Impression
End-stage metastatic colon cancer
Brain mets
Hyponatremia
Hyperkalemia
Symptomatic ascites
Plan
Plan
Recommend hospice.
Even on best supportive care, he will rapidly end up back in the hospital.
Not a candidate for futher therapy and life expectancy of may a few weeks or less.
Discussed that he can return to where he has been living and still be on hospice, does not need to go to a different facility.
Pt and daughter voiced understanding.
Thank you for consult.
Patient History
History of Present Illness
Gene is a 74 yo man with 5-year history of colorectal cancer, now rapidly progressive with mets to brain. D/C'd less than a week ago to SNF with plan for stereotactic brain radiation and possible resumption of fruquintinib at lower dose as full
dose was felt to have contributed to loss of PS and hyponatremia. Now readmitted for ascites. Scans show progression in abdominal nodes, liver and brain since last scans six weeks ago or less. Markedly jaundiced. Pt and daughter understand that he
is at an end stage with his disease.
Past-Medical/Surgical History
Past Medical History
Metastatic colon cancer to liver and abdominal-r/p nodes, CHF, COPD, HTN, Hypercholesterolemia, NIDDM and Other (chronic anemia, thrombocytopenia, peripheral neuropathy)
Past Surgical History
Orthopedic (multiple) and Other (umbilical cyst)
Social History
Tobacco: Former Smoker
Alcohol: Occasional
Drug: None
Family History
Family History: Not Pertinent
Patient Medication
�Medication �Instructions �Recorded �Confirmed �Last Taken �Type
calcium 600 mg (as 1 tab PO BID Supplement #30 tabs 04/12/25 04/18/25 Unknown Rx
carbonate)-vitamin D3 5 mcg (200
unit) tablet
dexamethasone 4 mg tablet 4 mg PO Q12 #60 tabs 04/12/25 04/18/25 Unknown Rx
docusate sodium 100 mg capsule 100 mg PO HS Constipation #30 caps 04/12/25 04/18/25 Unknown Rx
(Colace)
furosemide 40 mg tablet 40 mg PO DAILY #30 tabs 04/12/25 04/18/25 Unknown Rx
insulin aspart U-100 100 unit/mL 13 unit (0.13 mL) SC AC #15 mL 04/12/25 04/18/25 Unknown Rx
(3 mL) subcutaneous pen
insulin glargine 100 unit/mL (3 40 unit (0.4 mL) SC QPM #15 mL 04/12/25 04/18/25 Unknown Rx
mL) subcutaneous pen (Lantus
Solostar U-100 Insulin)
magnesium 200 mg tablet 400 mg (2 x 200 mg) PO HS 04/12/25 04/18/25 Unknown Rx
Supplement #30 tabs
oxycodone 5 mg tablet 5 mg PO Q4HPRN PRN moderate pain 04/12/25 04/18/25 Unknown Rx
#30 tabs
pantoprazole 20 mg tablet,delayed 20 mg PO DAILY #30 tabs 04/12/25 04/18/25 Unknown Rx
release
polyethylene glycol 3350 17 gram 17 g PO DAILYPRN PRN constipation 04/12/25 04/18/25 Unknown Rx
oral powder packet #30 ea
simvastatin 10 mg tablet 10 mg PO HS High cholesterol #30 04/12/25 04/18/25 Unknown Rx
tabs
vitamins A,C,Y-emom-iyeyou 4,296 1 cap PO BID Supplement #30 caps 04/12/25 04/18/25 Unknown Rx
mcg-226 mg-90 mg capsule
(PreserVision AREDS)
Active Medications
Generic Name Dose Route Start Last Admin
Trade Name Freq PRN Reason Stop Dose Admin
Dexamethasone 4 mg 04/18/25 23:00 04/19/25 09:23
Dexamethasone 4 Mg Tablet PO 05/16/25 22:59 4 mg
Q12 HUI Administration
Dextrose 12.5 grams 04/18/25 23:00
Dextrose 50% (0.5 Grams/Ml) 50 Ml Syringe IV 05/16/25 22:59
[id number] PRN
hypoglycemia
Protocol
Docusate Sodium 100 mg 04/18/25 23:00 04/18/25 23:55
Docusate Sodium 100 Mg Capsule PO 05/16/25 22:59 100 mg
HS HUI Administration
Glucagon 1 mg 04/18/25 23:00
Glucagon 1 Mg Vial IM 05/16/25 22:59
PRN PRN
hypoglycemia
Protocol
Heparin Sodium 5,000 units 04/19/25 10:02 04/19/25 10:18
Heparin 5,000 Units/Ml 1 Ml Vial SC 05/17/25 09:59 5,000 units
Q12H HUI Administration
Heparin Sodium (Porcine) 250 unit 04/18/25 23:45 04/19/25 14:24
Heparin Flush Pf (100 Unit/Ml) 5 Ml Syringe IV 05/16/25 23:44 250 unit
PER PROTOCOL HUI Administration
Hydromorphone HCl 0.5 mg 04/19/25 14:10 04/19/25 14:23
Hydromorphone 0.5 Mg/0.5 Ml Syringe IV 05/03/25 14:09 0.5 mg
Q3HPRN PRN Administration
severe pain
Insulin Glargine 40 units/ 0.4 mls @ 0 mls/hr 04/18/25 23:00 04/19/25 00:03
Device SC 05/16/25 22:59 0.4 mls
QPM HUI Administration
As Directed
Insulin Aspart 0 units 04/19/25 11:30 04/19/25 14:23
Insulin Aspart High Resistance 300 Units/3 Ml Pen.Injctr SC 05/17/25 11:29 14 units
AC HUI Administration
Protocol
Magnesium Oxide 400 mg 04/18/25 23:45 04/18/25 23:55
Magnesium Oxide 400 Mg Tablet PO 05/16/25 23:44 400 mg
HS HUI Administration
Oxycodone HCl 5 mg 04/19/25 01:15 04/19/25 13:02
Oxycodone 5 Mg Regular Release Tablet PO 05/03/25 01:14 5 mg
Q4HPRN PRN Administration
moderate pain
Pantoprazole Sodium 20 mg 04/19/25 08:00 04/19/25 09:23
Pantoprazole 20 Mg Delayed Release Tablet PO 05/17/25 07:59 20 mg
DAILY HUI Administration
Polyethylene Glycol 17 grams 04/18/25 23:00
Polyethylene Glycol Powder 17 Grams Packet PO 05/16/25 22:59
DAILYPRN PRN
constipation
Sodium Chloride 0 flush 04/18/25 23:00
Sodium Chloride 0.9% (Flush) Syringe IV 05/16/25 22:59
PER PROTOCOL HUI
Review of Systems
-
History Source: Patient and Records
Constitutional: Reports Weight Loss, No Appetite, Fatigue and Weakness
EENT: Reports No Symptoms
Respiratory: Reports No Symptoms
Cardiac: Reports No Symptoms
GI: Reports No Symptoms
Breast: Reports No Symptoms
: Reports No Symptoms
Musculoskeletal: Reports Edema and Muscle Weakness
Skin: Reports No Symptoms
Neuro: Reports Dizzy, Weakness and Numbness
Endocrine: Reports No Symptoms
Hematologic/Lymphatic: Reports No Symptoms
Psych: Reports Sad
Physical Exam
-
General: Appears Chronically Ill
HEENT: Jaundice
Cardiology: Normal Sinus Rhythm
Pulmonary: Clear
GI: Soft and Distended
Musculoskeletal: Edema, Right Lower Extrem and Edema, Left Lower Extrem
Extremities: Pulses Present; Negative Phlebitic Signs
Neurology: Non Focal and No Word Finding Difficulty
Skin: Warm, Dry and Other (jaundiced)
Hematologic / Lymphatic: No Lymphadenopathy
Psych: Calm and Intact Judgement/Insight
Labs
Lab Results
WBC 19.6 10^3/uL (4.8-10.8) H 04/19/25 04:53
RBC 2.25 10^6/uL (4.70-6.10) L 04/19/25 04:53
Hgb 8.2 g/dL (13.0-18.0) L 04/19/25 04:53
Hct 23.1 % (39.0-52.0) L 04/19/25 04:53
MCV 102.7 fL (80.0-94.0) H 04/19/25 04:53
MCH 36.4 pg (27.0-31.0) H 04/19/25 04:53
MCHC 35.5 g/dL (33.0-37.0) 04/19/25 04:53
RDW Not Reportable 04/19/25 04:53
Plt Count 101 10^3/uL (130-400) L 04/19/25 04:53
MPV 11.4 fL (7.4-10.4) H 04/19/25 04:53
Abs Immat Gran (auto) 0.2 10^3/uL (0-0.05) H 04/18/25 13:58
Absolute Neuts (auto) 20.7 10^3/uL (1.4-6.5) H 04/18/25 13:58
Absolute Lymphs (auto) 0.4 10^3/uL (1.2-3.4) L 04/18/25 13:58
Absolute Monos (auto) 0.9 10^3/uL (0.1-0.6) H 04/18/25 13:58
Absolute Eos (auto) 0.0 10^3/uL (0-0.7) 04/18/25 13:58
Absolute Basos (auto) 0.0 10^3/uL (0-0.2) 04/18/25 13:58
Immature Gran % 0.9 % (0-0.5) H 04/18/25 13:58
Neutrophils % 92.9 % (42.2-75.2) H 04/18/25 13:58
Lymphocytes % 1.9 % (20.5-51.1) L 04/18/25 13:58
Monocytes % 4.2 % (1.7-9.3) 04/18/25 13:58
Eosinophils % 0.0 % (0-6) 04/18/25 13:58
Basophils % 0.1 % (0-2) 04/18/25 13:58
Creatinine 1.6 mg/dL (0.7-1.3) H 04/19/25 04:53
Vital Signs
Vital Signs
Temp Pulse Resp BP Pulse Ox
97.5 F 99 19 117/93 99
04/19/25 15:45 04/19/25 15:45 04/19/25 15:45 04/19/25 15:45 04/19/25 15:45
[2025-04-19] MEDS: NOVOLOG FLEXPEN-HIGH RESISTANCE 12 UNITS SC (17:55)
[2025-04-19 21:19] LABS: Glucose - Point of Care 276 mg/dl (70-99)
[2025-04-19] MEDS: MAGNESIUM OXIDE 400 MG PO (22:44)
[2025-04-19] MEDS: COLACE 100 MG PO (22:45)
[2025-04-20 03:10] VITALS: BP 134/74
[2025-04-20] MEDS: ROXICODONE 5 MG PO ×2 (05:47→14:00)
[2025-04-20 06:01] VITALS: BMI 32.5
[2025-04-20 06:30] LABS: Hematocrit 25.5 % (39.0-52.0); Hemoglobin 8.5 g/dL (13.0-18.0); Mean Corp Hgb Conc. 33.3 g/dL (33.0-37.0); Mean Corpuscular Volume 104.1 fL (80.0-94.0); Platelet Count 114 10^3/uL (130-400)
[2025-04-20 06:52] LABS: Blood Urea Nitrogen 95 mg/dl (9-20); Calcium 8.3 mg/dl (8.4-10.2); Carbon Dioxide 19 mmol/L (22-30); Chloride 94 mmol/L (98-107); Estimated Creatinine Clearance 39 ml/min; Glucose 286 mg/dl (70-99); Potassium 5.7 mmol/L (3.5-5.1); Sodium 124 mmol/L (135-145); eGFR 34.38
[2025-04-20 07:30] VITALS: BP 133/73
[2025-04-20 07:38] LABS: Glucose - Point of Care 308 mg/dl (70-99)
[2025-04-20] MEDS: DILAUDID 0.5 MG IV ×3 (07:42→22:12)
[2025-04-20] MEDS: DECADRON 4 MG PO (07:43)
[2025-04-20] MEDS: PROTONIX 20 MG PO (07:43)
[2025-04-20] MEDS: NOVOLOG FLEXPEN-HIGH RESISTANCE 10 UNITS SC ×2 (09:35→19:11)
[2025-04-20] MEDS: HEPARIN 5000 UNITS SC ×2 (10:30→22:10)
[2025-04-20 10:49] VITALS: BP 136/75
--- NOTE | 2025-04-20 10:54 | W.PN.HOSP.TC ---
Today's Communication/Plan
-
Continue with pain regimen
Renal dexamethasone
Await hospice input
DC planning
Assessment / Plan
Assessment / Plan
Progressive abdominal pain with a reaccumulating malignant ascites
Decompensated liver disease secondary to metastatic cancer
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
Suspect underlying abdominal pain is secondary to malignancy
Worsening hepatic disease with bilirubin of 8.2 noted and elevated transaminitis and alkaline phosphatase noted
Ascites is reaccumulating all suggestive of decompensated liver disease from the malignant process carrying a poor prognosis.
Patient had abdominal paracentesis 04/19 without much benefit from abdominal pain.
Started on pain regimen for cancer pain
Appreciate oncology input-they feel it is end-stage cancer now and no treatments were changed to the prognosis and recommended hospice.
Discussed with the patient today. He says he had discussions about hospice with oncology and at this point for him goals of care is to be pain-free.
Diffuse metastatic colon CA - Prognosis is grave
- - Known Met colon CA to liver + abd and r/p nodes on fruquintinib since 03/23
- 1.3 cm ring-enhancing mass in the L occipital lobe with surrounding vasogenic edema + additional small 0.5 cm enhancing lesion in the medial right temporoparietal lobe
- Transfusion dependent anemia
Brain mets - wean Dexa to once a day and if clinical status worse wean it to stop
KRISTA concerning for Hepatorenal syndrome , HX CKD
Hyperkalemia
Metabolic acidosis
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
- Hold REHEATER PO Lasix 40 mg daily for now (previously indicated for free water excretion in setting of hyponatremia due to SIADH from underlying malignancy)
- Lokelma - Low potassium diet encouraged re: hyperkalemia
- Renal in put noted
CKD3 HX
- Avoid nephrotoxic
- Continue hold diuretics
Monitor renal function in a.m.
HX Urinary retention
- admission bladder scan is 10 cc
- Straight cath as needed
Other medical problems:
Chronic HFpEF - Prior TTE: EF 65 to 70%
Hypertension
Hyperlipidemia
COPD
Bicytopenia
Constipation
Diabetes mellitus
chronic back pain
Fall
Orthostatic hypotension
Prognosis: Patient and family understand guarded to poor prognosis but patient is not mentally ready for hospice
DVT Px: SQH
Code: Full code
IMU
Discussed with oncology yesterday
DW CM
DC back to facility on hospice today once patient/family signs to hospice n bed available at the facility
Total time spent on today's encounter was 52 minutes which included time spent in counseling the patient/family regarding diagnosis and treatment plan as listed above, goals of care, and symptom management. Case was discussed with nursing staff,
specialists, and care coordinators/case management. All labs and imaging personally reviewed by me. Remainder the time spent in detailed review of previous records, lab data, imaging, and other medical provider documentation.
Portions of this chart may have been created with voice recognition software. Occasional wrong word or 'sound alike' substitutions may have occurred due to the inherent limitations of voice recognition software.
Anticipated Discharge: Within 24 hours
Subjective/Interval History
-
Date of Service: April 20, 2025
Remains with abdo pain and point to RUQ. Needing IV pain meds.
Denies any nausea. Tolerating some diet. Denies any shortness of breath.
Objective Data
-
Labs:
Laboratory Results
04/20/25
04:30
WBC 22.1 H
Hgb 8.5 L
Hct 25.5 L
Plt Count 114 L
Sodium 124 L
Potassium 5.7 H
Chloride 94 L
Carbon Dioxide 19 L
BUN 95 H
Creatinine 2.0 H
Glucose 286 H
Calcium 8.3 L
Vital Signs:
Vital Signs
Temp Pulse Resp BP Pulse Ox
97.5 F 103 16 136/75 100
04/20/25 10:49 04/20/25 10:49 04/20/25 10:49 04/20/25 10:49 04/20/25 10:49
I&O
04/19/25 04/20/25 04/21/25
06:59 06:59 06:59
Intake Total 960 / 960
Balance 960 / 960
Physical Exam
-
General: No Apparent Distress
HEENT: Negative Anicteric (Deeply jaundiced)
Respiratory: Clear to Auscultation, Non Labored Respirations and Accessory Resp Muscle Use
Cardiac: Regular Rhythm, S1/S2 and Tachycardic
GI: Soft, Tender (Mostly in RUQ ) and Distended
Neuro: AO x 3
Psych: Calm
Data Reviewed
-
Labs: Labs Reviewed by me
[2025-04-20 11:38] LABS: Glucose - Point of Care 370 mg/dl (70-99)
--- NOTE | 2025-04-20 11:49 | CM ---
Addendum entered by Vilma Lay 04/20/25 15:27:
Transport set up for 10:30am tomorrow, updated Taylor from [facility] & Sivan from [facility]
Addendum entered by Vilma Lay 04/20/25 14:22:
spoke with Sivan from [facility]
equipment to be delivered to [facility] & prefer 9:30am discharge tomorrow (insulation power unit tender aware)
updated Taylor at [facility]
tt hospitalist
Original Note:
Patient seen at bedside
Dx: acities, hyponatremia
PMH: metastatic colon cancer, HFpEF, CKD IIIa, COPD, hypertension, hyperlipidemia, type 2 diabetes, chronic anemia, thrombocytopenia
IA completed
CM consult completed for hospice eval
spoke with daughter regarding options of hospice - agreeable & prefers [facility] who is the Hospice agency at [facility]
CM faxed clinicals to Sivan Vasquez at [facility] p) [phone], f)[phone]
spoke with Taylor Cedeno nurse ([phone]) at [facility] and updated
discussed hospice to have equipment delivered to the facility tomorrow
tt hospitalist - OOH DNR placed on chart - will need signature
Per daughter patient just moved into [facility] prior to hospitalization
PCP: Tonya Macias, [facility]
Pharmacy: [facility]
PLAN: return to [facility] with [facility] on 04/21/25, once equipment delivered
[facility] report #:[phone] fax #: [phone]
[facility] fax #: [phone]
transportation forms on chart
--- NOTE | 2025-04-20 12:32 | W.PN.NEPH.PH ---
Today's Communication / Plan
-
hospice
Assessment/Plan
-
Assessment
hyponatremia
Hyperkalemia
KRISTA on CKD
Contrast exposure On 04/18/25
Anemia
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
Urinary retention
Plan
Follow BMP
Additional Lokelma today
Hold Lasix still
await hospice arrangements
-
-
Date of Service: April 20, 2025
CC / HPI / ROS
-
Chief Complaint:
KRISTA
History of Present Illness:
KRISTA/Cr worse to 2.0
Na low stable 124
K stable high 5.7
Review of Systems:
no CP/SOB
abdominal discomfort
Labs
-
Labs:
WBC 22.1 10^3/uL (4.8-10.8) H 04/20/25 04:30
RBC 2.45 10^6/uL (4.70-6.10) L 04/20/25 04:30
Hgb 8.5 g/dL (13.0-18.0) L 04/20/25 04:30
Hct 25.5 % (39.0-52.0) L 04/20/25 04:30
Plt Count 114 10^3/uL (130-400) L 04/20/25 04:30
Sodium 124 mmol/L (135-145) L 04/20/25 04:30
Potassium 5.7 mmol/L (3.5-5.1) H 04/20/25 04:30
Chloride 94 mmol/L (98-107) L 04/20/25 04:30
Carbon Dioxide 19 mmol/L (22-30) L 04/20/25 04:30
BUN 95 mg/dl (9-20) H 04/20/25 04:30
Creatinine 2.0 mg/dL (0.7-1.3) H 04/20/25 04:30
eGFR 34.38 04/20/25 04:30
Glucose 286 mg/dl (70-99) H 04/20/25 04:30
Calcium 8.3 mg/dl (8.4-10.2) L 04/20/25 04:30
Albumin 3.1 g/dl (3.5-5.0) L 04/18/25 13:58
Physical Exam
-
Vital Signs:
Vital Signs
Temp Pulse Resp BP Pulse Ox
97.5 F 103 16 136/75 100
04/20/25 10:49 04/20/25 10:49 04/20/25 10:49 04/20/25 10:49 04/20/25 10:49
Cardiovascular:: Regular rate and rhythm
Respiratory:: Bilateral: Coarse
Lung Excursion:: Normal
Abdomen:: Nontender and Soft
Bowel Sounds:: Normal
Extremity Edema:: +1: Bilateral:
[2025-04-20] MEDS: NOVOLOG FLEXPEN-HIGH RESISTANCE SC (12:36)
[2025-04-20 15:15] VITALS: BP 136/77
[2025-04-20 16:32] LABS: Glucose - Point of Care 344 mg/dl (70-99)
[2025-04-20] MEDS: LANTUS 0.4 UNITS SC (17:51)
[2025-04-20 19:00] VITALS: BP 135/71
[2025-04-20 21:39] LABS: Glucose - Point of Care 351 mg/dl (70-99)
[2025-04-20] MEDS: MAGNESIUM OXIDE 400 MG PO (22:10)
[2025-04-20] MEDS: COLACE 100 MG PO (22:10)
--- NOTE | 2025-04-20 22:30 | PTCARENOTE ---
Patient's blood sugar 351. EXECUTIVE ACCOUNT MANAGER Юлия Stevens notified. See MAR. Patient going home on hospice tomorrow, EXECUTIVE ACCOUNT MANAGER Юлия Stevens notified, code status now DNR. Will continue to monitor.
[2025-04-20 23:00] VITALS: BP 132/71
[2025-04-20] MEDS: NOVOLOG FLEXPEN 10 UNITS SC (23:00)
[2025-04-21 01:52] LABS: Glucose - Point of Care 220 mg/dl (70-99)
[2025-04-21 03:00] VITALS: BP 120/68
[2025-04-21 04:58] LABS: Hematocrit 25.0 % (39.0-52.0); Hemoglobin 8.8 g/dL (13.0-18.0); Mean Corp Hgb Conc. 35.2 g/dL (33.0-37.0); Mean Corpuscular Volume 103.3 fL (80.0-94.0); Platelet Count 82 10^3/uL (130-400)
[2025-04-21 04:59] VITALS: BMI 32.7
[2025-04-21 05:35] LABS: Blood Urea Nitrogen 98 mg/dl (9-20); Calcium 7.9 mg/dl (8.4-10.2); Carbon Dioxide 18 mmol/L (22-30); Chloride 97 mmol/L (98-107); Estimated Creatinine Clearance 39 ml/min; Glucose 209 mg/dl (70-99); Potassium 5.3 mmol/L (3.5-5.1); Sodium 127 mmol/L (135-145); eGFR 34.38
[2025-04-21 07:30] VITALS: BP 121/67
[2025-04-21] MEDS: ROXICODONE 5 MG PO (07:36)
[2025-04-21] MEDS: DECADRON 4 MG PO (07:36)
[2025-04-21] MEDS: PROTONIX 20 MG PO (07:36)
[2025-04-21 07:42] LABS: Glucose - Point of Care 254 mg/dl (70-99)
[2025-04-21] MEDS: NOVOLOG FLEXPEN-HIGH RESISTANCE 7 UNITS SC (08:42)
--- NOTE | 2025-04-21 08:48 | W.DCSUMMARY ---
Discharge Summary
Discharge Data
Date of Admission: 04/18/25
Date of Discharge: 04/21/25
-
Pending Results: No
Hospital Course
Primary diagnosis:
End-stage metastatic colon cancer
Intractable abdominal pain from malignancy
Decompensated liver disease secondary to metastatic cancer
Worsening hepatic disease with bilirubin of 8.2 and elevated transaminitis and alkaline phosphatase
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
Acute kidney injury on chronic kidney disease
Hypokalemia
Metabolic acidosis
Hyponatremia
Secondary diagnosis:
Chronic kidney disease stage III
Primary hypertension
Chronic heart failure with preserved EF
Hyperlipidemia
Chronic obstructive pulmonary disease
Diabetes mellitus type 2 on insulin
Hospital course:
Patient with metastatic colon cancer presented with abdominal pain. He is reaccumulating malignant ascites. He had a paracentesis without much benefit of abdominal pain which is more focused on the right upper abdomen. He now has cholestasis with
bilirubin of 8.2 and elevated liver function tests. His abdominal pain which is relentless is suspected secondary to his hepatic disease, localized lymphadenopathy and his metastatic colon cancer.
He was seen by his oncologist on this visit and with the way the disease has progressed despite treatments it was felt that his end-stage metastatic colon cancer now and not a candidate for further therapy and the life expectancy may be few weeks or
less. Oncology team had a goals of care discussion with the patient and the family and they opted for hospice at the facility and was discharged there today.
He also developed new acute kidney injury on chronic kidney disease stage III. He also had IV contrast exposure for abdominal scanning on admission. Since the goals of care was hospice patient was treated conservatively regarding his KRISTA on
chronic kidney disease. Creatinine progressed from 1.4 on admission to 2.0 on discharge. He remained with hyponatremia and mild hypokalemia and acidosis.
Today patient is alert and oriented. Remains jaundiced. Still with the constant abdominal pain needing narcotics. Tolerable. Able to have some diet. Denies any shortness of breath. Afebrile pulse 97 blood pressure 121/67. Abdomen soft but
distended with right upper quadrant tenderness but no rebound guarding or rigidity. Alert and oriented. Not confused today.
He was deemed stable for transfer to hospice at the facility.
I did discuss with his daughter about the plan and she is aware about prognosis ; she had earlier discussions with oncology team. [id number] DNR discussed with the daughter and signed prior to transfer.
Consultants on board:
Oncology--Nory Mejia
Nephrology-Darshan Muhammad
Portions of this chart may have been created with voice recognition software. Occasional wrong word or 'sound alike' substitutions may have occurred due to the inherent limitations of voice recognition software.
Discharge Plan
-
Patient Disposition: Home with Hospice
Discharge Diagnosis/Procedures: End-stage metastatic colon cancer
Diet: Regular
Activity: As tolerated
Driving Restrictions: No driving
Bathing Restrictions: None
Other Services: Hospice
Prescriptions:
Continued
insulin glargine [Lantus Solostar U-100 Insulin] 100 unit/mL (3 mL) insulin pen
40 unit SC QPM Qty: 15 0RF
furosemide 40 mg Tablet
40 mg PO DAILY Qty: 30 0RF
polyethylene glycol 3350 17 gram Powder In Packet
17 g PO DAILYPRN PRN (Reason: constipation) Qty: 30 0RF
insulin aspart U-100 100 unit/mL (3 mL) Insulin Pen
13 unit SC AC Qty: 15 0RF
pantoprazole 20 mg Tablet,Delayed Release (Dr/Ec)
20 mg PO DAILY Qty: 30 0RF
oxycodone 5 mg Tablet
5 mg PO Q4HPRN PRN (Reason: moderate pain) Qty: 30 0RF
docusate sodium [Colace] 100 mg Capsule
100 mg PO HS Qty: 30 0RF
PreserVision AREDS 4,296 mcg-226 mg-90 mg Capsule
1 cap PO BID Qty: 30 0RF
Changed
dexamethasone 4 mg Tablet
4 mg PO DAILY Qty: 60 0RF
Discontinued
simvastatin 10 MG tablet
10 mg PO HS Qty: 30 0RF
calcium carbonate-vitamin D3 600 mg-5 mcg (200 unit) Tablet
1 tab PO BID Qty: 30 0RF
magnesium 200 mg Tablet
400 mg PO HS Qty: 30 0RF
Discharge Orders:
Discharge Patient (As Directed); Ordered 04/21/25
Ordered By: Ifeanyi Merida
Discharge Date and Time
Print Language: GUATEMALAN
--- NOTE | 2025-04-21 09:14 | CM ---
OOH DNR signed
updated Sivan from [facility] [place]-confirmed equipment in room
PLAN: return to [facility] with [facility] on 04/21/25
[facility] report #:[phone] fax #: [phone]
[facility] fax #: [phone]
transportation forms on chart, 10:30 [employer]ITCHELL [employer]
[2025-04-21] MEDS: DILAUDID 0.5 MG IV (09:35)
== END 2025-04-21 10:58 | disposition hospice, home (50) | DRG 374 ==
LOC: 3 WEST ACU 19:56
PROVIDERS: Nurse Practitioner Family; Physician Assistant; Radiology Vascular & Interventional Radiology; ADMITTING PHYSICIAN Internal Medicine; ATTENDING PHYSICIAN Internal Medicine; EMERGENCY PHYSICIAN Emergency Medicine; FAMILY PHYSICIAN Internal Medicine Hematology; OTHER PHYSICIAN Internal Medicine Hematology & Oncology; OTHER PHYSICIAN Specialist
PROC: 0W9G3ZZ Drainage of Peritoneal Cavity, Percutaneous Approach (ICD-10-PCS; 2025-04-19)
DX: C18.7 Malignant neoplasm of sigmoid colon (principal); G93.6 Cerebral edema; C77.9 Secondary and unspecified malignant neoplasm of lymph node, unspecified; E22.2 Syndrome of inappropriate secretion of antidiuretic hormone; C78.7 Secondary malignant neoplasm of liver and intrahepatic bile duct; C79.31 Secondary malignant neoplasm of brain; C79.51 Secondary malignant neoplasm of bone; I50.32 Chronic diastolic (congestive) heart failure; I13.0 Hypertensive heart and chronic kidney disease with heart failure and stage 1 through stage 4 chronic kidney disease, or unspecified chronic kidney disease; E87.20 Acidosis, unspecified; N17.9 Acute kidney failure, unspecified; R18.0 Malignant ascites; G89.3 Neoplasm related pain (acute) (chronic); D63.0 Anemia in neoplastic disease; D63.1 Anemia in chronic kidney disease; D69.6 Thrombocytopenia, unspecified; N18.31 Chronic kidney disease, stage 3a; J44.9 Chronic obstructive pulmonary disease, unspecified; R16.1 Splenomegaly, not elsewhere classified; E87.5 Hyperkalemia; E11.22 Type 2 diabetes mellitus with diabetic chronic kidney disease; E11.42 Type 2 diabetes mellitus with diabetic polyneuropathy; E11.649 Type 2 diabetes mellitus with hypoglycemia without coma; D72.829 Elevated white blood cell count, unspecified; E78.00 Pure hypercholesterolemia, unspecified; E87.6 Hypokalemia; E88.09 Other disorders of plasma-protein metabolism, not elsewhere classified; T38.0X5A Adverse effect of glucocorticoids and synthetic analogues, initial encounter; F17.200 Nicotine dependence, unspecified, uncomplicated; K76.9 Liver disease, unspecified; K59.00 Constipation, unspecified; Z51.5 Encounter for palliative care; Z79.4 Long term (current) use of insulin; Z79.899 Other long term (current) drug therapy
CPT/HCPCS: 49083; 74177; 80048; 80053; 81003; 81015; 82570; 82947; 82962; 83935; 84300; 85025; 85027; 85610; 85730; 87070; 89051; 99285; Q9967